=== PATIENT | female | born 1970 | race Caucasian/White ===

== ENCOUNTER 2016-11-30 22:26 | Emergency (ER) | payer OTHER ==
[2016-11-30] MEDS ORDERED: CIPROFLOXACIN HCL 500 MG TAB PO STA (22:43)
[2016-11-30] MEDS ORDERED: CLINDAMYCIN 900 MG in DEXTROSE 5% IN WATER 50 ML IVPB STA ×2 (22:43)
[2016-11-30] MEDS ORDERED: DIPH,PERTUS(ACELL)TETVAC-LF 0.5 ML VIAL IM ONE (22:44)
--- NOTE | 2016-11-30 22:48 | ED ---
Animal Bite HPI - General Chief Complaint: Animal Bite Stated Complaint: Animal Bite & Scratch Time Seen by Provider: 11/30/16 22:35 Source: patient, RN notes reviewed Mode of arrival: ambulatory Limitations: no limitations - History of Present Illness Initial Comments: This is a pleasant right hand dominant 46-year-old female who presents emergency department after being bit by her cat this morning. Patient states that she has multiple puncture wounds and a few scratches to her right wrist area after she had to break 2 for cancer from fighting. Patient states she has a cat and it can be observed. She states the cat is well. She states the cat' s temperamental. Cat is up-to-date on immunizations. Patient states that the injury occurred this morning and she has had progressive pain throughout the day. Patient states she is having quite a lot of throbbing pain to the right wrist which is exacerbated by movement. Patient is also starting to get paresthesias into the hand. Patient denies any known fever. Patient denies any other injuries. Last tetanus is unknown. Patient is an insulin treated diabetic. Patient denies any shortness of breath or chest pain. No abdominal pain. No headache. No dizziness or lightheadedness. No changes in vision or hearing. No changes in bowel movements or urination. MD Complaint: animal bite - Related Data Home Medications Medication Instructions Recorded Confirmed DULoxetine HCL [Cymbalta] 60 mg PO DAILY 09/24/14 09/24/14 Ergocalciferol [Vitamin D2 50,000 unit PO Q7D 09/24/14 09/24/14 (DRISDOL)] Gabapentin [Neurontin] 600 mg PO BID 09/24/14 09/24/14 Ibuprofen [Motrin] 600 mg PO BID 09/24/14 09/24/14 Lisinopril-Hctz 20-12.5 mg 1 each PO DAILY 09/24/14 09/24/14 [Zestoretic 20-12.5] Loratadine [Claritin] 5 mg PO DAILY 09/24/14 09/24/14 Methocarbamol [Robaxin] 1 tab PO BID 09/24/14 09/24/14 Omeprazole [PriLOSEC] 20 mg PO AC-BRKFST 09/24/14 09/24/14 glipiZIDE [Glucotrol] 5 mg PO AC-BID 09/24/14 09/24/14 metFORMIN HCL [Glucophage] 500 mg PO BID 09/24/14 09/24/14 Previous Rx's Medication Instructions Recorded Ciprofloxacin HCl [Cipro] 500 mg PO Q12HR #20 tablet 11/30/16 Clindamycin [Cleocin] 300 mg PO Q6H #80 capsule 11/30/16 Allergies Allergy/AdvReac Type Severity Reaction Status Date / Time Penicillins Allergy Swelling Verified 09/24/14 06:41 pregabalin [From Lyrica] Allergy Rash/Hives Verified 09/24/14 06:41 Sulfa (Sulfonamide Allergy Swelling Verified 09/24/14 06:41 Antibiotics) Review of Systems ROS Statement: Those systems with pertinent positive or pertinent negative responses have been documented in the HPI. ROS Other: All systems not noted in ROS Statement are negative. Past Medical History Past Medical History: Diabetes Mellitus, Fibromyalgia, GERD/Reflux, Hypertension Additional Past Medical History / Comment(s): neurpathy, high cholesterol. history of a PE. OB history: 1 vag delivery and 1 , pancreatits, hx of mono History of Any Multi-Drug Resistant Organisms: None Reported Past Surgical History: Cholecystectomy Past Anesthesia/Blood Transfusion Reactions: Motion Sickness, No Reported Reaction Past Psychological History: Anxiety, Depression Smoking Status: Current every day smoker Past Alcohol Use History: None Reported Past Drug Use History: None Reported General Exam - General Exam Comments Initial Comments: Well-developed, well-nourished 46-year-old female in no distress Limitations: no limitations General appearance: alert, in no apparent distress, in distress Head exam: Present: atraumatic, normocephalic, normal inspection Eye exam: Present: normal appearance, PERRL, EOMI. Absent: scleral icterus, conjunctival injection, periorbital swelling ENT exam: Present: normal exam, mucous membranes moist Neck exam: Present: normal inspection, full ROM. Absent: tenderness, meningismus, lymphadenopathy Respiratory exam: Present: normal lung sounds bilaterally. Absent: respiratory distress, wheezes, rales, rhonchi, stridor Cardiovascular Exam: Present: regular rate, normal rhythm, normal heart sounds. Absent: systolic murmur, diastolic murmur, rubs, gallop, clicks GI/Abdominal exam: Present: soft, normal bowel sounds. Absent: distended, tenderness, guarding, rebound, rigid Extremities exam: Present: tenderness, normal capillary refill. Absent: normal inspection, full ROM Right Upper Arm exam: Present: normal inspection. Absent: tenderness Elbow exam: Present: normal inspection, full ROM. Absent: tenderness, swelling , abrasion Forearm Wrist exam: Present: tenderness, swelling, other (Patient has multiple, small puncture wounds involving the right wrist area. Radial pulses 2+, ulnar pulses 2+, capillary refill less than 2 seconds, distal sensation is intact, patient has mild erythema surrounding one of the puncture wounds. There is no drainage. No evidence of lymphangitis. No evidence of axillary adenopathy. No evidence of vascular compromise.). Absent: laceration, ecchymosis, deformity Neuro motor exam: Present: wrist extension intact, thumb opposition intact, thumb IP flexion intact, thumb adduction intact, fingers 2-5 abduction intact Vascular: Absent: vascular compromise Back exam: Present: normal inspection Neurological exam: Present: alert, oriented X3, CN II-XII intact Psychiatric exam: Present: normal affect, normal mood Skin exam: Present: warm, dry, intact, normal color. Absent: rash Course Vital Signs 11/30/16 22:31 Temperature 98.3 F Pulse Rate 90 Respiratory 18 Rate Blood Pressure 176/95 O2 Sat by Pulse 100 Oximetry Medical Decision Making - Medical Decision Making Patient educated on signs and symptoms of worsening infection. Patient educated on wound care. Patient educated on follow-up. Return parameters discussed Disposition Clinical Impression: Cat bite, Puncture wound of wrist, right Disposition: HOME SELF-CARE Condition: Good Instructions: Animal Bite (ED) Additional Instructions: Soak the affected area in warm soap and water for 10-15 minutes at a time several times per day. Return to the ER for reevaluation within 48 hours or at any time if symptoms worsen, fever develops, or any other problems arise. Take all antibiotics as directed. Make an appointment with your physician on Saturday for follow-up. Prescriptions: Ciprofloxacin HCl [Cipro] 500 mg PO Q12HR #20 tablet Clindamycin [Cleocin] 300 mg PO Q6H #80 capsule Referrals: Marcy Rocha MD [Primary Care Provider] - 1-2 days Time of Disposition: 23:05
[2016-11-30] MEDS ORDERED: KETOROLAC 30 MG/ML 1 ML VIAL IVP STA (22:49)
[2016-11-30 23:17] LABS: Basophils # (A) 0.1 k/uL (0-0.2); Basophils % (A) 1 %; CH 32.2; CHCM 35.6; Eosinophils # (A) 0.1 k/uL (0-0.7); Eosinophils % (A) 1 %; HCT 40.5 % (34.0-46.0); Luc # (Auto) 0.23; Luc % (Auto) 2; Lymphocytes # (A) 2.8 k/uL (1.0-4.8); Lymphocytes % (A) 28 %; MCH 31.4 pg (25.0-35.0); MCHC 34.6 g/dL (31.0-37.0); MCV 90.7 fL (80.0-100.0); Mean Platelet Volume 6.4; Monocytes # (A) 0.4 k/uL (0-1.0); Monocytes % (A) 4 %; Neutrophils # (A) 6.2 k/uL (1.3-7.7); Neutrophils % (A) 64 %; RBC 4.47 m/uL (3.80-5.40); RDW 13.7 % (11.5-15.5); WBC 9.8 k/uL (3.8-10.6); WBC (Perox) 9.76
--- NOTE | 2016-11-30 23:22 | XR ---
EXAM: XR Right Wrist Complete, 3 or More Views CLINICAL HISTORY: Reason: was attacked by her cat. Bite and scratch gonsalez on anterior and posterior aspect of RT wrist TECHNIQUE: Frontal, lateral and oblique views of the right wrist. COMPARISON: None FINDINGS: Bones/joints: No acute fracture or dislocation identified. Mild negative ulnar variance. Soft tissues: Soft tissue swelling about the wrist, most prominent along the volar aspect. Punctate density adjacent to the distal radial ulnar joint on frontal view appears to correlate with a punctate density in the volar soft tissues. IMPRESSION: Soft tissue swelling about the wrist, most prominent along the volar aspect. Punctate density in the volar soft tissues at the level of the radiocarpal joint, nonspecific. Radiopaque foreign body not entirely excluded.
[2016-11-30 23:26] LABS: Anion Gap 19 mmol/L; Blood Urea Nitrogen 14 mg/dL (7-17); Calcium 9.9 mg/dL (8.4-10.2); Carbon Dioxide 22 mmol/L (22-30); Chloride 97 mmol/L (98-107); Glucose 405 mg/dL (74-99); Non-African American GFR(MDRD) >60 (>60 ml/min/1.73 sqM); Potassium 4.5 mmol/L (3.5-5.1); Sodium 138 mmol/L (137-145)
[2016-12-01 00:22] VITALS: BP 165/80; PULSE 72; RESP 16; TEMP 98.2
== END 2016-12-01 00:15 | disposition home or self-care (01) ==
LOC: EC 22:26
DX: S61.531A Puncture wound without foreign body of right wrist, initial encounter (principal); K21.9 Gastro-esophageal reflux disease without esophagitis; I10 Essential (primary) hypertension; E11.9 Type 2 diabetes mellitus without complications; M79.7 Fibromyalgia; F41.9 Anxiety disorder, unspecified; F32.9 Major depressive disorder, single episode, unspecified; F17.200 Nicotine dependence, unspecified, uncomplicated; Z23 Encounter for immunization; Z79.899 Other long term (current) drug therapy; Z79.84 Long term (current) use of oral hypoglycemic drugs; Z88.0 Allergy status to penicillin; Z88.2 Allergy status to sulfonamides; Z88.8 Allergy status to other drugs, medicaments and biological substances; W55.01XA Bitten by cat, initial encounter
CPT/HCPCS: 99284; 96365; 96375; 90471; 36415; 80048; 85025; 87040; 73110; 90715; J1885

== ENCOUNTER 2017-06-08 16:41 | Observation (INO) | payer OTHER ==
[2017-06-08] MEDS ORDERED: RX INFO: IV CONTRAST WAS GIVEN 1 EACH MISC MISCELLANE PRN (17:20)
[2017-06-08] MEDS ORDERED: SODIUM CHLORIDE 0.9% 1,000 ML IV ONE (17:22)
[2017-06-08] MEDS ORDERED: METOCLOPRAMIDE 5 MG/ML 2 ML VIAL IVP STA (17:22)
[2017-06-08] MEDS ORDERED: diphenhydrAMINE 50 MG/ML 1 ML VIAL IVP STA (17:22)
--- NOTE | 2017-06-08 17:29 | ED ---
General Adult HPI - General Chief complaint: Abdominal Pain Stated complaint: Abd Pain Time Seen by Provider: 06/08/17 17:07 Source: patient Mode of arrival: ambulatory Limitations: no limitations - History of Present Illness Initial comments: [place] is a 46-year-old obese female with poorly controlled diabetes who presents to the emergency department today for evaluation of abdominal pain. She reports she was in her usual state of health yesterday, she did eat at a restaurant and went to bed. She reports that upon waking this morning she had an episode of diarrhea which is not atypical for her, she then developed severe abdominal cramping, nausea and a single episode nonbloody nonbilious emesis. Patient reports that throughout the day she has tried to sleep due to abdominal cramping. She hasn't felt like eating or drinking anything, she states that she is experiencing waves this nausea but not experienced any further vomiting. She reports that this evening she continued to have stabbing abdominal pain that radiates from the right lower quadrant to the right upper quadrant into her right shoulder. She denies ever having pain like this in the past. Patient does have a history of pancreatitis approximately 2 years ago but states that this pain is different from this. She has had her gallbladder removed. She has had ablation sterilization procedure therefore is not . Patient does report having RLQ abdominal pain 2 days ago but assumed this was a ruptured cyst. Pain resolved without any intervention. Patient reports that while sitting in the waiting room today she developed a migrainous headache, history of this. Headache is located around her left eye and associated with blurred vision and scotoma in the left eye. Patient reports that she experiences is every time she gets a migraine and this is unchanged from previous migraines. - Related Data Home Medications Medication Instructions Recorded Confirmed DULoxetine HCL [Cymbalta] 60 mg PO DAILY 09/24/14 06/08/17 Ibuprofen [Motrin] 600 mg PO BID 09/24/14 06/08/17 Lisinopril-Hctz 20-12.5 mg 1 tab PO DAILY 09/24/14 06/08/17 [Zestoretic 20-12.5] Loratadine [Claritin] 10 mg PO DAILY 09/24/14 06/08/17 Methocarbamol [Robaxin] 500 mg PO BID 09/24/14 06/08/17 Omeprazole [PriLOSEC] 20 mg PO DAILY 09/24/14 06/08/17 metFORMIN HCL [Glucophage] 500 mg PO BID 09/24/14 06/08/17 Allergies Allergy/AdvReac Type Severity Reaction Status Date / Time Penicillins Allergy Swelling Verified 06/08/17 17:59 pregabalin [From Lyrica] Allergy Rash/Hives Verified 06/08/17 17:59 Sulfa (Sulfonamide Allergy Swelling Verified 06/08/17 17:59 Antibiotics) Review of Systems ROS Statement: Those systems with pertinent positive or pertinent negative responses have been documented in the HPI. ROS Other: All systems not noted in ROS Statement are negative. Constitutional: Reports: chills Eyes: Reports: vision change ENT: Denies: ear pain, throat pain Respiratory: Denies: cough, dyspnea Cardiovascular: Denies: chest pain, palpitations Endocrine: Reports: fatigue Gastrointestinal: Reports: abdominal pain, nausea, vomiting, diarrhea Genitourinary: Reports: abnormal menses. Denies: urgency, dysuria Skin: Denies: rash, lesions Neurological: Reports: headache Psychiatric: Denies: anxiety, depression Hematological/Lymphatic: Reports: easy bruising. Denies: easy bleeding Past Medical History Past Medical History: Diabetes Mellitus, Fibromyalgia, GERD/Reflux, Hypertension Additional Past Medical History / Comment(s): neurpathy, high cholesterol. history of a PE. OB history: 1 vag delivery and 1 , pancreatits, hx of mono History of Any Multi-Drug Resistant Organisms: None Reported Past Surgical History: Section, Cholecystectomy, Uterine Ablation Past Anesthesia/Blood Transfusion Reactions: Motion Sickness, No Reported Reaction Past Psychological History: Anxiety, Depression Smoking Status: Former smoker Past Alcohol Use History: None Reported Past Drug Use History: None Reported General Exam Limitations: no limitations General appearance: alert, obese, other (appears uncomfortable) Head exam: Present: atraumatic, normocephalic Eye exam: Present: normal appearance, PERRL ENT exam: Present: normal exam Neck exam: Present: normal inspection Respiratory exam: Present: normal lung sounds bilaterally. Absent: respiratory distress, wheezes Cardiovascular Exam: Present: regular rate GI/Abdominal exam: Present: soft, distended, tenderness, normal bowel sounds. Absent: guarding, rebound Extremities exam: Present: normal inspection Back exam: Present: normal inspection Neurological exam: Present: alert, oriented X3 Skin exam: Present: warm, dry, intact Course Vital Signs 06/08/17 06/08/17 06/08/17 17:03 18:48 19:22 Temperature 98.6 F 98.3 F 98.5 F Pulse Rate 103 H 93 95 Respiratory 22 18 18 Rate Blood Pressure 180/90 167/82 155/81 O2 Sat by Pulse 96 95 93 L Oximetry Medical Decision Making - Medical Decision Making Patient was seen and evaluated History obtained from patient and family at bedside VItal signs reviewed - afebrile, tachycardic Labs, imaging, medications ordered Labs with only mild leukocytosis CT with acute on chronic colitis at this time I feel the patient requires inpatient admission for pain management and fluid rehydration, I do not believe the patient requires empiric antibiotics at this time Patient care was discussed with Juan MOORE for [facility] hospitalist group, she accepts the admission for acute on chronic colitis she agrees with the plan to hold empiric antibiotics at this time admission orders placed - Lab Data Result diagrams: 06/08/17 17:50 06/08/17 17:50 Lab Results 06/08/17 06/08/17 06/08/17 Range/Units 17:50 17:50 17:50 WBC 12.8 H (3.8-10.6) k/uL RBC 4.35 (3.80-5.40) m/uL Hgb 13.1 (11.4-16.0) gm/dL Hct 38.1 (34.0-46.0) % MCV 87.5 (80.0-100.0) fL MCH 30.0 (25.0-35.0) pg MCHC 34.3 (31.0-37.0) g/dL RDW 13.8 (11.5-15.5) % Plt Count 248 (150-450) k/uL Neutrophils % 82 % Lymphocytes % 12 % Monocytes % 4 % Eosinophils % 1 % Basophils % 0 % Neutrophils # 10.4 H (1.3-7.7) k/uL Lymphocytes # 1.6 (1.0-4.8) k/uL Monocytes # 0.5 (0-1.0) k/uL Eosinophils # 0.1 (0-0.7) k/uL Basophils # 0.1 (0-0.2) k/uL Sodium 137 (137-145) mmol/L Potassium 4.1 (3.5-5.1) mmol/L Chloride 101 (98-107) mmol/L Carbon Dioxide 22 (22-30) mmol/L Anion Gap 14 mmol/L BUN 12 (7-17) mg/dL Creatinine 0.42 L (0.52-1.04) mg/dL Est GFR (MDRD) Af Amer >60 (>60 ml/min/1.73 sqM) Est GFR (MDRD) Non-Af >60 (>60 ml/min/1.73 sqM) Glucose 272 H (74-99) mg/dL Calcium 9.5 (8.4-10.2) mg/dL Magnesium 1.1 L (1.6-2.3) mg/dL Total Bilirubin 0.6 (0.2-1.3) mg/dL AST 26 (14-36) U/L ALT 21 (9-52) U/L Alkaline Phosphatase 76 (38-126) U/L Troponin I <0.012 (0.000-0.034) ng/mL Total Protein 7.9 (6.3-8.2) g/dL Albumin 4.2 (3.5-5.0) g/dL Urine Color Urine Appearance (Clear) Urine pH (5.0-8.0) Ur Specific Blodgett (1.001-1.035) Urine Protein (Negative) Urine Glucose (UA) (Negative) Urine Ketones (Negative) Urine Blood (Negative) Urine Nitrite (Negative) Urine Bilirubin (Negative) Urine Urobilinogen (<2.0) mg/dL Ur Leukocyte Esterase (Negative) Urine RBC (0-5) /hpf Urine WBC (0-5) /hpf Ur Squamous Epith Cells (0-4) /hpf Urine Mucus (None) /hpf 06/08/17 Range/Units 17:50 WBC (3.8-10.6) k/uL RBC (3.80-5.40) m/uL Hgb (11.4-16.0) gm/dL Hct (34.0-46.0) % MCV (80.0-100.0) fL MCH (25.0-35.0) pg MCHC (31.0-37.0) g/dL RDW (11.5-15.5) % Plt Count (150-450) k/uL Neutrophils % % Lymphocytes % % Monocytes % % Eosinophils % % Basophils % % Neutrophils # (1.3-7.7) k/uL Lymphocytes # (1.0-4.8) k/uL Monocytes # (0-1.0) k/uL Eosinophils # (0-0.7) k/uL Basophils # (0-0.2) k/uL Sodium (137-145) mmol/L Potassium (3.5-5.1) mmol/L Chloride (98-107) mmol/L Carbon Dioxide (22-30) mmol/L Anion Gap mmol/L BUN (7-17) mg/dL Creatinine (0.52-1.04) mg/dL Est GFR (MDRD) Af Amer (>60 ml/min/1.73 sqM) Est GFR (MDRD) Non-Af (>60 ml/min/1.73 sqM) Glucose (74-99) mg/dL Calcium (8.4-10.2) mg/dL Magnesium (1.6-2.3) mg/dL Total Bilirubin (0.2-1.3) mg/dL AST (14-36) U/L ALT (9-52) U/L Alkaline Phosphatase (38-126) U/L Troponin I (0.000-0.034) ng/mL Total Protein (6.3-8.2) g/dL Albumin (3.5-5.0) g/dL Urine Color Yellow Urine Appearance Clear (Clear) Urine pH 6.0 (5.0-8.0) Ur Specific Bl[place]gett 1.021 (1.001-1.035) Urine Protein 1+ H (Negative) Urine Glucose (UA) 4+ H (Negative) Urine Ketones Trace H (Negative) Urine Blood Trace H (Negative) Urine Nitrite Negative (Negative) Urine Bilirubin Negative (Negative) Urine Urobilinogen <2.0 (<2.0) mg/dL Ur Leukocyte Esterase Large H (Negative) Urine RBC 2 (0-5) /hpf Urine WBC 3 (0-5) /hpf Ur Squamous Epith Cells 1 (0-4) /hpf Urine Mucus Rare H (None) /hpf Disposition Clinical Impression: Colitis Disposition: ADMITTED IP TO THIS [facility] Condition: Good Referrals: Marcy Rocha MD [Primary Care Provider] - 1-2 days Decision Time: 20:31
[2017-06-08 18:14] LABS: Basophils # (A) 0.1 k/uL (0-0.2); Basophils % (A) 0 %; CH 30.8; CHCM 35.3; Eosinophils # (A) 0.1 k/uL (0-0.7); Eosinophils % (A) 1 %; HCT 38.1 % (34.0-46.0); HDW 2.82; HGB 13.1 gm/dL (11.4-16.0); Luc # (Auto) 0.08; Luc % (Auto) 1; Lymphocytes # (A) 1.6 k/uL (1.0-4.8); Lymphocytes % (A) 12 %; MCHC 34.3 g/dL (31.0-37.0); MCV 87.5 fL (80.0-100.0); Mean Platelet Volume 7.3; Monocytes # (A) 0.5 k/uL (0-1.0); Monocytes % (A) 4 %; Neutrophils # (A) 10.4 k/uL (1.3-7.7); Neutrophils % (A) 82 %; RBC 4.35 m/uL (3.80-5.40); RDW 13.8 % (11.5-15.5); WBC 12.8 k/uL (3.8-10.6); WBC (Perox) 13.14
[2017-06-08 18:15] LABS: Appearance,Urine Clear (Clear); Bilirubin,Urine Negative (Negative); Glucose,Urine (UA) 4+ (Negative); Ketones,Urine Trace (Negative); Leukocyte Esterase,Urine Large (Negative); Mucus,Urine Rare /hpf; Nitrite,Urine Negative (Negative); Particle Count 2574; Protein,Urine 1+ (Negative); RBC,Urine 2 /hpf (0-5); Specific Gravity,Urine 1.021 (1.001-1.035); Squamous Epithelial Cell,Urine 1 /hpf (0-4); UA Billing (MACRO vs. MICRO) MICRO; Urobilinogen,Urine <2.0 mg/dL (<2.0); WBC,Urine 3 /hpf (0-5)
[2017-06-08 18:27] LABS: ALT 21 U/L (9-52); AST 26 U/L (14-36); Alkaline Phosphatase 76 U/L (38-126); Anion Gap 14 mmol/L; Blood Urea Nitrogen 12 mg/dL (7-17); Calcium 9.5 mg/dL (8.4-10.2); Carbon Dioxide 22 mmol/L (22-30); Chloride 101 mmol/L (98-107); Glucose 272 mg/dL (74-99); Magnesium 1.1 mg/dL (1.6-2.3); Non-African American GFR(MDRD) >60 (>60 ml/min/1.73 sqM); Potassium 4.1 mmol/L (3.5-5.1); Sodium 137 mmol/L (137-145); Total Bilirubin 0.6 mg/dL (0.2-1.3); Total Protein 7.9 g/dL (6.3-8.2)
[2017-06-08] MEDS ORDERED: INSULIN REGULAR 100 UNIT/ML VIAL SQ ONE (18:46)
[2017-06-08] MEDS ORDERED: MORPHINE SULFATE 4 MG/ML SYRINGE IVP STA (18:52)
[2017-06-08] MEDS: MAGNESIUM SULFATE-D5W PMX 1 GM in DEXTROSE/WATER 1 100ML.BAG IVPB SCH ×2 (19:21→20:47)
--- NOTE | 2017-06-08 19:26 | CT ---
EXAMINATION TYPE: CT abdomen pelvis w con DATE OF EXAM: 06/08/2017 HISTORY: Patient complains of epigastric to right flank pain. CT DLP: 850mGycm Automated Exposure Control for Dose Reduction was Utilized. CONTRAST: CT scan of the abdomen and pelvis is performed with IV Contrast, patient injected with 100 mL of Omni paque 300. COMPARISON: None. FINDINGS: LUNG BASES: Scattered areas of subsegmental bibasilar dependent atelectasis are noted as well as line ar pleural minimal scarring within the lingula. Focal area of subpleural fat is seen posteriorly cristobal g the left lung base. LIVER/GB: The liver is diffusely hypoattenuated and of decreased enhancement in comparison to that of the spleen. This is most compatible with mild hepatic steatosis. Liver contour is smooth without inez dence of hepatic cirrhosis. Gallbladder is surgically absent with cholecystectomy clips in the gallbl adder fossa. PANCREAS: No significant abnormality is seen. No ductal dilatation. SPLEEN: Spleen is prominent and elongated measuring 13.0 cm in craniocaudal dimension although does n ot meet diagnostic criteria for splenomegaly. ADRENALS: Adrenal glands are symmetric without nodularity. KIDNEYS: No evidence of hydronephrosis or gross evidence of nephrolithiasis. Kidneys enhance and excr ete symmetrically.. BOWEL: There is mild bowel wall thickening and subtle pericolonic fat stranding of the ascending colo n, hepatic flexure and portions of the proximal transverse colon. Submucosal fat is also seen that ca n be an indicator of chronicity. Mesenteric fat stranding is an indicator of acuity. Appendix is retr ocecal and within normal limits of size. There is no thickening of the terminal ileum. A small amount of dependent free fluid layers on the broad ligament on series 3 image 68 and 69. There is mild thic kening of the right lateral conal fascia, reactive in nature. UTERUS/ADNEXA: In the retrovesicular pouch of Jose Alfredo there is a high density rounded structure measu ring 5.9 x 5 point to by at least 6.9 cm. This could represent a complex ovarian or paraovarian struc ture as the left ovary appears to reside on series 3 image 66 or anteriorly contiguous with this stru cture. LYMPH NODES: No greater than 1cm abdominal or pelvic lymph nodes are appreciated. OSSEOUS STRUCTURES: Multilevel mild degenerative change of the thoracolumbar spine is noted OTHER: Single surgical clip lies within the infraumbilical ventral midline abdomen. IMPRESSION:. 1. Mild acute right hemicolonic colitis with submucosal/intramural fat suggestive of acute on chronic process. No thickening of the terminal ileum. Inflammatory bowel disease should be excluded. Small a mount of reactive ascites layers along the broad ligament. No focal fluid collection to suggest absce ss or pneumoperitoneum. 2. Complex left ovarian/paraovarian structure in the pouch of Jose Alfredo. Differential considerations ar e for endometrioma, hemorrhagic cyst, ovarian neoplasm, or less likely ovarian torsion given the lack of left lower quadrant pain. Pelvic ultrasound could be performed for further evaluation. 3. Prominent size of the spleen approaching diagnostic criteria for splenomegaly. 4. Mild hepatic steatosis.
[2017-06-08] MEDS ORDERED: MORPHINE SULFATE 4 MG/ML SYRINGE IV PRN (20:33)
[2017-06-08] MEDS ORDERED: ONDANSETRON 4 MG/2 ML VIAL IVP PRN (20:33)
[2017-06-08] MEDS ORDERED: NALOXONE 0.4 MG/ML 1 ML VIAL IV PRN (20:33)
[2017-06-08] MEDS: METHOCARBAMOL 500 MG TAB PO SCH (21:43)
[2017-06-08] MEDS: IBUPROFEN 400 MG TAB PO PRN (21:43)
[2017-06-08] MEDS: metFORMIN 500 MG TAB PO SCH (21:44)
[2017-06-08] MEDS: 0.9% NACL WITH KCL 20 MEQ/L 1,000 ML IV SCH (21:44)
[2017-06-09] MEDS: 0.9% NACL WITH KCL 20 MEQ/L 1,000 ML IV SCH ×3 (04:02→17:48)
[2017-06-09] MEDS: IBUPROFEN 400 MG TAB PO PRN (06:52)
[2017-06-09 07:00] VITALS: RESP 14
[2017-06-09 07:00] LABS: Basophils % (A) 0 %; CH 30.7; CHCM 33.8; Eosinophils # (A) 0.1 k/uL (0-0.7); Eosinophils % (A) 1 %; HDW 2.74; HGB 11.6 gm/dL (11.4-16.0); Luc # (Auto) 0.06; Luc % (Auto) 1; Lymphocytes # (A) 1.2 k/uL (1.0-4.8); Lymphocytes % (A) 15 %; MCH 29.4 pg (25.0-35.0); MCHC 32.1 g/dL (31.0-37.0); MCV 91.4 fL (80.0-100.0); Mean Platelet Volume 7.2; Monocytes # (A) 0.3 k/uL (0-1.0); Monocytes % (A) 4 %; Neutrophils # (A) 6.2 k/uL (1.3-7.7); Neutrophils % (A) 79 %; RBC 3.94 m/uL (3.80-5.40); WBC 7.8 k/uL (3.8-10.6); WBC (Perox) 8.23
[2017-06-09 07:13] LABS: Anion Gap 8 mmol/L; Blood Urea Nitrogen 8 mg/dL (7-17); Calcium 8.2 mg/dL (8.4-10.2); Carbon Dioxide 22 mmol/L (22-30); Chloride 104 mmol/L (98-107); Glucose 255 mg/dL (74-99); Non-African American GFR(MDRD) >60 (>60 ml/min/1.73 sqM); Sodium 134 mmol/L (137-145)
[2017-06-09 07:17] LABS: Potassium 4.2 mmol/L (3.5-5.1)
[2017-06-09 07:17] LABS: Glucose,Whole Blood 274 mg/dL (75-99)
[2017-06-09] MEDS: INSULIN ASPART 100 UNIT/ML 1 ML 10 ML VIAL SQ SCH ×2 (08:32→12:15)
[2017-06-09] MEDS: METHOCARBAMOL 500 MG TAB PO SCH (08:33)
[2017-06-09] MEDS: metFORMIN 500 MG TAB PO SCH (08:33)
[2017-06-09] MEDS ORDERED: DULoxetine HCL 60 MG CAPSULE.DR PO SCH (09:00)
[2017-06-09] MEDS ORDERED: LISINOPRIL-HCTZ 20-12.5 MG 1 EACH TAB PO SCH (09:00)
[2017-06-09] MEDS: ACETAMINOPHEN TAB 325 MG TAB PO PRN ×2 (10:47→16:48)
[2017-06-09 11:35] LABS: Glucose,Whole Blood 247 mg/dL (75-99)
[2017-06-09] MEDS ORDERED: PANTOPRAZOLE 40 MG TABLET PO SCH (11:45)
[2017-06-09] MEDS ORDERED: LEVOFLOXACIN 500MG-D5W PMX 500 MG in DEXTROSE/WATER 1 100ML.BAG IVPB SCH (12:00)
[2017-06-09] MEDS: metroNIDAZOLE 500 MG TAB PO SCH ×2 (12:15→16:50)
[2017-06-09] MEDS: MAGNESIUM SULFATE-D5W PMX 1 GM in DEXTROSE/WATER 1 100ML.BAG IVPB SCH ×4 (13:23→16:43)
--- NOTE | 2017-06-09 14:31 | P.HPIM ---
History of Present Illness 46-year-old female came in with comments of abdominal pain mostly in the right half of the abdomen it was 9 x 10 in severity sharp in nature which presently improved now. Patient is presently comparing of epigastric abdominal discomfort and nausea secondary to gastritis. Patient is found to have colitis in the ascending colon terminal ileum is essentially within normal limits denied any family history of Crohn's disease patient had a colonoscopy 2 years ago which showed polyps supposed to get a colonoscopy as an outpatient by Dr. Callejas general surgery. Patient denied any fever chills patient was having nausea, diarrhea completely resolved at this point of time patient still has some abdominal pain. We'll advance the diet patient was started on now levofloxacin and metronidazole and will be discharged today later in the day. Review of Systems REVIEW OF SYSTEMS: CONSTITUTIONAL: No fever, no malaise, no fatigue. HEENT: No recent visual problems or hearing problems. Denied any sore throat. CARDIOVASCULAR: No chest pain, orthopnea, PND, no palpitations, no syncope. PULMONARY: No shortness of breath, no cough, no hemoptysis. GI As described in HPI NEUROLOGICAL: No headaches, no weakness, no numbness. HEMATOLOGICAL: Denies any bleeding or petechiae. GENITOURINARY: Denies any burning micturition, frequency, or urgency. MUSCULOSKELETAL/RHEUMATOLOGICAL: Denies any joint pain, swelling, or any muscle pain. ENDOCRINE: Denies any polyuria or polydipsia. The rest of the 14-point review of systems is negative. Past Medical History Past Medical History: Diabetes Mellitus, Fibromyalgia, GERD/Reflux, Hypertension Additional Past Medical History / Comment(s): neurpathy, high cholesterol. history of a PE. OB history: 1 vag delivery and 1 , pancreatits, hx of mono History of Any Multi-Drug Resistant Organisms: None Reported Past Surgical History: Section, Cholecystectomy, Uterine Ablation Past Anesthesia/Blood Transfusion Reactions: Previous Problems w/ Anesthesia, Motion Sickness Additional Past Anesthesia/Blood Transfusion Reaction / Comment(s): pt stays trouble waking up after choly Past Psychological History: Anxiety, Depression Smoking Status: Former smoker Past Alcohol Use History: None Reported Past Drug Use History: None Reported Medications and Allergies Home Medications Medication Instructions Recorded Confirmed Type DULoxetine HCL [Cymbalta] 60 mg PO DAILY 09/24/14 06/08/17 History Lisinopril-Hctz 20-12.5 mg 1 tab PO DAILY 09/24/14 06/08/17 History [Zestoretic 20-12.5] Loratadine [Claritin] 10 mg PO DAILY 09/24/14 06/08/17 History Methocarbamol [Robaxin] 500 mg PO BID 09/24/14 06/08/17 History Omeprazole [PriLOSEC] 20 mg PO DAILY 09/24/14 06/08/17 History metFORMIN HCL [Glucophage] 500 mg PO BID 09/24/14 06/08/17 History HYDROcodone/APAP 7.5-325MG [[place] 1 tab PO Q4H PRN #20 tab 06/09/17 Rx 7.5-325] Levofloxacin [Levaquin] 500 mg PO DAILY #7 tab 06/09/17 Rx metroNIDAZOLE [Flagyl] 500 mg PO TID #21 tab 06/09/17 Rx Allergies Allergy/AdvReac Type Severity Reaction Status Date / Time Penicillins Allergy Swelling Verified 06/08/17 17:59 pregabalin [From Lyrica] Allergy Rash/Hives Verified 06/08/17 17:59 Sulfa (Sulfonamide Allergy Swelling Verified 06/08/17 17:59 Antibiotics) Physical Exam Vitals: Vital Signs Temp Pulse Pulse Resp BP BP Pulse Ox 06/09/17 07:58 14 06/09/17 06:53 98.2 F 93 14 163/84 95 06/09/17 02:17 95 18 145/86 91 L 06/08/17 21:14 98.7 F 90 18 132/77 96 06/08/17 20:50 97.8 F 100 18 134/80 97 06/08/17 19:22 98.5 F 95 18 155/81 93 L 06/08/17 18:48 98.3 F 93 18 167/82 95 06/08/17 17:03 98.6 F 103 H 22 180/90 96 Intake and Output 06/08/17 06/09/17 06/09/17 22:59 06:59 14:59 Intake Total 300 1300 1200 Balance 300 1300 1200 Intake: Intake, IV Titration 100 1300 1200 Amount 0.9% NaCl with KCl 20 Meq 1200 1000 /l 1,000 ml @ 150 mls/hr IV .Q6H40M [facility] Rx#: [id number] Levofloxacin 500Mg-D5w 100 Pmx 500 mg In Dextrose/ Water 1 100ml.bag @ 100 mls/hr IVPB Q24H [facility] Rx#: [id number] Magnesium Sulfate-D5w Pmx 100 100 1 gm In Dextrose/Water 1 100ml.bag @ 100 mls/hr IVPB Q1H [facility] Rx#: [id number] Magnesium Sulfate-D5w Pmx 100 1 gm In Dextrose/Water 1 100ml.bag @ 100 mls/hr IVPB Q1H [facility] Rx#: [id number] Oral 200 Other: Voiding Method Toilet # Voids 2 Weight 74.843 kg PHYSICAL EXAMINATION: GENERAL: The patient is alert and oriented x3, not in any acute distress. Well developed, well nourished. HEENT: Pupils are round and equally reacting to light. EOMI. No scleral icterus. No conjunctival pallor. Normocephalic, atraumatic. No pharyngeal erythema. No thyromegaly. CARDIOVASCULAR: S1 and S2 present. No murmurs, rubs, or gallops. PULMONARY: Chest is clear to auscultation, no wheezing or crackles. ABDOMEN: Soft, minimal right sided abdominal tenderness no rebound or rigidity, good bowel sounds minimal epigastric abdominal tenderness as well. MUSCULOSKELETAL: No joint swelling or deformity. EXTREMITIES: No cyanosis, clubbing, or pedal edema. NEUROLOGICAL: Gross neurological examination did not reveal any focal deficits. SKIN: No rashes. Results CBC & Chem 7: 06/09/17 06:30 06/09/17 06:30 Labs: Abnormal Lab Results - Last 24 Hours (Table) 06/08/17 06/08/17 06/08/17 Range/Units 17:50 17:50 17:50 WBC 12.8 H (3.8-10.6) k/uL Neutrophils # 10.4 H (1.3-7.7) k/uL Sodium (137-145) mmol/L Creatinine 0.42 L (0.52-1.04) mg/dL Glucose 272 H (74-99) mg/dL POC Glucose (mg/dL) (75-99) mg/dL Calcium (8.4-10.2) mg/dL Magnesium 1.1 L (1.6-2.3) mg/dL Urine Protein 1+ H (Negative) Urine Glucose (UA) 4+ H (Negative) Urine Ketones Trace H (Negative) Urine Blood Trace H (Negative) Ur Leukocyte Esterase Large H (Negative) Urine Mucus Rare H (None) /hpf 06/09/17 06/09/17 06/09/17 Range/Units 06:30 07:16 11:32 WBC (3.8-10.6) k/uL Neutrophils # (1.3-7.7) k/uL Sodium 134 L (137-145) mmol/L Creatinine 0.40 L (0.52-1.04) mg/dL Glucose 255 H (74-99) mg/dL POC Glucose (mg/dL) 274 H 247 H (75-99) mg/dL Calcium 8.2 L (8.4-10.2) mg/dL Magnesium (1.6-2.3) mg/dL Urine Protein (Negative) Urine Glucose (UA) (Negative) Urine Ketones (Negative) Urine Blood (Negative) Ur Leukocyte Esterase (Negative) Urine Mucus (None) /hpf Thrombosis Risk Factor Assmnt - Choose All That Apply Any of the Below Risk Factors Present?: Yes Each Factor Represents 1 point: Age 41-60 years, Obesity (BMI >25) Each Risk Factor Represents 3 Points: History of DVT/PE Thrombosis Risk Factor Assessment Total Risk Factor Score: 5 Thrombosis Risk Factor Assessment Level: High Risk Assessment and Plan Plan: #1 colitis :: Mostly infectious colitis will and a colonoscopy once her colitis is better to rule out Crohn's disease and other types of colitis. We will advance her diet and patient is able to tolerate patient will be discharged today. 2 peptic is a disease or gastric esophageal reflux disease: Patient will be discharged on Prilosec patient is an approximately 2 discontinued and instead will provide her [place] prescription. 3 type 2 diabetes mellitus: Uncontrolled blood sugars patient's metformin will be increased to thousand twice a day #4 hypertension #5 fibromyalgia
--- NOTE | 2017-06-09 14:31 | P.DS ---
Providers Date of admission: 06/08/17 20:35 Attending physician: Vinita Camarena Primary care physician: Marcy Rocha [facility] Course: As per HPI Patient Condition at Discharge: Good Plan - Discharge Summary New Discharge Prescriptions: New HYDROcodone/APAP 7.5-325MG [[place] 7.5-325] 1 tab PO Q4H PRN #20 tab PRN Reason: Pain Levofloxacin [Levaquin] 500 mg PO DAILY #7 tab metroNIDAZOLE [Flagyl] 500 mg PO TID #21 tab Discontinued Ibuprofen [Motrin] 600 mg PO BID No Action Loratadine [Claritin] 10 mg PO DAILY Lisinopril-Hctz 20-12.5 mg [Zestoretic 20-12.5] 1 tab PO DAILY Omeprazole [PriLOSEC] 20 mg PO DAILY DULoxetine HCL [Cymbalta] 60 mg PO DAILY metFORMIN HCL [Glucophage] 500 mg PO BID Methocarbamol [Robaxin] 500 mg PO BID Discharge Medication List DULoxetine HCL [Cymbalta] 60 mg PO DAILY 09/24/14 [History] Lisinopril-Hctz 20-12.5 mg [Zestoretic 20-12.5] 1 tab PO DAILY 09/24/14 [History ] Loratadine [Claritin] 10 mg PO DAILY 09/24/14 [History] Methocarbamol [Robaxin] 500 mg PO BID 09/24/14 [History] Omeprazole [PriLOSEC] 20 mg PO DAILY 09/24/14 [History] metFORMIN HCL [Glucophage] 500 mg PO BID 09/24/14 [History] HYDROcodone/APAP 7.5-325MG [[place] 7.5-325] 1 tab PO Q4H PRN #20 tab 06/09/17 [Rx ] Levofloxacin [Levaquin] 500 mg PO DAILY #7 tab 06/09/17 [Rx] metroNIDAZOLE [Flagyl] 500 mg PO TID #21 tab 06/09/17 [Rx] Follow up Appointment(s)/Referral(s): Marcy Rocha MD [Primary Care Provider] - 3 Days Discharge Disposition: HOME SELF-CARE
[2017-06-09 16:33] VITALS: BP 137/78; PULSE 92; TEMP 98.3
== END 2017-06-09 17:47 | disposition home or self-care (01) ==
LOC: EC 16:41 → 3SUR 20:35 → INTOOBSV 20:35
PROVIDERS: ADMIT Internal Medicine; ATTEND Internal Medicine
DX: A09 Infectious gastroenteritis and colitis, unspecified (principal); E11.42 Type 2 diabetes mellitus with diabetic polyneuropathy; I10 Essential (primary) hypertension; M79.7 Fibromyalgia; K29.70 Gastritis, unspecified, without bleeding; F41.9 Anxiety disorder, unspecified; F32.9 Major depressive disorder, single episode, unspecified; E78.00 Pure hypercholesterolemia, unspecified; G43.909 Migraine, unspecified, not intractable, without status migrainosus; E66.9 Obesity, unspecified; Z68.31 Body mass index [BMI] 31.0-31.9, adult; K21.9 Gastro-esophageal reflux disease without esophagitis; Z79.84 Long term (current) use of oral hypoglycemic drugs; Z79.899 Other long term (current) drug therapy; Z88.0 Allergy status to penicillin; Z88.2 Allergy status to sulfonamides; Z88.8 Allergy status to other drugs, medicaments and biological substances; Z87.891 Personal history of nicotine dependence; Z86.711 Personal history of pulmonary embolism; Z86.010 Personal history of colon polyps; Z98.890 Other specified postprocedural states
CPT/HCPCS: 96376; 96366 ×2; 96367; 96361; 96365; 96375; 99285; 36415; 80053; 80048; 83735; 84484; 85025 ×2; 81001; 74177; G0378 ×2; J2270 ×2; J1200; J2765; J1956; J3475 ×2; Q9967; 96374

== ENCOUNTER 2017-06-11 00:01 | Emergency (ER) | payer OTHER ==
[2017-06-11] MEDS ORDERED: SODIUM CHLORIDE 0.9% 500 ML IV STA (00:58)
[2017-06-11] MEDS ORDERED: METOCLOPRAMIDE 5 MG/ML 2 ML VIAL IVP STA (00:58)
[2017-06-11] MEDS ORDERED: KETOROLAC 30 MG/ML 1 ML VIAL IVP STA (00:58)
[2017-06-11] MEDS ORDERED: diphenhydrAMINE 50 MG/ML 1 ML VIAL IVP STA (00:58)
--- NOTE | 2017-06-11 01:49 | CT ---
EXAMINATION TYPE: CT brain wo con DATE OF EXAM: 06/11/2017 COMPARISON: NONE HISTORY: headache CT DLP: 945.50 mGycm. Automated Exposure Control for Dose Reduction was Utilized. TECHNIQUE: CT scan of the head is performed without contrast. FINDINGS: Ventricles and sulci appear normal. There is no mass effect nor midline shift. There is n o sign of intracranial hemorrhage. The calvarium is intact. CONCLUSION: Negative CT scan of the brain.
[2017-06-11 02:02] VITALS: RESP 18
--- NOTE | 2017-06-11 02:29 | ED ---
Headache HPI - General Chief Complaint: Headache Stated Complaint: Headache x 3days/HTN-Revisit Time Seen by Provider: 06/11/17 00:41 Mode of arrival: ambulatory Limitations: no limitations - History of Present Illness Initial Comments: 46-year-old female patient presents to the emergency department today for evaluation of headache and high blood pressure. Patient states that headache started on Saturday around 4:30 in the afternoon. She states with the onset of headache she had "prisms" in her field of vision, these resolved rather quickly. She states that she was being seen for abdominal pain and vomiting in the emergency department at time of onset; she ended up being admitted for colitis. She states that she was discharged home on oral antibiotics. She states that her headache had persisted throughout her hospital stay here. She states that the headache has been constant over the last 3 days. She states that it is been consistently 7-8 out of 10 on the pain scale. She states that she did check her blood pressure at home tonight and was in the 170s systolic and over 100 diastolic. She is unsure if this could relate to her headache. She has been nauseated, however reports that she was nauseated and had vomiting prior to the headache onset. She denies any weakness, numbness, or tingling. She denies any blurred or double vision. She denies any neck or back pain. She denies any history of similar symptoms. Patient denies any recent rash, fever, chills, shortness breath, chest pain, abdominal pain, nausea, vomiting, diarrhea, constipation, back pain, hematuria, dysuria, urinary urgency, urinary frequency, or any other complaints. - Related Data Home Medications Medication Instructions Recorded Confirmed DULoxetine HCL [Cymbalta] 60 mg PO DAILY 09/24/14 06/08/17 Lisinopril-Hctz 20-12.5 mg 1 tab PO DAILY 09/24/14 06/08/17 [Zestoretic 20-12.5] Loratadine [Claritin] 10 mg PO DAILY 09/24/14 06/08/17 Methocarbamol [Robaxin] 500 mg PO BID 09/24/14 06/08/17 Omeprazole [PriLOSEC] 20 mg PO DAILY 09/24/14 06/08/17 metFORMIN HCL [Glucophage] 500 mg PO BID 09/24/14 06/08/17 Previous Rx's Medication Instructions Recorded HYDROcodone/APAP 7.5-325MG [[place] 1 tab PO Q4H PRN #20 tab 06/09/17 7.5-325] Levofloxacin [Levaquin] 500 mg PO DAILY #7 tab 06/09/17 metroNIDAZOLE [Flagyl] 500 mg PO TID #21 tab 06/09/17 Allergies Allergy/AdvReac Type Severity Reaction Status Date / Time Penicillins Allergy Swelling Verified 06/11/17 00:09 pregabalin [From Lyrica] Allergy Rash/Hives Verified 06/11/17 00:09 Sulfa (Sulfonamide Allergy Swelling Verified 06/11/17 00:09 Antibiotics) Review of Systems ROS Statement: Those systems with pertinent positive or pertinent negative responses have been documented in the HPI. ROS Other: All systems not noted in ROS Statement are negative. Past Medical History Past Medical History: Diabetes Mellitus, Fibromyalgia, GERD/Reflux, Hypertension Additional Past Medical History / Comment(s): neurpathy, high cholesterol. history of a PE. OB history: 1 vag delivery and 1 , pancreatits, hx of mono. colitis History of Any Multi-Drug Resistant Organisms: None Reported Past Surgical History: Section, Cholecystectomy, Uterine Ablation Past Anesthesia/Blood Transfusion Reactions: Previous Problems w/ Anesthesia, Motion Sickness Additional Past Anesthesia/Blood Transfusion Reaction / Comment(s): pt stays trouble waking up after choly Past Psychological History: Anxiety, Depression Smoking Status: Former smoker Past Alcohol Use History: None Reported Past Drug Use History: None Reported General Exam Limitations: no limitations General appearance: alert, in no apparent distress, other (This is a well- developed, well-nourished adult female patient in no acute distress. Vital signs upon presentation were temperature 99.7F, pulse 96, respirations 16, blood pressure 177/92, pulse ox 95% on room air.) Eye exam: Present: normal appearance, PERRL, EOMI. Absent: scleral icterus, conjunctival injection, nystagmus, periorbital swelling ENT exam: Present: normal exam, normal oropharynx, mucous membranes moist, TM's normal bilaterally Neck exam: Present: normal inspection. Absent: tenderness, meningismus, lymphadenopathy Respiratory exam: Present: normal lung sounds bilaterally. Absent: respiratory distress, wheezes, rales, rhonchi, stridor Cardiovascular Exam: Present: regular rate, normal rhythm, normal heart sounds. Absent: systolic murmur, diastolic murmur, rubs, gallop, clicks Neurological exam: Present: alert, oriented X3, CN II-XII intact, other ( Strength in all 4 extremities is 5/5.) Psychiatric exam: Present: normal affect, normal mood Skin exam: Present: warm, dry, intact, normal color. Absent: rash Course Vital Signs 06/11/17 06/11/17 00:06 02:02 Temperature 99.7 F H Pulse Rate 96 86 Respiratory 16 18 Rate Blood Pressure 177/92 139/71 O2 Sat by Pulse 95 96 Oximetry Medical Decision Making - Medical Decision Making 46-year-old female patient presented for evaluation of headache 3 days. Physical examination was unremarkable. Neurologic status intact. Patient did have elevated blood pressure upon arrival. Blood pressure did improve throughout stay. We did perform computed tomography scan of the brain as she has not had a headache similar to this in the past. CT of the brain was normal. Patient did receive IV fluids, pain medication, and Reglan here in the department. She states that she was feeling somewhat improved. She was given an additional dose of pain medication and discharged home. She was instructed to follow-up with her primary care physician for recheck and for further evaluation of the blood pressure and headaches. She is instructed to keep a headache and a blood pressure diary to take with her to her next appointment. She is instructed to return here immediately for any new, worsening, or concerning symptoms. She verbalized understanding and agreed with this plan. - Radiology Data Radiology results: report reviewed, image reviewed CT of the brain shows the ventricles and sulci appear normal. There is no mass effect nor midline shift. There is no sign of intracranial hemorrhage. The calvarium is intact. Conclusion by Dr. Pennington shows negative computed tomography scan of the brain. Disposition Clinical Impression: Acute headache Disposition: HOME SELF-CARE Condition: Good Instructions: Acute Headache (ED) Additional Instructions: Increase fluids. Take ibuprofen and tylenol for pain control. Follow-up with her primary care physician for further evaluation of the headaches. Return here immediately for any new, worsening, or concerning symptoms. Referrals: Marcy Rocha MD [Primary Care Provider] - 1-2 days Time of Disposition: 02:29
[2017-06-11] MEDS ORDERED: HYDROmorphone 1 MG/ML 1 ML SYRINGE IVP STA (02:38)
[2017-06-11] MEDS ORDERED: HYDROmorphone 2 MG/ML 1 ML SYRINGE IVP STA (03:03)
[2017-06-11 03:16] VITALS: BP 163/93; PULSE 90; TEMP 98.7
== END 2017-06-11 03:15 | disposition home or self-care (01) ==
LOC: EC 00:01
DX: R51 Headache (principal); R11.2 Nausea with vomiting, unspecified; E11.9 Type 2 diabetes mellitus without complications; M79.7 Fibromyalgia; K21.9 Gastro-esophageal reflux disease without esophagitis; I10 Essential (primary) hypertension; E11.40 Type 2 diabetes mellitus with diabetic neuropathy, unspecified; F32.9 Major depressive disorder, single episode, unspecified; F41.9 Anxiety disorder, unspecified; Z87.891 Personal history of nicotine dependence; Z88.0 Allergy status to penicillin; Z88.8 Allergy status to other drugs, medicaments and biological substances; Z88.2 Allergy status to sulfonamides; Z79.84 Long term (current) use of oral hypoglycemic drugs; Z79.899 Other long term (current) drug therapy
CPT/HCPCS: 99284; 96374; 96375 ×3; 96361; 70450; J1170; J1200; J2765; J1885

== ENCOUNTER → 2017-10-28 | Outpatient (CLI) | payer OTHER ==
[2017-10-28 11:49] LABS: Basophils % (A) 1 %; Eosinophils # (A) 0.1 k/uL (0-0.7); Eosinophils % (A) 2 %; HCT 36.7 % (34.0-46.0); HGB 12.8 gm/dL (11.4-16.0); Lymphocytes # (A) 3.5 k/uL (1.0-4.8); Lymphocytes % (A) 46 %; MCH 31.5 pg (25.0-35.0); MCV 89.8 fL (80.0-100.0); Monocytes # (A) 0.4 k/uL (0-1.0); Monocytes % (A) 5 %; Neutrophils # (A) 3.4 k/uL (1.3-7.7); Neutrophils % (A) 45 %; Platelet Count 259 k/uL (150-450); RBC 4.08 m/uL (3.80-5.40); RDW 12.6 % (11.5-15.5); WBC 7.6 k/uL (3.8-10.6)
[2017-10-28 11:59] LABS: Uric Acid 5.8 mg/dL (3.7-7.4)
[2017-10-28 14:19] LABS: Erythrocyte Sedimentation Rate 18 mm/hr (0-20)
[2017-10-28 15:38] LABS: Rheumatoid Factor 7 IU/mL (0-15)
[2017-10-28 18:09] LABS: Anti-DNA, DS unit <1.0 IU/mL; DNA Double-Stranded NEGATIVE (NEGATIVE)
[2017-10-29 10:27] LABS: HLA B27 NEGATIVE
== END | disposition home or self-care (01) ==
LOC: LABWHC1 11:05
PROVIDERS: ATTEND Orthopaedic Surgery
DX: M25.50 Pain in unspecified joint (principal)
CPT/HCPCS: 36415; 84550; 85025; 85652; 86038; 86140; 86225; 86431; 86812

== ENCOUNTER → 2017-12-02 | Day surgery (SDC) | payer OTHER ==
[~2017-12-02] MED LIST: LACTATED RINGERS 1,000 ML IV SCH; LIDOCAINE 1% 20 ML VIAL (10MG/ML) FOR IV START INTRADERMA ONE; LIDOCAINE 1% INJ 10MG/ML (20 ML MDV) ONE; PROPOFOL 10 MG/ML 20 ML VIAL IV ONE
[2017-12-02 11:36] VITALS: RESP 16; TEMP 98.7
[2017-12-02 11:51] LABS: Glucose,Whole Blood 287 mg/dL (75-99)
[2017-12-02 12:56] VITALS: BP 134/83; PULSE 84
--- NOTE | 2017-12-03 00:26 | P.PCN ---
Date of Procedure: 12/02/17 Procedure(s) Performed: Procedure: 1. Esophagogastroduodenoscopy and biopsy. 2. Colonoscopy and biopsy. Preoperative diagnosis: Change in bowel habits, nausea and vomiting. Postoperative diagnosis: 1. Mild gastritis. 2. Normal colon and terminal ileum. 3. Biopsies obtained from the duodenum, antrum, esophagus, terminal ileum and colon. Preparation: HalfLytely prep. Sedation: Was provided by anesthesia. Brief clinical history: The patient is a 47-year-old female who is scheduled for this evaluation because of nonspecific abdominal discomfort, nausea and vomiting as well as diarrhea. The purposes to rule out complicated reflux disease, celiac disease, inflammatory bowel disease or other pathology. Procedure: With the patient on her left lateral decubitus position and after informed consent and adequate sedation, I passed the Olympus-GIF 160 video upper endoscope through the cricopharyngeus down the esophagus. GE junction was around 40 cm from the incisors and there was no definite hiatal hernia. The esophagus did not show any obvious erosions, ulcers, strictures or Dimas' s esophagus. The endoscope was then passed into the stomach which was insufflated with air and inspected in detail including the retroflex view in the cardia. There was some mottling and erythema in the antrum but no ulcers or erosions. Pyloric channel, duodenal bulb, post bulbar area and descending duodenum appeared within normal limits. Because of her symptoms, I obtained biopsies from the duodenum, antrum and esophagus then the endoscope was withdrawn and I proceeded with the colonoscopy. Perianal area did not show any fissures or fistulas. There were no masses felt on digital rectal examination. The Olympus CFQ 160L video colonoscope was then inserted in the rectum in the usual fashion and advanced to the cecum. I intubated the ileocecal valve and examined the terminal ileum. Terminal ileum and colon appeared healthy with no edema, erythema, friability, ulceration, exudation or spontaneous bleeding. No polyps or tumors were seen or any obvious diverticular disease or other pathology. I obtained biopsies from the terminal ileum and colon then the endoscope was withdrawn. The patient tolerated the procedure well. Plan: The patient was reassured. Will await biopsy results and make further plans based on her course and biopsy results. She will follow-up with you as planned and I will keep you updated on her progress.
== END ==
LOC: ORWHC2ENDO 10:25
DX: K29.50 Unspecified chronic gastritis without bleeding (principal); K21.0 Gastro-esophageal reflux disease with esophagitis; R19.4 Change in bowel habit; I10 Essential (primary) hypertension; E78.5 Hyperlipidemia, unspecified; E11.9 Type 2 diabetes mellitus without complications; M79.7 Fibromyalgia; Z79.2 Long term (current) use of antibiotics; Z79.84 Long term (current) use of oral hypoglycemic drugs; Z79.891 Long term (current) use of opiate analgesic; Z79.899 Other long term (current) drug therapy; Z88.0 Allergy status to penicillin; Z88.2 Allergy status to sulfonamides; Z88.8 Allergy status to other drugs, medicaments and biological substances
CPT/HCPCS: 88305; 45380; 43239; J2001; J2704

== ENCOUNTER 2018-03-29 11:49 | Emergency (ER) | payer OTHER ==
[2018-03-29 11:53] VITALS: TEMP 98.8
[2018-03-29] MEDS ORDERED: SODIUM CHLORIDE 0.9% 1,000 ML IV STA (11:59)
[2018-03-29] MEDS ORDERED: SODIUM CHLORIDE 0.9% 500 ML IV STA (11:59)
[2018-03-29] MEDS ORDERED: KETOROLAC 30 MG/ML 1 ML VIAL IVP STA (11:59)
[2018-03-29 12:38] LABS: Basophils % (A) 0 %; Eosinophils # (A) 0.1 k/uL (0-0.7); Eosinophils % (A) 1 %; HGB 13.7 gm/dL (11.4-16.0); Lymphocytes # (A) 1.4 k/uL (1.0-4.8); Lymphocytes % (A) 9 %; MCH 32.6 pg (25.0-35.0); MCV 93.2 fL (80.0-100.0); Mean Platelet Volume 7.3; Monocytes # (A) 0.5 k/uL (0-1.0); Monocytes % (A) 3 %; Neutrophils # (A) 13.6 k/uL (1.3-7.7); Neutrophils % (A) 87 %; Platelet Count 269 k/uL (150-450); RBC 4.19 m/uL (3.80-5.40); WBC 15.7 k/uL (3.8-10.6)
[2018-03-29 12:41] LABS: ALT 23 U/L (9-52); AST 19 U/L (14-36); Albumin 4.2 g/dL (3.5-5.0); Alkaline Phosphatase 66 U/L (38-126); Amylase 53 U/L (30-110); Anion Gap 11 mmol/L; Blood Urea Nitrogen 18 mg/dL (7-17); Calcium 9.5 mg/dL (8.4-10.2); Carbon Dioxide 25 mmol/L (22-30); Chloride 101 mmol/L (98-107); Glucose 313 mg/dL (74-99); Lipase 142 U/L (23-300); Sodium 137 mmol/L (137-145); Total Bilirubin 0.5 mg/dL (0.2-1.3); Total Protein 7.6 g/dL (6.3-8.2)
--- NOTE | 2018-03-29 13:06 | ED ---
Abdominal Pain HPI - General Chief Complaint: Abdominal Pain Stated Complaint: ABDOMINAL PAIN, FLANK PAIN RT SIDE, TO SHOULDER Time Seen by Provider: 03/29/18 11:53 Source: patient, RN notes reviewed Mode of arrival: wheelchair Limitations: no limitations - History of Present Illness Initial Comments: 47-year-old female presents emergency Department chief complaint of lower abdominal pain. Patient states the pain started earlier this morning has progressed. Patient states she now feels it primarily in her right flank that radiates up. Patient denies any chest pain or shortness of breath. Patient states that she has no history kidney stones. Patient had prior cholecystectomy. Patient is some nausea no vomiting no diarrhea no constipation she has no dysuria no hematuria. Patient states nothing makes the pain feel better or worse at this time. - Related Data Home Medications Medication Instructions Recorded Confirmed DULoxetine HCL [Cymbalta] 60 mg PO DAILY 09/24/14 12/02/17 Lisinopril-Hctz 20-12.5 mg 1 tab PO DAILY 09/24/14 12/02/17 [Zestoretic 20-12.5] Loratadine [Claritin] 10 mg PO DAILY 09/24/14 12/02/17 Methocarbamol [Robaxin] 500 mg PO BID 09/24/14 12/02/17 Omeprazole [PriLOSEC] 20 mg PO DAILY 09/24/14 12/02/17 metFORMIN HCL [Glucophage] 500 mg PO BID 09/24/14 12/02/17 Insulin Glargine [Lantus] 100 unit SQ HS 12/02/17 12/02/17 Levothyroxine Sodium [Synthroid] 50 mcg PO DAILY 12/02/17 12/02/17 Previous Rx's Medication Instructions Recorded Ciprofloxacin HCl [Cipro] 500 mg PO Q12HR #14 tablet 03/29/18 Ketorolac [Toradol] 10 mg PO Q8HR #15 tab 03/29/18 Ondansetron Odt [Zofran Odt] 4 mg PO Q8HR PRN #10 tab 03/29/18 Allergies Allergy/AdvReac Type Severity Reaction Status Date / Time Penicillins Allergy Swelling Verified 06/11/17 00:09 pregabalin [From Lyrica] Allergy Rash/Hives Verified 06/11/17 00:09 Sulfa (Sulfonamide Allergy Swelling Verified 06/11/17 00:09 Antibiotics) Review of Systems ROS Statement: Those systems with pertinent positive or pertinent negative responses have been documented in the HPI. ROS Other: All systems not noted in ROS Statement are negative. Past Medical History Past Medical History: Diabetes Mellitus, Fibromyalgia, GERD/Reflux, Hypertension Additional Past Medical History / Comment(s): neurpathy, high cholesterol. history of a PE. OB history: 1 vag delivery and 1 , pancreatits, hx of mono. colitis History of Any Multi-Drug Resistant Organisms: None Reported Past Surgical History: Section, Cholecystectomy, Uterine Ablation Past Anesthesia/Blood Transfusion Reactions: Previous Problems w/ Anesthesia, Motion Sickness Additional Past Anesthesia/Blood Transfusion Reaction / Comment(s): pt stays trouble waking up after choly Past Psychological History: Anxiety, Depression Smoking Status: Former smoker Past Alcohol Use History: Occasional Past Drug Use History: None Reported General Exam Limitations: no limitations General appearance: alert, in no apparent distress Head exam: Present: atraumatic, normocephalic, normal inspection Neck exam: Present: normal inspection. Absent: tenderness, meningismus, lymphadenopathy Respiratory exam: Present: normal lung sounds bilaterally. Absent: respiratory distress, wheezes, rales, rhonchi, stridor Cardiovascular Exam: Present: regular rate, normal rhythm, normal heart sounds. Absent: systolic murmur, diastolic murmur, rubs, gallop, clicks GI/Abdominal exam: Present: soft, tenderness (Mild right-sided), normal bowel sounds. Absent: distended, guarding, rebound, rigid Back exam: Absent: CVA tenderness (R), CVA tenderness (L) Skin exam: Present: warm, dry, intact, normal color. Absent: rash Course Vital Signs 03/29/18 11:51 Temperature 98.8 F Pulse Rate 96 Respiratory 22 Rate Blood Pressure 127/73 O2 Sat by Pulse 98 Oximetry Medical Decision Making - Medical Decision Making 39-year-old female presented emergency Department for right flank pain. Patient feels better after Toradol. Patient's found to have urinary tract infection. Patient will be started on antibiotics for 7 days and return for any worsening symptoms. - Lab Data Result diagrams: 03/29/18 12:15 03/29/18 12:15 Lab Results 03/29/18 03/29/18 03/29/18 Range/Units 12:15 12:15 12:55 WBC 15.7 H (3.8-10.6) k/uL RBC 4.19 (3.80-5.40) m/uL Hgb 13.7 (11.4-16.0) gm/dL Hct 39.0 (34.0-46.0) % MCV 93.2 (80.0-100.0) fL MCH 32.6 (25.0-35.0) pg MCHC 35.0 (31.0-37.0) g/dL RDW 13.0 (11.5-15.5) % Plt Count 269 (150-450) k/uL Neutrophils % 87 % Lymphocytes % 9 % Monocytes % 3 % Eosinophils % 1 % Basophils % 0 % Neutrophils # 13.6 H (1.3-7.7) k/uL Lymphocytes # 1.4 (1.0-4.8) k/uL Monocytes # 0.5 (0-1.0) k/uL Eosinophils # 0.1 (0-0.7) k/uL Basophils # 0.0 (0-0.2) k/uL Sodium 137 (137-145) mmol/L Potassium 4.0 (3.5-5.1) mmol/L Chloride 101 (98-107) mmol/L Carbon Dioxide 25 (22-30) mmol/L Anion Gap 11 mmol/L BUN 18 H (7-17) mg/dL Creatinine 0.43 L (0.52-1.04) mg/dL Est GFR (CKD-EPI)AfAm >90 (>60 ml/min/1.73 sqM) Est GFR (CKD-EPI)NonAf >90 (>60 ml/min/1.73 sqM) Glucose 313 H (74-99) mg/dL Calcium 9.5 (8.4-10.2) mg/dL Total Bilirubin 0.5 (0.2-1.3) mg/dL AST 19 (14-36) U/L ALT 23 (9-52) U/L Alkaline Phosphatase 66 (38-126) U/L Total Protein 7.6 (6.3-8.2) g/dL Albumin 4.2 (3.5-5.0) g/dL Amylase 53 (30-110) U/L Lipase 142 (23-300) U/L Urine Color Yellow Urine Appearance Cloudy H (Clear) Urine pH 5.0 (5.0-8.0) Ur Specific [place] 1.024 (1.001-1.035) Urine Protein Negative (Negative) Urine Glucose (UA) 4+ H (Negative) Urine Ketones Negative (Negative) Urine Blood Negative (Negative) Urine Nitrite Negative (Negative) Urine Bilirubin Negative (Negative) Urine Urobilinogen <2.0 (<2.0) mg/dL Ur Leukocyte Esterase Large H (Negative) Urine RBC 11 H (0-5) /hpf Urine WBC 18 H (0-5) /hpf Ur Squamous Epith Cells 5 H (0-4) /hpf Urine Bacteria Rare H (None) /hpf Urine Mucus Rare H (None) /hpf Disposition Clinical Impression: Abdominal pain, UTI (urinary tract infection) Disposition: HOME SELF-CARE Condition: Stable Instructions: Abdominal Pain (ED) Additional Instructions: Please return to the Emergency Department if symptoms worsen or any other concerns. Prescriptions: Ciprofloxacin HCl [Cipro] 500 mg PO Q12HR #14 tablet Ketorolac [Toradol] 10 mg PO Q8HR #15 tab Ondansetron Odt [Zofran Odt] 4 mg PO Q8HR PRN #10 tab PRN Reason: Nausea Is patient prescribed a controlled substance at d/c from ED?: No Referrals: Gail Mueller MD [Primary Care Provider] - 1-2 days Time of Disposition: 14:19
--- NOTE | 2018-03-29 13:40 | XR ---
EXAMINATION TYPE: XR KUB , 2 VIEWS DATE OF EXAM ORDERED: 03/29/2018 HISTORY: abdominal pain. COMPARISON: None. FINDINGS: The lung bases are clear. Within the abdomen, the gallbladder is been removed. The abdominal gas pattern is normal. There is no evidence of obstruction or free air. No unusual calcifications are seen. IMPRESSION: NO ACUTE ABDOMINAL ABNORMALITY.
[2018-03-29 14:14] LABS: Appearance,Urine Cloudy (Clear); Bacteria,Urine Rare /hpf; Bilirubin,Urine Negative (Negative); Blood,Urine Negative (Negative); Color,Urine Yellow; Glucose,Urine (UA) 4+ (Negative); Ketones,Urine Negative (Negative); Leukocyte Esterase,Urine Large (Negative); Mucus,Urine Rare /hpf; Nitrite,Urine Negative (Negative); Protein,Urine Negative (Negative); RBC,Urine 11 /hpf (0-5); Specific Gravity,Urine 1.024 (1.001-1.035); Squamous Epithelial Cell,Urine 5 /hpf (0-4); Urobilinogen,Urine <2.0 mg/dL (<2.0); WBC,Urine 18 /hpf (0-5)
[2018-03-29] MEDS ORDERED: cefTRIAXone IN SWFI 1,000 MG/10 ML SYRINGE IVP STA (14:17)
[2018-03-29] MEDS ORDERED: ACET/COD 300 MG/30 MG STARTER PACK 6 TAB BTL PO STA (14:19)
[2018-03-29 14:52] VITALS: RESP 16
[2018-03-29 14:53] VITALS: BP 122/79; PULSE 81
== END 2018-03-29 14:54 | disposition home or self-care (01) ==
LOC: EC 11:49
DX: N39.0 Urinary tract infection, site not specified (principal); I10 Essential (primary) hypertension; K21.9 Gastro-esophageal reflux disease without esophagitis; E78.00 Pure hypercholesterolemia, unspecified; E11.40 Type 2 diabetes mellitus with diabetic neuropathy, unspecified; F41.9 Anxiety disorder, unspecified; F32.9 Major depressive disorder, single episode, unspecified; Z79.4 Long term (current) use of insulin; Z79.899 Other long term (current) drug therapy; Z88.0 Allergy status to penicillin; Z88.2 Allergy status to sulfonamides; Z88.8 Allergy status to other drugs, medicaments and biological substances; Z86.711 Personal history of pulmonary embolism; Z87.891 Personal history of nicotine dependence; Z90.49 Acquired absence of other specified parts of digestive tract
CPT/HCPCS: 36415; 80053; 82150; 83690; 85025; 81001; 74018; 99284; 96374; 96375; 96361; J0696; J1885

== ENCOUNTER 2018-07-09 16:22 | Emergency (ER) | payer OTHER ==
[2018-07-09 16:36] VITALS: PULSE 90; TEMP 98.8
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
--- NOTE | 2018-07-09 20:09 | US ---
EXAMINATION TYPE: US venous doppler duplex LE LT DATE OF EXAM: 07/09/2018 7:46 PM COMPARISON: NONE CLINICAL HISTORY: Pain. Left leg pain SIDE PERFORMED: Left TECHNIQUE: The lower extremity deep venous system is examined utilizing real time linear array sonog tracie with graded compression, doppler sonography and color-flow sonography. VESSELS IMAGED: External Iliac Vein (EIV) Common Femoral Vein Deep Femoral Vein Greater Saphenous Vein * Femoral Vein Popliteal Vein Small Saphenous Vein * Proximal Calf Veins (* superficial vessels) Left Leg: Negative for DVT No evidence of DVT left leg. IMPRESSION: Negative exam. No evidence of deep venous thrombosis in the left leg.
--- NOTE | 2018-07-09 20:32 | XR ---
EXAMINATION TYPE: XR chest 2V DATE OF EXAM: 07/09/2018 COMPARISON: 04/10/1712 HISTORY: Chest pain TECHNIQUE: Frontal and lateral views of the chest are obtained. FINDINGS: Heart and mediastinum are normal. Lungs are clear. Diaphragm is normal. There is no sign o f pleural effusion or pneumothorax. Bony thorax is intact. IMPRESSION: Normal chest. No change.
--- NOTE | 2018-07-09 20:33 | XR ---
EXAMINATION TYPE: XR thoracic spine complete DATE OF EXAM: 07/09/2018 COMPARISON: NONE HISTORY: Back pain TECHNIQUE: 3 views FINDINGS: Thoracic vertebra have normal alignment. Disc spaces are normal. Posterior elements are int act. There is no paraspinal mass. There is mild spondylosis in the lower cervical spine. IMPRESSION: Negative thoracic spine exam. No fracture.
--- NOTE | 2018-07-09 20:41 | XR ---
EXAMINATION TYPE: XR hand complete LT DATE OF EXAM: 07/09/2018 COMPARISON: NONE HISTORY: Pain TECHNIQUE: 3 views FINDINGS: Metacarpals appear intact. I see no fracture nor dislocation. Joint spaces are normal. IMPRESSION: Negative left hand exam.
--- NOTE | 2018-07-09 21:01 | XR ---
EXAMINATION TYPE: XR cervical spine w flex/ext DATE OF EXAM: 07/09/2018 COMPARISON: NONE HISTORY: Neck pain TECHNIQUE: 7 views FINDINGS: There is some spurring anteriorly at C5-6 C6-7. Posterior elements are intact. There are no cervical ribs. Atlantoaxial facet joint is not displaced. The flexion-extension views show no sign o f instability. IMPRESSION: Spondylotic changes in the lower cervical spine. No fracture. No sign of instability.
[2018-07-09 21:17] VITALS: BP 158/82; RESP 18
== END 2018-07-09 21:19 | disposition home or self-care (01) ==
LOC: EC 16:22
DX: Z04.1 Encounter for examination and observation following transport accident (principal); E11.40 Type 2 diabetes mellitus with diabetic neuropathy, unspecified; F41.9 Anxiety disorder, unspecified; F32.9 Major depressive disorder, single episode, unspecified; K21.9 Gastro-esophageal reflux disease without esophagitis; I10 Essential (primary) hypertension; Z79.4 Long term (current) use of insulin; Z79.899 Other long term (current) drug therapy; Z88.0 Allergy status to penicillin; Z88.2 Allergy status to sulfonamides; Z86.711 Personal history of pulmonary embolism; Z86.718 Personal history of other venous thrombosis and embolism
CPT/HCPCS: 81025; 72072; 72052; 73130; 71046; 93971; 72125; 99284; L0120

== ENCOUNTER → 2018-08-28 | Outpatient (CLI) | payer OTHER ==
[2018-08-28 13:39] LABS: Basophils # (A) 0.1 k/uL (0-0.2); Basophils % (A) 1 %; Eosinophils # (A) 0.1 k/uL (0-0.7); Eosinophils % (A) 2 %; HCT 42.2 % (34.0-46.0); HGB 14.3 gm/dL (11.4-16.0); Lymphocytes # (A) 2.3 k/uL (1.0-4.8); Lymphocytes % (A) 29 %; MCH 31.1 pg (25.0-35.0); MCHC 33.9 g/dL (31.0-37.0); MCV 91.8 fL (80.0-100.0); Mean Platelet Volume 5.9; Monocytes # (A) 0.3 k/uL (0-1.0); Monocytes % (A) 4 %; Neutrophils # (A) 4.8 k/uL (1.3-7.7); Neutrophils % (A) 63 %; Platelet Count 289 k/uL (150-450); RDW 12.6 % (11.5-15.5); WBC 7.7 k/uL (3.8-10.6)
[2018-08-28 19:10] LABS: Albumin 4.2 g/dL (3.80-4.90); Albumin/Globulin Ratio 1.45 (1.60-3.17); Calcium 9.5 mg/dL (8.7-10.3); Globulin 2.9 g/dL (1.6-3.3); LDL Cholesterol,Calculated 186.6 mg/dL (0.0-131.0); Potassium 4.5 mmol/L (3.5-5.5); Total Bilirubin 0.5 mg/dL (0.3-1.2); Total Protein 7.1 g/dL (6.2-8.2); VLDL Calculation 43.4 mg/dL (5.00-40.00)
[2018-08-28 19:14] LABS: Hemoglobin A1C 10.4 % (4.0-6.0)
== END | disposition home or self-care (01) ==
LOC: LABWHC1 12:32
PROVIDERS: ATTEND Family Medicine
DX: E11.65 Type 2 diabetes mellitus with hyperglycemia (principal); E78.1 Pure hyperglyceridemia; I10 Essential (primary) hypertension; E03.9 Hypothyroidism, unspecified
CPT/HCPCS: 36415; 80053; 80061; 82043; 82570; 83036; 84439; 84443; 85025

== ENCOUNTER 2019-02-04 08:50 | Observation (INO) | payer OTHER ==
[2019-02-04] MEDS ORDERED: SODIUM CHLORIDE 0.9% 1,000 ML IV STA (09:01)
[2019-02-04] MEDS ORDERED: ONDANSETRON 4 MG/2 ML VIAL IVP STA (09:16)
[2019-02-04] MEDS ORDERED: KETOROLAC 30 MG/ML 1 ML VIAL IVP STA (09:16)
[2019-02-04] MEDS ORDERED: MORPHINE SULFATE 4 MG/ML SYRINGE IVP STA (09:16)
--- NOTE | 2019-02-04 09:20 | ED ---
Abdominal Pain HPI - General Chief Complaint: Abdominal Pain Stated Complaint: abd pain Time Seen by Provider: 02/04/19 09:01 Source: patient, RN notes reviewed, old records reviewed Mode of arrival: ambulatory Limitations: no limitations - History of Present Illness Initial Comments: Patient is a 48-year-old female presents emergency department today for evaluation with complaints of nausea, vomiting for the past 2 days, as well as upper abdominal pain leading towards her back. She states the back pain still somewhat to her previous pancreatitis. Patient also reports that over the past month she's been having intermittentpelvic pain shooting pelvic pain. He reports that she's had 2 bowel movements over the past week, which is unusual for her. She reports over the past month she's had a significant amount of weight loss of 30 pounds without changing her diet. Patient states that she has had no significant fevers or chills. Patient relates that her surgical history includes C-sections and cholecystectomy. Patient denies any significant fever. Patient relates that have a colonoscopy 3 years ago showing polyps. Patient reports that she had uterine ablation in [address] Candelario. - Related Data Home Medications Medication Instructions Recorded Confirmed Ibuprofen [Motrin] 800 mg PO Q6H PRN 02/04/19 02/04/19 Allergies Allergy/AdvReac Type Severity Reaction Status Date / Time Penicillins Allergy Swelling Verified 02/04/19 09:08 pregabalin [From Lyrica] Allergy Rash/Hives Verified 02/04/19 09:08 Sulfa (Sulfonamide Allergy Swelling Verified 02/04/19 09:08 Antibiotics) Review of Systems ROS Statement: Those systems with pertinent positive or pertinent negative responses have been documented in the HPI. ROS Other: All systems not noted in ROS Statement are negative. Past Medical History Past Medical History: Diabetes Mellitus, Fibromyalgia, GERD/Reflux, Hyperlipidemia, Hypertension Additional Past Medical History / Comment(s): neurpathy, high cholesterol. history of a PE. OB history: 1 vag delivery and 1 , pancreatits, hx of mono. colitis History of Any Multi-Drug Resistant Organisms: None Reported Past Surgical History: Section, Cholecystectomy, Uterine Ablation Past Anesthesia/Blood Transfusion Reactions: Previous Problems w/ Anesthesia, Motion Sickness Additional Past Anesthesia/Blood Transfusion Reaction / Comment(s): pt stays trouble waking up after choly Past Psychological History: Anxiety, Depression Smoking Status: Former smoker Past Alcohol Use History: Occasional Past Drug Use History: None Reported General Exam - General Exam Comments Initial Comments: This is a 48-year-old female. Alert and oriented 3. No significant distress. Limitations: no limitations General appearance: alert Head exam: Present: atraumatic, normocephalic, normal inspection Eye exam: Present: normal appearance, PERRL, EOMI. Absent: scleral icterus, conjunctival injection, periorbital swelling ENT exam: Present: normal exam, mucous membranes moist Neck exam: Present: normal inspection. Absent: tenderness, meningismus, lymphadenopathy Respiratory exam: Present: normal lung sounds bilaterally Cardiovascular Exam: Present: regular rate, normal rhythm, normal heart sounds. Absent: systolic murmur, diastolic murmur, rubs, gallop, clicks GI/Abdominal exam: Present: soft Rectal exam: Present: normal inspection, normal rectal tone Extremities exam: Present: normal inspection Back exam: Present: normal inspection Neurological exam: Present: alert, oriented X3, CN II-XII intact Psychiatric exam: Present: normal affect, normal mood Skin exam: Present: warm, dry, intact, normal color. Absent: rash Course Vital Signs 02/04/19 02/04/19 08:55 09:53 Temperature 98.6 F Pulse Rate 82 83 Respiratory 16 18 Rate Blood Pressure 116/77 157/97 O2 Sat by Pulse 99 99 Oximetry Medical Decision Making - Medical Decision Making Patient's 48-year-old female presents emergency department today with nausea and vomiting, history of 30 pound weight loss over the past few months, and complains of intermittent pelvic pain. She also states that she is having some upper abdominal pain and back pain. At this time patient's labwork was reviewed and unremarkable. Due to the significant weight loss and patient's symptoms of vomiting further testing was completed CT abdomen and pelvis. There is evidence of an enlarged cystic like mass related to the right ovary cannot exclude neoplasm. Mass measures 10 cm x 8 cm. Rectal exam was completed. No significant drainage or pus fistula appreciated at this time. Patient has case discussed with Dr. Bergman. Will admit the Patient for IV fluids, for further evaluation of this pelvic mass. Her ports that she did previously see Dr. Candelario for uterine ablation in 2014. She's had no further testing or gynecologic follow-up since that time. - Lab Data Result diagrams: 02/04/19 09:44 07/17/19 09:44 Lab Results 02/04/19 02/04/19 02/04/19 Range/Units 09:44 09:44 09:44 WBC 8.7 (3.8-10.6) k/uL RBC 4.03 (3.80-5.40) m/uL Hgb 12.8 (11.4-16.0) gm/dL Hct 37.0 (34.0-46.0) % MCV 91.8 (80.0-100.0) fL MCH 31.7 (25.0-35.0) pg MCHC 34.6 (31.0-37.0) g/dL RDW 14.2 (11.5-15.5) % Plt Count 252 (150-450) k/uL Neutrophils % 56 % Lymphocytes % 36 % Monocytes % 4 % Eosinophils % 2 % Basophils % 1 % Neutrophils # 4.9 (1.3-7.7) k/uL Lymphocytes # 3.2 (1.0-4.8) k/uL Monocytes # 0.3 (0-1.0) k/uL Eosinophils # 0.1 (0-0.7) k/uL Basophils # 0.1 (0-0.2) k/uL Sodium 140 (137-145) mmol/L Potassium 3.9 (3.5-5.1) mmol/L Chloride 107 (98-107) mmol/L Carbon Dioxide 26 (22-30) mmol/L Anion Gap 7 mmol/L BUN 8 (7-17) mg/dL Creatinine 0.49 L (0.52-1.04) mg/dL Est GFR (CKD-EPI)AfAm >90 (>60 ml/min/1.73 sqM) Est GFR (CKD-EPI)NonAf >90 (>60 ml/min/1.73 sqM) Glucose 214 H (74-99) mg/dL Calcium 9.5 (8.4-10.2) mg/dL Total Bilirubin 0.4 (0.2-1.3) mg/dL AST 11 L (14-36) U/L ALT 10 (9-52) U/L Alkaline Phosphatase 55 (38-126) U/L Total Protein 6.8 (6.3-8.2) g/dL Albumin 3.7 (3.5-5.0) g/dL Amylase 57 (30-110) U/L Lipase 143 (23-300) U/L Urine Color Light Yellow Urine Appearance Clear (Clear) Urine pH 5.5 (5.0-8.0) Ur Specific [place] 1.004 (1.001-1.035) Urine Protein Negative (Negative) Urine Glucose (UA) Negative (Negative) Urine Ketones Negative (Negative) Urine Blood Negative (Negative) Urine Nitrite Negative (Negative) Urine Bilirubin Negative (Negative) Urine Urobilinogen <2.0 (<2.0) mg/dL Ur Leukocyte Esterase Negative (Negative) - Radiology Data Radiology results: report reviewed Enlarging cystic mass extending from the cul-de-sac and to the region of the pouch of Jose Alfredo measuring 10.5 x 8.0 x 12.4 cm. Ovarian neoplasm isn't excluded. Hepatosplenomegaly. Hepatic stated ptosis. Disposition Clinical Impression: Pelvic mass, Nausea and vomiting Disposition: ADMITTED IP TO THIS [facility] Condition: Stable Is patient prescribed a controlled substance at d/c from ED?: No Referrals: Gail Mueller MD [Primary Care Provider] - 1-2 days Time of Disposition: 12:02
[2019-02-04 10:02] LABS: Appearance,Urine Clear (Clear); Bilirubin,Urine Negative (Negative); Blood,Urine Negative (Negative); Color,Urine Light Yellow; Glucose,Urine (UA) Negative (Negative); Ketones,Urine Negative (Negative); Leukocyte Esterase,Urine Negative (Negative); Nitrite,Urine Negative (Negative); PH, Urine 5.5 (5.0-8.0); Protein,Urine Negative (Negative); Specific Gravity,Urine 1.004 (1.001-1.035); Urobilinogen,Urine <2.0 mg/dL (<2.0)
[2019-02-04 10:07] LABS: ALT 10 U/L (9-52); AST 11 U/L (14-36); African American GFR (CKD) >90 (>60 ml/min/1.73 sqM); Albumin 3.7 g/dL (3.5-5.0); Alkaline Phosphatase 55 U/L (38-126); Amylase 57 U/L (30-110); Anion Gap 7 mmol/L; Blood Urea Nitrogen 8 mg/dL (7-17); Calcium 9.5 mg/dL (8.4-10.2); Carbon Dioxide 26 mmol/L (22-30); Chloride 107 mmol/L (98-107); Glucose 214 mg/dL (74-99); Lipase 143 U/L (23-300); Potassium 3.9 mmol/L (3.5-5.1); Sodium 140 mmol/L (137-145); Total Bilirubin 0.4 mg/dL (0.2-1.3); Total Protein 6.8 g/dL (6.3-8.2)
[2019-02-04 10:10] LABS: Basophils # (A) 0.1 k/uL (0-0.2); Basophils % (A) 1 %; Eosinophils # (A) 0.1 k/uL (0-0.7); Eosinophils % (A) 2 %; HGB 12.8 gm/dL (11.4-16.0); Lymphocytes # (A) 3.2 k/uL (1.0-4.8); Lymphocytes % (A) 36 %; MCH 31.7 pg (25.0-35.0); MCHC 34.6 g/dL (31.0-37.0); MCV 91.8 fL (80.0-100.0); Mean Platelet Volume 7.2; Monocytes # (A) 0.3 k/uL (0-1.0); Monocytes % (A) 4 %; Neutrophils # (A) 4.9 k/uL (1.3-7.7); Neutrophils % (A) 56 %; Platelet Count 252 k/uL (150-450); RBC 4.03 m/uL (3.80-5.40); RDW 14.2 % (11.5-15.5); WBC 8.7 k/uL (3.8-10.6)
--- NOTE | 2019-02-04 11:30 | CT ---
EXAMINATION TYPE: CT abdomen pelvis w con DATE OF EXAM: 02/04/2019 COMPARISON: 06/08/2017 HISTORY: Upper abdominal pain CT DLP: 699.9 mGycm CONTRAST: CT scan of the abdomen and pelvis is performed without Oral Contrast and with IV Contrast, patient in jected with 100 mL of Isovue 300. FINDINGS: LUNG BASES-: No visible nodule. No infiltrate. LIVER/GB: No space occupying hepatic lesion. Biliary tree is of normal caliber. There is evidence of hepatic steatosis and hepatomegaly. The gallbladder is surgically absent. PANCREAS: No inflammation. No distinct mass. SPLEEN: The spleen is enlarged at 12.9 cm craniocaudal dimension. No lesion seen. ADRENALS: No nodule. No thickening. KIDNEYS/BLADDER: No hydronephrosis. No nephrolithiasis. No distinct renal mass. Urinary bladder g rossly unremarkable. BOWEL: Normal appendix. Normal bowel caliber. No inflammation. GENITAL ORGANS: Enlarging cystic mass extending from the cul-de-sac into the region of the pouch of Jose Alfredo measuring 10.5 x 8.0 x 12.4 cm. Ovarian neoplasm is not excluded. Previous measurement was 5. 9 x 5.0 x 6.9 cm. Small amount of free fluid is noted. The uterus is displaced to the left of midline . There is adjacent nodular ovarian tissue identified. LYMPH NODES: No greater than 1cm abdominal or pelvic lymph nodes are appreciated. AORTA: No significant abnormality. OSSEOUS STRUCTURES: No significant abnormality is seen. OTHER: No significant additional abnormality is seen. IMPRESSION: 1. Enlarging cystic mass extending from the cul-de-sac into the region of the pouch of Jose Alfredo measur ing 10.5 x 8.0 x 12.4 cm. Ovarian neoplasm is not excluded 2. Hepatosplenomegaly. Hepatic steatosis.
--- NOTE | 2019-02-04 11:31 | XR ---
EXAMINATION TYPE: XR KUB DATE OF EXAM: 02/04/2019 COMPARISON: 03/29/2018 INDICATION: Abdominal pain TECHNIQUE: Single view abdomen upright view FINDINGS: Nonspecific bowel gas within the midabdomen. Differential air-fluid level may be in the right lower q uadrant. No dilated loops of small bowel are evident. Some nonspecific colonic bowel gas is present d istally. Mild fecal retention may be present. Psoas margins are normal. No organomegaly is present. Cholecystectomy clips are present. IMPRESSION: 1. Nonspecific bowel gas pattern. Follow-up can be performed as clinically indicated.
[2019-02-04] MEDS ORDERED: IBUPROFEN 400 MG TAB PO PRN (12:03)
[2019-02-04] MEDS ORDERED: NALOXONE 0.4 MG/ML 1 ML VIAL IV PRN ×2 (12:03→14:29)
[2019-02-04] MEDS ORDERED: ACETAMINOPHEN TAB 325 MG TAB PO PRN (12:03)
[2019-02-04] MEDS ORDERED: MORPHINE SULFATE 4 MG/ML SYRINGE IV PRN (12:03)
[2019-02-04] MEDS ORDERED: ONDANSETRON 4 MG/2 ML VIAL IVP PRN (12:03)
[2019-02-04] MEDS ORDERED: traMADol 50 MG TAB PO PRN (14:29)
[2019-02-04] MEDS ORDERED: MELATONIN 3 MG TABLET PO PRN (14:29)
[2019-02-04] MEDS: SODIUM CHLORIDE 0.9% 1,000 ML IV SCH ×2 (14:41→23:50)
[2019-02-04] MEDS: ONDANSETRON 4 MG/2 ML VIAL IVP PRN (15:37)
[2019-02-04] MEDS: HEPARIN SODIUM,PORCINE 5,000 UNIT/ML 1 ML VIAL SQ SCH ×2 (15:45→23:51)
--- NOTE | 2019-02-04 16:13 | P.HPIM ---
History of Present Illness H&P Date: 02/04/19 Chief Complaint: Upper abdominal pain and nausea vomiting for 2 days prior to presentation. This 48-year-old lady with past medical history significant for hypertension, hyperlipidemia, diabetes mellitus type II was on insulin, fibromyalgia, gastroesophageal reflux disease, hypothyroidism and obesity who presented to the emergency department with the above complaint. Patient stated that for about a month or so she has been noticed having some pelvic pain off a nd on and was getting more constipated. Patient also stated that she has been working hard and was not taking care of her oral intake for quite a few months and she had lost unintentional weight about 30 pounds over period of 4 months. She stated that she started having this upper abdominal pain and mid abdominal pain which was somewhat going to the flanks area about couple days ago and was getting worse. She started having nausea and vomiting since yesterday and was unable to keep anything down. Patient stated her appetite was already down so she did not bother eating anything since yesterday. She also stated that she was on quite a few medication until June 2018 when she quit all the medication for her diabetes and other medical conditions. She stopped checking her sugars and stop following the diabetic diet. Patient stated that she was working at [employer] and was reporting about 18-20,000 steps per day and was not eating her 3 meals regularly. She started losing weight although she was not planning to do any weight loss. She stated that about couple months ago she waited 160+ pounds and she was shocked to no at the time of presentation today her weight was 133 pounds. Patient also stated that she quit smoking in 2014 but started smoking again due to her company September 2018. Patient has extensive evaluation done in the emergency department was noted to have no pancreatitis (history of pancreatitis), no bowel obstruction but she was noted to have pelvic mass and was admitted for acute management of intractable nausea vomiting and initial evaluation of pelvic mass. Patient denies chest pain, palpitation, diaphoresis, dizziness, headaches, cough, phlegm production and denies rest of the review of system. Review of Systems Review system was an essentially negative for all 12 body systems other than was mentioned in the HPI. Past Medical History Past Medical History: Diabetes Mellitus, Fibromyalgia, GERD/Reflux, Hyperlipidemia, Hypertension, Thyroid Disorder Additional Past Medical History / Comment(s): Pt states she stopped taking her medications in June 2018 as a matter of personal choice, IDDM type II, neuropathy bilateral legs/feet and hands, bilateral carpal tunnel syndrome, vertigo lately/balance problems, recent weight loss-30# since 09/2018, monzon creatitis, hypothyroidism History of Any Multi-Drug Resistant Organisms: None Reported Past Surgical History: Section, Cholecystectomy, Uterine Ablation Additional Past Surgical History / Comment(s): EGD, colonoscoies with benign polypectomy Past Anesthesia/Blood Transfusion Reactions: Previous Problems w/ Anesthesia, Motion Sickness Additional Past Anesthesia/Blood Transfusion Reaction / Comment(s): pt states trouble waking up after ciarra Past Psychological History: No Psychological Hx Reported Smoking Status: Current every day smoker Past Alcohol Use History: Occasional Past Drug Use History: None Reported - Past Family History Father Family Medical History: Cancer, Myocardial Infarction (OH) Additional Family Medical History / Comment(s): Father is living. Prostate cancer. Father had a OH at the age of 49yrs. Mother Family Medical History: Diabetes Mellitus, Renal Disease Additional Family Medical History / Comment(s): Mother is . Medications and Allergies Home Medications Medication Instructions Recorded Confirmed Type Ibuprofen [Motrin] 800 mg PO Q6H PRN 02/04/19 02/04/19 History Allergies Allergy/AdvReac Type Severity Reaction Status Date / Time Penicillins Allergy Swelling Verified 02/04/19 09:08 pregabalin [From Lyrica] Allergy Rash/Hives Verified 02/04/19 09:08 Sulfa (Sulfonamide Allergy Swelling Verified 02/04/19 09:08 Antibiotics) gabapentin AdvReac Severe Diarrhea Verified 02/04/19 13:49 Physical Exam Vitals: Vital Signs Temp Pulse Pulse Resp BP BP Pulse Ox 02/04/19 14:46 98.1 F 64 18 147/89 100 02/04/19 10:41 66 18 146/88 99 02/04/19 09:53 83 18 157/97 99 02/04/19 08:55 98.6 F 82 16 116/77 99 Intake and Output 02/04/19 02/04/19 02/04/19 06:59 14:59 22:59 Other: Voiding Method Toilet # Voids 1 Weight 60.6 kg - Constitutional General appearance: cooperative, no acute distress - EENT Eyes: EOMI, normal appearance ENT: hearing grossly normal, NA/AT - Neck Neck: no lymphadenopathy, normal ROM, no rigidity, no thyromegaly - Respiratory Respiratory: bilateral: CTA, negative: rales, rhonchi, wheezing - Cardiovascular Rhythm: regular Heart sounds: normal: S1, S2 Abnormal Heart Sounds: no systolic murmur, no diastolic murmur, no S3 Gallop, no S4 Gallop - Gastrointestinal Abdomen was soft, bowel sounds positive all 4 quadrants, there was epigastric and surrounding area tenderness was noted and there was [id number] bilateral lower quadrant tenderness were noted. There was no guarding, rigidity, or rebound detected. Unable to appreciate hepatomegaly/splenomegaly. - Integumentary Integumentary: normal, normal turgor - Neurologic Neurologic: CNII-XII intact - Psychiatric Psychiatric: A&O x's 3, appropriate affect, intact judgment & insight Results CBC & Chem 7: 02/04/19 09:44 02/04/19 09:44 Labs: Abnormal Lab Results - Last 24 Hours (Table) 02/04/19 Range/Units 09:44 Creatinine 0.49 L (0.52-1.04) mg/dL Glucose 214 H (74-99) mg/dL AST 11 L (14-36) U/L Abdominal x-ray: report reviewed CT scan - abdomen: report reviewed Thrombosis Risk Factor Assmnt - DVT/VTE Prophylaxis DVT/VTE Prophylaxis: Pharmacologic Prophylaxis ordered - Choose All That Apply Any of the Below Risk Factors Present?: Yes Each Factor Represents 1 point: Age 41-60 years Other Risk Factors: Yes Each Risk Factor Represents 3 Points: Family history of DVT/PE Other congenital or acquired thrombophilia - If yes, enter type in comment: No Thrombosis Risk Factor Assessment Total Risk Factor Score: 4 Thrombosis Risk Factor Assessment Level: Moderate Risk Assessment and Plan (1) Acute abdominal pain Current Visit: Yes Status: Acute Priority: High Code(s): R10.9 - UNSPECIFIED ABDOMINAL PAIN SNOMED Code(s): 316988830 (2) Acute gastritis without bleeding Current Visit: Yes Status: Acute Priority: High Code(s): K29.00 - ACUTE GASTRITIS WITHOUT BLEEDING SNOMED Code(s): 89471311 (3) Diabetes mellitus type 2 in nonobese Current Visit: Yes Status: Acute Priority: High Code(s): E11.9 - TYPE 2 DIABETES MELLITUS WITHOUT COMPLICATIONS SNOMED Code(s): 480198448 (4) Essential hypertension Current Visit: Yes Status: Acute Priority: High Code(s): I10 - ESSENTIAL (PRIMARY) HYPERTENSION SNOMED Code(s): 94217035 (5) Hypothyroidism Current Visit: Yes Status: Acute Priority: High Code(s): E03.9 - HYPOTHYROIDISM, UNSPECIFIED SNOMED Code(s): 73958646 (6) Nausea and vomiting Current Visit: Yes Status: Acute Priority: High Code(s): R11.2 - NAUSEA WITH VOMITING, UNSPECIFIED SNOMED Code(s): 61765524 (7) Pelvic mass Current Visit: Yes Status: Acute Priority: High Code(s): R19.00 - INTRA- ABD AND PELVIC SWELLING, MASS AND LUMP, UNSP SITE SNOMED Code(s): 43017870 (8) Smoking addiction Narrative/Plan: Pt. quit smoking in Jun-2015 but restarted in Sep-2018. Current Visit: Yes Status: Acute Priority: Medium Code(s): F17.200 - NICOTINE DEPENDENCE, UNSPECIFIED, UNCOMPLICATED SNOMED Code(s): 548316423 Plan: #1- Patient was admitted to hospitalist service and will be started on IV fluids, control of nausea and pain, the liquid diet will be initiated and will be advanced as tolerated. #2 patient will be started on IV proton pump inhibitor to control acute gas tritis. Currently there is no evidence of bleeding but will monitor hemoglobin and the morning. #3 DOCUMENT CONTROLLER will be consulted for the evaluation and management of pelvic mass and weight loss, pain management will be carried out. #4 patient blood sugar will be checked every before meals and will be covered with NovoLog sliding scale. Patient was given significant amount of counseling regarding staying attach with the physician and their recommendation and compliance with the medication to maximize the delay of complication associated with diabetes. Patient verbalizes understanding. I will check glycohemoglobin in the morning. #5 patient blood pressure was high at presentation will continue to monitor at this point I will not start antihypertensive medication at this time but if indicated we will start her on laura inhibitors due to the presence of diabetes. #6 I will check TSH and free thyroxine level and depending upon that patient will be restarted on the with thyroxine. #7 patient was counseled regarding quitting smoking and selecting the better environment which is smoke free for her. She was also advised to avoid secondary smoking also. Patient verbalizes understanding. #8 patient will be started on subcu heparin for DVT prophylaxis and her activities will be as tolerated. She will be kept for next 24-48 hours and once improvement then she can be discharged home. Regarding her pelvic mass for the plan of care depends on the evaluation and recommendation by Dr. Candelario. Time with Patient: Greater than 30 (Total time spent was 45 mins, more than 50% was spent in counseling regarding better self care and compliance with medications.)
[2019-02-04 16:55] LABS: Glucose,Whole Blood 143 mg/dL (75-99)
[2019-02-04] MEDS: INSULIN ASPART (NovoLOG) 100 UNIT/ML VIAL SQ SCH (16:59)
--- NOTE | 2019-02-04 19:44 | US ---
EXAMINATION TYPE: US abdomen complete DATE OF EXAM: 02/04/2019 COMPARISON: NONE CLINICAL HISTORY: abd pain. Abdominal pain x 3 months. Cholecystectomy. EXAM MEASUREMENTS: Liver Length: 19.0 cm Gallbladder Wall: cholecystectomy CBD: 0.53 cm Spleen: 12.58 cm Right Kidney: 12.0 x 5.4 x 4.9 cm Left Kidney: 11.6 x 5.5 x 5.8 cm Pancreas: appears wnl Liver: appears enlarged Evidence for sonographic Pearson's sign: no CBD: appears wnl Spleen: appears upper limits of normal at 12.58 cm Right Kidney: No hydronephrosis or masses seen Left Kidney: No hydronephrosis or masses seen Upper IVC: appears wnl Abd Aorta: appears wnl. Largest AP measurement: 2.2 cm. Largest Transverse measurement: 2.38 at prox. No free fluid. IMPRESSION: Negative complete abdominal sonogram. Cholecystectomy. No dilated ducts.
--- NOTE | 2019-02-04 20:43 | US ---
EXAMINATION TYPE: US pelvic complete DATE OF EXAM: 02/04/2019 COMPARISON: CT CLINICAL HISTORY: abd pain. Pelvic pain x 2 months. Hx ablation 2014. . Patient claims she h as spotting here and there, not full periods anymore. . TECHNIQUE: Transvaginal (TV) and Transabdominal (TA) . Transabdominal sonographic images of the pel vis were acquired. Transvaginal sonographic images were medically necessary to better assess the fol lowing anatomy: Ovaries Date of LMP: Unknown EXAM MEASUREMENTS: Uterus: 9.6 x 5.7 x 4.1 cm Endometrial Stripe: 0.61 cm Right Ovary: Not seen with certainty Left Ovary: Not seen *Limited study due to large mass. 1. Uterus: Anteverted limitations. 2. Endometrium: limited 3. Right Ovary: Not seen with certainty 4. Left Ovary: Not seen 5. Bilateral Adnexa: Hypoechoic area with debris and solid component seen midline - slightly right. This hypoechoic area measures: 12.9 x 7.7 x 7.2 cm. Solid hyperechoic component measures: 2.2 x 2.0 x 2.4 cm. 6. Posterior cul-de-sac: Hypoechoic area seen as described above. IMPRESSION: There is a large complex cystic fluid collection in the pelvis. This could cystic tumor b e arising from the right ovary. Follow-up recommended. This appears unchanged compared to CT scan ear lier today.
[2019-02-05 07:19] LABS: Glucose,Whole Blood 113 mg/dL (75-99)
[2019-02-05] MEDS: INSULIN ASPART (NovoLOG) 100 UNIT/ML VIAL SQ SCH ×3 (07:19→17:07)
[2019-02-05] MEDS: HEPARIN SODIUM,PORCINE 5,000 UNIT/ML 1 ML VIAL SQ SCH ×2 (07:34→15:54)
[2019-02-05] MEDS: PANTOPRAZOLE 40 MG/10 ML VIAL IV SCH (08:21)
[2019-02-05] MEDS: SODIUM CHLORIDE 0.9% 1,000 ML IV SCH (08:28)
[2019-02-05 08:39] LABS: Basophils % (A) 1 %; Eosinophils # (A) 0.1 k/uL (0-0.7); Eosinophils % (A) 2 %; HCT 35.1 % (34.0-46.0); HGB 12.2 gm/dL (11.4-16.0); Lymphocytes # (A) 2.9 k/uL (1.0-4.8); Lymphocytes % (A) 41 %; MCH 32.2 pg (25.0-35.0); MCHC 34.9 g/dL (31.0-37.0); MCV 92.2 fL (80.0-100.0); Mean Platelet Volume 8.1; Monocytes # (A) 0.3 k/uL (0-1.0); Monocytes % (A) 4 %; Neutrophils # (A) 3.7 k/uL (1.3-7.7); Neutrophils % (A) 52 %; Platelet Count 217 k/uL (150-450); RDW 13.8 % (11.5-15.5); WBC 7.2 k/uL (3.8-10.6)
[2019-02-05 08:44] LABS: African American GFR (CKD) >90 (>60 ml/min/1.73 sqM); Anion Gap 4 mmol/L; Blood Urea Nitrogen 6 mg/dL (7-17); Calcium 8.7 mg/dL (8.4-10.2); Carbon Dioxide 24 mmol/L (22-30); Chloride 112 mmol/L (98-107); Glucose 105 mg/dL (74-99); Magnesium 1.5 mg/dL (1.6-2.3); Potassium 4.3 mmol/L (3.5-5.1); Sodium 140 mmol/L (137-145)
[2019-02-05 12:31] LABS: Glucose,Whole Blood 114 mg/dL (75-99)
[2019-02-05] MEDS: KETOROLAC 30 MG/ML 1 ML VIAL IVP PRN ×2 (12:34→23:30)
--- NOTE | 2019-02-05 12:35 | P.PN ---
Subjective Progress Note Date: 02/05/19 Patient reported that her nausea has resolved and she has not received any nausea medications since yesterday evening. And she is tolerating clear liquids well. Patient reports that she is now having looser stools which is now greenish in color since morning. Patient has a few stools overnight and since this morning she had 3 loose stools, they were not associated with abdominal pain or cramps, no blood per rectum reported. Patient states that her abdominal pain is getting better and she still have that dragging andsharp off-and-on pain sensation in the pelvic area. No other issues were brought up by the patient. On review of patient's blood work it was noted that patient's CA-125 is mildly elevated her blood sugars are between 110-210. Her magnesium was low which will be replaced. She also had transvaginal ultrasound done which showed large complex cyst caution will from right ovary ultrasound abdomen as reported earlier showed status post cholecystectomy otherwise it was reported normal. Patient stated that she has been bit by the take recently couple times and one tick was there for more than 24 hours. Other take she is not sure how long it was there. Nurses reported that patient is developing some erythema at the site of tick bite. Patient also complains of having some soreness in lymph nodes of the neck but no problems swallowing. Patient denies headache, dizziness, fever, chills, cough, sputum, shortness of breath, palpitation, diaphoresis, dizziness and denies rest of the review system. Objective - Vital Signs Vital signs: Vital Signs Temp 97.7 F 02/05/19 07:56 Pulse 61 02/05/19 07:56 Resp 18 02/05/19 07:56 BP 123/77 02/05/19 07:56 Pulse Ox 98 02/05/19 07:56 Intake & Output 02/04/19 02/05/19 02/05/19 18:59 06:59 18:59 Intake Total 240 Balance 240 Weight 60.6 kg Intake: Oral 240 Other: Voiding Method Toilet # Voids 1 1 # Bowel Movements 2 1 - Constitutional General appearance: Present: cooperative, no acute distress - EENT Eyes: Present: EOMI, normal appearance ENT: Present: hearing grossly normal, NA/AT - Neck Details: Neck was supple and there is bilateral few anterior cervical lymph node noted more on the right side and it was minimally tender. Throat examination showed no erythema no tonsillar enlargement and no midline shift or tonsillar fossa sh ift noted. - Respiratory Respiratory: bilateral: CTA, negative: rales, rhonchi, wheezing - Cardiovascular Rhythm: regular Heart sounds: normal: S1, S2 Abnormal Heart Sounds: Absent: systolic murmur, diastolic murmur, S3 Gallop, S4 Gallop - Gastrointestinal General gastrointestinal: Present: normal bowel sounds, soft, tenderness (Mi nimally tender with no guarding or rigidity or rebound.) - Integumentary Integumentary Comment(s): Patient does have about 1.5 cm circular target lesion on her on her right calf. No tenderness noted of the rash or surrounding area. No right popliteal or ing uinal/femoral lymphadenopathy detected. - Neurologic Neurologic: Present: CNII-XII intact. Absent: focal deficits - Psychiatric Psychiatric: Present: A&O x's 3, appropriate affect, intact judgment & insight - Allied health notes Allied health notes reviewed: nursing (Also discussed with the cutting tool sharpener regarding their recommendation about pelvic mass.) - Labs CBC & Chem 7: 02/05/19 07:14 02/05/19 07:14 Labs: Abnormal Lab Results - Last 24 Hours (Table) 02/04/19 02/04/19 02/05/19 Range/Units 09:44 16:53 07:14 Chloride 112 H (98-107) mmol/L BUN 6 L (7-17) mg/dL Creatinine 0.48 L (0.52-1.04) mg/dL Glucose 105 H (74-99) mg/dL POC Glucose (mg/dL) 143 H (75-99) mg/dL Magnesium 1.5 L (1.6-2.3) mg/dL CA 125 Antigen 61.1 H (0.0-30.1) U/mL 02/05/19 Range/Units 07:18 Chloride (98-107) mmol/L BUN (7-17) mg/dL Creatinine (0.52-1.04) mg/dL Glucose (74-99) mg/dL POC Glucose (mg/dL) 113 H (75-99) mg/dL Magnesium (1.6-2.3) mg/dL CA 125 Antigen (0.0-30.1) U/mL Microbiology - Last 24 Hours (Table) 02/04/19 09:44 Urine Culture - Preliminary Urine,Voided - Imaging and Cardiology Venous US: report reviewed (Also bilateral lower extremity Doppler ultrasound report were reviewed.) Assessment and Plan (1) Nausea and vomiting Narrative/Plan: Advance diet as tolerated continue as needed and diagnoses and medications. Current Visit: Yes Status: Acute Priority: High Code(s): R11.2 - NAUSEA WITH VOMITING, UNSPECIFIED SNOMED Code(s): 29362525 (2) Acute abdominal pain Narrative/Plan: Clinically patient is improving on the conservative treatment, I will continue for now. The upper abdominal pain along with nausea vomiting and now with diarrhea could be secondary to viral syndrome but there are chances that these symptoms may be associated with large pelvic mass. Current Visit: Yes Status: Acute Priority: High Code(s): R10.9 - UNSPECIFIED ABDOMINAL PAIN SNOMED Code(s): 640069425 (3) Acute gastritis without bleeding Narrative/Plan: I will continue proton pump inhibitor for now as it is helping her epigastric pain and clinically patient is improving. Current Visit: Yes Status: Acute Priority: High Code(s): K29.00 - ACUTE GASTRITIS WITHOUT BLEEDING SNOMED Code(s): 97033668 (4) Diabetes mellitus type 2 in nonobese Narrative/Plan: Hemoglobin A1c is pending although patient blood sugars is not as terribly out of control as per the history which she quit taking medications and stop controlling her diet for the past 7 months. I will continue sliding scale for now. Current Visit: Yes Status: Acute Priority: High Code(s): E11.9 - TYPE 2 DIABETES MELLITUS WITHOUT COMPLICATIONS SNOMED Code(s): 030900916 (5) Essential hypertension Narrative/Plan: Patient was on blood pressure medication but she quit taking it now she has lost significant weight and her blood pressure is running okay. She may not need to be restarted on her antihypertensive management at this point in time. Current Visit: Yes Status: Acute Priority: High Code(s): I10 - ESSENTIAL (PRIMARY) HYPERTENSION SNOMED Code(s): 45038414 (6) Hypothyroidism Narrative/Plan: Patient TSH is low normal and free thyroxine level was not checked due to normal TSH. She is off levothyroxine for 7 months and she is doing fine I will contin ue to monitor at this point. Current Visit: Yes Status: Acute Priority: High Code(s): E03.9 - HYPOTHYROIDISM, UNSPECIFIED SNOMED Code(s): 40977797 (7) Pelvic mass Narrative/Plan: Patient was referred to cutting tool sharpener and care was coordinated with them, as per the recommendation patient needs to be transferred or referred to, [facility] [place] in [facility] in [facility]. There are office will be coming catering with the gynecology oncologist at [facility] and will be arranging for her referral. Most likely patient will be discharged home and will be seen initially as an outpatient basis and records will be faxed to, nose was patient signed the release of record forms. Current Visit: Yes Status: Acute Priority: High Code(s): R19.00 - INTRA- ABD AND PELVIC SWELLING, MASS AND LUMP, UNSP SITE SNOMED Code(s): 97529122 (8) Smoking addiction Narrative/Plan: Patient does not show any evidence of nicotine withdrawal and she had refused to use nicotine patch, will monitor. Current Visit: Yes Status: Acute Priority: Medium Code(s): F17.200 - NICOTINE DEPENDENCE, UNSPECIFIED, UNCOMPLICATED SNOMED Code(s): 561681552 Plan: Patient reported having bitten by the takes and target lesion rash was noted on her calf and she will be referred to Dr. Williamson from infectious disease for his input. Patient does have mild cervical lymphadenopathy but there was no inguinal or popliteal adenopathy noted. Further management will be dependent on Dr. Williamson recommendations. Time with Patient: Greater than 30 (Total time spent was 45 minutes and more than 50% was in counseling and coordination of care.)
[2019-02-05] MEDS: ONDANSETRON 4 MG/2 ML VIAL IVP PRN (12:39)
[2019-02-05] MEDS: MAGNESIUM SULFATE-D5W PMX 1 GM in DEXTROSE/WATER 1 100ML.BAG IVPB SCH ×2 (13:07→14:13)
[2019-02-05 15:04] VITALS: BMI 25.2
[2019-02-05 16:52] LABS: Glucose,Whole Blood 188 mg/dL (75-99)
[2019-02-05 19:00] LABS: Hemoglobin A1C 7.8 % (4.0-6.0)
--- NOTE | 2019-02-06 00:07 | P.CONS ---
History of Present Illness - Reason for Consult Consult date: 02/05/19 - Chief Complaint Weight loss and rash - History of Present Illness 48-year-old female presents to Hospital feeling poorly for some time. She relates that she has had nearly 30 pound weight loss that she has not tried for, she has developed some significant abdominal discomfort, she's had constipation this nocturnal diarrhea and she developed a rash on her right calf. The patient relates that she was camping and first noticed a tick that was attending the first and second toe this removed without great difficulty. However upon arriving home when she took off her clothes the next day there is evidence of a large black tick embedded into the lateral aspect of her right calf. She relates that she removed the tick but is unclear if she was able to remove the entire tick. She subsequently has developed erythematous area in the lateral aspect of the calf and there was concern and the consult was requested. The patient overs and noticed to have this ongoing vague abdominal pain and constantly imaging studies were performed including computed tomography scan and transvaginal ultrasound. There is evidence of a cystic mass attached the right ovary highly concerning for ovarian cancer. Review of Systems As per the HPI patient has had weight loss fatigue and malaise HEENT:Denies headache or acute visual change. Denies sinus or mouth discomfor ts. Denies neck stiffness or pain. Denies significant oral cavity pain. Denies difficulty on swallowing. Lungs: Denies significant shortness of breath, cough, sputum production, or hemoptysis. Cardiovascular: Denies significant shortness of breath, chest pain, chest wall pain, orthopnea, dyspnea on exertion, syncope Gastrointestinal:Denies nausea, vomiting, diarrhea, constipation, hematemesis, melena, hematochezia. No no significant change of bowel habit noticed. Musculoskeletal: denies significant myalgias or arthralgias. No new joint swelling. Denies new back pain. Skin: Rash right lateral leg Neuro: Denies headache or visual change. Denies any new onset weakness or difficulty with ambulation. Denies falls or seizures. Psychiatric:Denies anxiety or depression. Endocrine: Fatigue and significant weight loss Past Medical History Past Medical History: Diabetes Mellitus, Fibromyalgia, GERD/Reflux, Hyperlipidemia, Hypertension, Thyroid Disorder Additional Past Medical History / Comment(s): Pt states she stopped taking her medications in June 2018 as a matter of personal choice, IDDM type II, neur opathy bilateral legs/feet and hands, bilateral carpal tunnel syndrome, vertigo lately/balance problems, recent weight loss-30# since 09/2018, pancreatitis, hypothyroidism, PE in early twenties from control and smoking. History of Any Multi-Drug Resistant Organisms: None Reported Past Surgical History: Section, Cholecystectomy, Uterine Ablation Additional Past Surgical History / Comment(s): EGD, colonoscoies with benign polypectomy Past Anesthesia/Blood Transfusion Reactions: Previous Problems w/ Anesthesia, Motion Sickness Additional Past Anesthesia/Blood Transfusion Reaction / Comm: pt states trouble waking up after ciarra Past Psychological History: No Psychological Hx Reported Additional Psychological History / Comment(s): Pt resides with her significant other. She is independent. She drives. Works at the [email or web address]. No international travel. No experience. No animals in the home Smoking Status: Current every day smoker Past Alcohol Use History: Occasional Additional Past Alcohol Use History / Comment(s): Pt started smoking in 1980 and quit in 2014 but resumed smoking again in 09/2018. She is a 0.5-1 ppd. Past Drug Use History: None Reported - Past Family History Father Family Medical History: Cancer, Myocardial Infarction ([place]) Additional Family Medical History / Comment(s): Father is living. Prostate cancer. Father had a [place] at the age of 49yrs. Mother Family Medical History: Diabetes Mellitus, Renal Disease Additional Family Medical History / Comment(s): Mother is . Medications and Allergies Home Medications and Allergies Comment(s): Current Medications Acetaminophen (Tylenol Tab) 650 mg PO Q6HR PRN PRN Reason: Mild Pain or Fever > 100.5 Heparin Sodium (Porcine) (Heparin) 5,000 unit SQ Q8HR [facility] Last Admin: 02/05/19 15:54 Dose: 5,000 unit Documented by: Sodium Chloride (Saline 0.9%) 1,000 mls @ 100 mls/hr IV .Q10H [facility] Last Admin: 02/05/19 08:28 Dose: 100 mls/hr Documented by: Ibuprofen (Motrin) 400 mg PO Q6HR PRN PRN Reason: Mild Pain or Fever > 100.5 Insulin Aspart (Novolog) 0 unit SQ AC-TID [facility]; Protocol Last Admin: 02/05/19 17:07 Dose: 2 unit Documented by: Ketorolac Tromethamine (Toradol) 30 mg IVP Q6HR PRN PRN Reason: Moderate Pain Stop: 02/09/19 12:04 Last Admin: 02/05/19 12:34 Dose: 30 mg Documented by: Melatonin (Melatonin) 3 mg PO HS PRN PRN Reason: Insomnia Morphine Sulfate (Morphine Sulfate (Inj)) 4 mg IV Q4HR PRN PRN Reason: Severe Pain Naloxone HCl (Narcan) 0.2 mg IV Q2M PRN PRN Reason: Opioid Reversal Ondansetron HCl (Zofran) 4 mg IVP Q6HR PRN PRN Reason: Nausea And Vomiting Last Admin: 02/05/19 12:39 Dose: 4 mg Documented by: Pantoprazole Sodium (Protonix) 40 mg IV DAILY [facility] Last Admin: 02/05/19 08:21 Dose: 40 mg Documented by: Tramadol HCl (Ultram) 50 mg PO Q6H PRN PRN Reason: Moderate Pain Home Medications Medication Instructions Recorded Confirmed Type Ibuprofen [Motrin] 800 mg PO Q6H PRN 02/04/19 02/04/19 History Allergies Allergy/AdvReac Type Severity Reaction Status Date / Time Penicillins Allergy Swelling Verified 02/04/19 09:08 pregabalin [From Lyrica] Allergy Rash/Hives Verified 02/04/19 09:08 Sulfa (Sulfonamide Allergy Swelling Verified 02/04/19 09:08 Antibiotics) gabapentin AdvReac Severe Diarrhea Verified 02/04/19 13:49 Physical Exam Vitals: Vital Signs Temp Pulse Resp BP Pulse Ox 02/05/19 23:00 98.5 F 65 18 144/84 96 02/05/19 19:05 98.5 F 62 18 146/84 96 02/05/19 15:45 98.7 F 57 L 17 123/76 97 02/05/19 12:15 98.6 F 67 18 126/76 97 02/05/19 07:56 97.7 F 61 18 123/77 98 Intake and Output 02/05/19 02/05/19 02/06/19 14:59 22:59 06:59 Intake Total 580 Balance 580 Intake: Oral 580 Other: # Voids 1 # Bowel Movements 1 Weight 60.6 kg 48-year-old woman appears older than her stated age HEENT: Anicteric conjunctiva are pink and moist nasal mucosa grossly intact without significant lesions, there is no thrush. Neck: The neck is supple without significant lymphadenopathy or thyromegaly. Lungs: Good bilateral air entry without significant crackles or wheezing. There is no significant bronchial sounds. There is no egophony or dullness. Heart: Regular rate and rhythm with an audible S1-S2, no S3 no S4. There is no significant murmur click or rub, PMI was nondisplaced. Abdomen: Positive bowel sounds soft abdomen with tenderness to the lower quadrant right greater than left. No flank tenderness. No organomegaly. Extremities: The upper extremities have excellent pulses they are symmetric, no significant petechiae or telangiectasia. No splinter hemorrhages were noted. The left lower extremity without abnormalities. The right lower extremity reveals evidence of the site of the prior tick bite. There is a central area of erythema with some minimal clearing and then some ringlike erythema. In the middle of the erythema is the palpable induration. There is no expressible purulence. No ascending erythema. No lymphadenopathy. Neuro: Awake alert oriented to person place and time. There are no acute new gross focal sensory motor deficits. Results CBC & Chem 7: 02/05/19 07:14 02/05/19 07:14 Labs: Abnormal Lab Results - Last 24 Hours (Table) 02/05/19 02/05/19 02/05/19 Range/Units 07:14 07:14 07:18 Chloride 112 H (98-107) mmol/L BUN 6 L (7-17) mg/dL Creatinine 0.48 L (0.52-1.04) mg/dL Glucose 105 H (74-99) mg/dL POC Glucose (mg/dL) 113 H (75-99) mg/dL Hemoglobin A1c 7.8 H (4.0-6.0) % Magnesium 1.5 L (1.6-2.3) mg/dL 02/05/19 02/05/19 Range/Units 12:29 16:49 Chloride (98-107) mmol/L BUN (7-17) mg/dL Creatinine (0.52-1.04) mg/dL Glucose (74-99) mg/dL POC Glucose (mg/dL) 114 H 188 H (75-99) mg/dL Hemoglobin A1c (4.0-6.0) % Magnesium (1.6-2.3) mg/dL Microbiology - Last 24 Hours (Table) 02/05/19 12:00 Stool Culture - Preliminary Stool 02/04/19 09:44 Urine Culture - Final Urine,Voided Laboratory Results WBC 7.2 k/uL (3.8-10.6) 02/05/19 07:14 RBC 3.80 m/uL (3.80-5.40) 02/05/19 07:14 Hgb 12.2 gm/dL (11.4-16.0) 02/05/19 07:14 Hct 35.1 % (34.0-46.0) 02/05/19 07:14 MCV 92.2 fL (80.0-100.0) 02/05/19 07:14 MCH 32.2 pg (25.0-35.0) 02/05/19 07:14 MCHC 34.9 g/dL (31.0-37.0) 02/05/19 07:14 RDW 13.8 % (11.5-15.5) 02/05/19 07:14 Plt Count 217 k/uL (150-450) 02/05/19 07:14 Neutrophils % 52 % 02/05/19 07:14 Lymphocytes % 41 % 02/05/19 07:14 Monocytes % 4 % 02/05/19 07:14 Eosinophils % 2 % 02/05/19 07:14 Basophils % 1 % 02/05/19 07:14 Neutrophils # 3.7 k/uL (1.3-7.7) 02/05/19 07:14 Lymphocytes # 2.9 k/uL (1.0-4.8) 02/05/19 07:14 Monocytes # 0.3 k/uL (0-1.0) 02/05/19 07:14 Eosinophils # 0.1 k/uL (0-0.7) 02/05/19 07:14 Basophils # 0.0 k/uL (0-0.2) 02/05/19 07:14 Sodium 140 mmol/L (137-145) 02/05/19 07:14 Potassium 4.3 mmol/L (3.5-5.1) 02/05/19 07:14 Chloride 112 mmol/L (98-107) H 02/05/19 07:14 Carbon Dioxide 24 mmol/L (22-30) 02/05/19 07:14 Anion Gap 4 mmol/L 02/05/19 07:14 BUN 6 mg/dL (7-17) L 02/05/19 07:14 Creatinine 0.48 mg/dL (0.52-1.04) L 02/05/19 07:14 Est GFR (CKD-EPI)AfAm >90 (>60 ml/min/1.73 sqM) 02/05/19 07:14 Est GFR (CKD-EPI)NonAf >90 (>60 ml/min/1.73 sqM) 02/05/19 07:14 Glucose 105 mg/dL (74-99) H 02/05/19 07:14 POC Glucose (mg/dL) 188 mg/dL (75-99) H 02/05/19 16:49 POC Glu Community Dietitian ID Dania Guerrero 02/05/19 16:[address] Glu mg/dL 177 02/05/19 07:14 Hemoglobin A1c 7.8 % (4.0-6.0) H 02/05/19 07:14 Calcium 8.7 mg/dL (8.4-10.2) 02/05/19 07:14 Magnesium 1.5 mg/dL (1.6-2.3) L 02/05/19 07:14 Total Bilirubin 0.4 mg/dL (0.2-1.3) 02/04/19 09:44 AST 11 U/L (14-36) L 02/04/19 09:44 ALT 10 U/L (9-52) 02/04/19 09:44 Alkaline Phosphatase 55 U/L (38-126) 02/04/19 09:44 Total Protein 6.8 g/dL (6.3-8.2) 02/04/19 09:44 Albumin 3.7 g/dL (3.5-5.0) 02/04/19 09:44 Amylase 57 U/L (30-110) 02/04/19 09:44 Lipase 143 U/L (23-300) 02/04/19 09:44 CA 125 Antigen 61.1 U/mL (0.0-30.1) H 02/04/19 09:44 TSH 1.380 mIU/L (0.465-4.680) 02/05/19 07:14 Urine Color Light Yellow 02/04/19 09:44 Urine Appearance Clear (Clear) 02/04/19 09:44 Urine pH 5.5 (5.0-8.0) 02/04/19 09:44 Ur Specific [place] 1.004 (1.001-1.035) 02/04/19 09:44 Urine Protein Negative (Negative) 02/04/19 09:44 Urine Glucose (UA) Negative (Negative) 02/04/19 09:44 Urine Ketones Negative (Negative) 02/04/19 09:44 Urine Blood Negative (Negative) 02/04/19 09:44 Urine Nitrite Negative (Negative) 02/04/19 09:44 Urine Bilirubin Negative (Negative) 02/04/19 09:44 Urine Urobilinogen <2.0 mg/dL (<2.0) 02/04/19 09:44 Ur Leukocyte Esterase Negative (Negative) 02/04/19 09:44 Stool Occult Blood Negative (Negative) 02/05/19 11:11 C. difficile (EIA) Intrp Negative (Negative) 02/05/19 11:11 Microbiology 02/05/19 12:00 Stool Stool Culture - Preliminary 02/04/19 09:44 Urine,Voided Urine Culture - Final Assessment and Plan (1) Acute abdominal pain Current Visit: Yes Status: Acute Priority: High Code(s): R10.9 - UN SPECIFIED ABDOMINAL PAIN SNOMED Code(s): 946967070 (2) Pelvic mass Current Visit: Yes Status: Acute Priority: High Code(s): R19.00 - INTRA- ABD AND PELVIC SWELLING, MASS AND LUMP, UNSP SITE SNOMED Code(s): 42874559 (3) Allergic dermatitis Narrative/Plan: 48-year-old presents to Hospital feeling poorly with evidence of generalized malaise and fatigue abdominal pain. Evaluation so far reveal evidence of the distinct pelvic mass it appears to have any potential right ovarian mass and further evaluations are in process. She's been seen by gynecology. It has evidence of the elevated CEA 125. The patient has had some diarrhea evaluation for C. diff was requested the nursing staff relate that the stool or in character is not characteristic of C. diff colitis. Patient is evidence of this small area of dermatitis on the right lateral leg. The area that is central to the area of erythema that is ringlike has evidence of a small palpable foreign body likely the head of the tick that was embedded within the body was ripped away from the head. Topical antibiotic ointment and a Band-Aid will be utilized to soften it so that the tick head can be extruded over time . The patient relates to the size of the tick it is likely a standard brown or black tick which does not transmit any specific diseases specifically Lyme disease. Patient does not require antibiotic therapy for this issue. Current Visit: Yes Status: Acute Code(s): L23.9 - ALLERGIC CONTACT DERMATITIS, UNSPECIFIED CAUSE SNOMED Code(s): 838172421
[2019-02-06] MEDS: SODIUM CHLORIDE 0.9% 1,000 ML IV SCH ×2 (00:11→04:02)
[2019-02-06] MEDS: HEPARIN SODIUM,PORCINE 5,000 UNIT/ML 1 ML VIAL SQ SCH ×2 (00:11→08:49)
[2019-02-06] MEDS: BACITRACIN/POLYMYX 500-10,000 UNIT/GM OINT 14 GM TUBE TOPICAL SCH ×2 (01:01→08:49)
[2019-02-06 06:55] LABS: Glucose,Whole Blood 122 mg/dL (75-99)
--- NOTE | 2019-02-06 08:23 | P.PN ---
Progress Note - Text Progress Note Date: 02/06/19 Jaclyn is seen and evaluated, overall she remains stable. She relates that she had some slight increase in pain last night in her pelvis done introvert her vagina, but her pain is overall been controlled with just Tylenol. There are no changes from my standpoint and she is stable for discharge from a gynecologic standpoint. She has an appointment next at [facility] she is encouraged to verify again the time and locations. She has debility catheter in planning of time. We need to provide her with a no relating why she is unable to work this time and otherwise she is aware to return to the emergency room for any severe pain high temperatures heavy bleeding anything that is grossly out of the ordinary for her pain levels at this time. I did explain that even if she was to come back to the emergency room due to the size and nature of the mass if she was having significant increase in pain is very likely that we would transfer her to [facility] rather than take her to surgery here unless there was some type life-threatening issue.
[2019-02-06] MEDS: PANTOPRAZOLE 40 MG/10 ML VIAL IV SCH (08:49)
[2019-02-06 09:05] VITALS: RESP 16
[2019-02-06] MEDS: INSULIN ASPART (NovoLOG) 100 UNIT/ML VIAL SQ SCH ×2 (09:21→12:50)
[2019-02-06 11:14] LABS: Lyme IgG/IgM 0.12 Index
[2019-02-06 11:45] LABS: Glucose,Whole Blood 216 mg/dL (75-99)
--- NOTE | 2019-02-06 11:45 | P.DS ---
Providers Date of admission: 02/04/19 13:02 Expected date of discharge: 02/06/19 Attending physician: Carline Davis DO Consults: 02/04/19 12:03 Consult Physician Stat Consulting Provider: Ofelia Candelario Consult Reason/Comments: Pelvic mass Do you want consulting provider notified?: Yes 02/05/19 09:28 Consult Physician Routine Consulting Provider: Daniel Williamson Consult Reason/Comments: r/o lymes, bullseye on rt posterior calf Do you want consulting provider notified?: Already Contacted Primary care physician: Gail Mueller MD Hospital Course: 48-year-old female with PMH of hypertension, diabetes mellitus, hyperlipidemia, fibromyalgia, hypothyroidism and GERD presents the ED for pelvic pain, nausea and vomiting along with unintentional weight loss. CT of the abdomen and pelvis was donewhich showed a 10.5 x 8 x 12.4 cm mass in the region of the pouch of Jose Alfredo, ovarian neoplasm not excluded. Pelvic ultrasound shows a large complex cystic fluid collection in the pelvis. BLOCK OPERATOR the violated the patient and recommended outpatient follow-up at [facility] for further diagnosis and treatment options. Her pain was controlled with Toradol and Tylenol along with morphine. She was also given Protonix for possible gastritis. Patient was seen and examined prior to discharge. No acute events overnight. Patient reports abdominal pain that is slightly improved. States that the tramadol is helping. She denies any nausea or vomiting. Patient denies any chest pain, shortness breath or palpitations. States that she would like to return back to work on Saturday. General: [non toxic], [no distress], [appears at stated age] Derm: [warm], [dry] Head: [atraumatic], [normocephalic], [symmetric] Eyes: [EOMI], [no lid lag], [anicteric sclera] Mouth: [no lip lesion], [mucus membranes moist] Cardiovascular: [S1S2 reg], [no murmur], [positive posterior tibial pulse bilateral], Lungs: [CTA bilateral], [no rhonchi, no rales] , [no accessory muscle use] Abdominal: [soft], [tenderness to palpation, generalized with no rebound], [no guarding], [no appreciable organomegaly] Ext: [no gross muscle atrophy], [no edema], [no contractures] Neuro: [ CN II-XI grossly intact], [no focal neuro deficits] Psych: [Alert], [oriented], [appropriate affect] Abdominal pain with nausea and vomiting Pelvic mass Rash Diabetes mellitus Hypertension Hypothyroidism Smoker Her abdominal pain is likely related to the pelvic mass with component of gastritis. CT of the abdomen and pelvis show a large complex mass in the pelvis at the site of pouch of Jose Alfredo. C. diff negative. Plans: She will follow-up at [facility] for workup of the pelvic mass. She'll be discharged on Zofran by mouth. Continue Protonix. Elevated CA-125. Plans: Management as above. Patient was seen by Dr. Williamson. Plans: Appreciated ID recommendations. No concerns for Lyme disease. Topical antibiotic ointment and Band-Aid. Eonqz-so-izui glucose 122. Plans: Insulin sliding scale. Regular Accu-Cheks. Hypoglycemic precautions. BP 136/76. Plans: Monitor vitals, adjust medications as necessary. Plans: Continue Synthroid. Plans: Advised to quit. DC today adequate follow-up with PCP and [facility]. Pertinent Studies: CT abdomen and pelvis, pelvic ultrasound, KUB Patient Condition at Discharge: Stable Plan - Discharge Summary Discharge Rx Participant: No New Discharge Prescriptions: New Pantoprazole Sodium [Protonix] 40 mg PO DAILY #30 tablet. traMADol HCl [Ultram] 50 mg PO Q6H PRN #12 tab PRN Reason: Moderate Pain Ondansetron Odt [Zofran Odt] 4 mg PO Q8HR PRN #14 tab PRN Reason: Nausea or Vomiting Continue Ibuprofen [Motrin] 800 mg PO Q6H PRN PRN Reason: Pain Discharge Medication List Ibuprofen [Motrin] 800 mg PO Q6H PRN 02/04/19 [History] Ondansetron Odt [Zofran Odt] 4 mg PO Q8HR PRN #14 tab 02/06/19 [Rx] Pantoprazole Sodium [Protonix] 40 mg PO DAILY #30 tablet. 02/06/19 [Rx] traMADol HCl [Ultram] 50 mg PO Q6H PRN #12 tab 02/06/19 [Rx] Follow up Appointment(s)/Referral(s): Gail Mueller MD [Primary Care Provider] - 1-2 days Activity/Diet/Wound Care/Special Instructions: Diet: Diabetic Follow-up PCP within 1-2 days of discharge. Follow-up the [facility] on . Take all medications as advised. Discharge Disposition: HOME SELF-CARE
[2019-02-06 12:04] VITALS: BP 144/87; PULSE 71; TEMP 98.5
== END 2019-02-06 13:46 | disposition home or self-care (01) ==
LOC: EC 08:50 → 6PED 13:02
PROVIDERS: ADMIT Internal Medicine; ATTEND Internal Medicine
DX: R10.10 Upper abdominal pain, unspecified (principal); R19.00 Intra-abdominal and pelvic swelling, mass and lump, unspecified site; R97.1 Elevated cancer antigen 125 [CA 125]; E83.42 Hypomagnesemia; K29.70 Gastritis, unspecified, without bleeding; M54.9 Dorsalgia, unspecified; M79.7 Fibromyalgia; K21.9 Gastro-esophageal reflux disease without esophagitis; I10 Essential (primary) hypertension; E78.5 Hyperlipidemia, unspecified; E78.00 Pure hypercholesterolemia, unspecified; K76.0 Fatty (change of) liver, not elsewhere classified; R11.2 Nausea with vomiting, unspecified; R19.7 Diarrhea, unspecified; R16.2 Hepatomegaly with splenomegaly, not elsewhere classified; E11.42 Type 2 diabetes mellitus with diabetic polyneuropathy; E03.9 Hypothyroidism, unspecified; K59.00 Constipation, unspecified; F41.9 Anxiety disorder, unspecified; F32.9 Major depressive disorder, single episode, unspecified; E66.9 Obesity, unspecified; Z68.25 Body mass index [BMI] 25.0-25.9, adult; R59.0 Localized enlarged lymph nodes; R63.4 Abnormal weight loss; R53.83 Other fatigue; S80.861A Insect bite (nonvenomous), right lower leg, initial encounter; L23.9 Allergic contact dermatitis, unspecified cause; W57.XXXA Bitten or stung by nonvenomous insect and other nonvenomous arthropods, initial encounter; F17.200 Nicotine dependence, unspecified, uncomplicated; Z88.0 Allergy status to penicillin; Z88.2 Allergy status to sulfonamides; Z88.8 Allergy status to other drugs, medicaments and biological substances; Z86.711 Personal history of pulmonary embolism; Z90.49 Acquired absence of other specified parts of digestive tract; Z86.010 Personal history of colon polyps; Z87.19 Personal history of other diseases of the digestive system; Z82.49 Family history of ischemic heart disease and other diseases of the circulatory system; Z80.42 Family history of malignant neoplasm of prostate; Z83.3 Family history of diabetes mellitus; Z84.1 Family history of disorders of kidney and ureter; Z91.14 Patient's other noncompliance with medication regimen
CPT/HCPCS: 96361 ×4; 96365; 96372 ×3; 96375 ×2; 96376 ×3; 99285; 36415; 80053; 80048; 86304; 84443; 82150; 83690; 83735; 85025 ×2; 82272; 81003; 87324; 86618; 87086; 87045; 83630; 87046; 83036; 74018; 76700; 76856; 76830; 74177; G0378 ×3; J2270; J1644 ×3; J2405 ×2; J1885 ×2; J3475; C9113 ×2; Q9967

== ENCOUNTER 2019-03-16 19:33 | Emergency (ER) | payer OTHER ==
[2019-03-16 20:28] LABS: Basophils # (A) 0.1 k/uL (0-0.2); Basophils % (A) 0 %; Eosinophils # (A) 0.3 k/uL (0-0.7); Eosinophils % (A) 2 %; HCT 39.7 % (34.0-46.0); HGB 13.6 gm/dL (11.4-16.0); Lymphocytes # (A) 3.1 k/uL (1.0-4.8); Lymphocytes % (A) 28 %; MCH 31.5 pg (25.0-35.0); MCHC 34.3 g/dL (31.0-37.0); MCV 91.9 fL (80.0-100.0); Mean Platelet Volume 6.4; Monocytes # (A) 0.4 k/uL (0-1.0); Monocytes % (A) 3 %; Neutrophils # (A) 7.2 k/uL (1.3-7.7); Neutrophils % (A) 65 %; Platelet Count 361 k/uL (150-450); RBC 4.32 m/uL (3.80-5.40); RDW 12.7 % (11.5-15.5)
[2019-03-16 20:40] LABS: ALT <6 U/L (9-52); AST 18 U/L (14-36); African American GFR (CKD) >90 (>60 ml/min/1.73 sqM); Albumin 4.2 g/dL (3.5-5.0); Alkaline Phosphatase 72 U/L (38-126); Anion Gap 12 mmol/L; Blood Urea Nitrogen 14 mg/dL (7-17); Calcium 9.8 mg/dL (8.4-10.2); Carbon Dioxide 21 mmol/L (22-30); Chloride 107 mmol/L (98-107); Glucose 164 mg/dL (74-99); INR 0.9 (<1.2); Partial Thromboplastin Time 23.7 sec (22.0-30.0); Potassium 4.2 mmol/L (3.5-5.1); Prothrombin Time 9.6 sec (9.0-12.0); Sodium 140 mmol/L (137-145); Total Bilirubin 0.4 mg/dL (0.2-1.3)
[2019-03-16 21:26] LABS: Appearance,Urine Clear (Clear); Bilirubin,Urine Negative (Negative); Blood,Urine Negative (Negative); Color,Urine Light Yellow; Glucose,Urine (UA) Negative (Negative); Ketones,Urine Negative (Negative); Leukocyte Esterase,Urine Negative (Negative); Nitrite,Urine Negative (Negative); Protein,Urine Negative (Negative); Urobilinogen,Urine <2.0 mg/dL (<2.0)
[2019-03-16 22:15] VITALS: RESP 16
--- NOTE | 2019-03-16 22:54 | CT ---
EXAM: CT Abdomen and Pelvis Without Intravenous Contrast CLINICAL HISTORY: ITS.REASON CT Reason: Pain TECHNIQUE: Axial computed tomography images of the abdomen and pelvis without intravenous contrast. CTDI is 8.1 mGy and DLP is 441.90 mGy-cm. This CT exam was performed using one or more of the following dose reduction techniques: automated exposure control, adjustment of the mA and/or kV according to patient size, and/or use of iterative reconstruction technique. COMPARISON: CT abdomen pelvis 02/04/19. FINDINGS: Lung bases: Subsegmental atelectasis at the bases. ABDOMEN: Liver: Unremarkable. Gallbladder and bile ducts: Prior cholecystectomy. Prior cholecystectomy. Pancreas is unremarkable. No biliary ductal dilatation. Pancreas: Unremarkable. No ductal dilation. Spleen: Unremarkable. No splenomegaly. Adrenals: Unremarkable. No mass. Kidneys and ureters: No obstructive uropathy. Punctate nonobstructing calyceal calculus at the posterior aspect of the right interpolar level. Stomach and bowel: See below. PELVIS: Appendix: No appendicitis, colitis, diverticulitis or bowel obstruction. Bladder: Unremarkable. No stones. Reproductive: Unremarkable as visualized. ABDOMEN and PELVIS: Intraperitoneal space: Previous large cystic mass in the pelvis is apparently surgically absent now. Please compare with surgical history. No adnexal masses. No free fluid. No free air. Bones/joints: No unusual lytic or sclerotic lesions of bone. No acute fracture. No dislocation. Soft tissues: Midline abdominal wall postsurgical changes. Vasculature: Unremarkable. No abdominal aortic aneurysm. Lymph nodes: Unremarkable. No enlarged lymph nodes. IMPRESSION: Punctate nonobstructing calyceal calculus at the posterior aspect of the right interpolar level. No other acute or inflammatory disease or bowel obstruction.
[2019-03-16] MEDS ORDERED: CEPHALEXIN 500 MG CAP PO STA (23:41)
--- NOTE | 2019-03-16 23:44 | ED ---
General Adult HPI - General Chief complaint: Recheck/Abnormal Lab/Rx Stated complaint: Incision ripped open Time Seen by Provider: 03/16/19 20:43 Source: patient Mode of arrival: ambulatory Limitations: no limitations - History of Present Illness Initial comments: The patient is a 48-year-old female who presents to the emergency department with reported drainage from her incision site. Patient states that she had surgery by Dr. Amado on the fifth of this month. Procedure was performed at [facility]. She had a cystic mass in her abdomen. She states the mass was removed. They sent for pathology and it was not cancer. She states that she's had slight drainage from the site. She has been on antibiotics which were prescribed by Dr. Amado. She has been on Keflex. States that she stopped taking them. She was at the hospital today with her daughter who is sick. The patient had notable fluid on the front of her pants and decided that she needed to be evaluated as well. She denies any pustular drainage. No fevers or chills. Denies any pain at the site. Denies any changes in her bowel or bladder habits. There are no other alleviating, precipitating or modifying factors - Related Data Home Medications Medication Instructions Recorded Confirmed Ibuprofen [Motrin] 1,200 mg PO BID PRN 03/16/19 03/19/19 glipiZIDE [Glucotrol] 10 mg PO BID 03/16/19 03/19/19 Clindamycin HCl 300 mg PO BID 03/19/19 03/19/19 Previous Rx's Medication Instructions Recorded Doxycycline [Vibramycin] 100 mg PO BID #14 cap 03/19/19 Ibuprofen [Motrin] 600 mg PO Q8HR PRN #30 tab 03/19/19 Allergies Allergy/AdvReac Type Severity Reaction Status Date / Time Penicillins Allergy Swelling Verified 03/19/19 22:48 pregabalin [From Lyrica] Allergy Rash/Hives Verified 03/19/19 22:48 Sulfa (Sulfonamide Allergy Swelling Verified 03/19/19 22:48 Antibiotics) gabapentin AdvReac Severe Diarrhea Verified 03/19/19 22:48 Review of Systems ROS Statement: Those systems with pertinent positive or pertinent negative responses have been documented in the HPI. ROS Other: All systems not noted in ROS Statement are negative. Past Medical History Past Medical History: Diabetes Mellitus, Fibromyalgia, GERD/Reflux, Hyperlipidemia, Hypertension, Thyroid Disorder Additional Past Medical History / Comment(s): Pt states she stopped taking her medications in June 2018 as a matter of personal choice, IDDM type II, neuropathy bilateral legs/feet and hands, bilateral carpal tunnel syndrome, vertigo lately/balance problems, recent weight loss-30# since 09/2018, pancreatitis, hypothyroidism, PE in early twenties from control and smoking. History of Any Multi-Drug Resistant Organisms: None Reported Past Surgical History: Section, Cholecystectomy, Uterine Ablation Additional Past Surgical History / Comment(s): EGD, colonoscoies with benign polypectomy, " abdominal" unsure the name Past Anesthesia/Blood Transfusion Reactions: Previous Problems w/ Anesthesia, Motion Sickness Additional Past Anesthesia/Blood Transfusion Reaction / Comment(s): pt states trouble waking up after ciarra Past Psychological History: No Psychological Hx Reported Smoking Status: Current every day smoker Past Alcohol Use History: Occasional Past Drug Use History: None Reported - Past Family History Father Family Medical History: Cancer, Myocardial Infarction ([place]) Additional Family Medical History / Comment(s): Father is living. Prostate cancer. Father had a AR at the age of 49yrs. Mother Family Medical History: Diabetes Mellitus, Renal Disease Additional Family Medical History / Comment(s): Mother is . General Exam Limitations: no limitations General appearance: alert, in no apparent distress Head exam: Present: atraumatic, normocephalic, normal inspection Eye exam: Present: normal appearance, PERRL, EOMI. Absent: scleral icterus, conjunctival injection, periorbital swelling ENT exam: Present: normal exam, mucous membranes moist Neck exam: Present: normal inspection. Absent: tenderness, meningismus, lymphadenopathy Respiratory exam: Present: normal lung sounds bilaterally. Absent: respiratory distress, wheezes, rales, rhonchi, stridor Cardiovascular Exam: Present: regular rate, normal rhythm, normal heart sounds. Absent: systolic murmur, diastolic murmur, rubs, gallop, clicks GI/Abdominal exam: Present: soft, normal bowel sounds, other (the patient has a partially healed vertical scar near midline. The surrounding skin is erythematous and indurated. There is a small amount of clear drainage coming from the incision site. No tenderness. No palpable masses.). Absent: distended, tenderness, guarding, rebound, rigid Extremities exam: Present: normal inspection, full ROM, normal capillary refill. Absent: tenderness, pedal edema, joint swelling, calf tenderness Back exam: Present: normal inspection Neurological exam: Present: alert, oriented X3, CN II-XII intact Psychiatric exam: Present: normal affect, normal mood Skin exam: Present: warm, dry, intact, normal color. Absent: rash Course Vital Signs 03/16/19 03/16/19 03/16/19 20:02 22:14 23:50 Temperature 99.7 F H 98.5 F 98.4 F Pulse Rate 106 H 87 78 Respiratory 18 16 16 Rate Blood Pressure 145/84 113/75 129/76 O2 Sat by Pulse 100 97 97 Oximetry Medical Decision Making - Medical Decision Making Upon arrival the patient is placed in room 20. She is hooked up to continuous pulse ox and cardiac monitoring. Peripheral IV is established. Laboratory studies were conducted and patient was sent for aCT of her abdomen and pelvis. Upon return of the results are reviewed and discussed the patient. She does have subcutaneous soft tissue changes. There are no signs of seroma however I am concerned that this is what the patient has. I did discuss diagnosis, di fferential and treatment options. I did call and attempted to discuss the case with the surgeon. We are placed on hold for approximately 15 minutes and are unable to get a response. I did update the patient. She is requesting to leave at this time and states that she will call her surgeon in the morning. I did provide the patient with a dose of Keflex. She does have an abdominal binder at home that she states that she can wear from her surgery. She'll be given a new prescription for Keflex as she does not know how much she still has from the prescription she stopped taking. She must follow-up with her surgeon within 2-4 days. She has any new or worsening symptoms she should return to the emergency room. The patient was discharged home in stable condition - Differential Diagnosis acute incisional drainage, possible cellulitis, possible seroma - Lab Data Result diagrams: 03/16/19 20:17 03/16/19 20:17 Lab Results 03/16/19 03/16/19 03/16/19 Range/Units 20:17 20:17 20:17 WBC 11.0 H (3.8-10.6) k/uL RBC 4.32 (3.80-5.40) m/uL Hgb 13.6 (11.4-16.0) gm/dL Hct 39.7 (34.0-46.0) % MCV 91.9 (80.0-100.0) fL MCH 31.5 (25.0-35.0) pg MCHC 34.3 (31.0-37.0) g/dL RDW 12.7 (11.5-15.5) % Plt Count 361 (150-450) k/uL Neutrophils % 65 % Lymphocytes % 28 % Monocytes % 3 % Eosinophils % 2 % Basophils % 0 % Neutrophils # 7.2 (1.3-7.7) k/uL Lymphocytes # 3.1 (1.0-4.8) k/uL Monocytes # 0.4 (0-1.0) k/uL Eosinophils # 0.3 (0-0.7) k/uL Basophils # 0.1 (0-0.2) k/uL PT (9.0-12.0) sec INR (<1.2) APTT (22.0-30.0) sec Sodium 140 (137-145) mmol/L Potassium 4.2 (3.5-5.1) mmol/L Chloride 107 (98-107) mmol/L Carbon Dioxide 21 L (22-30) mmol/L Anion Gap 12 mmol/L BUN 14 (7-17) mg/dL Creatinine 0.50 L (0.52-1.04) mg/dL Est GFR (CKD-EPI)AfAm >90 (>60 ml/min/1.73 sqM) Est GFR (CKD-EPI)NonAf >90 (>60 ml/min/1.73 sqM) Glucose 164 H (74-99) mg/dL Plasma Lactic Acid [place] 1.9 (0.7-2.0) mmol/L Calcium 9.8 (8.4-10.2) mg/dL Total Bilirubin 0.4 (0.2-1.3) mg/dL AST 18 (14-36) U/L ALT <6 L (9-52) U/L Alkaline Phosphatase 72 (38-126) U/L Total Protein 8.0 (6.3-8.2) g/dL Albumin 4.2 (3.5-5.0) g/dL Urine Color Urine Appearance (Clear) Urine pH (5.0-8.0) Ur Specific [place] (1.001-1.035) Urine Protein (Negative) Urine Glucose (UA) (Negative) Urine Ketones (Negative) Urine Blood (Negative) Urine Nitrite (Negative) Urine Bilirubin (Negative) Urine Urobilinogen (<2.0) mg/dL Ur Leukocyte Esterase (Negative) 03/16/19 03/16/19 Range/Units 20:17 21:10 WBC (3.8-10.6) k/uL RBC (3.80-5.40) m/uL Hgb (11.4-16.0) gm/dL Hct (34.0-46.0) % MCV (80.0-100.0) fL MCH (25.0-35.0) pg MCHC (31.0-37.0) g/dL RDW (11.5-15.5) % Plt Count (150-450) k/uL Neutrophils % % Lymphocytes % % Monocytes % % Eosinophils % % Basophils % % Neutrophils # (1.3-7.7) k/uL Lymphocytes # (1.0-4.8) k/uL Monocytes # (0-1.0) k/uL Eosinophils # (0-0.7) k/uL Basophils # (0-0.2) k/uL PT 9.6 (9.0-12.0) sec INR 0.9 (<1.2) APTT 23.7 (22.0-30.0) sec Sodium (137-145) mmol/L Potassium (3.5-5.1) mmol/L Chloride (98-107) mmol/L Carbon Dioxide (22-30) mmol/L Anion Gap mmol/L BUN (7-17) mg/dL Creatinine (0.52-1.04) mg/dL Est GFR (CKD-EPI)AfAm (>60 ml/min/1.73 sqM) Est GFR (CKD-EPI)NonAf (>60 ml/min/1.73 sqM) Glucose (74-99) mg/dL Plasma Lactic Acid [place] (0.7-2.0) mmol/L Calcium (8.4-10.2) mg/dL Total Bilirubin (0.2-1.3) mg/dL AST (14-36) U/L ALT (9-52) U/L Alkaline Phosphatase (38-126) U/L Total Protein (6.3-8.2) g/dL Albumin (3.5-5.0) g/dL Urine Color Light Yellow Urine Appearance Clear (Clear) Urine pH 5.0 (5.0-8.0) Ur Specific [place] 1.010 (1.001-1.035) Urine Protein Negative (Negative) Urine Glucose (UA) Negative (Negative) Urine Ketones Negative (Negative) Urine Blood Negative (Negative) Urine Nitrite Negative (Negative) Urine Bilirubin Negative (Negative) Urine Urobilinogen <2.0 (<2.0) mg/dL Ur Leukocyte Esterase Negative (Negative) Disposition Clinical Impression: Status post abdominal surgery, follow-up exam, Seroma, Cellulitis Disposition: HOME SELF-CARE Condition: Stable Instructions (If sedation given, give patient instructions): Seroma (DC) Additional Instructions: Please follow-up with your surgeon as soon as possible. Call his office tomorrow. Return to the emergency room for any new or worsening symptoms Is patient prescribed a controlled substance at d/c from ED?: No Referrals: Gail Mueller MD [Primary Care Provider] - 1-2 days Time of Disposition: 23:43
[2019-03-17 00:01] VITALS: BP 129/76; PULSE 78; TEMP 98.4
== END 2019-03-16 23:50 | disposition home or self-care (01) ==
LOC: EC 19:33
DX: L76.34 Postprocedural seroma of skin and subcutaneous tissue following other procedure (principal); T81.49XA Infection following a procedure, other surgical site, initial encounter; E11.42 Type 2 diabetes mellitus with diabetic polyneuropathy; F17.200 Nicotine dependence, unspecified, uncomplicated; Z88.0 Allergy status to penicillin; Z88.2 Allergy status to sulfonamides; Z88.8 Allergy status to other drugs, medicaments and biological substances; Z79.84 Long term (current) use of oral hypoglycemic drugs; Z90.49 Acquired absence of other specified parts of digestive tract
CPT/HCPCS: 36415; 74176; 80053; 81003; 83605; 85025; 85610; 85730; 87040; 87086; 99284

== ENCOUNTER 2019-03-19 22:09 | Emergency (ER) | payer OTHER ==
[2019-03-19 22:34] VITALS: RESP 18
[2019-03-19] MEDS ORDERED: ACET/COD 300 MG/30 MG STARTER PACK 6 TAB BTL PO STA (23:38)
[2019-03-19] MEDS ORDERED: DOXYCYCLINE 100 MG CAP PO STA (23:39)
--- NOTE | 2019-03-19 23:42 | ED ---
Skin/Abscess/FB HPI - General Chief complaint: Skin/Abscess/Foreign Body Stated complaint: post op incision infection Time Seen by Provider: 03/19/19 22:43 Source: patient Mode of arrival: ambulatory Limitations: no limitations - History of Present Illness Initial comments: 48-year-old female patient presents to the emergency department today for evaluation of possible surgical incision site infection. Patient states she underwent removal of a mass from her uterus, fallopian tubes, and her left ovary and 02/23/2019. Patient states at follow-up with her surgeon he did give her antibiotic for possible incisional infection. Patient states that she could not tolerate the antibiotic, was evaluated in the emergency Department switch to Keflex. Patient states she is ALLERGIC to this medication so did not take it. Patient comes in today stating that she has had pus draining from the incision throughout the day today. She states the area has been burning. She denies any fever or chills. Denies nausea or vomiting. Denies any abnormal vaginal bleeding or discharge. Patient denies any recent rash, shortness breath, chest pain, diarrhea, constipation, back pain, numbness, tingling, dizziness, weakness, hematuria, dysuria, urinary urgency, urinary frequency, headache, visual changes, or any other complaints. - Related Data Home Medications Medication Instructions Recorded Confirmed Ibuprofen [Motrin] 1,200 mg PO BID PRN 03/16/19 03/19/19 glipiZIDE [Glucotrol] 10 mg PO BID 03/16/19 03/19/19 Clindamycin HCl 300 mg PO BID 03/19/19 03/19/19 Previous Rx's Medication Instructions Recorded Doxycycline [Vibramycin] 100 mg PO BID #14 cap 03/19/19 Ibuprofen [Motrin] 600 mg PO Q8HR PRN #30 tab 03/19/19 Allergies Allergy/AdvReac Type Severity Reaction Status Date / Time Penicillins Allergy Swelling Verified 03/19/19 22:48 pregabalin [From Lyrica] Allergy Rash/Hives Verified 03/19/19 22:48 Sulfa (Sulfonamide Allergy Swelling Verified 03/19/19 22:48 Antibiotics) gabapentin AdvReac Severe Diarrhea Verified 03/19/19 22:48 Review of Systems ROS Statement: Those systems with pertinent positive or pertinent negative responses have been documented in the HPI. ROS Other: All systems not noted in ROS Statement are negative. Past Medical History Past Medical History: Diabetes Mellitus, Fibromyalgia, GERD/Reflux, Hyperlipidemia, Hypertension, Thyroid Disorder Additional Past Medical History / Comment(s): Pt states she stopped taking her medications in June 2018 as a matter of personal choice, IDDM type II, neuropathy bilateral legs/feet and hands, bilateral carpal tunnel syndrome, vertigo lately/balance problems, recent weight loss-30# since 09/2018, pancreatitis, hypothyroidism, PE in early twenties from control and smoking. History of Any Multi-Drug Resistant Organisms: None Reported Past Surgical History: Section, Cholecystectomy, Uterine Ablation Additional Past Surgical History / Comment(s): EGD, colonoscoies with benign polypectomy, " abdominal" unsure the name Past Anesthesia/Blood Transfusion Reactions: Previous Problems w/ Anesthesia, Motion Sickness Additional Past Anesthesia/Blood Transfusion Reaction / Comment(s): pt states trouble waking up after ciarra Past Psychological History: No Psychological Hx Reported Smoking Status: Current every day smoker Past Alcohol Use History: Occasional Past Drug Use History: None Reported - Past Family History Father Family Medical History: Cancer, Myocardial Infarction ([place]) Additional Family Medical History / Comment(s): Father is living. Prostate cancer. Father had a [place] at the age of 49yrs. Mother Family Medical History: Diabetes Mellitus, Renal Disease Additional Family Medical History / Comment(s): Mother is . General Exam Limitations: no limitations General appearance: alert, in no apparent distress, other (This is a well- developed, well-nourished adult female patient in no acute distress. Vital signs upon presentation are temperature 98.8F, pulse 99, respirations 18, blood pressure 135/83, pulse ox 99% on room air.) Eye exam: Present: normal appearance, PERRL, EOMI. Absent: scleral icterus, conjunctival injection, periorbital swelling ENT exam: Present: normal exam, normal oropharynx, mucous membranes moist Respiratory exam: Present: normal lung sounds bilaterally. Absent: respiratory distress, wheezes, rales, rhonchi, stridor Cardiovascular Exam: Present: regular rate, normal rhythm, normal heart sounds. Absent: systolic murmur, diastolic murmur, rubs, gallop, clicks GI/Abdominal exam: Present: soft, normal bowel sounds, other (There is a vertical lower abdominal incision extending from the umbilicus down to the pubis region. This is well approximated. There is central area of induration measuri ng approximately 2-3 cm, with a small amount of purulent drainage noted. No evidence of dehiscence. No cellulitis.). Absent: distended, tenderness, guarding, rebound, rigid Neurological exam: Present: alert, oriented X3, CN II-XII intact Psychiatric exam: Present: normal affect, normal mood Skin exam: Present: warm, dry, intact, normal color. Absent: rash Course Vital Signs 03/19/19 03/20/19 22:30 00:09 Temperature 98.8 F 98.5 F Pulse Rate 99 93 Respiratory 18 18 Rate Blood Pressure 135/83 130/85 O2 Sat by Pulse 99 96 Oximetry Medical Decision Making - Medical Decision Making 48-year-old female patient presents to the emergency department today for evaluation of possible surgical site infection. Physical examination did reveal a well approximated vertical lower abdominal incision with a central area of induration measuring approximately 2-3 cm. There is a small amount of purulent drainage which was cultured. No cellulitis is noted. Patient was unable to tolerate clindamycin and will not take Keflex due to her penicillin ALLERGY. Patient was started on doxycycline. She is given ibuprofen for pain control. She is instructed to follow-up with her surgeon for recheck as soon as possible. She does have an appointment coming up. Return parameters were discussed in detail. She verbalizes understanding and agrees with this plan. Disposition Clinical Impression: Surgical site infection Disposition: HOME SELF-CARE Condition: Good Instructions (If sedation given, give patient instructions): Surgical Site Infections (ED) Additional Instructions: Complete antibiotic prescription in full. Take ibuprofen for pain control. Use Tylenol No. 3 sparingly for pain. Follow-up with your surgeon for recheck as soon as possible. Return to the emergency department immediately for any new, worsening, or concerning symptoms. Prescriptions: Ibuprofen [Motrin] 600 mg PO Q8HR PRN #30 tab PRN Reason: Pain Doxycycline [Vibramycin] 100 mg PO BID #14 cap Is patient prescribed a controlled substance at d/c from ED?: No Referrals: Gail Mueller MD [Primary Care Provider] - 1-2 days Time of Disposition: 23:41
[2019-03-20 00:10] VITALS: BP 130/85; PULSE 93; TEMP 98.5
[2019-03-20] MEDS ORDERED: KETOROLAC 30 MG/ML 1 ML VIAL IM STA (00:33)
== END 2019-03-20 00:41 | disposition home or self-care (01) ==
LOC: EC 22:09
DX: T81.40XA Infection following a procedure, unspecified, initial encounter (principal); E11.40 Type 2 diabetes mellitus with diabetic neuropathy, unspecified; F17.200 Nicotine dependence, unspecified, uncomplicated; Z79.84 Long term (current) use of oral hypoglycemic drugs; Z79.899 Other long term (current) drug therapy; Z88.0 Allergy status to penicillin; Z88.2 Allergy status to sulfonamides; Z88.8 Allergy status to other drugs, medicaments and biological substances
CPT/HCPCS: 87070; 87205; 96372; 99283

== ENCOUNTER 2020-03-08 18:56 | Observation (INO) | payer OTHER ==
[2020-03-08] MEDS ORDERED: NITROGLYCERIN SL TABS 0.4 MG TAB SUBLINGUAL STA ×3 (19:21)
[2020-03-08] MEDS ORDERED: ASPIRIN 81 MG PO STA (19:21)
--- NOTE | 2020-03-08 19:24 | ED ---
General Adult HPI - General Chief complaint: Chest Pain Stated complaint: chest Time Seen by Provider: 03/08/20 19:07 Source: patient, RN notes reviewed Mode of arrival: wheelchair Limitations: no limitations - History of Present Illness Initial comments: Patient is a pleasant 49-year-old female presenting to the emergency Department with chest tightness. Onset of symptoms was a few days ago. Symptoms are waxing and waning. Discomfort is currently 6/10. Discomfort is described as tightness. There is some radiation towards the neck and both arms. No back pain. Symptoms are exertional. Patient does have some associated dyspnea and sweating as well as nausea. No leg pain or leg swelling. Patient states no abdominal pain however did have history of abdominal tumor years ago with surgical removal. Patient is unclear if this was a uterine fibroid or not. - Related Data Home Medications Medication Instructions Recorded Confirmed Biotin 5 mg PO DAILY 03/08/20 03/08/20 Bismuth Subsalicylate [Kaopectate] 262 mg PO DAILY PRN 03/08/20 03/08/20 Ibuprofen [Advil Migraine] 400 mg PO HS PRN 03/08/20 03/08/20 Allergies Allergy/AdvReac Type Severity Reaction Status Date / Time Penicillins Allergy Swelling/Hi Verified 03/08/20 20:07 ves pregabalin [From Lyrica] Allergy Rash/Hives Verified 03/08/20 20:07 Sulfa (Sulfonamide Allergy Anaphylaxis Verified 03/08/20 20:07 Antibiotics) gabapentin AdvReac Severe Diarrhea Verified 03/08/20 20:07 Review of Systems ROS Statement: Those systems with pertinent positive or pertinent negative responses have been documented in the HPI. ROS Other: All systems not noted in ROS Statement are negative. Constitutional: Denies: fever Eyes: Denies: eye pain ENT: Denies: ear pain Respiratory: Denies: cough Cardiovascular: Reports: chest pain Endocrine: Denies: fatigue Gastrointestinal: Denies: abdominal pain Genitourinary: Denies: dysuria Musculoskeletal: Denies: back pain Skin: Denies: rash Neurological: Denies: weakness Past Medical History Past Medical History: Diabetes Mellitus, Fibromyalgia, GERD/Reflux, Hyperlipidem ia, Hypertension, Thyroid Disorder Additional Past Medical History / Comment(s): Pt states she stopped taking her medications in June 2018 as a matter of personal choice, IDDM type II, neuropathy bilateral legs/feet and hands, bilateral carpal tunnel syndrome, vertigo lately/balance problems, recent weight loss-30# since 09/2018, pancreatitis, hypothyroidism, PE in early twenties from control and smoking. History of Any Multi-Drug Resistant Organisms: None Reported Past Surgical History: Section, Cholecystectomy, Uterine Ablation Additional Past Surgical History / Comment(s): EGD, colonoscoies with benign polypectomy, " abdominal" unsure the name Past Anesthesia/Blood Transfusion Reactions: Previous Problems w/ Anesthesia, Motion Sickness Additional Past Anesthesia/Blood Transfusion Reaction / Comment(s): pt states trouble waking up after ciarra Past Psychological History: No Psychological Hx Reported Smoking Status: Current every day smoker Past Alcohol Use History: Occasional Past Drug Use History: None Reported - Past Family History Father Family Medical History: Cancer, Myocardial Infarction ([place]) Additional Family Medical History / Comment(s): Father is living. Prostate cancer. Father had a [place] at the age of 49yrs. Mother Family Medical History: Diabetes Mellitus, Renal Disease Additional Family Medical History / Comment(s): Mother is . General Exam Limitations: no limitations General appearance: alert, in no apparent distress Head exam: Present: normocephalic Eye exam: Present: normal appearance Neck exam: Present: normal inspection Respiratory exam: Present: normal lung sounds bilaterally. Absent: chest wall tenderness Cardiovascular Exam: Present: regular rate, normal rhythm Expanded Peripheral pulses: 2+: Radial (R), Radial (L), Dorsalis Pedis (R), Dorsalis Pedis (L) GI/Abdominal exam: Present: soft, normal bowel sounds. Absent: distended, tenderness, guarding, rebound, rigid, pulsatile mass Extremities exam: Present: normal inspection. Absent: pedal edema, calf tenderness Neurological exam: Present: alert Psychiatric exam: Present: normal affect, normal mood Skin exam: Present: normal color Course Vital Signs 03/08/20 19:03 Temperature 98.4 F Pulse Rate 96 Respiratory 18 Rate Blood Pressure 142/83 O2 Sat by Pulse 100 Oximetry EKG Findings - EKG Comments: EKG Findings:: Normal sinus rhythm 83. HI 132. QRS 74. QT 370. QTc 434. Normal axis. Normal QRS. No acute ST change. Medical Decision Making - Medical Decision Making Patient reevaluated and resting comfortably in bed. Patient updated on results and plan. Dr. patel has been paged for admission covering for hospital call. Patient states even though she has no discomfort at this time or during examination she has been having some pelvic discomfort and requests imaging because she is concern about previous tumor with some similar symptoms. Ultrasound will be admitted as an inpatient. - Lab Data Result diagrams: 03/08/20 19:25 03/08/20 19:25 Lab Results 03/08/20 03/08/20 03/08/20 Range/Units 19:25 19:25 19:25 WBC 13.9 H (3.8-10.6) k/uL RBC 4.43 (3.80-5.40) m/uL Hgb 14.9 (11.4-16.0) gm/dL Hct 43.3 (34.0-46.0) % MCV 97.8 (80.0-100.0) fL MCH 33.7 (25.0-35.0) pg MCHC 34.5 (31.0-37.0) g/dL RDW 12.4 (11.5-15.5) % Plt Count 253 (150-450) k/uL Neutrophils % 69 % Lymphocytes % 24 % Monocytes % 5 % Eosinophils % 1 % Basophils % 0 % Neutrophils # 9.6 H (1.3-7.7) k/uL Lymphocytes # 3.4 (1.0-4.8) k/uL Monocytes # 0.7 (0-1.0) k/uL Eosinophils # 0.1 (0-0.7) k/uL Basophils # 0.1 (0-0.2) k/uL PT 9.7 (9.0-12.0) sec INR 0.9 (<1.2) APTT 21.5 L (22.0-30.0) sec D-Dimer 0.24 (<0.60) mg/L FEU Sodium 137 (137-145) mmol/L Potassium 3.9 (3.5-5.1) mmol/L Chloride 106 (98-107) mmol/L Carbon Dioxide 24 (22-30) mmol/L Anion Gap 7 mmol/L BUN 16 (7-17) mg/dL Creatinine 0.64 (0.52-1.04) mg/dL Est GFR (CKD-EPI)AfAm >90 (>60 ml/min/1.73 sqM) Est GFR (CKD-EPI)NonAf >90 (>60 ml/min/1.73 sqM) Glucose 108 H (74-99) mg/dL Calcium 9.5 (8.4-10.2) mg/dL Magnesium 1.8 (1.6-2.3) mg/dL Total Bilirubin 0.5 (0.2-1.3) mg/dL AST 16 (14-36) U/L ALT 6 (4-34) U/L Alkaline Phosphatase 56 (38-126) U/L Troponin I (0.000-0.034) ng/mL Total Protein 7.3 (6.3-8.2) g/dL Albumin 4.3 (3.5-5.0) g/dL 03/08/20 Range/Units 19:25 WBC (3.8-10.6) k/uL RBC (3.80-5.40) m/uL Hgb (11.4-16.0) gm/dL Hct (34.0-46.0) % MCV (80.0-100.0) fL MCH (25.0-35.0) pg MCHC (31.0-37.0) g/dL RDW (11.5-15.5) % Plt Count (150-450) k/uL Neutrophils % % Lymphocytes % % Monocytes % % Eosinophils % % Basophils % % Neutrophils # (1.3-7.7) k/uL Lymphocytes # (1.0-4.8) k/uL Monocytes # (0-1.0) k/uL Eosinophils # (0-0.7) k/uL Basophils # (0-0.2) k/uL PT (9.0-12.0) sec INR (<1.2) APTT (22.0-30.0) sec D-Dimer (<0.60) mg/L FEU Sodium (137-145) mmol/L Potassium (3.5-5.1) mmol/L Chloride (98-107) mmol/L Carbon Dioxide (22-30) mmol/L Anion Gap mmol/L BUN (7-17) mg/dL Creatinine (0.52-1.04) mg/dL Est GFR (CKD-EPI)AfAm (>60 ml/min/1.73 sqM) Est GFR (CKD-EPI)NonAf (>60 ml/min/1.73 sqM) Glucose (74-99) mg/dL Calcium (8.4-10.2) mg/dL Magnesium (1.6-2.3) mg/dL Total Bilirubin (0.2-1.3) mg/dL AST (14-36) U/L ALT (4-34) U/L Alkaline Phosphatase (38-126) U/L Troponin I <0.012 (0.000-0.034) ng/mL Total Protein (6.3-8.2) g/dL Albumin (3.5-5.0) g/dL - Radiology Data Radiology results: image reviewed (Chest and abdominal x-rays reveal no acute process) Disposition Clinical Impression: Chest pain Disposition: ADMITTED IP TO THIS HOSP Is patient prescribed a controlled substance at d/c from ED?: No Referrals: None,Stated [Primary Care Provider] - 1-2 days Decision Time: 20:11
[2020-03-08 19:41] LABS: Basophils # (A) 0.1 k/uL (0-0.2); Basophils % (A) 0 %; Eosinophils # (A) 0.1 k/uL (0-0.7); Eosinophils % (A) 1 %; HCT 43.3 % (34.0-46.0); HGB 14.9 gm/dL (11.4-16.0); Lymphocytes # (A) 3.4 k/uL (1.0-4.8); Lymphocytes % (A) 24 %; MCH 33.7 pg (25.0-35.0); MCHC 34.5 g/dL (31.0-37.0); MCV 97.8 fL (80.0-100.0); Mean Platelet Volume 7.1; Monocytes # (A) 0.7 k/uL (0-1.0); Monocytes % (A) 5 %; Neutrophils # (A) 9.6 k/uL (1.3-7.7); Neutrophils % (A) 69 %; Platelet Count 253 k/uL (150-450); RBC 4.43 m/uL (3.80-5.40); RDW 12.4 % (11.5-15.5); WBC 13.9 k/uL (3.8-10.6)
[2020-03-08 19:46] LABS: ALT 6 U/L (4-34); AST 16 U/L (14-36); African American GFR (CKD) >90 (>60 ml/min/1.73 sqM); Albumin 4.3 g/dL (3.5-5.0); Alkaline Phosphatase 56 U/L (38-126); Anion Gap 7 mmol/L; Blood Urea Nitrogen 16 mg/dL (7-17); Calcium 9.5 mg/dL (8.4-10.2); Carbon Dioxide 24 mmol/L (22-30); Chloride 106 mmol/L (98-107); Glucose 108 mg/dL (74-99); Magnesium 1.8 mg/dL (1.6-2.3); Non-African American GFR(CKD) >90 (>60 ml/min/1.73 sqM); Potassium 3.9 mmol/L (3.5-5.1); Sodium 137 mmol/L (137-145); Total Bilirubin 0.5 mg/dL (0.2-1.3); Total Protein 7.3 g/dL (6.3-8.2)
--- NOTE | 2020-03-08 19:50 | XR ---
EXAMINATION TYPE: XR chest 2V DATE OF EXAM: 03/08/2020 COMPARISON: 07/09/2018 HISTORY: Chest pain TECHNIQUE: FINDINGS: Heart and mediastinum are normal. Lungs are clear. Diaphragm is normal. Bony thorax appears normal. There are chest leads. IMPRESSION: Normal chest. No change.
--- NOTE | 2020-03-08 19:52 | XR ---
EXAMINATION TYPE: XR abdomen 1V DATE OF EXAM: 03/08/2020 COMPARISON: 02/04/2019 HISTORY: Abdominal pain TECHNIQUE: Single view FINDINGS: There is no sign of intestinal obstruction or pneumoperitoneum. Fecal pattern is normal. Th ere is no evidence of a mass. Lung bases are clear. There are clips from cholecystectomy. There are n o pathologic calcifications over the kidneys. There is a single clip in the pelvis. IMPRESSION: Nonacute abdomen. No change.
[2020-03-08 20:00] LABS: D-Dimer 0.24 mg/L FEU (<0.60); INR 0.9 (<1.2); Prothrombin Time 9.7 sec (9.0-12.0)
[2020-03-08 20:01] LABS: Partial Thromboplastin Time 21.5 sec (22.0-30.0)
[2020-03-08] MEDS ORDERED: NITROGLYCERIN SL TABS 0.4 MG TAB SUBLINGUAL PRN (20:11)
[2020-03-08 22:14] LABS: Appearance,Urine Clear (Clear); Bilirubin,Urine Negative (Negative); Blood,Urine Negative (Negative); Color,Urine Light Yellow; Glucose,Urine (UA) Negative (Negative); Ketones,Urine Negative (Negative); Leukocyte Esterase,Urine Negative (Negative); Nitrite,Urine Negative (Negative); Protein,Urine Negative (Negative); Specific Gravity,Urine 1.005 (1.001-1.035); Urobilinogen,Urine <2.0 mg/dL (<2.0)
--- NOTE | 2020-03-09 00:33 | US ---
EXAMINATION TYPE: US pelvis complete transvag DATE OF EXAM: 03/08/2020 COMPARISON: CT, US CLINICAL HISTORY: Pelvic pain, history of previous tumor. Pelvic pain, history of previous tumor per order. Hx both fallopian tubes, 1 ovary, and mass removed on February 23, 2019. Patient believes it was the left ovary that was removed. Hx , ablation. . TECHNIQUE: Transvaginal (TV) and Transabdominal (TA) . Transabdominal sonographic images of the pel vis were acquired. Transvaginal sonographic images were medically necessary to better assess the fol lowing anatomy: Right adnexal area. Date of LMP: 2014 EXAM MEASUREMENTS: Uterus: 10.5 x 5.7 x 5.1 cm Endometrial Stripe: 0.72 cm Right Ovary: 4.5 x 3.2 x 3.5 cm Left Ovary: Not visualized. Patient believes this ovary was removed. 1. Uterus: Measures upper limits of normal versus slightly enlarged. Retroverted appearance on trans vaginal exam. Appears heterogeneous. 2. Endometrium: Anechoic area with debris seen mid uterus within endometrium: 1.6 x 1.2 x 0.9 cm. 3. Right Ovary: Measures enlarged. Anechoic area with debris seen measurin.4 x 1.6 x 2.4 cm. Pul sed-wave Doppler performed; arterial and venous waveforms are seen. 4. Left Ovary: not visualized 5. Bilateral Adnexa: Appear wnl 6. Posterior cul-de-sac: Minimal fluid is seen. IMPRESSION: There is a complex cyst on the right ovary. No evidence of ovarian torsion. Left ovary not seen. No e ndometrial thickening.
[2020-03-09] MEDS: NITROGLYCERIN OINT 1 INCH/GM PACKET TOPICAL SCH ×4 (02:14→17:51)
[2020-03-09 03:05] LABS: Cholesterol 205 mg/dL (<200); HDL Cholesterol 32 mg/dL (40-60); LDL Cholesterol,Calculated 145 mg/dL (0-99); Triglycerides 142 mg/dL (<150)
[2020-03-09] MEDS ORDERED: REGADENOSON 0.4 MG/5 ML SYRINGE IV ONE (08:29)
[2020-03-09] MEDS ORDERED: AMINOPHYLLINE 500 MG/20 ML VIAL IV PRN (08:29)
[2020-03-09] MEDS ORDERED: CAFFEINE CITRATE 60 MG/3 ML VIAL IV PRN (08:29)
[2020-03-09] MEDS: ASPIRIN 325 MG TAB PO SCH (08:42)
--- NOTE | 2020-03-09 09:24 | P.CRDCN ---
History of Present Illness Consult date: 03/09/20 Chief complaint: Chest pain History of present illness: This is a very pleasant 49-year-old female patient with diabetes and hypertension and dyslipidemia as well as history of smoking presented to the hospital complaining of chest discomfort. The patient symptoms started about 3 weeks ago with mainly abdominal discomfort but for the last 3 days she has been experiencing chest discomfort. She describes discomfort as a squeezing sensation in the mid of the chest and it was radiating to her left arm as well as to her neck yesterday. Because of that she decided to come to the emergency department. The chest discomfort was associated with sweating. No dizziness or lightheadedness and no syncope. No nausea or vomiting. She is not quite sure about the duration of the chest discomfort. The EKG showed sinus rhythm without any significant ST or T-wave abnormalities. She underwent 3 sets of cardiac enzymes and all came in to be unremarkable. The chest x-ray did not show any acute abnormalities. Because of the abdominal discomfort the patient underwent an ultrasound of the abdomen and that revealed a cyst located on the right o vary. The patient did undergo abdominal surgery last year and she had the left ovary removedbut she stated that she never been told that she had a cyst on the right ovary. On examination she does have very very mild abdominal area. The patient stated that she was told in the past that she has diabetes and hypertension and dyslipidemia and she was prescribed medications but she stopped taking all her medications. Unfortunately she continues to smoke. She does have a significant family history of coronary artery disease involving her father. I am concerned about severe underlying coronary artery disease giving her multiple risk factors as well as the nature of the chest discomfort. I am performing a stress test to rule out severe CAD and also an echocardiogram was Doppler and we will continue following up with the patient Past Medical History Past Medical History: Diabetes Mellitus, Fibromyalgia, GERD/Reflux, Hyperlipidemia, Hypertension, Thyroid Disorder Additional Past Medical History / Comment(s): Pt states she stopped taking her medications in June 2018 as a matter of personal choice, IDDM type II, neuropathy bilateral legs/feet and hands, bilateral carpal tunnel syndrome, vertigo lately/balance problems, recent weight loss-30# since 09/2018, pancreatitis, hypothyroidism, PE in early twenties from control and smoking. History of Any Multi-Drug Resistant Organisms: None Reported Past Surgical History: Section, Cholecystectomy, Uterine Ablation Additional Past Surgical History / Comment(s): EGD, colonoscoies with benign polypectomy, " abdominal" unsure the name Past Anesthesia/Blood Transfusion Reactions: Previous Problems w/ Anesthesia, Motion Sickness Additional Past Anesthesia/Blood Transfusion Reaction / Comment(s): pt states trouble waking up after ciarra Past Psychological History: No Psychological Hx Reported Additional Psychological History / Comment(s): Pt resides with her significant other. She is independent. She drives. Works at the [employer]. No international travel. No experience. No animals in the home Smoking Status: Current every day smoker Past Alcohol Use History: Occasional Additional Past Alcohol Use History / Comment(s): Pt started smoking in 1980 and quit in 2014 but resumed smoking again in 09/2018. She is a 0.5-1 ppd. Past Drug Use History: None Reported - Past Family History Father Family Medical History: Cancer, Myocardial Infarction ([place]) Additional Family Medical History / Comment(s): Father is living. Prostate cancer. Father had a [place] at the age of 49yrs. Mother Family Medical History: Diabetes Mellitus, Renal Disease Additional Family Medical History / Comment(s): Mother is . Medications and Allergies Home Medications Medication Instructions Recorded Confirmed Type Biotin 5 mg PO DAILY 03/08/20 03/08/20 History Bismuth Subsalicylate [Kaopectate] 262 mg PO DAILY PRN 03/08/20 03/08/20 History Ibuprofen [Advil Migraine] 400 mg PO HS PRN 03/08/20 03/08/20 History Allergies Allergy/AdvReac Type Severity Reaction Status Date / Time Penicillins Allergy Swelling/Hi Verified 03/08/20 20:07 ves pregabalin [From Lyrica] Allergy Rash/Hives Verified 03/08/20 20:07 Sulfa (Sulfonamide Allergy Anaphylaxis Verified 03/08/20 20:07 Antibiotics) gabapentin AdvReac Severe Diarrhea Verified 03/08/20 20:07 Physical Exam Vitals: Vital Signs Temp Pulse Pulse Resp BP BP Pulse Ox 03/09/20 08:31 98.1 F 78 16 117/75 96 03/09/20 03:00 98.1 F 78 16 119/71 98 03/08/20 22:35 98.2 F 72 16 119/75 99 03/08/20 21:20 80 18 98 03/08/20 21:10 83 17 149/86 98 03/08/20 21:00 80 16 98 03/08/20 20:50 84 17 98 03/08/20 20:40 81 18 138/98 99 03/08/20 20:30 84 14 99 03/08/20 20:20 78 16 99 03/08/20 20:10 83 16 128/83 99 03/08/20 20:00 80 18 98 03/08/20 19:50 75 13 97 03/08/20 19:03 98.4 F 96 18 142/83 100 Intake and Output 03/08/20 03/09/20 03/09/20 22:59 06:59 14:59 Other: Voiding Method Toilet # Voids 1 1 Weight 58.513 kg - Constitutional General appearance: no acute distress - Respiratory Respiratory: bilateral: CTA - Cardiovascular Rhythm: regular Results 03/08/20 19:25 03/08/20 19:25 Cardiac Enzymes 03/08/20 03/08/20 03/08/20 Range/Units 19:25 19:25 22:24 AST 16 (14-36) U/L Troponin I <0.012 <0.012 (0.000-0.034) ng/mL 03/09/20 Range/Units 02:03 AST (14-36) U/L Troponin I <0.012 (0.000-0.034) ng/mL Coagulation 03/08/20 Range/Units 19:25 PT 9.7 (9.0-12.0) sec APTT 21.5 L (22.0-30.0) sec Lipids 03/09/20 Range/Units 02:03 Triglycerides 142 (<150) mg/dL Cholesterol 205 H (<200) mg/dL HDL Cholesterol 32 L (40-60) mg/dL CBC 03/08/20 Range/Units 19:25 WBC 13.9 H (3.8-10.6) k/uL RBC 4.43 (3.80-5.40) m/uL Hgb 14.9 (11.4-16.0) gm/dL Hct 43.3 (34.0-46.0) % Plt Count 253 (150-450) k/uL Comprehensive Metabolic Panel 03/08/20 Range/Units 19:25 Sodium 137 (137-145) mmol/L Potassium 3.9 (3.5-5.1) mmol/L Chloride 106 (98-107) mmol/L Carbon Dioxide 24 (22-30) mmol/L BUN 16 (7-17) mg/dL Creatinine 0.64 (0.52-1.04) mg/dL Glucose 108 H (74-99) mg/dL Calcium 9.5 (8.4-10.2) mg/dL AST 16 (14-36) U/L ALT 6 (4-34) U/L Alkaline Phosphatase 56 (38-126) U/L Total Protein 7.3 (6.3-8.2) g/dL Albumin 4.3 (3.5-5.0) g/dL Current Medications Generic Name Dose Route Start Last Admin Trade Name Freq PRN Reason Stop Dose Admin Aminophylline 100 mg 03/09/20 08:29 Aminophylline IV 03/09/20 23:59 ONCE PRN Patient Response Aspirin 325 mg 03/09/20 09:00 03/09/20 08:42 Aspirin PO 325 mg DAILY FRANCI Administration Caffeine Citrate 60 mg 03/09/20 08:29 Cafcit Inj IV 03/09/20 23:59 ONCE PRN Patient Response Famotidine 20 mg 03/09/20 21:00 Pepcid IV Q12HR [facility] Heparin Sodium (Porcine) 5,000 unit 03/09/20 21:00 Heparin SQ Q12HR [facility] Nitroglycerin 0.4 mg 03/08/20 20:11 Nitrostat SUBLINGUAL Q5M PRN Chest Pain Nitroglycerin 1 inch 03/09/20 00:00 03/09/20 05:24 Nitro-Bid Oint TOPICAL Not Given Q6HR [facility] Sodium Chloride 10 ml 03/08/20 21:00 03/09/20 08:42 Saline Flush IV 10 ml BID FRANCI Administration Intake and Output 03/08/20 03/09/20 03/09/20 22:59 06:59 14:59 Other: Voiding Method Toilet # Voids 1 1 Weight 58.513 kg 03/08/20 19:25 03/08/20 19:25 Assessment and Plan Assessment: Assessment #1 chest discomfort #2 abdominal discomfort which has resolved #3 significant history of smoking #4 multiple risk factors Plan #1 acute coronary event was ruled out #2 stress test to rule out severe CAD #3 an echocardiogram was Doppler #4 follow-up with the patient
[2020-03-09] MEDS ORDERED: ONDANSETRON 4 MG/2 ML VIAL IVP PRN (09:29)
[2020-03-09] MEDS ORDERED: ONDANSETRON 4 MG/2 ML VIAL IVP STA (09:29)
--- NOTE | 2020-03-09 09:33 | P.HPIM ---
History of Present Illness This is a pleasant 49 years old female with past medical history of hypertension, hyperlipidemia, diabetes mellitus, diabetic neuropathy, GERD, fibromyalgia, Patient presents because of chest pain. Patient started having chest pain for about 2 days, centrally radiating to the right shoulder and right jaw and neck. About 7/10 felt like squeezing associated with nausea and she vomited on Saturday with some dizziness but no dyspnea or shortness of breath but no palpitation. She wanted to go to the bathroom today and she was really nauseous but no dizziness. She smokes about 1 pack per day, she smoked for about 33 years and she quit however her boyfriend is heavy smoker and she went back to smoking with him, patient is counseled extensively to quit smoking and she agrees for now. She denies alcohol or illicit drug Also she does not follow up with PCP Also she stated that she is diabetic, hypertensive and hyperlipidemia and she quit all her medication and give them up about a year ago because she thought she make her sick. Also patient was complaining from abdominal pain about 3 weeks, SMV and middle and lower abdomen, nonspecific associated with a clear vaginal discharge and some itching and pain in the vaginal area Vitals are stable. Labs including CBC, BMP and liver enzymes were unremarkable except for mild increase in white cell count of 13.9 K, d-dimer is negative for 0.24, troponins 3 are negative less than 0.012. UA is negative for infection. EKG showing normal sinus rhythm at [address]-T changes. Pelvic ultrasound done for pelvic pain showing right complex cyst in the right ovary Chest x-ray: No acute process. Abdominal x-ray: No acute process. Review of Systems CONSTITUTIONAL: No fever, no malaise, no fatigue. HEENT: No recent visual problems or hearing problems. Denied any sore throat. CARDIOVASCULAR: No orthopnea, PND, no palpitations, no syncope. PULMONARY: No shortness of breath, no cough, no hemoptysis. GASTROINTESTINAL: No diarrhea, Normoactive bowel sounds. NEUROLOGICAL: No headaches, no weakness, no numbness. HEMATOLOGICAL: Denies any bleeding or petechiae. GENITOURINARY: Denies any burning micturition, frequency, or urgency. MUSCULOSKELETAL/RHEUMATOLOGICAL: Denies any joint pain, swelling, or any muscle pain. ENDOCRINE: Denies any polyuria or polydipsia. Past Medical History Past Medical History: Diabetes Mellitus, Fibromyalgia, GERD/Reflux, Hyperlipidemia, Hypertension, Thyroid Disorder Additional Past Medical History / Comment(s): Pt states she stopped taking her medications in June 2018 as a matter of personal choice, IDDM type II, n europathy bilateral legs/feet and hands, bilateral carpal tunnel syndrome, vertigo lately/balance problems, recent weight loss-30# since 09/2018, pancreatitis, hypothyroidism, PE in early twenties from control and smoking. History of Any Multi-Drug Resistant Organisms: None Reported Past Surgical History: Section, Cholecystectomy, Uterine Ablation Additional Past Surgical History / Comment(s): EGD, colonoscoies with benign polypectomy, " abdominal" unsure the name Past Anesthesia/Blood Transfusion Reactions: Previous Problems w/ Anesthesia, Motion Sickness Additional Past Anesthesia/Blood Transfusion Reaction / Comment(s): pt states trouble waking up after ciarra Past Psychological History: No Psychological Hx Reported Additional Psychological History / Comment(s): Pt resides with her significant other. She is independent. She drives. Works at the [employer]. No international travel. No experience. No animals in the home Smoking Status: Current every day smoker Past Alcohol Use History: Occasional Additional Past Alcohol Use History / Comment(s): Pt started smoking in 1980 and quit in 2014 but resumed smoking again in 09/2018. She is a 0.5-1 ppd. Past Drug Use History: None Reported - Past Family History Father Family Medical History: Cancer, Myocardial Infarction ([place]) Additional Family Medical History / Comment(s): Father is living. Prostate cancer. Father had a NV at the age of 49yrs. Mother Family Medical History: Diabetes Mellitus, Renal Disease Additional Family Medical History / Comment(s): Mother is . Medications and Allergies Home Medications Medication Instructions Recorded Confirmed Type Biotin 5 mg PO DAILY 03/08/20 03/08/20 History Bismuth Subsalicylate [Kaopectate] 262 mg PO DAILY PRN 03/08/20 03/08/20 History Ibuprofen [Advil Migraine] 400 mg PO HS PRN 03/08/20 03/08/20 History Allergies Allergy/AdvReac Type Severity Reaction Status Date / Time Penicillins Allergy Swelling/Hi Verified 03/08/20 20:07 ves pregabalin [From Lyrica] Allergy Rash/Hives Verified 03/08/20 20:07 Sulfa (Sulfonamide Allergy Anaphylaxis Verified 03/08/20 20:07 Antibiotics) gabapentin AdvReac Severe Diarrhea Verified 03/08/20 20:07 Physical Exam Vitals: Vital Signs Temp Pulse Pulse Resp BP BP Pulse Ox 03/09/20 08:31 98.1 F 78 16 117/75 96 03/09/20 03:00 98.1 F 78 16 119/71 98 03/08/20 22:35 98.2 F 72 16 119/75 99 03/08/20 21:20 80 18 98 03/08/20 21:10 83 17 149/86 98 03/08/20 21:00 80 16 98 03/08/20 20:50 84 17 98 03/08/20 20:40 81 18 138/98 99 03/08/20 20:30 84 14 99 03/08/20 20:20 78 16 99 03/08/20 20:10 83 16 128/83 99 03/08/20 20:00 80 18 98 03/08/20 19:50 75 13 97 03/08/20 19:03 98.4 F 96 18 142/83 100 Intake and Output 03/08/20 03/09/20 03/09/20 22:59 06:59 14:59 Other: Voiding Method Toilet # Voids 1 1 Weight 58.513 kg GENERAL: The patient is alert and oriented x3, not in any acute distress. Well developed, well nourished. HEENT: Pupils are round and equally reacting to light. EOMI. No scleral icterus. No conjunctival pallor. Normocephalic, atraumatic. No pharyngeal erythema. No thyromegaly. -CARDIOVASCULAR: S1 and S2 present. No murmurs, rubs, or gallops. Chest wall tenderness PULMONARY: Chest is clear to auscultation, no wheezing or crackles. -ABDOMEN: Soft,mild suprapubic and periumbilical tenderness, normoactive bowel sounds. No palpable organomegaly. MUSCULOSKELETAL: No joint swelling or deformity. EXTREMITIES: No cyanosis, clubbing, or pedal edema. NEUROLOGICAL: Gross neurological examination did not reveal any focal deficits. SKIN: No rashes. No petechiae Results CBC & Chem 7: 03/08/20 19:25 03/08/20 19:25 Labs: Abnormal Lab Results - Last 24 Hours (Table) 03/08/20 03/08/20 03/08/20 Range/Units 19:25 19:25 19:25 WBC 13.9 H (3.8-10.6) k/uL Neutrophils # 9.6 H (1.3-7.7) k/uL APTT 21.5 L (22.0-30.0) sec Glucose 108 H (74-99) mg/dL Cholesterol (<200) mg/dL LDL Cholesterol, Calc (0-99) mg/dL HDL Cholesterol (40-60) mg/dL 03/09/20 Range/Units 02:03 WBC (3.8-10.6) k/uL Neutrophils # (1.3-7.7) k/uL APTT (22.0-30.0) sec Glucose (74-99) mg/dL Cholesterol 205 H (<200) mg/dL LDL Cholesterol, Calc 145 H (0-99) mg/dL HDL Cholesterol 32 L (40-60) mg/dL Assessment and Plan Assessment: Chest pain, rule out cardiac causes Complex cyst in the right ovary, with abdominal/pelvic pain and vaginal disch arge nonadherence and noncompliance Diabetes mellitus, type II Diabetic neuropathy Hypertension Hyperlipidemia Plan: This is a pleasant 49 years old female who presents with chest tightness and pain. We'll do serial troponin. EKG, cardiology consult. Echocardiogram. Patient is counseled extensively about adherence to therapy. We will check hemoglobin A1c. Pain management and Zofran. Continue with aspirin . Also we'll consult gynecology service for her complex cyst in the right ovary. Labs and medication were reviewed.. Continue same treatment. Continue with symptomatic treatment. Resume home medication. Monitor lytes and vitals. DVT and GI prophylaxis. Further recommendations of the clinical course of the patient DVT prophylaxis: Subcutaneous heparin GI Prophylaxis: Pepcid
[2020-03-09] MEDS ORDERED: AMINOPHYLLINE 500 MG/20 ML VIAL IV ONE (11:38)
[2020-03-09 12:51] LABS: Glucose,Whole Blood 131 mg/dL (75-99)
--- NOTE | 2020-03-09 13:34 | ECHOF ---
Referral Reason:chest pain MEASUREMENTS -------- HEIGHT: 152.4 cm WEIGHT: 58.5 kg BP: 117/75 RVIDd: 3.8 cm (< 3.3) IVSd: 1.1 cm (0.6 - 1.1) LVIDd: 3.6 cm (3.9 - 5.3) LVPWd: 1.2 cm (0.6 - 1.1) IVSs: 1.5 cm LVIDs: 2.6 cm LVPWs: 1.7 cm LAESV Index (A-L): 16.89 ml/m Ao Diam: 2.1 cm (2.0 - 3.7) AV Cusp: 1.6 cm (1.5 - 2.6) MV EXCURSION: 15.892 mm (> 18.000) MV EF SLOPE: 116 mm/s (70 - 150) EPSS: 0.5 cm MV E Kris: 0.75 m/s MV DecT: 176 ms MV A Kris: 0.48 m/s MV E/A Ratio: 1.57 RAP: 5.00 mmHg RVSP: 25.76 mmHg FINDINGS -------- Sinus rhythm. This was a technically good study. The left ventricular size is normal. There is borderline concentric left ventricular hypertrophy. Overall left ventricular systolic function is normal with, an EF between 55 - 60 %. The diastolic filling pattern is normal for the age of the patient {E/E'}. The right ventricle is mild to moderately enlarged. Normal LA size by volume 22+/-6 ml/m2. The right atrium is mildly enlarged. Possible PFO The aortic valve is trileaflet and appears structurally normal. There is no evidence of aortic regu rgitation. There is no evidence of aortic stenosis. Mild mitral regurgitation is present. Mild tricuspid regurgitation present. There is no evidence of pulmonary hypertension. The right v entricular systolic pressure, as measured by Doppler, is 25.76mmHg. There is no pulmonic regurgitation present. The aortic root size is normal. Normal inferior vena cava with normal inspiratory collapse consistent with estimated right atrial pre ssure of 5 mmHg. There is no pericardial effusion. CONCLUSIONS -------- 1. The left ventricular size is normal. 2. There is borderline concentric left ventricular hypertrophy. 3. Overall left ventricular systolic function is normal with, an EF between 55 - 60 %. 4. The diastolic filling pattern is normal for the age of the patient {E/E'} 5. The right ventricle is mild to moderately enlarged. 6. The right atrium is mildly enlarged. 7. Mild mitral regurgitation is present. 8. Mild tricuspid regurgitation present. JBOSS DEVELOPER: Amada Rodríguez RDCS
--- NOTE | 2020-03-09 14:12 | EST ---
EXERCISE STRESS DATE OF SERVICE: 03/09/2020 AGE: 49 SEX: Fe HT: 60" WT: 129 lbs PROTOCOL: Lexiscan Cardiolite STAGE: DURATION OF EXERCISE: HEART RATE REST: 77 BLOOD PRESSURE REST: 121/76 MAXIMUM HEART RATE ACHIEVED: 100 MAXIMUM BLOOD PRESSURE: 186/64 85% MPHR: 100% MPHR: METS: INDICATIONS: Chest pain. STRESS DATA: Heart rate is 77, pressure is 121/76 mmHg. Baseline EKG showed sinus mechanism. The patient was given 0.4 mg of Lexiscan over 15 seconds per protocol. Max heart rate was 100 beats per minute and maximum pressure was 186/64 mmHg. Clinically, the patient did not have any symptoms of chest pain or chest discomfort but the EKG showed mild ST changes. CONCLUSION: 1. Nondiagnostic electrocardiogram stress testing in response to Lexiscan. 2. Please follow up on the Cardiolite portion on a separate report from Radiology Department. MMODL / IJN: [id number] /
--- NOTE | 2020-03-09 14:48 | NM ---
EXAMINATION TYPE: NM stress lexiscan cardiolite DATE OF EXAM: 03/09/2020 COMPARISON: NONE HISTORY: cp TECHNIQUE: After the intravenous administration of 9.4 mCi Tc 99m Sestamibi - Cardiolite resting SPE CT images acquired 70 minutes post injection. The patient received 0.4mg Lexiscan, 24.7 mCi Tc 99m Sestamibi - Stress images obtained [address] injection FINDINGS: Review of stress and rest SPECT images demonstrates no distinct perfusion abnormality. Gated analysi s shows normal wall motion with an estimated left ventricular ejection fraction of 55 %. IMPRESSION: No scintigraphic evidence for reversible ischemia.
[2020-03-09 16:32] LABS: Glucose,Whole Blood 167 mg/dL (75-99)
[2020-03-09] MEDS: INSULIN ASPART (NovoLOG) 100 UNIT/ML VIAL SQ SCH ×2 (16:47→21:47)
--- NOTE | 2020-03-09 18:03 | P.OBCN ---
History of Present Illness Consult date: 03/09/20 Reason for consult: ovarian cyst Chief complaint: Chest Pain History of present illness: 49 year old presented to ER with chest pain. She has been worked up by cardiology. She was also c/o early satiety, bloating and cramping. US shows 2.4cm right ovarian cyst with debris. She has a history of endometriosis with a large endometrioma on the left ovary for which she had a laparotomy with removal of the left fallopian tube and ovary. She is not in any pelvic or abdominal pain today Review of Systems All systems: negative Constitutional: Denies chills, Denies fever Eyes: denies blurred vision, denies pain Ears, nose, mouth and throat: Denies headache, Denies sore throat Cardiovascular: Denies chest pain, Denies shortness of breath Respiratory: Denies cough Gastrointestinal: Denies abdominal pain, Denies diarrhea, Denies nausea, Denies vomiting Genitourinary: Denies dysuria, Denies hematuria Musculoskeletal: Denies myalgias Integumentary: Denies pruritus, Denies rash Neurological: Denies numbness, Denies weakness Psychiatric: Denies anxiety, Denies depression Endocrine: Denies fatigue, Denies weight change Past Medical History Past Medical History: Diabetes Mellitus, Fibromyalgia, GERD/Reflux, Hyperlipidemia, Hypertension, Thyroid Disorder Additional Past Medical History / Comment(s): Pt states she stopped taking her medications in June 2018 as a matter of personal choice, IDDM type II, neuropathy bilateral legs/feet and hands, bilateral carpal tunnel syndrome, vertigo lately/balance problems, recent weight loss-30# since 09/2018, pancreatitis, hypothyroidism, PE in early twenties from control and smoking. Endometriosis History of Any Multi-Drug Resistant Organisms: None Reported Past Surgical History: Section, Cholecystectomy, Uterine Ablation Additional Past Surgical History / Comment(s): EGD, colonoscoies with benign polypectomy, " abdominal" unsure the name. Laparotomy with left salpingo- oophorectomy Past Anesthesia/Blood Transfusion Reactions: Previous Problems w/ Anesthesia, Motion Sickness Additional Past Anesthesia/Blood Transfusion Reaction / Comm: pt states trouble waking up after ciarra Past Psychological History: No Psychological Hx Reported Additional Psychological History / Comment(s): Pt resides with her significant other. She is independent. She drives. Works at the [employer] No international travel. No experience. No animals in the home Smoking Status: Current every day smoker Past Alcohol Use History: Occasional Additional Past Alcohol Use History / Comment(s): Pt started smoking in 1980 and quit in 2014 but resumed smoking again in 09/2018. She is a 0.5-1 ppd. Past Drug Use History: None Reported - Past Family History Father Family Medical History: Cancer, Myocardial Infarction ([place]) Additional Family Medical History / Comment(s): Father is living. Prostate cancer. Father had a OR at the age of 49yrs. Mother Family Medical History: Diabetes Mellitus, Renal Disease Additional Family Medical History / Comment(s): Mother is . Medications and Allergies Home Medications Medication Instructions Recorded Confirmed Type Biotin 5 mg PO DAILY 03/08/20 03/08/20 History Bismuth Subsalicylate [Kaopectate] 262 mg PO DAILY PRN 03/08/20 03/08/20 History Ibuprofen [Advil Migraine] 400 mg PO HS PRN 03/08/20 03/08/20 History Allergies Allergy/AdvReac Type Severity Reaction Status Date / Time Penicillins Allergy Swelling/Hi Verified 03/08/20 20:07 ves pregabalin [From Lyrica] Allergy Rash/Hives Verified 03/08/20 20:07 Sulfa (Sulfonamide Allergy Anaphylaxis Verified 03/08/20 20:07 Antibiotics) gabapentin AdvReac Severe Diarrhea Verified 03/08/20 20:07 Exam Osteopathic Statement: *. No significant issues noted on an osteopathic struc tural exam other than those noted in the History and Physical/Consult. Vital Signs Temp Pulse Pulse Resp BP BP Pulse Ox 03/09/20 15:00 99.1 F 59 L 16 130/77 96 03/09/20 08:31 98.1 F 78 16 117/75 96 03/09/20 03:00 98.1 F 78 16 119/71 98 03/08/20 22:35 98.2 F 72 16 119/75 99 03/08/20 21:20 80 18 98 03/08/20 21:10 83 17 149/86 98 03/08/20 21:00 80 16 98 03/08/20 20:50 84 17 98 03/08/20 20:40 81 18 138/98 99 03/08/20 20:30 84 14 99 03/08/20 20:20 78 16 99 03/08/20 20:10 83 16 128/83 99 03/08/20 20:00 80 18 98 03/08/20 19:50 75 13 97 03/08/20 19:03 98.4 F 96 18 142/83 100 Intake and Output 03/09/20 03/09/20 03/09/20 06:59 14:59 22:59 Intake Total 720 Balance 720 Intake: Oral 720 Other: Voiding Method Toilet # Voids 1 2 Weight 58.51 kg Heart: Regular rate and rhythm Lungs: Clear to auscultation bilaterally Abdomen: Soft, nontender Extremities: Negative Homans sign Results Result Diagrams: 03/08/20 19:25 03/08/20 19:25 Abnormal Lab Results - Last 24 Hours (Table) 03/08/20 03/08/20 03/08/20 Range/Units 19:25 19:25 19:25 WBC 13.9 H (3.8-10.6) k/uL Neutrophils # 9.6 H (1.3-7.7) k/uL APTT 21.5 L (22.0-30.0) sec Glucose 108 H (74-99) mg/dL POC Glucose (mg/dL) (75-99) mg/dL Cholesterol (<200) mg/dL LDL Cholesterol, Calc (0-99) mg/dL HDL Cholesterol (40-60) mg/dL 03/09/20 03/09/20 03/09/20 Range/Units 02:03 12:50 16:30 WBC (3.8-10.6) k/uL Neutrophils # (1.3-7.7) k/uL APTT (22.0-30.0) sec Glucose (74-99) mg/dL POC Glucose (mg/dL) 131 H 167 H (75-99) mg/dL Cholesterol 205 H (<200) mg/dL LDL Cholesterol, Calc 145 H (0-99) mg/dL HDL Cholesterol 32 L (40-60) mg/dL Assessment and Plan (1) Ovarian cyst Current Visit: Yes Status: Acute Code(s): N83.209 - UNSPECIFIED OVARIAN CYST, UNSPECIFIED SIDE SNOMED Code(s): 69871644 Plan: 1. Recommended outpatient follow-up with ultrasound in about 4-6 weeks to follow up in the cyst.
[2020-03-09 21:37] LABS: Glucose,Whole Blood 198 mg/dL (75-99)
[2020-03-09] MEDS: FAMOTIDINE 20 MG/2 ML VIAL IV SCH (21:48)
[2020-03-09] MEDS: HEPARIN SODIUM,PORCINE 5,000 UNIT/ML 1 ML VIAL SQ SCH (21:52)
[2020-03-10] MEDS: NITROGLYCERIN OINT 1 INCH/GM PACKET TOPICAL SCH ×3 (00:48→12:01)
[2020-03-10 06:14] LABS: Basophils # (A) 0.1 k/uL (0-0.2); Basophils % (A) 1 %; Eosinophils # (A) 0.2 k/uL (0-0.7); Eosinophils % (A) 1 %; HCT 41.4 % (34.0-46.0); HGB 14.2 gm/dL (11.4-16.0); Lymphocytes # (A) 3.8 k/uL (1.0-4.8); Lymphocytes % (A) 32 %; MCH 33.4 pg (25.0-35.0); MCHC 34.3 g/dL (31.0-37.0); MCV 97.5 fL (80.0-100.0); Mean Platelet Volume 7.1; Monocytes # (A) 0.5 k/uL (0-1.0); Monocytes % (A) 4 %; Neutrophils # (A) 7.3 k/uL (1.3-7.7); Neutrophils % (A) 61 %; Platelet Count 235 k/uL (150-450); RBC 4.24 m/uL (3.80-5.40); RDW 12.5 % (11.5-15.5)
[2020-03-10] MEDS: INSULIN ASPART (NovoLOG) 100 UNIT/ML VIAL SQ SCH ×2 (07:01→12:00)
[2020-03-10 07:02] LABS: Glucose,Whole Blood 117 mg/dL (75-99)
[2020-03-10 08:37] VITALS: BP 112/67; PULSE 78; RESP 16; TEMP 98.3
--- NOTE | 2020-03-10 09:24 | P.PN ---
Subjective Progress Note Date: 03/10/20 Principal diagnosis: Chest pain This is a pleasant 49-year-old female patient was diabetes and hypertension and dyslipidemia and history of smoking who was admitted to the hospital with abdominal discomfort and chest discomfort. The ultrasound revealed ovarian cyst on the right side. She underwent a stress test and echocardiogram and both came in to be unremarkable. The patient was seen today. She is asymptomatic from the cardiovascular standpoint of view. She has been up and around and without any symptoms. From a cardiovascular standpoint overview, the patient can be discharged home. Objective - Vital Signs Vital signs: Vital Signs Temp 98.3 F 03/10/20 08:33 Pulse 78 03/10/20 08:33 Resp 16 03/10/20 08:33 BP 112/67 03/10/20 08:33 Pulse Ox 95 03/10/20 08:33 Intake & Output 03/09/20 03/10/20 03/10/20 18:59 06:59 18:59 Intake Total 720 237 Balance 720 237 Weight 58.51 kg Intake: Oral 720 237 Other: Voiding Method Toilet # Voids 2 1 - Constitutional General appearance: Present: no acute distress - Respiratory Respiratory: bilateral: CTA - Cardiovascular Rhythm: regular Heart sounds: normal: S1, S2 - Labs CBC & Chem 7: 03/10/20 05:47 03/08/20 19:25 Labs: Abnormal Lab Results - Last 24 Hours (Table) 03/09/20 03/09/20 03/09/20 Range/Units 12:50 16:30 21:35 WBC (3.8-10.6) k/uL POC Glucose (mg/dL) 131 H 167 H 198 H (75-99) mg/dL 03/10/20 03/10/20 Range/Units 05:47 07:01 WBC 12.0 H (3.8-10.6) k/uL POC Glucose (mg/dL) 117 H (75-99) mg/dL Assessment and Plan Assessment: Assessment #1 chest discomfort #2 abdominal discomfort which has resolved #3 significant history of smoking #4 multiple risk factors Plan #1 acute coronary event was ruled out #2 stress test showed no evidence of severe CAD #3 the patient can be discharged home
[2020-03-10] MEDS: HEPARIN SODIUM,PORCINE 5,000 UNIT/ML 1 ML VIAL SQ SCH (10:03)
[2020-03-10] MEDS: FAMOTIDINE 20 MG/2 ML VIAL IV SCH (10:03)
[2020-03-10] MEDS: ASPIRIN 325 MG TAB PO SCH (10:03)
[2020-03-10 11:26] LABS: Glucose,Whole Blood 146 mg/dL (75-99)
--- NOTE | 2020-03-10 13:21 | P.DS ---
Providers Date of admission: 03/08/20 20:12 Attending physician: Javier Courtney MD Consults: 03/08/20 20:12 Consult Physician Urgent Consulting Provider: Meg Cottrell Consult Reason/Comments: cp Do you want consulting provider notified?: Yes 03/09/20 09:34 Consult Physician Routine Consulting Provider: Ofelia Candelario Consult Reason/Comments: complex ovarian cyst Do you want consulting provider notified?: Yes Primary care physician: Stated None Hospital Course: diagnoses: Chest pain, negative stress test, negative d-dimer at 0.24. Chest pain resolved prior to discharge cyst with debris in the right ovary 2.4 cm ,evaluated by auto service mechanic Nonadherence to therapy Nicotine dependence History of diabetes mellitus, type II. Currently hemoglobin A1c is 6% history of Hypertension, resolved. Blood pressure is controlled without medication Hyperlipidemia Hospital course: This is a pleasant 49 years old female with past medical history of hypertension, hyperlipidemia, diabetes mellitus, diabetic neuropathy, GERD, fibromyalgia Patient presents because of chest pain. Of 2 days' duration, associated with some abdominal pain and discomfort and vaginal discharge. Lands Resource Manager evalu ated the patient and she underwent stress test which was negative, d-dimer was negative. Her chest pain is also resolved and clinic director cleared the patient for discharge, Also patient was complaining of some abdominal pain and vaginal discharge, abdominal pain is significantly improved and her vaginal discharges told her to discharge. Pelvic ultrasound and emergency room showed 2.4 cm cyst with debris, patient has been evaluated by auto service mechanic Dr. Candelario who cleared her for discharge and recommended outpatient follow-up for pelvic ultrasound in 4-6 weeks Patient felt better and she wanted to be discharged from yesterday, all her symptoms are resolved and improving. Also she has some mild leukocytosis which is trending down from 13.9 To 12.0 K. Patient has no overt signs and symptoms of infection, patient is afebrile, we checked her pro-calcitonin and it was normal at 0.03. Patient denies any new complaint Patient was cleared for discharge by gynecology and cardiology services Problems and management plan were discussed with the patient and he verbalized understanding and acceptance Patient was found stable and can be discharged home however he needs follow-up as an outpatient. Patient was instructed to follow up with PCP Dr. Valdez within 1-3 days and patient agrees. (Her PCP Dr. Mueller has retired and she is looking for new PCP and she agrees to follow up with Dr. Grande ) also patient was instructed to follow up with the auto service mechanic Dr. Candelario in 1-2 weeks however patient has plan to leave for [place] in a week, patient told me she is going to get her medical records either by visiting her hospital or through the [facility]ax so it can be sent to her new PCP, as I instructed her. Also she told me she is going to find her in [employer] doctor to follow-up on her right ovary and cyst within 2-4 weeks I explained to the patient risk of her ovarian cyst including but not limited to risk of cancer and she verbalized understanding and acceptance and she told me she will follow up as above. N.B patient lost weight intentionally and that may help to resolve her diabetes and high blood pressure, patient is counseled about healthy diet and exercise. Also patient is counseled extensively to quit smoking and she agrees Gen: patient is a AAOx3, no distress CVS: S1-S2, RRR, no murmur Lungs: B/L CTA, no wheezing Abdomen: soft, no distention, no tenderness, positive bowel sounds Extremity: no leg edema or induration Time spent more than 35 minutes Plan - Discharge Summary New Discharge Prescriptions: New Aspirin 325 mg PO DAILY #14 tab Famotidine [Pepcid] 20 mg PO BID #60 tablet Continue Biotin 5 mg PO DAILY Bismuth Subsalicylate [Kaopectate] 262 mg PO DAILY PRN PRN Reason: Nausea Discontinued Ibuprofen [Advil Migraine] 400 mg PO HS PRN PRN Reason: Pain Discharge Medication List Biotin 5 mg PO DAILY 03/08/20 [History] Bismuth Subsalicylate [Kaopectate] 262 mg PO DAILY PRN 03/08/20 [History] Aspirin 325 mg PO DAILY #14 tab 03/10/20 [Rx] Famotidine [Pepcid] 20 mg PO BID #60 tablet 03/10/20 [Rx] Follow up Appointment(s)/Referral(s): David De La Cruz MD [REFERRING] - 3 Days Baljinder Rodriguez MD [STAFF PHYSICIAN] - 03/24/20 3:00 pm Ofelia Candelario DO [Doctor of Osteopathic Medicine] - 2 Weeks Discharge Disposition: HOME SELF-CARE
[2020-03-10] MEDS ORDERED: FAMOTIDINE 20 MG TAB PO SCH (21:00)
== END 2020-03-10 13:54 | disposition home or self-care (01) ==
LOC: EC 18:56 → 3NCARDOBS 20:12
PROVIDERS: ADMIT Internal Medicine; ATTEND Internal Medicine
DX: R07.89 Other chest pain (principal); R06.00 Dyspnea, unspecified; R61 Generalized hyperhidrosis; R11.0 Nausea; R68.81 Early satiety; R14.0 Abdominal distension (gaseous); N83.201 Unspecified ovarian cyst, right side; N89.8 Other specified noninflammatory disorders of vagina; T50.916A Underdosing of multiple unspecified drugs, medicaments and biological substances, initial encounter; Z91.128 Patient's intentional underdosing of medication regimen for other reason; Z91.19 Patient's noncompliance with other medical treatment and regimen; E11.42 Type 2 diabetes mellitus with diabetic polyneuropathy; I10 Essential (primary) hypertension; E78.5 Hyperlipidemia, unspecified; M79.7 Fibromyalgia; K21.9 Gastro-esophageal reflux disease without esophagitis; G56.03 Carpal tunnel syndrome, bilateral upper limbs; E03.9 Hypothyroidism, unspecified; D72.829 Elevated white blood cell count, unspecified; N80.9 Endometriosis, unspecified; I08.1 Rheumatic disorders of both mitral and tricuspid valves; F17.210 Nicotine dependence, cigarettes, uncomplicated; Z79.899 Other long term (current) drug therapy; Z88.0 Allergy status to penicillin; Z88.8 Allergy status to other drugs, medicaments and biological substances; Z88.2 Allergy status to sulfonamides; Z87.19 Personal history of other diseases of the digestive system; Z86.711 Personal history of pulmonary embolism; Z98.890 Other specified postprocedural states; Z90.49 Acquired absence of other specified parts of digestive tract; Z86.010 Personal history of colon polyps; Z91.89 Other specified personal risk factors, not elsewhere classified; Z87.898 Personal history of other specified conditions; Z71.6 Tobacco abuse counseling; Z71.3 Dietary counseling and surveillance; Z90.79 Acquired absence of other genital organ(s); Z90.721 Acquired absence of ovaries, unilateral; Z87.42 Personal history of other diseases of the female genital tract; Z80.42 Family history of malignant neoplasm of prostate; Z82.49 Family history of ischemic heart disease and other diseases of the circulatory system; Z83.3 Family history of diabetes mellitus; Z84.1 Family history of disorders of kidney and ureter; Y92.9 Unspecified place or not applicable
CPT/HCPCS: 93005 ×2; 96372 ×2; 96374; 96376; 99285; 36415; 93017; 93306; 85379; 80061; 80053; 83735; 84484 ×2; 85025 ×2; 85610; 85730; 81003; 83036; 84145; 71046; 74018; 93976; 76856; 76830; 78452; G0378 ×3; A9500; J1644 ×2; J0280; J2785

== ENCOUNTER → 2023-01-02 | Outpatient (CLI) | payer OTHER ==
--- NOTE | 2023-01-02 12:20 | XR ---
EXAMINATION TYPE: XR hand complete LT DATE OF EXAM: 01/02/2023 CLINICAL HISTORY: pain TECHNIQUE: Frontal, lateral and oblique images of the left hand are obtained. COMPARISON: None. FINDINGS: There is no acute fracture/dislocation evident. The joint spaces appear within normal limi ts. The overlying soft tissue appears unremarkable. IMPRESSION: There is no acute fracture or dislocation. ICD 10 NO FRACTURE, INITIAL EVALUATION
== END | disposition home or self-care (01) ==
LOC: RADXRMAIN 11:58
PROVIDERS: ATTEND Emergency Medicine
DX: M79.642 Pain in left hand (principal); L24.5 Irritant contact dermatitis due to other chemical products; R20.9 Unspecified disturbances of skin sensation

== ENCOUNTER 2023-04-16 17:10 | Inpatient (IN) | payer BC, OTHER ==
[2023-04-16] MEDS ORDERED: ASPIRIN 81 MG PO STA (17:24)
--- NOTE | 2023-04-16 17:25 | ED ---
Chest Pain HPI - General Source: patient Mode of arrival: ambulatory Limitations: no limitations <Perla Moses - Last Filed: 04/16/23 17:24> - General Source: patient, RN notes reviewed Limitations: no limitations <James Escobar - Last Filed: 04/16/23 20:25> - General Chief Complaint: Chest Pain Stated Complaint: chest pains Time Seen by Provider: 04/16/23 17:24 - History of Present Illness Initial Comments: 52-year-old female presenting with chief complaint of chest pain. Ongoing for the last 2-3 weeks. (Perla Moses) Patient is a pleasant 52-year-old female presenting to emergency department with concern for chest discomfort. Onset of symptoms was 2-3 weeks ago. Discomfort has been fairly persistent. Discomfort is rated 6/10. There is some radiation up to the shoulders. Discomfort feels like tightness. No dyspnea. Patient has mild nausea today. No history of similar symptoms previous sleep. Patient does have history of blood clot years ago however that does not feel similar to this. Patient is not currently on anticoagulation. Patient is concerned that her blood sugar may be high because she has not been taking care of it (James Escobar) - Related Data Home Medications Medication Instructions Recorded Confirmed Biotin [Biotin Disolve] 10,000 mcg PO DAILY 04/16/23 04/16/23 Women's Multivitamin Gummy 1 tab PO DAILY 04/16/23 04/16/23 Allergies Allergy/AdvReac Type Severity Reaction Status Date / Time Penicillins Allergy Anaphylaxis, Verified 04/16/23 19:59 swelling, rash, hives pregabalin [From Lyrica] Allergy Rash/Hives, Verified 04/16/23 19:59 swelling Sulfa (Sulfonamide Allergy Anaphylaxis, Verified 04/16/23 19:59 Antibiotics) swelling, rash, hives gabapentin AdvReac Severe Diarrhea Verified 04/16/23 19:59 Review of Systems ROS Other: All systems not noted in ROS Statement are negative. <Perla Moses - Last Filed: 04/16/23 17:24> ROS Other: All systems not noted in ROS Statement are negative. Constitutional: Denies: fever Eyes: Denies: eye pain ENT: Denies: ear pain Cardiovascular: Reports: as per HPI, chest pain Endocrine: Reports: fatigue Gastrointestinal: Denies: abdominal pain Genitourinary: Denies: urgency Musculoskeletal: Denies: back pain <James Escobar - Last Filed: 04/16/23 20:25> ROS Statement: Those systems with pertinent positive or pertinent negative responses have been documented in the HPI. Past Medical History Past Medical History: Diabetes Mellitus, Fibromyalgia, GERD/Reflux, Hyperlipidemia, Hypertension, Thyroid Disorder Additional Past Medical History / Comment(s): Pt states she stopped taking her medications in June 2018 as a matter of personal choice, IDDM type II, neuropathy bilateral legs/feet and hands, bilateral carpal tunnel syndrome, vertigo lately/balance problems, recent weight loss-30# since 09/2018, pancreatitis, hypothyroidism, PE in early twenties from control and smoking. Endometriosis History of Any Multi-Drug Resistant Organisms: None Reported Past Surgical History: Section, Cholecystectomy, Uterine Ablation Additional Past Surgical History / Comment(s): EGD, colonoscoies with benign polypectomy, " abdominal" unsure the name. Laparotomy with left salpingo- oophorectomy Past Anesthesia/Blood Transfusion Reactions: Previous Problems w/ Anesthesia, Motion Sickness Additional Past Anesthesia/Blood Transfusion Reaction / Comment(s): pt states trouble waking up after ciarra Past Psychological History: No Psychological Hx Reported Additional Psychological History / Comment(s): Pt resides with her significant other. She is independent. She drives. Works at the [employer]. No international travel. No experience. No animals in the home Smoking Status: Current every day smoker Past Alcohol Use History: Occasional Additional Past Alcohol Use History / Comment(s): Pt started smoking in 1980 and quit in 2014 but resumed smoking again in 09/2018. She is a 0.5-1 ppd. Past Drug Use History: None Reported - Past Family History Father Family Medical History: Cancer, Myocardial Infarction (NH) Additional Family Medical History / Comment(s): Father is living. Prostate cancer. Father had a NH at the age of 49yrs. Mother Family Medical History: Diabetes Mellitus, Renal Disease Additional Family Medical History / Comment(s): Mother is . <Perla Moses - Last Filed: 04/16/23 17:24> General Exam <Perla Moses - Last Filed: 04/16/23 17:24> Limitations: no limitations General appearance: alert, in no apparent distress Head exam: Present: normocephalic Eye exam: Present: normal appearance Neck exam: Present: normal inspection Respiratory exam: Present: normal lung sounds bilaterally. Absent: chest wall t enderness Cardiovascular Exam: Present: regular rate, normal rhythm Expanded Peripheral pulses: 2+: Radial (R), Radial (L), Posterior Tibialis (R), Posterior Tibialis (L), Dorsalis Pedis (R), Dorsalis Pedis (L) GI/Abdominal exam: Present: soft. Absent: tenderness Extremities exam: Present: normal inspection. Absent: pedal edema, calf tenderness Neurological exam: Present: alert Psychiatric exam: Present: normal affect, normal mood Skin exam: Present: normal color <James Escobar - Last Filed: 04/16/23 20:25> - General Exam Comments Initial Comments: Visual Physical Exam Vital signs reviewed General: Well-appearing, nontoxic, no acute distress. Head: Normocephalic, atraumatic Eyes: PERRLA, EOMI ENT: Airway patent Chest: Nonlabored breathing Skin: No visual rash, normal skin tone Neuro: Alert and oriented 3 Musculoskeletal: No gross abnormalities (Perla Moses) Course <James Escobar - Last Filed: 04/16/23 20:25> Vital Signs 04/16/23 17:23 Temperature 98 F Pulse Rate 86 Respiratory 18 Rate Blood Pressure 160/92 O2 Sat by Pulse 99 Oximetry - Reevaluation(s) Reevaluation #1: 04/16/23 19:54 EKG interpreted by myself shows sinus rhythm with rate of 79. Normal axis. Normal QRS. Inferior T wave inversion. 04/16/23 20:22 Was pt. sent in by a medical professional or institution (, PA, OILING MACHINE OPERATOR, urgent care, hospital, or [facility]...) When possible be specific @ -No Did you speak to anyone other than the patient for history (EMS, parent, family, police, friend...)? What history was obtained from this source @ -No Did you review nursing and triage notes (agree or disagree)? Why? @ -I reviewed and agree with nursing and triage notes Were old charts reviewed (outside hosp., previous admission, EMS record, old EKG, old radiological studies, urgent care reports/EKG's, [facility] records)? Report findings @ -No old charts were reviewed Differential Diagnosis (chest pain, altered mental status, abdominal pain women, abdominal pain men, vaginal bleeding, weakness, fever, dyspnea, syncope, headache, dizziness, GI bleed, back pain, seizure, CVA, palpatations, mental health, musculoskeletal)? @ -Differential Chest Pain: Stable Angina, Unstable Angina, STEMI, NSTEMI Aortic Dissection, Pneumothorax, Musculoskeletal, Esophageal Spasm GERD, Cholecystitis, Pancreatitis, Zoster, this is not meant to be an all-inclusive list. EKG interpreted by me (3pts min.). @ -As above X-rays interpreted by me (1pt min.). @ -Chest x-ray shows no acute process. CT interpreted by me (1pt min.). @ -None done U/S interpreted by me (1pt. min.). @ -None done What testing was considered but not performed or refused? (CT, X-rays, U/S, labs)? Why? @ -None What meds were considered but not given or refused? Why? @ -None Did you discuss the management of the patient with other professionals (professionals i.e. , PA, OILING MACHINE OPERATOR, lab, RT, psych nurse, social media executive, sanitary napkin machine tender, teacher, animal control officer, medical case manager)? Give summary @ -Case was discussed with Dr. ariza, who will admit for Dr. mattson Was smoking cessation discussed for >3mins.? @ -No Was critical care preformed (if so, how l3ong)? @ 32 minutes cc time] Were there social determinants of health that impacted care today? How? (Homelessness, low income, unemployed, alcoholism, drug addiction, transportation, low edu. Level, literacy, decrease access to med. care, care home, rehab)? @ -No Was there de-escalation of care discussed even if they declined (Discuss DNR or withdrawal of care, Hospice)? DNR status @ -No What co-morbidities impacted this encounter? (DM, HTN, Smoking, COPD, CAD, Cance r, CVA, ARF, Chemo, Hep., AIDS, mental health diagnosis, sleep apnea, morbid obesity)? @ -None Was patient admitted / discharged? Hospital course, mention meds given and route, prescriptions, significant lab abnormalities, going to OR and other pertinent info. @ -Patient reevaluated and improved. Patient updated. Patient be heparinized and admitted. Admission orders written. Cardiology will be placed on consult. Aspirin and nitroglycerin given. Undiagnosed new problem with uncertain prognosis? @ -No Drug Therapy requiring intensive monitoring for toxicity (Heparin, Nitro, Insulin, Cardizem)? @ -Patient is on IV heparin which will need monitoring Were any procedures done? @ -No Diagnosis/symptom? @ -nstemi Acute, or Chronic, or Acute on Chronic? @ -Acute Uncomplicated (without systemic symptoms) or Complicated (systemic symptoms)? @ -default Side effects of treatment? @ -No Exacerbation, Progression, or Severe Exacerbation? @ -No Poses a threat to life or bodily function? How? (Chest pain, [place], NH, pneumonia, PE, COPD, DKA, ARF, appy, cholecystitis, CVA, Diverticulitis, Homicidal, Suicidal, threat to staff... and all critical care pts) @ -nstemi does have potential for threat to cardiac function and life (James Escobar) Critical Care Time Critical Care Time: Yes Total Critical Care Time: 32 <James Escobar - Last Filed: 04/16/23 20:25> Disposition <Perla Moses - Last Filed: 04/16/23 17:24> Is patient prescribed a controlled substance at d/c from ED?: No Time of Disposition: 20:21 <James Escobar - Last Filed: 04/16/23 20:25> Clinical Impression: Acute non-ST elevation myocardial infarction (NSTEMI) Disposition: ADMITTED IP TO THIS HOSP Referrals: None,Stated [REFERRING] - 1-2 days
[2023-04-16 17:43] LABS: Basophils % (A) 0 %; Eosinophils # (A) 0.1 k/uL (0-0.7); Eosinophils % (A) 1 %; HCT 39.8 % (34.0-46.0); HGB 14.1 gm/dL (11.4-16.0); Lymphocytes # (A) 2.2 k/uL (1.0-4.8); Lymphocytes % (A) 27 %; MCHC 35.5 g/dL (31.0-37.0); MCV 95.7 fL (80.0-100.0); Monocytes # (A) 0.3 k/uL (0-1.0); Monocytes % (A) 4 %; Neutrophils # (A) 5.2 k/uL (1.3-7.7); Neutrophils % (A) 65 %; Platelet Count 196 k/uL (150-450); RBC 4.16 m/uL (3.80-5.40); WBC 7.9 k/uL (3.8-10.6)
[2023-04-16 18:04] LABS: ALT 16 U/L (4-34); AST 30 U/L (14-36); African American GFR (CKD) >90 (>60 ml/min/1.73 sqM); Albumin 4.3 g/dL (3.5-5.0); Alkaline Phosphatase 72 U/L (38-126); Anion Gap 9 mmol/L; Blood Urea Nitrogen 18 mg/dL (7-17); Calcium 9.6 mg/dL (8.4-10.2); Carbon Dioxide 23 mmol/L (22-30); Chloride 105 mmol/L (98-107); Glucose 177 mg/dL (74-99); Magnesium 1.6 mg/dL (1.6-2.3); Non-African American GFR(CKD) >90 (>60 ml/min/1.73 sqM); Potassium 3.9 mmol/L (3.5-5.1); Sodium 137 mmol/L (137-145); Total Bilirubin 0.7 mg/dL (0.2-1.3); Total Protein 7.8 g/dL (6.3-8.2)
--- NOTE | 2023-04-16 18:51 | XR ---
EXAMINATION TYPE: XR chest 2V DATE OF EXAM: 04/16/2023 6:43 PM CLINICAL INDICATION:Female, 52 years old with history of Chest Pain; COMPARISON: Chest radiographs from 03/08/2020 TECHNIQUE: XR chest 2V Frontal and lateral views of the chest. FINDINGS: Lungs/Pleura: There is no evidence of pleural effusion, focal consolidation, or pneumothorax. Pulmonary vascularity: Unremarkable. Heart/mediastinum: Cardiomediastinal silhouette is unremarkable. Musculoskeletal: No acute osseous pathology. IMPRESSION: No acute cardiopulmonary disease/process.
[2023-04-16] MEDS ORDERED: NITROGLYCERIN SL TABS 0.4 MG TAB SUBLINGUAL STA (19:41)
[2023-04-16] MEDS ORDERED: HEPARIN SODIUM 1,000 UN/ML (10ML VL) IV ONE (19:42)
[2023-04-16 20:18] LABS: INR 0.9 (<1.2); Partial Thromboplastin Time 23.2 sec (22.0-30.0); Prothrombin Time 9.9 sec (9.0-12.0)
[2023-04-16] MEDS ORDERED: NITROGLYCERIN SL TABS 0.4 MG TAB SUBLINGUAL PRN (20:21)
[2023-04-16] MEDS: HEPARIN SOD,PORK IN 0.45% NACL 25,000 UNIT in 0.45% NACL 1 250ML.BAG IV SCH (20:22)
[2023-04-16] MEDS ORDERED: ONDANSETRON 4 MG/2 ML VIAL IVP STA (20:32)
[2023-04-16] MEDS: NITROGLYCERIN OINT 1 INCH/GM PACKET TOPICAL SCH ×2 (20:41→23:37)
[2023-04-17] MEDS ORDERED: ATORVASTATIN 80 MG TAB PO STA ×2 (02:29→08:54)
--- NOTE | 2023-04-17 02:29 | P.HPIM ---
History of Present Illness H&P Date: 04/16/23 Patient is a 52-year-old female with a PMH of type II DM and tobacco abuse, has not seen a physician for several years, presents to the emergency room with complaints of chest pain and shortness of breath. Patient reports she has been expressing intermittent substernal pressure-like chest discomfort over the past 3-4 weeks gradually worsening. The pain occurs with and without exertion, 10 out of 10, with no clear inciting events, occurring as many as 10-12 times a day lasting for sometimes 30 minutes and sometimes only a few seconds at a time, with associated shortness of breath and diaphoresis and sometimes dizziness. The pain is worsened with exertion. She reports significant family history of coronary heart disease with both her mother and father suffering MIs in their 40s and 50s. She continues to smoke a pack a day of cigarettes and has done so for most of her life. She was previously diagnosed type II DM several years ago but has since been lost to follow-up. Her pain improved dramatically with sublingual nitroglycerin. He reports feeling at her baseline at the time of interview and was pain-free. Denies recent fever, chills, nausea recently, lower extremity pain. In the emergency room, chest x-ray was unremarkable with EKG showing sinus rhythm at 79 bpm with T-wave inversion in leads 2, 3, and aVF with T-wave flattening in leads V5 and V6. Laboratory evaluation was remarkable for troponin 0.266 and subsequently 0.483. D-dimer was 0.1. Glucose was 177. Blo od pressure upon arrival at the emergency room was 160/92 with pulse 86, CO2 91% on room air, and temp 98F. ED documentation reviewed and case discussed with ED provider. Review of systems: Pertinent positives and negatives as discussed in HPI, a complete review of systems was performed and all other systems are negative. Physical examination: Vital signs reviewed General: non toxic, no distress, appears at stated age, overweight Derm: no unusual rashes/lesions, warm Head: atraumatic, normocephalic, symmetric Eyes: EOMI, no lid lag, anicteric sclera, pupils equal round reactive to light ENT: Nose and ears atraumatic Neck: No cervical lymphadenopathy, trachea midline, supple Mouth: no lip lesion, mucus membranes moist Cardiovascular: S1S2 reg, no murmur, positive dorsalis pedis pulse bilateral, no edema Lungs: CTA bilateral, no rhonchi, no rales, no accessory muscle use Abdominal: soft, nontender to palpation, no guarding Ext: muscle strength 5 out of 5 in all 4 extremities grossly, no gross muscle atrophy, no contractures, Neuro: CN II-XI grossly intact, no gross focal neuro deficits Psych: Alert, oriented, appropriate affect Assessment: Non-ST elevation CO Type II DM Elevated blood pressure Imaging: In the emergency room, chest x-ray was unremarkable with EKG showing sinus rhythm at 79 bpm with T-wave inversion in leads 2, 3, and aVF with T-wave flattening in leads V5 and V6. Data Review: Laboratory evaluation was remarkable for troponin 0.266 and subsequently 0.483. D-dimer was 0.1. Glucose was 177. Blood pressure upon arrival at the emergency room was 160/92 with pulse 86, CO2 91% on room air, and temp 98F. Plan: Continue with aspirin, statin Continue heparin infusion Cardiac monitoring Cardiology consulted Trend troponin Echocardiogram Nitroglycerin sublingual when necessary Check A1c Consider starting antihypertensives if BP continues to be high DVT prophylaxis: Heparin infusion The patient is admitted with an anticipated greater than 2 midnight stay for evaluation of non-ST elevation CO CODE STATUS: Full Code Discussed with: Patient Anticipated discharge place: Home Past Medical History Past Medical History: Diabetes Mellitus, Fibromyalgia, GERD/Reflux, Hyperlipidemia, Hypertension, Thyroid Disorder Additional Past Medical History / Comment(s): Pt states she stopped taking her medications in June 2018 as a matter of personal choice, IDDM type II, neuropathy bilateral legs/feet and hands, bilateral carpal tunnel syndrome, vertigo lately/balance problems, recent weight loss-30# since 09/2018, pancreatitis, hypothyroidism, PE in early twenties from control and smoking. Endometriosis History of Any Multi-Drug Resistant Organisms: None Reported Past Surgical History: Section, Cholecystectomy, Uterine Ablation Additional Past Surgical History / Comment(s): EGD, colonoscoies with benign polypectomy, " abdominal" unsure the name. Laparotomy with left salpingo- oophorectomy Past Anesthesia/Blood Transfusion Reactions: Previous Problems w/ Anesthesia, Motion Sickness Additional Past Anesthesia/Blood Transfusion Reaction / Comment(s): pt states trouble waking up after ciarra Past Psychological History: No Psychological Hx Reported Additional Psychological History / Comment(s): Pt resides with her significant other. She is independent. She drives. Works at the [employer]. No international travel. No experience. No animals in the home Smoking Status: Current every day smoker Past Alcohol Use History: Occasional Additional Past Alcohol Use History / Comment(s): Pt started smoking in 1980 and quit in 2014 but resumed smoking again in 09/2018. She is a 0.5-1 ppd. Past Drug Use History: None Reported - Past Family History Father Family Medical History: Cancer, Myocardial Infarction (CO) Additional Family Medical History / Comment(s): Father is living. Prostate cancer. Father had a CO at the age of 49yrs. Mother Family Medical History: Diabetes Mellitus, Renal Disease Additional Family Medical History / Comment(s): Mother is . Medications and Allergies Home Medications Medication Instructions Recorded Confirmed Type Biotin [Biotin Disolve] 10,000 mcg PO DAILY 04/16/23 04/16/23 History Women's Multivitamin Gummy 1 tab PO DAILY 04/16/23 04/16/23 History Allergies Allergy/AdvReac Type Severity Reaction Status Date / Time Penicillins Allergy Anaphylaxis, Verified 04/16/23 19:59 swelling, rash, hives pregabalin [From Lyrica] Allergy Rash/Hives, Verified 04/16/23 19:59 swelling Sulfa (Sulfonamide Allergy Anaphylaxis, Verified 04/16/23 19:59 Antibiotics) swelling, rash, hives gabapentin AdvReac Severe Diarrhea Verified 04/16/23 19:59 Physical Exam Vitals: Vital Signs Temp Pulse Resp BP Pulse Ox 04/17/23 01:27 98.2 F 78 18 131/73 98 04/16/23 17:23 98 F 86 18 160/92 99 Intake and Output 04/16/23 04/16/23 04/17/23 14:59 22:59 06:59 Other: Weight 63.503 kg Results CBC & Chem 7: 04/16/23 17:36 04/16/23 17:36 Labs: Abnormal Lab Results - Last 24 Hours (Table) 04/16/23 04/16/23 04/16/23 Range/Units 17:36 17:36 20:44 BUN 18 H (7-17) mg/dL Creatinine 0.51 L (0.52-1.04) mg/dL Glucose 177 H (74-99) mg/dL Troponin I 0.266 H* 0.483 H* (0.000-0.034) ng/mL
[2023-04-17] MEDS: HEPARIN SODIUM 1,000 UN/ML (10ML VL) IV PRN (03:12)
[2023-04-17] MEDS: NITROGLYCERIN OINT 1 INCH/GM PACKET TOPICAL SCH ×4 (05:44→23:35)
[2023-04-17] MEDS ORDERED: ASPIRIN 325 MG TAB PO STA (08:54)
[2023-04-17] MEDS ORDERED: ALPRAZolam 0.25 MG TAB PO PRN (08:54)
[2023-04-17] MEDS ORDERED: NITROGLYCERIN SL TABS 0.4 MG TAB SUBLINGUAL PRN (08:54)
[2023-04-17] MEDS ORDERED: ALPRAZolam 0.5 MG TAB PO PRN (08:54)
[2023-04-17] MEDS ORDERED: NON FORMULARY DRUG (Biotin [Biotin Disolve] 10,000 MCG Tablet) PO SCH (09:00)
[2023-04-17] MEDS ORDERED: ASPIRIN 325 MG TAB PO SCH (09:00)
[2023-04-17 09:39] LABS: Glucose,Whole Blood 197 mg/dL (70-110)
[2023-04-17 10:28] LABS: Basophils % (A) 0 %; Eosinophils # (A) 0.1 k/uL (0-0.7); Eosinophils % (A) 2 %; HCT 40.5 % (34.0-46.0); HGB 14.2 gm/dL (11.4-16.0); Lymphocytes # (A) 2.2 k/uL (1.0-4.8); Lymphocytes % (A) 32 %; MCH 34.1 pg (25.0-35.0); MCV 97.6 fL (80.0-100.0); Mean Platelet Volume 7.1; Monocytes # (A) 0.3 k/uL (0-1.0); Monocytes % (A) 4 %; Neutrophils # (A) 3.9 k/uL (1.3-7.7); Neutrophils % (A) 60 %; Platelet Count 200 k/uL (150-450); RBC 4.15 m/uL (3.80-5.40); RDW 12.3 % (11.5-15.5); WBC 6.6 k/uL (3.8-10.6)
[2023-04-17 10:29] LABS: Partial Thromboplastin Time 60.2 sec (22.0-30.0); Prothrombin Time 10.2 sec (9.0-12.0)
[2023-04-17] MEDS: ASPIRIN 81 MG PO SCH (10:43)
[2023-04-17] MEDS: MULTIVITAMINS, THERA 1 EACH TAB PO SCH (10:43)
--- NOTE | 2023-04-17 10:44 | P.CRDCN ---
History of Present Illness Consult date: 04/17/23 Consult reason: non-Q-wave MS History of present illness: History of present illness: This is a 52-year-old female previously seen in [address] Spence. She has a past medical history of hypertension, hyperlipidemia, diabetes, peripheral vascular disease, family history of premature coronary artery disease. We have been asked to evaluate the patient for non-ST elevated myocardial infarction. Patient presented to [facility] emergency center for chest pain determined ongoing for 2-3 weeks. Patient states that it was midsternal going up into her jaw and down her arms. It became worse with activity and did not experience it with rest. She denies any pain with deep breathing. She does have shortness of breath with chest pain. Patient presented with a blood pressure of 160/92. Patient has been started on heparin drip, Nitro-Bid, aspirin and atorvastatin. Patient is seen today in the emergency center waiting for a bed on the cardiac stepdown unit. Patient is a smoker of pack per day for greater than 40 years. She has minimal alcohol intake. EKG sinus rhythm with nonspecific ST changes 2 Chest x-ray: No acute process CBC normal. INR was 0.9. D-dimer 0.31. Electrolytes normal. BUN 18 creatinine 0.51. Blood sugar 177. Troponins 0.266, 0.483, 0.481. Liver function tests are normal. Magnesium 1.6. Home cardiac medications: None Lexiscan stress test 02/2020 no reversible ischemia Echocardiogram 02/2020 he F 55-60% borderline concentric left ventricular hypertrophy. Diastolic filling pattern is normal for age. Right ventricle is mild to moderately enlarged. Right atrium mildly enlarged. Mild mitral regurgitation, mild tricuspid regurgitation. Review Of Systems: At the time of my evaluation: Constitutional: No fever, no chills. No weakness, fatigue or lethargy. EENT: No headache. No dizziness. Lungs: No shortness of breath, cough, no sputum production. No wheezing. Cardiovascular: Reports chest pain with radiation, no lower extremity edema. No palpitations. No paroxysmal nocturnal dyspnea. No orthopnea. No lightheadedness or dizziness. No syncopal episodes. Abdominal: No abdominal pain. No nausea, vomiting. No diarrhea. No constipation. No bloody or tarry stools. Musculoskeletal: No myalgias. No muscle weakness, no frequent falls. Integumentary: No wounds. No rash. No unusual bruising. Neurologic: No aphasia. No facial droop. No change in mentation. Physical examination: Gen: This is a 52-year-old female. She is resting bed appears to be c omfortable and in no acute distress. VS: reviewed. Blood pressure 122/72, heart rate in the 60s, pulse ox 92% on room air, afebrile. HEENT: Head is atraumatic, normocephalic. Pupils equal, round. Sclerae is anicteric. NECK: Supple. No JVD. . LUNGS: Clear to auscultation. No wheezes or rhonchi. No intercostal retractions. HEART: Regular rate and rhythm. No murmur. ABDOMEN: Soft No tenderness. EXTREMITIES: No pedal edema. No calf tenderness. NEUROLOGICAL: Patient is awake, alert and oriented x3. Assessment: Non-ST elevated myocardial infarction Hypertension Hyperlipidemia Diabetes Plan: Continue patient on aspirin 81 mg daily, atorvastatin 80 mg at bedtime, heparin drip, Nitro-Bid Patient will be scheduled for cardiac catheterization today once arrangements are completed. Obtain 2-D echocardiogram and Doppler study to assess cardiac structure and function Obtain A1c, lipid panel and TSH. Further recommendations to follow based upon clinical course Thank you kindly for this consultation. Nurse practitioner note has been reviewed, I agree with documented findings and plan of care. Patient was seen and examined. Past Medical History Past Medical History: Diabetes Mellitus, Fibromyalgia, GERD/Reflux, Hyperlipidemia, Hypertension, Thyroid Disorder Additional Past Medical History / Comment(s): Pt states she stopped taking her medications in June 2018 as a matter of personal choice, IDDM type II, neuropathy bilateral legs/feet and hands, bilateral carpal tunnel syndrome, vertigo lately/balance problems, recent weight loss-30# since 09/2018, pancreatitis, hypothyroidism, PE in early twenties from control and smoking. Endometriosis History of Any Multi-Drug Resistant Organisms: None Reported Past Surgical History: Section, Cholecystectomy, Uterine Ablation Additional Past Surgical History / Comment(s): EGD, colonoscoies with benign polypectomy, " abdominal" unsure the name. Laparotomy with left salpingo-o ophorectomy Past Anesthesia/Blood Transfusion Reactions: Previous Problems w/ Anesthesia, Motion Sickness Additional Past Anesthesia/Blood Transfusion Reaction / Comment(s): pt states trouble waking up after ciarra Past Psychological History: No Psychological Hx Reported Additional Psychological History / Comment(s): Pt resides with her significant other. She is independent. She drives. Works at the [employer]. No international travel. No experience. No animals in the home Smoking Status: Current every day smoker Past Alcohol Use History: Occasional Additional Past Alcohol Use History / Comment(s): Pt started smoking in 1980 and quit in 2014 but resumed smoking again in 09/2018. She is a 0.5-1 ppd. Past Drug Use History: None Reported - Past Family History Father Family Medical History: Cancer, Myocardial Infarction (MS) Additional Family Medical History / Comment(s): Father is living. Prostate cancer. Father had a MS at the age of 49yrs. Mother Family Medical History: Diabetes Mellitus, Renal Disease Additional Family Medical History / Comment(s): Mother is . Medications and Allergies Home Medications Medication Instructions Recorded Confirmed Type Biotin [Biotin Disolve] 10,000 mcg PO DAILY 04/16/23 04/16/23 History Women's Multivitamin Gummy 1 tab PO DAILY 04/16/23 04/16/23 History Allergies Allergy/AdvReac Type Severity Reaction Status Date / Time Penicillins Allergy Anaphylaxis, Verified 04/16/23 19:59 swelling, rash, hives pregabalin [From Lyrica] Allergy Rash/Hives, Verified 04/16/23 19:59 swelling Sulfa (Sulfonamide Allergy Anaphylaxis, Verified 04/16/23 19:59 Antibiotics) swelling, rash, hives gabapentin AdvReac Severe Diarrhea Verified 04/16/23 19:59 Physical Exam Vitals: Vital Signs Temp Pulse Resp BP Pulse Ox 04/17/23 06:00 66 15 122/72 92 L 04/17/23 05:00 66 15 122/72 93 L 04/17/23 04:00 98.2 F 60 17 131/73 93 L 04/17/23 03:00 68 15 131/73 92 L 04/17/23 02:00 70 17 131/73 91 L 04/17/23 01:27 98.2 F 78 18 131/73 98 04/17/23 01:00 77 21 131/73 91 L 04/17/23 00:00 64 17 124/80 93 L 04/16/23 22:00 82 17 130/76 93 L 04/16/23 21:00 74 24 141/82 97 04/16/23 20:00 73 14 160/87 99 04/16/23 19:38 164/96 96 04/16/23 17:23 98 F 86 18 160/92 99 Intake and Output 04/16/23 04/17/23 04/17/23 22:59 06:59 14:59 Intake Total 50.8 Balance 50.8 Intake: Intake, IV Titration 50.8 Amount Heparin Sod,Pork in 0.45% 50.8 NaCl 25,000 unit In 0.45 % NaCl 1 250ml.bag @ 12 UNITS/KG/HR 7.62 mls/hr IV .Q24H [facility] Rx#: [id number] Other: Weight 63.503 kg Results 04/17/23 10:06 04/16/23 17:36 Cardiac Enzymes 04/16/23 04/16/23 04/16/23 Range/Units 17:36 17:36 20:44 AST 30 (14-36) U/L Troponin I 0.266 H* 0.483 H* (0.000-0.034) ng/mL 04/17/23 Range/Units 01:48 AST (14-36) U/L Troponin I 0.581 H* (0.000-0.034) ng/mL Coagulation 04/16/23 04/17/23 Range/Units 19:57 01:48 PT 9.9 (9.0-12.0) sec APTT 23.2 32.9 H (22.0-30.0) sec CBC 04/16/23 Range/Units 17:36 WBC 7.9 (3.8-10.6) k/uL RBC 4.16 (3.80-5.40) m/uL Hgb 14.1 (11.4-16.0) gm/dL Hct 39.8 (34.0-46.0) % Plt Count 196 (150-450) k/uL Comprehensive Metabolic Panel 04/16/23 Range/Units 17:36 Sodium 137 (137-145) mmol/L Potassium 3.9 (3.5-5.1) mmol/L Chloride 105 (98-107) mmol/L Carbon Dioxide 23 (22-30) mmol/L BUN 18 H (7-17) mg/dL Creatinine 0.51 L (0.52-1.04) mg/dL Glucose 177 H (74-99) mg/dL Calcium 9.6 (8.4-10.2) mg/dL AST 30 (14-36) U/L ALT 16 (4-34) U/L Alkaline Phosphatase 72 (38-126) U/L Total Protein 7.8 (6.3-8.2) g/dL Albumin 4.3 (3.5-5.0) g/dL Current Medications Generic Name Dose Route Start Last Admin Trade Name Freq PRN Reason Stop Dose Admin Aspirin 325 mg 04/17/23 09:00 Aspirin 325 Mg Tab PO DAILY FRANCI Atorvastatin Calcium 80 mg 04/17/23 21:00 Atorvastatin 80 Mg Tab PO HS [facility] Heparin Sodium (Porcine) 0 unit 04/16/23 19:42 04/17/23 03:12 Heparin Sodium 1,000 Un/Ml (10ml Vl) IV 3.12 unit PER PROTOCOL PRN Administration Low PTT Protocol Heparin Sodium/Sodium Chloride 250 mls @ 7.62 mls/hr 04/16/23 19:45 04/17/23 03:02 25,000 unit/ Sodium Chloride IV 15 units/kg/hr .Q24H FRANCI 9.525 mls/hr Titration Protocol 12 UNITS/KG/HR Multivitamins 1 each 04/17/23 09:00 Multivitamins, Thera 1 Each Tab PO DAILY [facility] Nitroglycerin 0.4 mg 04/16/23 20:21 Nitroglycerin Sl Tabs 0.4 Mg Tab SUBLINGUAL Q5M PRN Chest Pain Nitroglycerin 1 inch 04/16/23 20:30 04/17/23 05:44 Nitroglycerin Oint 1 Inch/Gm Packet TOPICAL 1 inch Q6HR FRANCI Administration Sodium Chloride 10 ml 04/16/23 21:00 04/16/23 20:41 Sodium Chloride 0.9% Flush 10 Ml Syringe IV 10 ml BID FRANCI Administration Intake and Output 04/16/23 04/17/23 04/17/23 22:59 06:59 14:59 Intake Total 50.8 Balance 50.8 Intake: Intake, IV Titration 50.8 Amount Heparin Sod,Pork in 0.45% 50.8 NaCl 25,000 unit In 0.45 % NaCl 1 250ml.bag @ 12 UNITS/KG/HR 7.62 mls/hr IV .Q24H [facility] Rx#: [id number] Other: Weight 63.503 kg 04/16/23 17:36 04/16/23 17:36
[2023-04-17] MEDS ORDERED: VERAPAMIL 2.5 MG/ML 2 ML AMP ONE (10:53)
[2023-04-17] MEDS ORDERED: HEPARIN SODIUM 1,000 UN/ML (10ML VL) ONE (10:53)
[2023-04-17] MEDS ORDERED: fentaNYL (PF) 50 MCG/ML 2 ML AMP ONE (10:54)
[2023-04-17] MEDS ORDERED: MIDAZOLAM 2 MG/2 ML VIAL IVP ONE (11:25)
[2023-04-17] MEDS ORDERED: fentaNYL (PF) 50 MCG/ML 2 ML AMP IVP ONE (11:25)
[2023-04-17] MEDS ORDERED: LIDOCAINE 1% INJ 10MG/ML (5 ML VIAL-PF) SQ ONE (11:26)
[2023-04-17] MEDS ORDERED: SODIUM CHLORIDE 0.9% 1,000 ML IV ONE (11:30)
[2023-04-17] MEDS ORDERED: VERAPAMIL SYRINGE (5 MG/10 ML) INTRAARTER ONE (11:31)
[2023-04-17] MEDS ORDERED: HEPARIN SODIUM 1,000 UN/ML (10ML VL) IVP ONE (11:34)
[2023-04-17] MEDS ORDERED: IOPAMIDOL-370 100ML BTL INJ ONE (11:52)
[2023-04-17] MEDS ORDERED: RX INFO: IV CONTRAST WAS GIVEN 1 EACH MISC MISCELLANE PRN (11:56)
[2023-04-17] MEDS ORDERED: SODIUM CHLORIDE 0.9% 1,000 ML IV SCH (12:00)
--- NOTE | 2023-04-17 12:13 | P.CARDCATH ---
Date of Procedure: 04/17/23 Description of Procedure: DIAGNOSTIC CORONARY ANGIOGRAPHY and LEFT HEART CATH REPORT PROCEDURES PERFORMED: Left heart catheterization Selective coronary angiography Moderate conscious sedation 26 mins Right radial access INDICATION: NSTEMI 52-year-old female with past medical history of diabetes, hypertension presented to the ER with 1-2 months of reduce excess tolerance, easy fatigue, and recently worsened chest pain which shows coming and going. Her symptoms were very typical in nature. On admission she had new T-wave inversions in her inferolateral leads. She also had an elevation of troponin of 0.4, 0.5. Her renal function and hemoglobin are within normal limits. She does not have any prior history of stroke. She does not have any bleeding diathesis. She also has past medical history of type 2 diabetes, is an active smoker currently smoking 1 pack per day. She also has strong family history of premature coronary artery disease in multiple family members. CONSENT: I have discussed the risks, benefits and alternative therapies for the above-mentioned procedure, sedation/analgesia and necessary blood product administration (if indicated, as they pertain to this patient). The patient has indicated understanding and acceptance of the risks and procedures discussed. Conscious Sedation: Patient's ECG, heart rate, blood pressure, pulse oximetry was monitored throughout the duration of procedure under the direct supervision. [1] mg Versed and [50] mg Fentanyl were used for induction of moderate conscious sedation. Total duration of [26] minutes. PROCEDURE:After the risks, benefits and alternatives of the above mentioned procedure explained in detail with the patient, informed consent was obtained. Ultrasound was used to identify the radial artery. Patient was taken to the catheterization lab and prepped and draped in usual sterile fashion. 1% lidocaine was infiltrated over the right radial artery. A 6-Welsh sheath was placed in the right radial artery using modified Seldinger technique. The sheath was flushed 5 mg verapamil was administered intra-arterially. J tipped wire was advanced under fluoroscopic guidance. Once the wire tip reached aortic root [3500] units of IV heparin was given. Over the wire JL3.5 diagnostic catheter was advanced. Wire was removed, catheter was flushed and manipulated under fluoroscopy to selectively engaged the left coronary ostium. Left coronary angioplasty was performed in different angiographic projections. This catheter was exchanged for a JR4 diagnostic catheter over the wire. The catheter was flushed and manipulated to cross the aortic valve. LV pressures were obtained. Pullback was performed across aortic valve and catheter was manipulated to selectively engage the right coronary ostium under fluoroscopic guidance. Right coronary angiography was performed in different angiographic projections. Catheter was removed over the wire. Radial sheath was flushed. The right radial sheath was removed and a TR band was placed with excellent patent hemostasis was achieved. The patient tolerated the procedure well. Patient was transported back to the post catheterization holding area in stable condition. Angiographic images were reviewed in detail. HEMODYNAMICS: Aortic Pressure: 156/67 mmHg. LV pressure: 160/10 mmHg. LVEDP 26 mmHg. There was no significant gradient across aortic valve SELECTIVE CORONARY ARTERIOGRAPHY: LEFT MAIN: The left main is a large caliber vessel which bifurcates into the LAD and circumflex. It appears angiographic and normal. LEFT ANTERIOR DESCENDING CORONARY ARTERY: LAD is a large caliber vessel which wraps around to the apex. Proximal LAD has mild luminal irregularities. Mid LAD just after giving diagonal 2, has long regular segment of 90% disease. Distal LAD appears angiographically normal with mild luminal irregularities. Di agonal 1 in the small caliber vessel. Diagonal 2 is medium-sized vessel with 30-40% disease in proximal segment. LEFT CIRCUMFLEX CORONARY ARTERY: It is nondominant vessel. Proximal LCx has 20- 30% disease. Just prior to OM1 there is 90% calcific stenosis. Just distal to OM1 branch, LCx is 100% occluded in mid segment. There are left to left collaterals filling OM 2 branch which appears to be medium size. OM1 is 3 mm vessel. Mid OM has around 50% tubular disease. RIGHT CORONARY ARTERY: Dominant vessel. Proximal RCA has mild luminal irr egularities. Mid RCA has long tubular segment of 90% stenosis. It is a sequential disease in mid segment of around 80-90% stenosis. Distal RCA appears angina 15 normal. It bifurcates into PDA and PL branch. PDA has diffuse disease in range of 30-40% IMPRESSION: Multivessel vessel disease involving LAD, LCx and RCA. LCx appears to be the culprit Elevated left ventricular filling pressures PLAN: Public Welfare Director cardiac thoracic surgery for CABG evaluation. Suggested targets include LAD, diagonal 2, OM1, OM 2, PDA 150 cc fluids for 3 hours Resume IV heparin after TR band was removed in next 1-2 hours Performing Physician Ignacio Lynch MD
--- NOTE | 2023-04-17 13:40 | P.GSCN ---
History of Present Illness Consult date: 04/17/23 Reason for Consult: Triple-vessel coronary artery disease Requesting physician: Ignacio Lynch History of present illness: This is a 52-year-old patient who follows outpatient with Dr. Mullins for primary care. She has a previous medical history of hypertension, hyperlipidemia, diabetes, peripheral vascular disease, pulmonary embolism at 20 years old and not currently on anticoagulation, current tobacco dependence, and family history of premature coronary artery disease on both sides of the family. The patient works in a factory and has noticed increasing chest pain radiating all the way up to her jaw over the last few weeks associated with shortness of breath, occasional nausea and diaphoresis. She reports the last day she was at work just walking from her car to the entrance was extremely painful and she needed to sit quite a while for the pain to go away. She states a coworker convinced her to report to the emergency room. In the ER EKG demonstrated sinus rhythm with nonspecific ST changes. Chest x-ray demonstrated no acute process. Lab work revealed WBC 7.9, hemoglobin 14.1, d-dimer 0.31, creatinine 0.51, and troponins were elevated, patient was ruled in for non-STEMI and admitted. She was placed on IV heparin and topical nitro ointment. She was recommended to undergo heart catheterization which was completed today by Dr. Lynch which revealed triple-vessel coronary artery disease with mid LAD stenosis 90%, mid circumflex stenosis 100%, and mid RCA stenosis 90%. Due to these findings consultation was placed to cardiothoracic surgery for surgical revascularization recommendations. Review of Systems Review of systems was completed and was negative except as noted - Cardiovascular Reports as per HPI, Reports chest pain, Reports dyspnea on exertion, Reports leg edema Past Medical History Past Medical History: Diabetes Mellitus, Fibromyalgia, GERD/Reflux, Hyperlipidemia, Hypertension, Pulmonary Embolus (PE), Thyroid Disorder Additional Past Medical History / Comment(s): Pt states she stopped taking her medications in June 2018 as a matter of personal choice, IDDM type II, neuropathy bilateral legs/feet and hands, bilateral carpal tunnel syndrome, vert igo lately/balance problems, recent weight loss-30# since 09/2018, pancreatitis, hypothyroidism, PE in early twenties from control and smoking. Endometriosis History of Any Multi-Drug Resistant Organisms: None Reported Past Surgical History: Section, Cholecystectomy, Uterine Ablation Additional Past Surgical History / Comment(s): EGD, colonoscoies with benign polypectomy, " abdominal" unsure the name. Laparotomy with left salpingo- oophorectomy Past Anesthesia/Blood Transfusion Reactions: Previous Problems w/ Anesthesia, Motion Sickness Additional Past Anesthesia/Blood Transfusion Reaction / Comm: pt states trouble waking up after ciarra Past Psychological History: No Psychological Hx Reported Additional Psychological History / Comment(s): Pt resides with her significant other. She is independent. She drives. Works at the [employer]. No international travel. No experience. No animals in the home Smoking Status: Current every day smoker Past Alcohol Use History: Occasional Additional Past Alcohol Use History / Comment(s): Pt started smoking in 1980 and quit in 2014 but resumed smoking again in 09/2018. She is a 0.5-1 ppd. Past Drug Use History: None Reported - Past Family History Father Family Medical History: Cancer, Myocardial Infarction (AL) Additional Family Medical History / Comment(s): Father is living. Prostate cancer. Father had a AL at the age of 49yrs. Mother Family Medical History: Diabetes Mellitus, Renal Disease Additional Family Medical History / Comment(s): Mother is . Maternal grandmother had coronary artery disease diagnosed at age Medications and Allergies Home Medications Medication Instructions Recorded Confirmed Type Biotin [Biotin Disolve] 10,000 mcg PO DAILY 04/16/23 04/16/23 History Women's Multivitamin Gummy 1 tab PO DAILY 04/16/23 04/16/23 History Allergies Allergy/AdvReac Type Severity Reaction Status Date / Time Penicillins Allergy Anaphylaxis, Verified 04/16/23 19:59 swelling, rash, hives pregabalin [From Lyrica] Allergy Rash/Hives, Verified 04/16/23 19:59 swelling Sulfa (Sulfonamide Allergy Anaphylaxis, Verified 04/16/23 19:59 Antibiotics) swelling, rash, hives gabapentin AdvReac Severe Diarrhea Verified 04/16/23 19:59 Surgical - Exam Vital Signs Temp Pulse Resp BP Pulse Ox 98 F 86 18 160/92 99 04/16/23 17:23 04/16/23 17:23 04/16/23 17:23 04/16/23 17:23 04/16/23 17:23 CONSTITUTIONAL: Awake and alert, appears comfortable, cooperative, well- developed, well-nourished, no pain, no acute distress EYES: Pupils equal, round, reactive to light, normal ocular movement ENT: Moist mucous membranes without oral lesions present NECK: No masses, no bruits, trachea midline RESPIRATORY: Lungs sounds clear to auscultation bilaterally. Respirations even, nonlabored. Currently on room air with oxygen saturation 98%. Strong cough. No chest wall deformities. No clubbing or cyanosis present CARDIOVASCULAR: S1, S2 present. Regular rate and rhythm, sinus rhythm on telem etry. Palpable peripheral pulses bilaterally. No edema present. No calf pain or tenderness noted. No significant lower extremity varicosities noted. Left radial Dustin's test less than 8 seconds. GASTROINTESTINAL: Abdomen soft, nontender, nondistended without masses or organomegaly noted. There is no rebound or guarding present. Active bowel sounds present 4 quadrants. GENITOURINARY: Deferred INTEGUMENTARY: Skin is warm and dry with evidence of good perfusion. Right radial heart catheterization site with T Band in place NEUROLOGIC: Cranial nerves II through XII intact, normal coordination, no obvious motor or sensory deficits, speech is normal MUSKULOSKELETAL: Able to move all extremities, strength equal bilaterally, normal posture PSYCHIATRIC: Alert and oriented to person place and time, appropriate affect, intact judgment and insight Results - Labs 04/17/23 10:06 04/16/23 17:36 Abnormal Lab Results - Last 24 Hours (Table) 04/16/23 04/16/23 04/16/23 Range/Units 17:36 17:36 20:44 APTT (22.0-30.0) sec BUN 18 H (7-17) mg/dL Creatinine 0.51 L (0.52-1.04) mg/dL Glucose 177 H (74-99) mg/dL POC Glucose (mg/dL) (70-110) mg/dL Troponin I 0.266 H* 0.483 H* (0.000-0.034) ng/mL 04/17/23 04/17/23 04/17/23 Range/Units 01:48 01:48 09:36 APTT 32.9 H (22.0-30.0) sec BUN (7-17) mg/dL Creatinine (0.52-1.04) mg/dL Glucose (74-99) mg/dL POC Glucose (mg/dL) 197 H (70-110) mg/dL Troponin I 0.581 H* (0.000-0.034) ng/mL 04/17/23 Range/Units 10:04 APTT 60.2 H (22.0-30.0) sec BUN (7-17) mg/dL Creatinine (0.52-1.04) mg/dL Glucose (74-99) mg/dL POC Glucose (mg/dL) (70-110) mg/dL Troponin I (0.000-0.034) ng/mL Diabetes panel 04/16/23 Range/Units 17:36 Sodium 137 (137-145) mmol/L Potassium 3.9 (3.5-5.1) mmol/L Chloride 105 (98-107) mmol/L Carbon Dioxide 23 (22-30) mmol/L BUN 18 H (7-17) mg/dL Creatinine 0.51 L (0.52-1.04) mg/dL Glucose 177 H (74-99) mg/dL Calcium 9.6 (8.4-10.2) mg/dL AST 30 (14-36) U/L ALT 16 (4-34) U/L Alkaline Phosphatase 72 (38-126) U/L Total Protein 7.8 (6.3-8.2) g/dL Albumin 4.3 (3.5-5.0) g/dL Thyroid panel 04/17/23 Range/Units 10:06 TSH 1.710 (0.465-4.680) mIU/L Calcium panel 04/16/23 Range/Units 17:36 Calcium 9.6 (8.4-10.2) mg/dL Albumin 4.3 (3.5-5.0) g/dL Pituitary panel 04/16/23 04/17/23 Range/Units 17:36 10:06 Sodium 137 (137-145) mmol/L Potassium 3.9 (3.5-5.1) mmol/L Chloride 105 (98-107) mmol/L Carbon Dioxide 23 (22-30) mmol/L BUN 18 H (7-17) mg/dL Creatinine 0.51 L (0.52-1.04) mg/dL Glucose 177 H (74-99) mg/dL Calcium 9.6 (8.4-10.2) mg/dL TSH 1.710 (0.465-4.680) mIU/L Adrenal panel 04/16/23 Range/Units 17:36 Sodium 137 (137-145) mmol/L Potassium 3.9 (3.5-5.1) mmol/L Chloride 105 (98-107) mmol/L Carbon Dioxide 23 (22-30) mmol/L BUN 18 H (7-17) mg/dL Creatinine 0.51 L (0.52-1.04) mg/dL Glucose 177 H (74-99) mg/dL Calcium 9.6 (8.4-10.2) mg/dL Total Bilirubin 0.7 (0.2-1.3) mg/dL AST 30 (14-36) U/L ALT 16 (4-34) U/L Alkaline Phosphatase 72 (38-126) U/L Total Protein 7.8 (6.3-8.2) g/dL Albumin 4.3 (3.5-5.0) g/dL - Imaging Chest x-ray: report reviewed, image reviewed EKG: image reviewed Additional studies: Heart catheterization films reviewed Assessment and Plan Assessment: Triple-vessel coronary artery disease, non-STEMI this admission Chest pain, secondary to above Hypertension Hyperlipidemia Diabetes Peripheral vascular disease Pulmonary embolism at 20 years old and not currently on anticoagulation Current tobacco dependence Family history of premature coronary artery disease on both sides of the family Plan: The patient was seen and examined sitting up in bed in the cardiac stepdown unit in no acute distress. Chart/diagnostics were reviewed. The case was discussed in detail with Dr. Herrera who did review the patient's heart catheterization films. The usual perioperative course of open heart surgery was discussed in detail the patient and her family, risks and benefits were reviewed, all questions were answered. The patient does consent to surgery. Preoperative testing initiated. Once completed will calculate STS risk score and discuss with the patient. 5 m walk test will be completed. Recommend maximizing medical therapy with aspirin, statin, beta hector. Smoking cessation education and counseling provided. Medical management of other comorbidities per internal medicine, cardiology. More recommendations to follow. Thank you Dr. Lynch for this consult. I have personally seen and examined the patient, performed the documentation and the assessment and plan as written. Number of minutes spent on the visit: 30. MALDONADO Hi
[2023-04-17] MEDS ORDERED: DEXTROSE 50% SYRINGE 50 ML IVP PRN ×2 (13:43)
--- NOTE | 2023-04-17 13:45 | P.PN ---
Subjective Progress Note Date: 04/17/23 Hospital Course: 52-year-old female with a PMH of type II DM and tobacco abuse, has not seen a physician for several years, presents to the emergency room with complaints of chest pain and shortness of breath. In the emergency room, chest x-ray was unremarkable with EKG showing sinus rhythm at 79 bpm with T-wave inversion in leads 2, 3, and aVF with T-wave flattening in leads V5 and V6. Laboratory evaluation was remarkable for troponin 0.266 and subsequently 0.483. D-dimer was 0.1. Glucose was 177. Blood pressure upon arrival at the emergency room was 160/92 with pulse 86, CO2 91% on room air, and temp 98F. Patient admitted for NSTEMI on heparin drip. Cardiology consulted. Cardiac cath showed multivessel coronary artery disease, recommending CABG. Subjective: Seen and examined at bedside. No acute events overnight. Denies any further chest pain. Pertinent positives and negatives as discussed above, a complete review of systems was performed and all other systems are negative. Vitals Signs Reviewed. General: nontoxic, no distress, appears at stated age Derm: warm, dry Head: atraumatic, normocephalic, symmetric Eyes: EOMI, no lid lag, anicteric sclera Mouth: no lip lesion, mucus membranes moist Cardiovascular: S1S2 reg, no murmur Lungs: CTA bilateral, no rhonchi, no rales , no accessory muscle use Abdominal: soft, nontender to palpation, no guarding, no appreciable organomegaly Ext: no gross muscle atrophy, no edema, no contractures Neuro: CN II-XI grossly intact, no focal neuro deficits Psych: Alert, oriented, appropriate affect Data Reviewed Today: Pertinent Labs: WBC 6.6, hemoglobin 14.2, TSH 1.7 Imaging: No new imaging Assessment and Plan: Multivessel coronary artery disease NSTEMI Type 2 diabetes Hypertension Nicotine dependence -Cardiology note reviewed, cardiac cath report reviewed, patient has multivessel coronary artery disease, and elevated ventricular filling pressures, recommending CABG -Cardiothoracic has been consulted -Continued on heparin drip aPTT and any bleeding, daily CBC -Aspirin 81 mg, atorvastatin 80 mg, metoprolol 25 mg twice a day -On topical nitroglycerin -A1c pending, lipid panel pending -Started on sliding scale insulin -Counseled regarding smoking cessation DVT ppx: Heparin drip Code status: Full code Anticipated discharge place: Pending clinical course Anticipated discharge time: Pending clinical course Objective - Vital Signs Vital signs: Vital Signs Temp 98.2 F 04/17/23 04:00 Pulse 82 04/17/23 13:00 Resp 17 04/17/23 13:00 BP 161/89 04/17/23 13:00 Pulse Ox 98 04/17/23 13:00 FiO2 Intake & Output 04/16/23 04/17/23 04/17/23 18:59 06:59 18:59 Intake Total 50.8 530 Balance 50.8 530 Weight 63.503 kg Intake: IV 50 Intake, IV Titration 50.8 Amount Heparin Sod,Pork in 0.45% 50.8 NaCl 25,000 unit In 0.45 % NaCl 1 250ml.bag @ 12 UNITS/KG/HR 7.62 mls/hr IV .Q24H [facility] Rx#: [id number] Oral 480 - Labs CBC & Chem 7: 04/17/23 10:06 04/16/23 17:36 Labs: Abnormal Lab Results - Last 24 Hours (Table) 04/16/23 04/16/23 04/16/23 Range/Units 17:36 17:36 20:44 APTT (22.0-30.0) sec BUN 18 H (7-17) mg/dL Creatinine 0.51 L (0.52-1.04) mg/dL Glucose 177 H (74-99) mg/dL POC Glucose (mg/dL) (70-110) mg/dL Troponin I 0.266 H* 0.483 H* (0.000-0.034) ng/mL 04/17/23 04/17/23 04/17/23 Range/Units 01:48 01:48 09:36 APTT 32.9 H (22.0-30.0) sec BUN (7-17) mg/dL Creatinine (0.52-1.04) mg/dL Glucose (74-99) mg/dL POC Glucose (mg/dL) 197 H (70-110) mg/dL Troponin I 0.581 H* (0.000-0.034) ng/mL 04/17/23 Range/Units 10:04 APTT 60.2 H (22.0-30.0) sec BUN (7-17) mg/dL Creatinine (0.52-1.04) mg/dL Glucose (74-99) mg/dL POC Glucose (mg/dL) (70-110) mg/dL Troponin I (0.000-0.034) ng/mL
--- NOTE | 2023-04-17 14:57 | US ---
EXAMINATION TYPE: US carotid duplex BILAT DATE OF EXAM: 04/17/2023 COMPARISON: NONE CLINICAL INDICATION: Female, 52 years old with history of preop cardiac surgery; Pre-OP CABG TECHNIQUE: Carotid duplex ultrasound examination. Indirect Doppler criteria was utilized. FINDINGS: EXAM MEASUREMENTS: RIGHT: Peak Systolic Velocity (PSV) cm/sec ----- Right CCA: 91.6 ----- Right ICA: 125 ----- Right ECA: 163 ICA/CCA ratio: 1.4 RIGHT: End Diastole cm/sec ----- Right CCA: 22.1 ----- Right ICA: 38.8 ----- Right ECA: 0.0 LEFT: Peak Systolic Velocity (PSV) cm/sec ----- Left CCA: 110 ----- Left ICA: 156 ----- Left ECA: 183 ICA/CCA ratio: 1.4 LEFT: End Diastole cm/sec ----- Left CCA: 22.4 ----- Left ICA: 32.4 ----- Left ECA: 0.0 VERTEBRALS (direction of flow): Right Vertebral: Antegrade Left Vertebral: Antegrade Rhythm: Normal TERRAZZO POLISHER NOTES: Elevated velocities bilaterally. IMPRESSION: 1. Moderate stenosis bilateral internal carotid arteries, greater on the left. Stenosis is between 50 and 69% based on velocities. Criteria for Assigning % of Stenosis / Diameter reduction (Estimation based on the indirect measurements of the internal carotid artery velocities (ICA PSV). 1. Normal (no stenosis)=ICA PSV < 125 cm/s: ratio < 2.0: ICA EDV<40 cm/s. 2. Less than 50% stenosis=ICA PSV < 125 cm/s: ratio < 2.0: ICA EDV<40 cm/s. 3. 50 to 69% stenosis=ICA PSV of 125 to 230 cm/s: ration 2.0 ? 4.0: ICA EDV 40-100 cm/s. 4. Greater than 70% stenosis to near occlusion= ICA PSV > 230 cm/s: ratio > 4.0: ICA EDV > 100 cm/s. 5. Near occlusion= ICA PSV velocities may be low or undetectable: variable ratio and ICA EDV. 6. Total occlusion=unable to detect flow.
--- NOTE | 2023-04-17 14:58 | US ---
EXAMINATION TYPE: Pre-Operative Non-Invasive Evaluation of the hand for Potential Radial Artery Yg , Measurements only DATE OF EXAM: 04/17/2023 2:36 PM CLINICAL INDICATION: Female, 52 years old with history of preop cardiac surgery; Pre-OP CABG SIDE PERFORMED: Bilateral TECHNIQUE: Radial artery is measured utilizing real time linear array sonography. Dominant hand: Left Duplex Findings: Radial Artery: Color flow seen Measurements in mm, transverse view: Right Radial: Proximal: 2.2 x 1.9 mm Mid: 2.1 x 2.2 mm Distal: 1.9 x 1.9 mm Left Radial: Proximal: 2.7 x 3.2 mm Mid: 1.9 x 1.8 mm Distal: 1.9 x 2.3 mm IMPRESSION: 1. Bilateral radial artery measurements listed above. 2. Performing surgeon to determine viability as conduit.
--- NOTE | 2023-04-17 14:59 | US ---
EXAMINATION TYPE: US vein mapping BILAT DATE OF EXAM: 04/17/2023 2:36 PM COMPARISON: NONE CLINICAL INDICATION: Female, 52 years old with history of preop cardiac surgery; Pre-OP CABG SIDE PERFORMED: Bilateral TECHNIQUE: Lower extremity saphenous vein is examined and measured utilizing real time linear array sonography. DUPLEX FINDINGS: Greater Saphenous: Color flow seen Measurements in mm: Right Greater Saphenous: Groin: 4.9 x 4.4 mm High Thigh: 2.6 x 2.2 mm Mid Thigh: 2.7 x 3.3 mm Above Knee: 2.7 x 2.5 mm Knee: 2.3 x 2.7 mm Below Knee: 1.9 x 1.8 mm Mid Calf: 1.8 x 1.9 mm At Ankle: 2.1 x 2.1 mm Left Greater Saphenous: Groin: 6.1 x 6.6 mm High Thigh: 3.4 x 4.1 mm Mid Thigh: 3.5 x 4.1 mm Above Knee: 2.1 x 2.3 mm Knee: 2.0 x 1.9 mm Below Knee: 2.1 x 1.7 mm Mid Calf: 1.8 x 1.8 mm At Ankle: 1.6 x 1.3 mm IMPRESSION: 1. Bilateral GSV measurements listed above. 2. Performing surgeon to determine viability as conduit.
--- NOTE | 2023-04-17 15:30 | CT ---
EXAMINATION TYPE: CT chest wo con DATE OF EXAM: 04/17/2023 COMPARISON: None HISTORY: eval aorta for calcium CT DLP: 306.[address] of the chest was performed with lung and mediastinal window settings submitted. The la ck of contrast limits evaluation of the vascular, mediastinal and parenchymal structures including th e upper abdomen. LUNGS: The lungs are clear and free of infiltrate. No atelectasis. No pulmonary nodule or mass is de tected. No pleural effusion. No CT evidence of interstitial lung disease. MEDIASTINUM/ROD: Thoracic aorta is of normal caliber with limited evaluation given lack of contrast . Scattered calcific atheromatous changes seen within the aortic arch and descending thoracic aorta. There appears to be calcifications involving the aortic root. Mild coronary artery calcifications ar e noted. The heart is not enlarged. No evidence for mediastinal mass. No lymph nodes greater than 1cm. UPPER ABDOMEN: No significant abnormality is seen. OTHER: No significant other abnormality. IMPRESSION: 1. As above
[2023-04-17 16:26] LABS: Appearance,Urine Clear (Clear); Bilirubin,Urine Negative (Negative); Blood,Urine Negative (Negative); Color,Urine Colorless; Glucose,Urine (UA) Negative (Negative); Ketones,Urine Negative (Negative); Leukocyte Esterase,Urine Negative (Negative); Nitrite,Urine Negative (Negative); Protein,Urine Negative (Negative); Specific Gravity,Urine 1.027 (1.001-1.035); Urobilinogen,Urine <2.0 mg/dL (<2.0)
--- NOTE | 2023-04-17 17:03 | US ---
EXAMINATION TYPE: US arterial LE multi level DATE OF EXAM: 04/17/2023 4:34 PM CLINICAL INDICATION: Female, 52 years old with history of Ankle Brachial Index (MARCELLA); Pre op cardiac surgery. History of: Smoker: Current Hypertension: No Diabetic: Yes Hyperlipidemia: No TIA/CVA: No Previous Vascular Surgery: No CAD: NH: Yes Vascular Ulcers: No Claudication: Both Gangrene: None Doppler Waveforms: Right: There is a monophasic waveform of the right great toe. Triphasic waveforms are otherwise appar ent on the right. Triphasic waveforms are present in the left with no main left great toe monophasic waveforms Left: Right Brachial Pressure: Deferred due to right radial approach heart cath Left Brachial Pressure: 135 Ankle-Brachial Indices: Right: 0.93 Left: 0.90 Toe Brachial Indices: Right: 0.77 Left: 1.0 IMPRESSION: 1. There is some moderate right stenosis of the right great toe with monophasic waveforms.
[2023-04-17 17:17] LABS: Glucose,Whole Blood 216 mg/dL (70-110)
[2023-04-17] MEDS: INSULIN ASPART (NovoLOG) 100 UNIT/ML VIAL SQ SCH ×2 (17:36→21:10)
[2023-04-17 18:15] LABS: Chol/HDL Ratio 5.72 Ratio; LDL Cholesterol,Calculated 162.7 mg/dL (0.0-131.0)
[2023-04-17 20:13] LABS: Glucose,Whole Blood 230 mg/dL (70-110)
[2023-04-17] MEDS: ATORVASTATIN 80 MG TAB PO SCH (21:10)
[2023-04-17] MEDS: METOPROLOL TARTRATE 25 MG TAB PO SCH (21:10)
[2023-04-17] MEDS: HEPARIN SOD,PORK IN 0.45% NACL 25,000 UNIT in 0.45% NACL 1 250ML.BAG IV SCH (21:11)
[2023-04-18 04:39] LABS: HCT 35.9 % (34.0-46.0); HGB 13.1 gm/dL (11.4-16.0); MCH 35.2 pg (25.0-35.0); MCHC 36.5 g/dL (31.0-37.0); MCV 96.3 fL (80.0-100.0); Mean Platelet Volume 7.5; Platelet Count 175 k/uL (150-450); RBC 3.73 m/uL (3.80-5.40); RDW 12.1 % (11.5-15.5); WBC 7.7 k/uL (3.8-10.6)
[2023-04-18 05:16] LABS: ALT 12 U/L (4-34); AST 20 U/L (14-36); African American GFR (CKD) >90 (>60 ml/min/1.73 sqM); Albumin 3.7 g/dL (3.5-5.0); Alkaline Phosphatase 75 U/L (38-126); Anion Gap 7 mmol/L; Blood Urea Nitrogen 17 mg/dL (7-17); Calcium 9.3 mg/dL (8.4-10.2); Carbon Dioxide 24 mmol/L (22-30); Chloride 107 mmol/L (98-107); Glucose 135 mg/dL (74-99); Magnesium 1.7 mg/dL (1.6-2.3); Non-African American GFR(CKD) >90 (>60 ml/min/1.73 sqM); Sodium 138 mmol/L (137-145); Total Bilirubin 0.5 mg/dL (0.2-1.3); Total Protein 6.8 g/dL (6.3-8.2)
[2023-04-18] MEDS: HEPARIN SODIUM 1,000 UN/ML (10ML VL) IV PRN (05:18)
[2023-04-18 05:37] LABS: Glucose,Whole Blood 177 mg/dL (70-110)
[2023-04-18] MEDS: NITROGLYCERIN OINT 1 INCH/GM PACKET TOPICAL SCH ×4 (06:04→21:38)
[2023-04-18] MEDS: INSULIN ASPART (NovoLOG) 100 UNIT/ML VIAL SQ SCH ×4 (06:05→20:59)
[2023-04-18] MEDS ORDERED: HEPARIN SODIUM,PORCINE 10,000 UNIT in SODIUM CHLORIDE 0.9% 1,000 ML IRRIGATION PRN (07:00)
[2023-04-18] MEDS ORDERED: HEPARIN SODIUM,PORCINE (1 ML) 2,500 UNIT in SODIUM CHLORIDE 0.9% 250 ML IRRIGATION PRN (07:00)
[2023-04-18] MEDS ORDERED: INSULIN DETEMIR (LEVEMIR) 100 UNIT/ML SYR SQ ONE (08:05)
[2023-04-18] MEDS: MULTIVITAMINS, THERA 1 EACH TAB PO SCH (08:26)
[2023-04-18] MEDS: ASPIRIN 81 MG PO SCH (08:26)
[2023-04-18] MEDS: METOPROLOL TARTRATE 25 MG TAB PO SCH ×2 (08:26→20:59)
--- NOTE | 2023-04-18 09:06 | CA ---
Transthoracic Echo Report Name: Brooklyn Wilks Age: 52 Gender: F : 1970 Exam Date: 04/17/2023 16:40 Exam Location: [facility] Ht (in): 61 Wt (lb): 140 Ordering Physician: James Escobar DO Attending/Referring Phys: Hand Button Splitter Amada Rodríguez RDCS Procedure CPT: Indications: nstemi Cardiac Hx: Technical Quality: Fair Contrast 1: Total Dose (mL): Contrast 2: Total Dose (mL): MEASUREMENTS (Male / Female) Normal Values 2D ECHO LV Diastolic Diameter PLAX 3.5 cm 4.2 - 5.9 / 3.9 - 5.3 cm LV Systolic Diameter PLAX 2.7 cm IVS Diastolic Thickness 1.2 cm 0.6 - 1.0 / 0.6 - 0.9 cm LVPW Diastolic Thickness 1.2 cm 0.6 - 1.0 / 0.6 - 0.9 cm LV Relative Wall Thickness 0.7 RV Internal Dim ED PLAX 3.0 cm LA Volume 34.6 cm??? 18 - 58 / 22 - 52 cm??? M-MODE Aortic Root Diameter MM 2.8 cm LA Systolic Diameter MM 3.5 cm LA Ao Ratio MM 1.2 AV Cusp Separation MM 1.8 cm DOPPLER AV Peak Velocity 139.3 cm/s AV Peak Gradient 7.8 mmHg AV Mean Velocity 103.7 cm/s AV Mean Gradient 4.6 mmHg AV Velocity Time Integral 32.0 cm LVOT Peak Velocity 104.3 cm/s LVOT Peak Gradient 4.4 mmHg LVOT Velocity Time Integral 21.3 cm MV Area PHT 3.9 cm??? Mitral E Point Velocity 78.6 cm/s Mitral A Point Velocity 72.4 cm/s Mitral E to A Ratio 1.1 MV Deceleration Time 194.8 ms MV E' Velocity 5.9 cm/s Mitral E to MV E' Ratio 13.3 TR Peak Velocity 215.1 cm/s TR Peak Gradient 18.5 mmHg Right Ventricular Systolic Press 22.6 mmHg FINDINGS Left Ventricle Mildly increased left ventricular wall thickness. Left ventricular cavity size normal. Normal left ventricular systolic function with no obvious regional wall motion abnormalities. Left ventricular ejection fraction is estimated at 55 %. Right Ventricle Normal right ventricular size and function. Right ventricular systolic pressure within normal limits. Right Atrium Normal right atrial size. Left Atrium Normal left atrial size. Mitral Valve Structurally normal mitral valve. No mitral stenosis. Mild mitral regurgitation. Aortic Valve Trileaflet aortic valve. No aortic valve stenosis or regurgitation. Tricuspid Valve Structurally normal tricuspid valve. Mild tricuspid regurgitation. Pulmonic Valve Structurally normal pulmonic valve. Trace pulmonic regurgitation. Pericardium No pericardial effusion. Aorta Normal size aortic root and proximal ascending aorta. CONCLUSIONS Normal LV size and systolic function. Mild mitral and tricuspid regurgitation. No significant pulmonary hypertension. No pericardial effusion Previewed by: Dr. Krystal Valdovinos MD (Electronically Signed) Final Date: 18 April 2023 09:05
--- NOTE | 2023-04-18 09:30 | P.PN ---
Subjective Progress Note Date: 04/18/23 Principal diagnosis: Triple-vessel coronary artery disease. Past medical history significant for hypertension, hyperlipidemia, diabetes mellitus diet controlled, peripheral vascular disease with complaints of intermittent claudication, ABIs show 0.93 to her right and 0.90 to her left,, pulmonary embolism at 20 years old and not currently on anticoagulation, chronic ongoing tobacco dependence, and family history of premature coronary artery disease on both sides of the family. The patient was seen and examined in follow-up today 04/18/2023 year bedside on the third for cardiac stepdown unit. She is currently up ambulating in her room, is oriented 3 and is in no acute apparent distress. Denies any complaints of pain or shortness of breath at this time. Preoperative testing for myocardial revascularization surgery in progress. Oxygen saturations are 96% on room air and she is achieving 2500 mL on her incentive spirometry with encouragement. A cardiac catheterization was completed yesterday by Dr. Lynch which demonstrated triple-vessel coronary artery disease with mid LAD stenosis 90%, mid circumflex stenosis 100% and mid RCA stenosis 90%. A carotid duplex study was completed yesterday 04/17/2023 which showed moderate stenosis bilateral internal carotid arteries, greater on the left, stenosis is between 50 and 69% based on velocities. A bedside FEV1 was completed which showed her predicted value of 104% with a base volume of 2.45. She also underwent a computed tomography scan of her chest without contrast which demonstrated no atelectasis, no pulmonary nodule or mass, no pleural effusion, scattered calcific atheromatous changes seen within the aortic arch and descending thoracic aorta. It also showed mild coronary artery calcifications. No e vidence of mediastinal mass, or lymph nodes greater than 1 cm. Once her preoperative testing has been completed and results obtained an STS risk score but we calculated in a discussed with the patient. A 5 m walk test was completed with the patient, the patient tolerated well with no complaints of shortness of breath or chest pain/pressure. Time 1: 2.28 seconds, time 2: 2.23 seconds, time 3: 2.23 seconds. Objective - Vital Signs Vital signs: Vital Signs Temp 98.1 F 04/17/23 20:00 Pulse 65 04/18/23 04:55 Resp 18 04/18/23 04:55 BP 109/67 04/18/23 04:55 Pulse Ox 96 04/18/23 04:55 FiO2 Intake & Output 04/17/23 04/18/23 04/18/23 18:59 06:59 18:59 Intake Total 770 250.349 540 Balance 770 250.349 540 Weight 63.503 kg 64.6 kg Intake: IV 50 Intake, IV Titration 250.349 Amount Heparin Sod,Pork in 0.45% 250.349 NaCl 25,000 unit In 0.45 % NaCl 1 250ml.bag @ 12 UNITS/KG/HR 7.62 mls/hr IV .Q24H [facility] Rx#: [id number] Oral 720 540 Other: Voiding Method Toilet # Voids 1 - Exam CONSTITUTIONAL: Currently up ambulating in her room, appears comfortable, cooperative, no apparent acute distress. HEENT: Neck is supple, no JVD, no lymphadenopathy. RESPIRATORY: Lungs sounds essentially clear throughout, diminished to his bilateral bases. Respirations are symmetrical and nonlabored. Currently on room air with oxygen saturations 96%. Able to achieve 2500 mL on her incentive spirometry. Strong cough. CARDIOVASCULAR: Regular rhythm and rate. S1 and S2 present, negative for S3, gallop or murmur. No edema present. Remote telemetry showing normal sinus rhythm heart rate 67 BPM. GASTROINTESTINAL: Abdomen soft, nontender, nondistended. Active bowel sounds present 4 quadrants. Tolerating diet. Passing flatus. No guarding or rigidity. GENITOURINARY: Continues to void. INTEGUMENTARY: Skin is warm and dry with no evidence of clubbing or cyanosis. NEUROLOGIC: Cranial nerves II through XII intact. No focal deficits. MUSKULOSKELETAL: Able to move all extremities, strength equal bilaterally. PSYCHIATRIC: Alert and oriented to person place and time, appropriate affect, intact judgment and insight. - Labs CBC & Chem 7: 04/18/23 04:25 04/18/23 04:25 Labs: Abnormal Lab Results - Last 24 Hours (Table) 04/17/23 04/17/23 04/17/23 Range/Units 09:36 10:04 10:06 RBC (3.80-5.40) m/uL MCH (25.0-35.0) pg APTT 60.2 H (22.0-30.0) sec Glucose (74-99) mg/dL POC Glucose (mg/dL) 197 H (70-110) mg/dL Hemoglobin A1c (<=6.0) % Triglycerides 247.00 H (0.00-149.00) mg/dL Cholesterol 257.00 H (0.00-200.00) mg/dL LDL Cholesterol, Calc 162.7 H (0.0-131.0) mg/dL VLDL Cholesterol, Calc 49.40 H (5.00-40.00) mg/dL 04/17/23 04/17/23 04/17/23 Range/Units 10:06 17:15 20:11 RBC (3.80-5.40) m/uL MCH (25.0-35.0) pg APTT (22.0-30.0) sec Glucose (74-99) mg/dL POC Glucose (mg/dL) 216 H 230 H (70-110) mg/dL Hemoglobin A1c 7.5 H (<=6.0) % Triglycerides (0.00-149.00) mg/dL Cholesterol (0.00-200.00) mg/dL LDL Cholesterol, Calc (0.0-131.0) mg/dL VLDL Cholesterol, Calc (5.00-40.00) mg/dL 04/18/23 04/18/23 04/18/23 Range/Units 04:25 04:25 04:25 RBC 3.73 L (3.80-5.40) m/uL MCH 35.2 H (25.0-35.0) pg APTT 32.9 H (22.0-30.0) sec Glucose 135 H (74-99) mg/dL POC Glucose (mg/dL) (70-110) mg/dL Hemoglobin A1c (<=6.0) % Triglycerides (0.00-149.00) mg/dL Cholesterol (0.00-200.00) mg/dL LDL Cholesterol, Calc (0.0-131.0) mg/dL VLDL Cholesterol, Calc (5.00-40.00) mg/dL 04/18/23 Range/Units 05:36 RBC (3.80-5.40) m/uL MCH (25.0-35.0) pg APTT (22.0-30.0) sec Glucose (74-99) mg/dL POC Glucose (mg/dL) 177 H (70-110) mg/dL Hemoglobin A1c (<=6.0) % Triglycerides (0.00-149.00) mg/dL Cholesterol (0.00-200.00) mg/dL LDL Cholesterol, Calc (0.0-131.0) mg/dL VLDL Cholesterol, Calc (5.00-40.00) mg/dL - Imaging and Cardiology CT scan - chest: report reviewed Assessment and Plan Assessment: Triple-vessel coronary artery disease, non-STEMI this admission Chest pain, secondary to above Hypertension Hyperlipidemia Diabetes Peripheral vascular disease Pulmonary embolism at 20 years old and not currently on anticoagulation Chronic ongoing tobacco dependence Family history of premature coronary artery disease on both sides of the family Plan: Preoperative testing in progress, reinforce preoperative teaching with patient. Heparin drip management per cardiology recommendations. Continue to maximize medical management with aspirin and statin and beta hector. Transthoracic 2-D echocardiogram results remain pending. Reinforce with the patient the importance of smoking cessation, the patient was offered you can quit phone number at [phone]. A 5 m walk test was completed with the patient. Time 1: 2.28 seconds, time 2: 2.23 seconds, time 3: 2.23 seconds. Once the patient's preoperative testing has been obtained we will calculate an STS risk score. Encourage the patient to use her incentive spirometry 10 times every hour while awake. More recommendations to follow based on patient's clinical course. Time with Patient: Greater than 30
[2023-04-18 09:55] LABS: Hepatitis A Antibody IgM Nonreactive; Hepatitis B Core IgM Nonreactive; Hepatitis B Surface Antigen Nonreactive; Hepatitis C IgG Antibody Nonreactive
[2023-04-18 11:46] LABS: Glucose,Whole Blood 177 mg/dL (70-110)
[2023-04-18] MEDS ORDERED: MORPHINE SULFATE 2 MG/ML SYRINGE IVP STA (12:40)
--- NOTE | 2023-04-18 13:25 | P.PN ---
Subjective Progress Note Date: 04/18/23 History of present illness: This is a 52-year-old female previously seen in [address] Spence. She has a past medical history of hypertension, hyperlipidemia, diabetes, peripheral vascular disease, family history of premature coronary artery disease. We have been asked to evaluate the patient for non-ST elevated myocardial infarction. Patient presented to [facility] emergency [facility] for chest pain determined ongoing for 2-3 weeks. Patient states that it was midsternal going up into her jaw and down her arms. It became worse with activity and did not experience it with rest. She denies any pain with deep breathing. She does have shortness of breath with chest pain. Patient presented with a blood pressure of 160/92. Patient has been started on heparin drip, Nitro-Bid, aspi rin and atorvastatin. Patient is seen today in the emergency center waiting for a bed on the cardiac stepdown unit. Patient is a smoker of pack per day for greater than 40 years. She has minimal alcohol intake. EKG sinus rhythm with nonspecific ST changes 2 Chest x-ray: No acute process CBC normal. INR was 0.9. D-dimer 0.31. Electrolytes normal. BUN 18 creatinine 0.51. Blood sugar 177. Troponins 0.266, 0.483, 0.481. Liver function tests are normal. Magnesium 1.6. Home cardiac medications: None Lexiscan stress test 02/2020 no reversible ischemia Echocardiogram 02/2020 he F 55-60% borderline concentric left ventricular hypertrophy. Diastolic filling pattern is normal for age. Right ventricle is mild to moderately enlarged. Right atrium mildly enlarged. Mild mitral regurgitation, mild tricuspid regurgitation. 04/18: Yesterday, patient underwent cardiac catheterization with Dr. Wakefield which revealed multivessel coronary artery disease involving the LAD, L CXR RCA. LCx appears to be culprit. Consult was placed with cardiothoracic surgery. Patient is seen today on the cardiac stepdown unit. Patient continues to have tightness in her chest and Nitropaste seems to be helping. In the afternoon she developed more chest pain which was a #8 and she received morphine 2 mg IV push which dropped the pain down to a #5. Patient has been seen by cardiothoracic team and is waiting for CABG to be scheduled. A1c is 7.5. Triglycerides 247, cholesterol 257, LDL 162, HDL 44. Echocardiogram reveals EF of 55%. Mild mitral and tricuspid regurgitation. Physical examination: Gen: This is a 52-year-old female. She is resting bed appears to be comfortable and in no acute distress. VS: reviewed. Blood pressure 119/77, heart rate in the 60s, pulse ox 98% on room air, afebrile. HEENT: Head is atraumatic, normocephalic. Pupils equal, round. Sclerae is anicteric. NECK: Supple. No JVD. LUNGS: Clear to auscultation. No wheezes or rhonchi. No intercostal retractions . HEART: Regular rate and rhythm. No murmur. ABDOMEN: Soft No tenderness. EXTREMITIES: No pedal edema. No calf tenderness. NEUROLOGICAL: Patient is awake, alert and oriented x3. Assessment: Non-ST elevated myocardial infarction with triple vessel disease on cardiac cath Hypertension Hyperlipidemia Diabetes Plan: Continue patient on aspirin 81 mg daily, atorvastatin 80 mg at bedtime, heparin drip, Nitro-Bid Further recommendations to follow based upon clinical course Nurse practitioner note has been reviewed, I agree with documented findings and plan of care. Patient was seen and examined. Objective - Vital Signs Vital signs: Vital Signs Temp 98.1 F 04/17/23 20:00 Pulse 65 04/18/23 04:55 Resp 18 04/18/23 04:55 BP 109/67 04/18/23 04:55 Pulse Ox 96 04/18/23 04:55 FiO2 Intake & Output 04/17/23 04/18/23 04/18/23 18:59 06:59 18:59 Intake Total 770 250.349 540 Balance 770 250.349 540 Weight 63.503 kg 64.6 kg Intake: IV 50 Intake, IV Titration 250.349 Amount Heparin Sod,Pork in 0.45% 250.349 NaCl 25,000 unit In 0.45 % NaCl 1 250ml.bag @ 12 UNITS/KG/HR 7.62 mls/hr IV .Q24H [facility] Rx#: [id number] Oral 720 540 Other: Voiding Method Toilet # Voids 1 - Labs CBC & Chem 7: 04/18/23 04:25 04/18/23 04:25 Labs: Abnormal Lab Results - Last 24 Hours (Table) 04/17/23 04/17/23 04/17/23 Range/Units 09:36 10:04 10:06 RBC (3.80-5.40) m/uL MCH (25.0-35.0) pg APTT 60.2 H (22.0-30.0) sec Glucose (74-99) mg/dL POC Glucose (mg/dL) 197 H (70-110) mg/dL Hemoglobin A1c (<=6.0) % Triglycerides 247.00 H (0.00-149.00) mg/dL Cholesterol 257.00 H (0.00-200.00) mg/dL LDL Cholesterol, Calc 162.7 H (0.0-131.0) mg/dL VLDL Cholesterol, Calc 49.40 H (5.00-40.00) mg/dL 04/17/23 04/17/23 04/17/23 Range/Units 10:06 17:15 20:11 RBC (3.80-5.40) m/uL MCH (25.0-35.0) pg APTT (22.0-30.0) sec Glucose (74-99) mg/dL POC Glucose (mg/dL) 216 H 230 H (70-110) mg/dL Hemoglobin A1c 7.5 H (<=6.0) % Triglycerides (0.00-149.00) mg/dL Cholesterol (0.00-200.00) mg/dL LDL Cholesterol, Calc (0.0-131.0) mg/dL VLDL Cholesterol, Calc (5.00-40.00) mg/dL 04/18/23 04/18/23 04/18/23 Range/Units 04:25 04:25 04:25 RBC 3.73 L (3.80-5.40) m/uL MCH 35.2 H (25.0-35.0) pg APTT 32.9 H (22.0-30.0) sec Glucose 135 H (74-99) mg/dL POC Glucose (mg/dL) (70-110) mg/dL Hemoglobin A1c (<=6.0) % Triglycerides (0.00-149.00) mg/dL Cholesterol (0.00-200.00) mg/dL LDL Cholesterol, Calc (0.0-131.0) mg/dL VLDL Cholesterol, Calc (5.00-40.00) mg/dL 04/18/23 Range/Units 05:36 RBC (3.80-5.40) m/uL MCH (25.0-35.0) pg APTT (22.0-30.0) sec Glucose (74-99) mg/dL POC Glucose (mg/dL) 177 H (70-110) mg/dL Hemoglobin A1c (<=6.0) % Triglycerides (0.00-149.00) mg/dL Cholesterol (0.00-200.00) mg/dL LDL Cholesterol, Calc (0.0-131.0) mg/dL VLDL Cholesterol, Calc (5.00-40.00) mg/dL
--- NOTE | 2023-04-18 13:58 | P.PN ---
Subjective Progress Note Date: 04/18/23 Hospital Course: 52-year-old female with a PMH of type II DM and tobacco abuse, has not seen a physician for several years, presents to the emergency room with complaints of chest pain and shortness of breath. In the emergency room, chest x-ray was unremarkable with EKG showing sinus rhythm at 79 bpm with T-wave inversion in leads 2, 3, and aVF with T-wave flattening in leads V5 and V6. Laboratory evaluation was remarkable for troponin 0.266 and subsequently 0.483. D-dimer was 0.1. Glucose was 177. Blood pressure upon arrival at the emergency room was 160/92 with pulse 86, CO2 91% on room air, and temp 98F. Patient admitted for NSTEMI on heparin drip. Cardiology consulted. Cardiac cath showed multivessel coronary artery disease, recommending CABG. patient currently und ergoing preoperative testing with cardiothoracic surgery. Echocardiogram showed normal LV size and systolic function. Subjective: Seen and examined at bedside. No acute events overnight. Denies any further chest pain. Pertinent positives and negatives as discussed above, a complete review of systems was performed and all other systems are negative. Vitals Signs Reviewed. General: nontoxic, no distress, appears at stated age Derm: warm, dry Head: atraumatic, normocephalic, symmetric Eyes: EOMI, no lid lag, anicteric sclera Mouth: no lip lesion, mucus membranes moist Cardiovascular: S1S2 reg, no murmur Lungs: CTA bilateral, no rhonchi, no rales , no accessory muscle use Abdominal: soft, nontender to palpation, no guarding, no appreciable organomegaly Ext: no gross muscle atrophy, no edema, no contractures Neuro: CN II-XI grossly intact, no focal neuro deficits Psych: Alert, oriented, appropriate affect Data Reviewed Today: Pertinent Labs: WBC 7.7, hemoglobin 13.1, creatinine 0.55, blood sugars range between 135-177 Imaging: Echocardiogram showed normal LV size and systolic function. Chest CT showed no acute process. Assessment and Plan: Multivessel coronary artery disease NSTEMI Type 2 diabetes, A1c 7.5 Hypertension Nicotine dependence -Cardiology note reviewed, continue current therapy including heparin drip -Discussed management with cardiothoracic surgery, pending further preoperative testing prior to scheduling for CABG -Continued on heparin drip aPTT and any bleeding, daily CBC -Aspirin 81 mg, atorvastatin 80 mg, metoprolol 25 mg twice a day -On topical nitroglycerin -Started on Levemir 10 units daily, remains on sliding scale insulin -Counseled regarding smoking cessation DVT ppx: Heparin drip Code status: Full code Anticipated discharge place: Pending clinical course Anticipated discharge time: Pending clinical course Objective - Vital Signs Vital signs: Vital Signs Temp 98.2 F 04/18/23 08:00 Pulse 60 04/18/23 13:01 Resp 18 04/18/23 13:01 BP 119/77 04/18/23 13:01 Pulse Ox 98 04/18/23 13:01 FiO2 Intake & Output 04/17/23 04/18/23 04/18/23 18:59 06:59 18:59 Intake Total 770 250.349 540 Balance 770 250.349 540 Weight 63.503 kg 64.6 kg Intake: IV 50 Intake, IV Titration 250.349 Amount Heparin Sod,Pork in 0.45% 250.349 NaCl 25,000 unit In 0.45 % NaCl 1 250ml.bag @ 12 UNITS/KG/HR 7.62 mls/hr IV .Q24H [facility] Rx#: [id number] Oral 720 540 Other: Voiding Method Toilet Toilet # Voids 1 - Labs CBC & Chem 7: 04/18/23 04:25 04/18/23 04:25 Labs: Abnormal Lab Results - Last 24 Hours (Table) 04/17/23 04/17/23 04/17/23 Range/Units 10:06 10:06 17:15 RBC (3.80-5.40) m/uL MCH (25.0-35.0) pg APTT (22.0-30.0) sec Glucose (74-99) mg/dL POC Glucose (mg/dL) 216 H (70-110) mg/dL Hemoglobin A1c 7.5 H (<=6.0) % Triglycerides 247.00 H (0.00-149.00) mg/dL Cholesterol 257.00 H (0.00-200.00) mg/dL LDL Cholesterol, Calc 162.7 H (0.0-131.0) mg/dL VLDL Cholesterol, Calc 49.40 H (5.00-40.00) mg/dL 04/17/23 04/18/23 04/18/23 Range/Units 20:11 04:25 04:25 RBC 3.73 L (3.80-5.40) m/uL MCH 35.2 H (25.0-35.0) pg APTT (22.0-30.0) sec Glucose 135 H (74-99) mg/dL POC Glucose (mg/dL) 230 H (70-110) mg/dL Hemoglobin A1c (<=6.0) % Triglycerides (0.00-149.00) mg/dL Cholesterol (0.00-200.00) mg/dL LDL Cholesterol, Calc (0.0-131.0) mg/dL VLDL Cholesterol, Calc (5.00-40.00) mg/dL 04/18/23 04/18/23 04/18/23 Range/Units 04:25 05:36 10:58 RBC (3.80-5.40) m/uL MCH (25.0-35.0) pg APTT 32.9 H 51.1 H (22.0-30.0) sec Glucose (74-99) mg/dL POC Glucose (mg/dL) 177 H (70-110) mg/dL Hemoglobin A1c (<=6.0) % Triglycerides (0.00-149.00) mg/dL Cholesterol (0.00-200.00) mg/dL LDL Cholesterol, Calc (0.0-131.0) mg/dL VLDL Cholesterol, Calc (5.00-40.00) mg/dL 04/18/23 Range/Units 11:45 RBC (3.80-5.40) m/uL MCH (25.0-35.0) pg APTT (22.0-30.0) sec Glucose (74-99) mg/dL POC Glucose (mg/dL) 177 H (70-110) mg/dL Hemoglobin A1c (<=6.0) % Triglycerides (0.00-149.00) mg/dL Cholesterol (0.00-200.00) mg/dL LDL Cholesterol, Calc (0.0-131.0) mg/dL VLDL Cholesterol, Calc (5.00-40.00) mg/dL
[2023-04-18] MEDS ORDERED: NITROGLYCERIN-D5W PMX 50 MG in DEXTROSE/WATER 1 250ML.BAG IV SCH (14:30)
[2023-04-18] MEDS: NITROGLYCERIN-D5W PMX 50 MG in DEXTROSE/WATER 1 250ML.BAG IV SCH (15:00)
[2023-04-18 16:42] LABS: Glucose,Whole Blood 199 mg/dL (70-110)
[2023-04-18] MEDS: HEPARIN SOD,PORK IN 0.45% NACL 25,000 UNIT in 0.45% NACL 1 250ML.BAG IV SCH (17:04)
[2023-04-18 20:05] LABS: Glucose,Whole Blood 231 mg/dL (70-110)
[2023-04-18] MEDS: ATORVASTATIN 80 MG TAB PO SCH (20:59)
[2023-04-19] MEDS: NITROGLYCERIN OINT 1 INCH/GM PACKET TOPICAL SCH ×3 (05:09→16:51)
[2023-04-19 06:10] LABS: Glucose,Whole Blood 179 mg/dL (70-110)
[2023-04-19] MEDS: INSULIN ASPART (NovoLOG) 100 UNIT/ML VIAL SQ SCH ×4 (06:19→22:09)
[2023-04-19] MEDS ORDERED: INSULIN DETEMIR (LEVEMIR) 100 UNIT/ML SYR SQ SCH (07:00)
[2023-04-19] MEDS: HEPARIN SOD,PORK IN 0.45% NACL 25,000 UNIT in 0.45% NACL 1 250ML.BAG IV SCH ×2 (08:59→16:58)
[2023-04-19] MEDS: METOPROLOL TARTRATE 25 MG TAB PO SCH ×2 (09:00→22:09)
[2023-04-19] MEDS: HEPARIN SODIUM 1,000 UN/ML (10ML VL) IV PRN (09:00)
[2023-04-19] MEDS: ASPIRIN 81 MG PO SCH (09:00)
[2023-04-19] MEDS: MULTIVITAMINS, THERA 1 EACH TAB PO SCH (09:00)
--- NOTE | 2023-04-19 09:29 | P.PN ---
Subjective Progress Note Date: 04/19/23 Principal diagnosis: Triple-vessel coronary artery disease, non-STEMI this admission. History of hypertension, hyperlipidemia, diabetes, bilateral internal carotid artery stenosis, peripheral vascular disease, pulmonary embolism at 20 years old and not currently on anticoagulation, current tobacco dependence, family history of premature coronary artery disease on both sides of the family The patient was seen and examined this point sitting up in bed on the cardiac stepdown unit in no acute distress. Denies any chest pain overnight, does complain of some mild shortness of breath periodically with activity, she did state yesterday that she had had continuing chest pain during this admission. Remains on IV heparin and nitro. She was seen and examined history by Dr. Bill who recommends off-pump CABG to be completed on Saturday. All patient's and family's questions were answered. Remains in sinus rhythm and stable. No other new concerns. Objective - Vital Signs Vital signs: Vital Signs Temp 98.1 F 04/19/23 09:09 Pulse 63 04/19/23 09:09 Resp 16 04/19/23 09:09 BP 119/71 04/19/23 09:09 Pulse Ox 98 04/19/23 09:09 FiO2 Intake & Output 04/18/23 04/19/23 04/19/23 18:59 06:59 18:59 Intake Total 540 532.53 Balance 540 532.53 Weight 66 kg Intake: Intake, IV Titration 172.53 Amount Heparin Sod,Pork in 0.45% 172.53 NaCl 25,000 unit In 0.45 % NaCl 1 250ml.bag @ 12 UNITS/KG/HR 7.62 mls/hr IV .Q24H [facility] Rx#: [id number] Oral 540 360 Other: Voiding Method Toilet Toilet # Voids 1 - Exam CONSTITUTIONAL: Appears comfortable, cooperative, no acute distress RESPIRATORY: Lungs sounds diminished bilaterally. Respirations even, nonlabored. Currently on room air with oxygen saturation 97%. Able to achieve 1500 mL on incentive spirometry. Strong cough. CARDIOVASCULAR: S1, S2 present. Regular rate and rhythm, sinus rhythm on telemetry. Palpable peripheral pulses bilaterally. No edema present. No calf pain or tenderness noted GASTROINTESTINAL: Abdomen soft, nontender, nondistended. Active bowel sounds present 4 quadrants. Tolerating diet GENITOURINARY: Continues to void INTEGUMENTARY: Skin is warm and dry NEUROLOGIC: Cranial nerves II through XII intact MUSKULOSKELETAL: Able to move all extremities, strength equal bilaterally, gait normal PSYCHIATRIC: Alert and oriented to person place and time, appropriate affect, intact judgment and insight - Allied health notes Allied health notes reviewed: nursing - Labs CBC & Chem 7: 04/18/23 04:25 04/18/23 04:25 Labs: Abnormal Lab Results - Last 24 Hours (Table) 04/18/23 04/18/23 04/18/23 Range/Units 10:58 11:45 16:41 APTT 51.1 H (22.0-30.0) sec POC Glucose (mg/dL) 177 H 199 H (70-110) mg/dL 04/18/23 04/19/23 04/19/23 Range/Units 20:03 06:08 07:06 APTT 41.8 H (22.0-30.0) sec POC Glucose (mg/dL) 231 H 179 H (70-110) mg/dL Microbiology - Last 24 Hours (Table) 04/17/23 15:24 Nasal Screen MRSA/MSSA - Final Nasal Swab Assessment and Plan Assessment: Triple-vessel coronary artery disease, non-STEMI this admission Chest pain, secondary to above Hypertension Hyperlipidemia, cholesterol 257, LDL 162, triglycerides 247 Diabetes, hemoglobin A1c 7.5% Bilateral internal carotid artery stenosis, 50-69% Peripheral vascular disease, right MARCELLA 0.77 Pulmonary embolism at 20 years old and not currently on anticoagulation Current tobacco dependence, preoperative FEV1 104% of predicted Family history of premature coronary artery disease on both sides of the family Plan: Continue to maximize medical management with aspirin and statin and beta hector, IV heparin and nitro per cardiology Continue preoperative testing Pulmonology consulted for clearance Transthoracic 2-D echocardiogram results reviewed with Dr. Bill Reinforce with the patient the importance of smoking cessation, the patient was offered you can quit phone number at [phone]. STS risk score calculated discussed with the patient Our plan is for off-pump myocardial revascularization with left internal mammary artery, endoscopic left radial and greater saphenous vein harvest, ligation of the left atrial appendage by Dr. Bill on Saturday Encourage the patient to use her incentive spirometry 10 times every hour while awake Increase activity as tolerated Medical management of other comorbidities per internal medicine, cardiology More recommendations to follow based on patient's clinical course.
--- NOTE | 2023-04-19 11:38 | P.PN ---
Subjective Progress Note Date: 04/19/23 Hospital Course: 52-year-old female with a PMH of type II DM and tobacco abuse, has not seen a physician for several years, presents to the emergency room with complaints of chest pain and shortness of breath. In the emergency room, chest x-ray was unremarkable with EKG showing sinus rhythm at 79 bpm with T-wave inversion in leads 2, 3, and aVF with T-wave flattening in leads V5 and V6. Laboratory evaluation was remarkable for troponin 0.266 and subsequently 0.483. D-dimer was 0.1. Glucose was 177. Blood pressure upon arrival at the emergency room was 160/92 with pulse 86, CO2 91% on room air, and temp 98F. Patient admitted for NSTEMI on heparin drip. Cardiology consulted. Cardiac cath showed multivessel coronary artery disease, recommending CABG. patient currently undergoing preoperative testing with cardiothoracic surgery. Echocardiogram showed normal LV size and systolic function. Pending surgery on Saturday. Subjective: Seen and examined at bedside. No acute events overnight. She did have chest pain, currently on nitroglycerin drip and chest pain-free. Pertinent positives and negatives as discussed above, a complete review of systems was performed and all other systems are negative. Vitals Signs Reviewed. General: nontoxic, no distress, appears at stated age Derm: warm, dry Head: atraumatic, normocephalic, symmetric Eyes: EOMI, no lid lag, anicteric sclera Mouth: no lip lesion, mucus membranes moist Cardiovascular: S1S2 reg, no murmur Lungs: CTA bilateral, no rhonchi, no rales , no accessory muscle use Abdominal: soft, nontender to palpation, no guarding, no appreciable organomegaly Ext: no gross muscle atrophy, no edema, no contractures Neuro: CN II-XI grossly intact, no focal neuro deficits Psych: Alert, oriented, appropriate affect Data Reviewed Today: Pertinent Labs: Blood glucose range between 179-231, APTT 41.8 Imaging: No new imaging Assessment and Plan: Multivessel coronary artery disease NSTEMI with her current chest pain Type 2 diabetes, A1c 7.5 Hypertension Nicotine dependence -Cardiology following, on heparin drip and nitroglycerin drip, monitor for any bleeding -Cardiothoracic surgery note reviewed, pending surgery on Saturday -Aspirin 81 mg, atorvastatin 80 mg, metoprolol 25 mg twice a day -Levemir increased to 15 units, remains on sliding scale insulin -Counseled regarding smoking cessation DVT ppx: Heparin drip Code status: Full code Anticipated discharge place: Pending clinical course Anticipated discharge time: Pending clinical course Objective - Vital Signs Vital signs: Vital Signs Temp 98.1 F 04/19/23 09:09 Pulse 63 04/19/23 09:09 Resp 16 04/19/23 09:09 BP 119/71 04/19/23 09:09 Pulse Ox 98 04/19/23 09:09 FiO2 Intake & Output 04/18/23 04/19/23 04/19/23 18:59 06:59 18:59 Intake Total 540 532.53 Balance 540 532.53 Weight 66 kg Intake: Intake, IV Titration 172.53 Amount Heparin Sod,Pork in 0.45% 172.53 NaCl 25,000 unit In 0.45 % NaCl 1 250ml.bag @ 12 UNITS/KG/HR 7.62 mls/hr IV .Q24H [facility] Rx#: [id number] Oral 540 360 Other: Voiding Method Toilet Toilet # Voids 1 - Labs CBC & Chem 7: 04/18/23 04:25 04/18/23 04:25 Labs: Abnormal Lab Results - Last 24 Hours (Table) 04/18/23 04/18/23 04/18/23 Range/Units 10:58 11:45 16:41 APTT 51.1 H (22.0-30.0) sec POC Glucose (mg/dL) 177 H 199 H (70-110) mg/dL 04/18/23 04/19/23 04/19/23 Range/Units 20:03 06:08 07:06 APTT 41.8 H (22.0-30.0) sec POC Glucose (mg/dL) 231 H 179 H (70-110) mg/dL Microbiology - Last 24 Hours (Table) 04/17/23 15:24 Nasal Screen MRSA/MSSA - Final Nasal Swab
[2023-04-19] MEDS ORDERED: INSULIN DETEMIR (LEVEMIR) 100 UNIT/ML SYR SQ ONE (12:00)
--- NOTE | 2023-04-19 12:17 | P.CNPUL ---
History of Present Illness Consult date: 04/19/23 Requesting physician: Miryam Pulido Reason for consult: other Chief complaint: Non-ST segment elevation myocardial infarction. History of present illness: Pulmonary consult dated 04/19/2023. 52-year-old female who was seen in the emergency room, on April 16. She presented with 2-3 weeks of ongoing chest pain. The patient was in initially evaluated, and was thought to have a non-ST segment elevation myocardial infarction. The patient is currently seen in room 362. Apparently, she is sc heduled to have bypass grafting on April 22. She's currently on room air. She's getting IV heparin via weightbase protocol, and IV nitroglycerin at 10 mcg/m. The patient has been smoking cigarettes for 40 years, having started at the age of 10. Her cardiac catheterization showed multivessel disease, including the LAD, circumflex, and right coronary artery. She had elevated left ventricular filling pressures. Prior to this, the patient had no known history of any medical problems, and only was taking vitamins at home. Most current labs include a white count 7.7, hemoglobin 13.1, hematocrit 35.9, and a normal platelet count. PTT is 51.1. Sodium 138, potassium 4, chlorides 107, CO2 24, BUN 17, creatinine 0.55. Troponins were 0.483 and 0.581. Cholesterol was 257. TSH was normal. Urine was negative. Hepatitis serology was negative as well. Chest x-ray was unremarkable. Review of Systems REVIEW OF SYSTEMS: CONSTITUTIONAL: [Negative.] NEUROLOGIC: [ Negative.] HEENT: [ Negative.] CARDIAC: Chest pain. PULMONARY: [Negative.] GI: [Negative.] : [Negative.] RHEUMATOLOGIC: [ Negative.] IMMUNOLOGIC: [ Negative.] ENDOCRINE: [Negative. ] DERMATOLOGIC: [Negative.] Past Medical History Past Medical History: Diabetes Mellitus, Fibromyalgia, GERD/Reflux, Hyperlipidemia, Hypertension, Pulmonary Embolus (PE), Thyroid Disorder Additional Past Medical History / Comment(s): Pt states she stopped taking her medications in June 2018 as a matter of personal choice, IDDM type II, neuropathy bilateral legs/feet and hands, bilateral carpal tunnel syndrome, vertigo lately/balance problems, recent weight loss-30# since 09/2018, pancreatitis, hypothyroidism, PE in early twenties from control and smoking. Endometriosis History of Any Multi-Drug Resistant Organisms: None Reported Past Surgical History: Section, Cholecystectomy, Uterine Ablation Additional Past Surgical History / Comment(s): EGD, colonoscoies with benign polypectomy, " abdominal" unsure the name, partial hysterectomy. Laparotomy with left salpingo-oophorectomy Past Anesthesia/Blood Transfusion Reactions: Previous Problems w/ Anesthesia, Motion Sickness Additional Past Anesthesia/Blood Transfusion Reaction / Comment(s): pt states trouble waking up after ciarra Past Psychological History: No Psychological Hx Reported Additional Psychological History / Comment(s): Pt resides with her significant other. She is independent. She drives. Works at the [employer]. No international travel. No experience. No animals in the home Smoking Status: Current every day smoker Past Alcohol Use History: Occasional Additional Past Alcohol Use History / Comment(s): Pt started smoking in 1980 and quit in 2014 but resumed smoking again in 09/2018. She is a 0.5-1 ppd. Past Drug Use History: None Reported - Past Family History Father Family Medical History: Cancer, Myocardial Infarction (PR) Additional Family Medical History / Comment(s): Father is living. Prostate cancer. Father had a PR at the age of 49yrs. Mother Family Medical History: Diabetes Mellitus, Renal Disease Additional Family Medical History / Comment(s): Mother is . Maternal grandmother had coronary artery disease diagnosed at age Medications and Allergies Home Medications Medication Instructions Recorded Confirmed Type Biotin [Biotin Disolve] 10,000 mcg PO DAILY 04/16/23 04/16/23 History Women's Multivitamin Gummy 1 tab PO DAILY 04/16/23 04/16/23 History Allergies Allergy/AdvReac Type Severity Reaction Status Date / Time Penicillins Allergy Anaphylaxis, Verified 04/16/23 19:59 swelling, rash, hives pregabalin [From Lyrica] Allergy Rash/Hives, Verified 04/16/23 19:59 swelling Sulfa (Sulfonamide Allergy Anaphylaxis, Verified 04/16/23 19:59 Antibiotics) swelling, rash, hives gabapentin AdvReac Severe Diarrhea Verified 04/16/23 19:59 Physical Exam Osteopathic Statement: *. No significant issues noted on an osteopathic structural exam other than those noted in the History and Physical/Consult. Vitals: Vital Signs Temp Pulse Resp BP Pulse Ox 04/19/23 09:09 98.1 F 63 16 119/71 98 04/19/23 04:00 69 16 94/58 97 04/19/23 01:10 68 16 04/18/23 23:50 68 16 105/61 97 04/18/23 20:00 98 F 75 16 114/58 95 04/18/23 16:00 98.0 F 75 18 113/70 98 04/18/23 13:01 60 18 119/77 98 04/18/23 12:30 58 L 18 151/88 97 Intake and Output 04/18/23 04/19/23 04/19/23 22:59 06:59 14:59 Intake Total 532.53 Balance 532.53 Intake: Intake, IV Titration 172.53 Amount Heparin Sod,Pork in 0.45% 172.53 NaCl 25,000 unit In 0.45 % NaCl 1 250ml.bag @ 12 UNITS/KG/HR 7.62 mls/hr IV .Q24H [facility] Rx#: [id number] Oral 360 Other: Voiding Method Toilet Toilet # Voids 1 1 Weight 66 kg No acute distress, oriented 3. No respiratory distress. Currently on room air. HEENT examination is grossly unremarkable. Mucous membranes are moist. No oral lesions. Neck supple. Full range of motion. No adenopathy thyromegaly or neck vein distention. Cardiovascular examination reveals regular rhythm rate. S1-S2 normal. No S3 or S4. No discernible murmur noted. Heart rate 63 bpm. Lungs reveal clear breath sounds. Breath sounds are equal bilaterally. No adventitious lung sounds including wheezes rhonchi or crackles. Room air saturation is 98%. Abdomen soft bowel sounds are heard. No masses or tenderness. Extremities are intact. No cyanosis clubbing or edema. Skin is without rash or lesion. Neurologic examination is brief but nonfocal. Results - Laboratory Findings CBC and BMP: 04/18/23 04:25 04/18/23 04:25 PT/INR, D-dimer PT 10.2 sec (9.0-12.0) 04/17/23 10:04 INR 1.0 (<1.2) 04/17/23 10:04 D-Dimer 0.31 mg/L FEU (<0.60) 04/16/23 19:57 Abnormal lab findings: Abnormal Labs 09/04/16/23 04/16/23 17:36 17:36 20:44 RBC MCH APTT BUN 18 H Creatinine 0.51 L Glucose 177 H POC Glucose (mg/dL) Hemoglobin A1c Troponin I 0.266 H* 0.483 H* Triglycerides Cholesterol LDL Cholesterol, Calc VLDL Cholesterol, Calc 04/17/23 04/17/23 04/17/23 01:48 01:48 09:36 RBC MCH APTT 32.9 H BUN Creatinine Glucose POC Glucose (mg/dL) 197 H Hemoglobin A1c Troponin I 0.581 H* Triglycerides Cholesterol LDL Cholesterol, Calc VLDL Cholesterol, Calc 04/17/23 04/17/23 04/17/23 10:04 10:06 10:06 RBC MCH APTT 60.2 H BUN Creatinine Glucose POC Glucose (mg/dL) Hemoglobin A1c 7.5 H Troponin I Triglycerides 247.00 H Cholesterol 257.00 H LDL Cholesterol, Calc 162.7 H VLDL Cholesterol, Calc 49.40 H 04/17/23 04/17/23 04/18/23 17:15 20:11 04:25 RBC 3.73 L MCH 35.2 H APTT BUN Creatinine Glucose POC Glucose (mg/dL) 216 H 230 H Hemoglobin A1c Troponin I Triglycerides Cholesterol LDL Cholesterol, Calc VLDL Cholesterol, Calc 04/18/23 04/18/23 04/18/23 04:25 04:25 05:36 RBC MCH APTT 32.9 H BUN Creatinine Glucose 135 H POC Glucose (mg/dL) 177 H Hemoglobin A1c Troponin I Triglycerides Cholesterol LDL Cholesterol, Calc VLDL Cholesterol, Calc 04/18/23 04/18/23 04/18/23 10:58 11:45 16:41 RBC MCH APTT 51.1 H BUN Creatinine Glucose POC Glucose (mg/dL) 177 H 199 H Hemoglobin A1c Troponin I Triglycerides Cholesterol LDL Cholesterol, Calc VLDL Cholesterol, Calc 04/18/23 04/19/23 04/19/23 20:03 06:08 07:06 RBC MCH APTT 41.8 H BUN Creatinine Glucose POC Glucose (mg/dL) 231 H 179 H Hemoglobin A1c Troponin I Triglycerides Cholesterol LDL Cholesterol, Calc VLDL Cholesterol, Calc - Diagnostic Findings Chest x-ray: image reviewed Assessment and Plan Assessment: Non-ST segment elevation myocardial infarction, secondary to multivessel coronary disease. Patient scheduled for a bypass grafting, on April 22, 2023. 40+ years of tobacco use, beginning at the age of 10. No significant past medical history according to the patient. Dyslipidemia. Plan: Plan dated 04/19/2023. The patient is seen today in room 362. The patient is to have a preoperative spirometry. I don't know that that has been done as yet. She has been smoking for 40+ years. She's currently on IV heparin, and IV nitroglycerin. The arron barker is scheduled to have open heart surgery on April 22. Early on room air. Labs, x-rays, and medications are reviewed. We will continue to follow and make recommendations along the way. Time with Patient: Greater than 30
[2023-04-19 12:22] LABS: Glucose,Whole Blood 141 mg/dL (70-110)
--- NOTE | 2023-04-19 13:04 | P.PN ---
Subjective Progress Note Date: 04/19/23 History of present illness: This is a 52-year-old female previously seen [place] [address] Spence. She has a past medical history of hypertension, hyperlipidemia, diabetes, peripheral vascular disease, family history of premature coronary artery disease. We have been asked to evaluate the patient for non-ST elevated myocardial infarction. Patient presented to [facility] emergency center for chest pain determined ongoing for 2-3 weeks. Patient states that it was midsternal going up into her jaw and down her arms. It became worse with activity and did not experience it with rest. She denies any pain with deep breathing. She does have shortness of breath with chest pain. Patient presented with a blood pressure of 160/92. Patient has been started on heparin drip, Nitro-Bid, aspi rin and atorvastatin. Patient is seen today in the emergency center waiting for a bed on the cardiac stepdown unit. Patient is a smoker of pack per day for greater than 40 years. She has minimal alcohol intake. EKG sinus rhythm with nonspecific ST changes 2 Chest x-ray: No acute process CBC normal. INR was 0.9. D-dimer 0.31. Electrolytes normal. BUN 18 creatinine 0.51. Blood sugar 177. Troponins 0.266, 0.483, 0.481. Liver function tests are normal. Magnesium 1.6. Home cardiac medications: None Lexiscan stress test 02/2020 no reversible ischemia Echocardiogram 02/2020 he F 55-60% borderline concentric left ventricular hypertrophy. Diastolic filling pattern is normal for age. Right ventricle is mild to moderately enlarged. Right atrium mildly enlarged. Mild mitral regurgitation, mild tricuspid regurgitation. 04/18: Yesterday, patient underwent cardiac catheterization with Dr. Wakefield which revealed multivessel coronary artery disease involving the LAD, L CXR RCA. LCx appears to be culprit. Consult was placed with cardiothoracic surgery. Patient is seen today on the cardiac stepdown unit. Patient continues to have tightness in her chest and Nitropaste seems to be helping. In the afternoon she developed more chest pain which was a #8 and she received morphine 2 mg IV push which dropped the pain down to a #5. Patient has been seen by cardiothoracic team and is waiting for CABG to be scheduled. A1c is 7.5. Triglycerides 247, cholesterol 257, LDL 162, HDL 44. Echocardiogram reveals EF of 55%. Mild mitral and tricuspid regurgitation. 04/19 Yesterday afternoon, patient developed chest pain that was a #8 and was given morphine with some improvement. We later started her on a nitroglycerin drip and this morning she states her pain is controlled. She is found ambulating in her room and doing well no lightheadedness or dizziness. She is scheduled for CABG on Saturday. She's been afebrile, heart rate in the area where 60, blood pressure 119/71, pulse ox 98% on room air. Physical examination: Gen: This is a 52-year-old female. She is resting bed appears to be comfortable and in no acute distress. VS: reviewed. HEENT: Head is atraumatic, normocephalic. Pupils equal, round. Sclerae is anicteric. NECK: Supple. No JVD. LUNGS: Clear to auscultation. No wheezes or rhonchi. No intercostal retractions. HEART: Regular rate and rhythm. No murmur. ABDOMEN: Soft No tenderness. EXTREMITIES: No pedal edema. No calf tenderness. NEUROLOGICAL: Patient is awake, alert and oriented x3. Assessment: Non-ST elevated myocardial infarction with triple vessel disease on cardiac cath, scheduled for CABG on Saturday Hypertension Hyperlipidemia Diabetes Plan: Continue patient on aspirin 81 mg daily, atorvastatin 80 mg at bedtime, Lopressor 25 mg twice daily Into new heparin drip Patient started on nitroglycerin drip and continue on nitro ointment As well. Further recommendations to follow based upon clinical course Nurse practitioner note has been reviewed, I agree with documented findings and plan of care. Patient was seen and examined. Objective - Vital Signs Vital signs: Vital Signs Temp 98.1 F 04/19/23 09:09 Pulse 63 04/19/23 09:09 Resp 16 04/19/23 09:09 BP 119/71 04/19/23 09:09 Pulse Ox 98 04/19/23 09:09 FiO2 Intake & Output 04/18/23 04/19/23 04/19/23 18:59 06:59 18:59 Intake Total 540 532.53 Balance 540 532.53 Weight 66 kg Intake: Intake, IV Titration 172.53 Amount Heparin Sod,Pork in 0.45% 172.53 NaCl 25,000 unit In 0.45 % NaCl 1 250ml.bag @ 12 UNITS/KG/HR 7.62 mls/hr IV .Q24H [facility] Rx#: [id number] Oral 540 360 Other: Voiding Method Toilet Toilet # Voids 1 - Labs CBC & Chem 7: 04/18/23 04:25 04/18/23 04:25 Labs: Abnormal Lab Results - Last 24 Hours (Table) 04/18/23 04/18/23 04/18/23 Range/Units 10:58 11:45 16:41 APTT 51.1 H (22.0-30.0) sec POC Glucose (mg/dL) 177 H 199 H (70-110) mg/dL 04/18/23 04/19/23 04/19/23 Range/Units 20:03 06:08 07:06 APTT 41.8 H (22.0-30.0) sec POC Glucose (mg/dL) 231 H 179 H (70-110) mg/dL Microbiology - Last 24 Hours (Table) 04/17/23 15:24 Nasal Screen MRSA/MSSA - Final Nasal Swab
[2023-04-19] MEDS: NITROGLYCERIN-D5W PMX 50 MG in DEXTROSE/WATER 1 250ML.BAG IV SCH (15:06)
[2023-04-19 17:09] LABS: Glucose,Whole Blood 178 mg/dL (70-110)
[2023-04-19] MEDS ORDERED: ACETAMINOPHEN TAB 325 MG TAB PO PRN (17:47)
[2023-04-19 20:20] LABS: Glucose,Whole Blood 200 mg/dL (70-110)
[2023-04-19] MEDS: ATORVASTATIN 80 MG TAB PO SCH (22:09)
[2023-04-20 06:22] LABS: Glucose,Whole Blood 180 mg/dL (70-110)
[2023-04-20] MEDS: NITROGLYCERIN OINT 1 INCH/GM PACKET TOPICAL SCH ×4 (06:40→19:44)
[2023-04-20 07:10] LABS: Basophils % (A) 0 %; Eosinophils # (A) 0.1 k/uL (0-0.7); Eosinophils % (A) 2 %; HCT 34.7 % (34.0-46.0); HGB 12.2 gm/dL (11.4-16.0); Lymphocytes # (A) 1.9 k/uL (1.0-4.8); Lymphocytes % (A) 34 %; MCH 34.3 pg (25.0-35.0); MCHC 35.3 g/dL (31.0-37.0); Mean Platelet Volume 8.5; Monocytes # (A) 0.3 k/uL (0-1.0); Monocytes % (A) 5 %; Neutrophils # (A) 3.4 k/uL (1.3-7.7); Neutrophils % (A) 59 %; Platelet Count 170 k/uL (150-450); RBC 3.57 m/uL (3.80-5.40); RDW 12.3 % (11.5-15.5); WBC 5.8 k/uL (3.8-10.6)
[2023-04-20] MEDS: INSULIN ASPART (NovoLOG) 100 UNIT/ML VIAL SQ SCH ×4 (07:15→21:15)
[2023-04-20] MEDS: INSULIN DETEMIR (LEVEMIR) 100 UNIT/ML SYR SQ SCH (07:16)
[2023-04-20] MEDS: ASPIRIN 81 MG PO SCH (09:37)
[2023-04-20] MEDS: MULTIVITAMINS, THERA 1 EACH TAB PO SCH (09:37)
[2023-04-20] MEDS: METOPROLOL TARTRATE 25 MG TAB PO SCH ×2 (09:37→23:33)
--- NOTE | 2023-04-20 11:20 | P.PN ---
Subjective Progress Note Date: 04/20/23 Hospital Course: 52-year-old female with a PMH of type II DM and tobacco abuse, has not seen a physician for several years, presents to the emergency room with complaints of chest pain and shortness of breath. In the emergency room, chest x-ray was unremarkable with EKG showing sinus rhythm at 79 bpm with T-wave inversion in leads 2, 3, and aVF with T-wave flattening in leads V5 and V6. Laboratory evaluation was remarkable for troponin 0.266 and subsequently 0.483. D-dimer was 0.1. Glucose was 177. Blood pressure upon arrival at the emergency room was 160/92 with pulse 86, CO2 91% on room air, and temp 98F. Patient admitted for NSTEMI on heparin drip. Cardiology consulted. Cardiac cath showed multivessel coronary artery disease, recommending CABG. patient currently undergoing preoperative testing with cardiothoracic surgery. Echocardiogram showed normal LV size and systolic function. Pending surgery on Saturday. Subjective: Seen and examined at bedside. No acute events overnight. Occasionally does get chest tightness. Pertinent positives and negatives as discussed above, a complete review of systems was performed and all other systems are negative. Vitals Signs Reviewed. General: nontoxic, no distress, appears at stated age Derm: warm, dry Head: atraumatic, normocephalic, symmetric Eyes: EOMI, no lid lag, anicteric sclera Mouth: no lip lesion, mucus membranes moist Cardiovascular: S1S2 reg, no murmur Lungs: CTA bilateral, no rhonchi, no rales , no accessory muscle use Abdominal: soft, nontender to palpation, no guarding, no appreciable organomegaly Ext: no gross muscle atrophy, no edema, no contractures Neuro: CN II-XI grossly intact, no focal neuro deficits Psych: Alert, oriented, appropriate affect Data Reviewed Today: Pertinent Labs: Hemoglobin 12.2, platelet count 170, a PTT 51.7, blood sugars range between 178-200 Imaging: No new imaging Assessment and Plan: Multivessel coronary artery disease NSTEMI with recurrent chest pain Type 2 diabetes, A1c 7.5 Hypertension Nicotine dependence -Cardiology following, on heparin drip and nitroglycerin drip, monitor for any bleeding -Cardiothoracic surgery following, pending surgery on Saturday -Aspirin 81 mg, atorvastatin 80 mg, metoprolol 25 mg twice a day -Levemir 15 units, remains on sliding scale insulin -Counseled regarding smoking cessation DVT ppx: Heparin drip Code status: Full code Anticipated discharge place: Pending clinical course Anticipated discharge time: Pending clinical course Objective - Vital Signs Vital signs: Vital Signs Temp 98.6 F 04/20/23 08:00 Pulse 74 04/20/23 08:00 Resp 18 04/20/23 08:00 BP 111/69 04/20/23 08:00 Pulse Ox 96 04/20/23 08:00 FiO2 Intake & Output 04/19/23 04/20/23 04/20/23 18:59 06:59 18:59 Intake Total 998.996 360 Balance 998.996 360 Weight 65.7 kg Intake: Intake, IV Titration 278.996 Amount Heparin Sod,Pork in 0.45% 278.996 NaCl 25,000 unit In 0.45 % NaCl 1 250ml.bag @ 12 UNITS/KG/HR 7.62 mls/hr IV .Q24H [facility] Rx#: [id number] Oral 720 360 Other: Voiding Method Toilet - Labs CBC & Chem 7: 04/20/23 05:56 04/18/23 04:25 Labs: Abnormal Lab Results - Last 24 Hours (Table) 04/19/23 04/19/23 04/19/23 Range/Units 12:00 15:04 16:47 RBC (3.80-5.40) m/uL APTT 58.0 H (22.0-30.0) sec POC Glucose (mg/dL) 141 H 178 H (70-110) mg/dL 04/19/23 04/20/23 04/20/23 Range/Units 20:18 05:56 05:56 RBC 3.57 L (3.80-5.40) m/uL APTT 51.7 H (22.0-30.0) sec POC Glucose (mg/dL) 200 H (70-110) mg/dL 04/20/23 Range/Units 06:08 RBC (3.80-5.40) m/uL APTT (22.0-30.0) sec POC Glucose (mg/dL) 180 H (70-110) mg/dL
[2023-04-20 11:35] LABS: Glucose,Whole Blood 173 mg/dL (70-110)
--- NOTE | 2023-04-20 11:37 | P.PN ---
Subjective Progress Note Date: 04/20/23 Principal diagnosis: Triple-vessel coronary artery disease, non-STEMI this admission. History of hypertension, hyperlipidemia, diabetes, bilateral internal carotid artery stenosis, peripheral vascular disease, pulmonary embolism at 20 years old and not currently on anticoagulation, current tobacco dependence, family history of premature coronary artery disease on both sides of the family The patient was seen and examined this morning sitting up at the bedside on the cardiac stepdown unit in no acute distress drinking coffee with her daughter. She had just showered. Denies any chest pain currently, did have an episode of chest pain lasting 30 minutes yesterday evening, IV nitro was increased, patient reports she was given Xanax and slept all night. Remains on IV heparin and nitro. Remains in sinus rhythm and stable. No other new concerns. Objective - Vital Signs Vital signs: Vital Signs Temp 98.6 F 04/20/23 08:00 Pulse 74 04/20/23 08:00 Resp 18 04/20/23 08:00 BP 111/69 04/20/23 08:00 Pulse Ox 96 04/20/23 08:00 FiO2 Intake & Output 04/19/23 04/20/23 04/20/23 18:59 06:59 18:59 Intake Total 998.996 360 Balance 998.996 360 Weight 65.7 kg Intake: Intake, IV Titration 278.996 Amount Heparin Sod,Pork in 0.45% 278.996 NaCl 25,000 unit In 0.45 % NaCl 1 250ml.bag @ 12 UNITS/KG/HR 7.62 mls/hr IV .Q24H [facility] Rx#: [id number] Oral 720 360 Other: Voiding Method Toilet - Exam CONSTITUTIONAL: Appears comfortable, cooperative, no acute distress RESPIRATORY: Lungs sounds diminished bilaterally. Respirations even, nonlabored. Currently on room air with oxygen saturation 96%. Able to achieve 1500 mL on incentive spirometry. Strong cough. CARDIOVASCULAR: S1, S2 present. Regular rate and rhythm, sinus rhythm on telemetry. Palpable peripheral pulses bilaterally. No edema present. No calf pain or tenderness noted GASTROINTESTINAL: Abdomen soft, nontender, nondistended. Active bowel sounds present 4 quadrants. Tolerating diet GENITOURINARY: Continues to void INTEGUMENTARY: Skin is warm and dry NEUROLOGIC: Cranial nerves II through XII intact MUSKULOSKELETAL: Able to move all extremities, strength equal bilaterally, gait normal PSYCHIATRIC: Alert and oriented to person place and time, appropriate affect, intact judgment and insight - Labs CBC & Chem 7: 04/20/23 05:56 04/18/23 04:25 Labs: Abnormal Lab Results - Last 24 Hours (Table) 04/19/23 04/19/23 04/19/23 Range/Units 12:00 15:04 16:47 RBC (3.80-5.40) m/uL APTT 58.0 H (22.0-30.0) sec POC Glucose (mg/dL) 141 H 178 H (70-110) mg/dL 04/19/23 04/20/23 04/20/23 Range/Units 20:18 05:56 05:56 RBC 3.57 L (3.80-5.40) m/uL APTT 51.7 H (22.0-30.0) sec POC Glucose (mg/dL) 200 H (70-110) mg/dL 04/20/23 Range/Units 06:08 RBC (3.80-5.40) m/uL APTT (22.0-30.0) sec POC Glucose (mg/dL) 180 H (70-110) mg/dL Assessment and Plan Assessment: Triple-vessel coronary artery disease, non-STEMI this admission Chest pain, secondary to above Hypertension Hyperlipidemia, cholesterol 257, LDL 162, triglycerides 247 Diabetes, hemoglobin A1c 7.5% Bilateral internal carotid artery stenosis, 50-69% Peripheral vascular disease, right MARCELLA 0.77 Pulmonary embolism at 20 years old and not currently on anticoagulation Current tobacco dependence, preoperative FEV1 104% of predicted Family history of premature coronary artery disease on both sides of the family Plan: Continue to maximize medical management with aspirin and statin and beta hector, IV heparin and nitro per cardiology Reinforce with the patient the importance of smoking cessation, the patient was offered you can quit phone number at [phone]. Our plan is for off-pump myocardial revascularization with left internal mammary artery, endoscopic left radial and greater saphenous vein harvest, ligation of the left atrial appendage by Dr. Bill on Saturday afternoon Encourage the patient to use her incentive spirometry 10 times every hour while awake Increase activity as tolerated Medical management of other comorbidities per internal medicine, cardiology More recommendations to follow based on patient's clinical course.
--- NOTE | 2023-04-20 12:42 | P.PN ---
Subjective Progress Note Date: 04/20/23 This is Kun Juarez NP, I'm dictating on behalf of Dr. Stinson's H&P and A&P. Patient was interviewed and examined. Patient is a pleasant 52-year-old female who presented to the hospital with chest pain for the last 2-3 weeks, and was found to have a non-ST elevated myocardial infarction. Patient underwent cardiac catheterization which revealed multivessel coronary artery disease involving the LAD, L CXR RCA, with the LCx appearing to be the culprit. Patient had a consult placed with cardiothoracic surgery, who was seen in the stepdown unit, they have scheduled the patient for CABG on Saturday. Today patient reports that she's feeling good today. She is denying chest pain, shortness of breath, and dizziness. GENERAL: Well-appearing, well-nourished and in no acute distress. NECK: Supple without JVD or thyromegaly. LUNGS: Breath sounds clear to auscultation bilaterally. Respiration equal and unlabored. No wheezes, rales or rhonchi. HEART: Regular rate and rhythm without murmurs, rubs or gallops. S1 and S2 heard. EXTREMITIES: Normal range of motion, no edema. No clubbing or cyanosis. Peripheral pulses intact and strong. VITALS: Temp 98.6, pulse 74, respirations 18, blood pressure 111/69, O2 saturation 96% on room air TELEMETRY: Normal sinus rhythm LABS: White count 5.8, hemoglobin 12.2, APTT 51.7 IMPRESSION: 1. Non-ST elevated myocardial infarction with triple vessel disease on cardiac cath, scheduled for CABG on Saturday 2. Hypertension 3. Hyperlipidemia 4. Diabetes PLAN: Continue heparin drip. Continue nitro drip. Patient is pending CABG on Saturday. Further recommendations based on patient's clinical course. Objective - Vital Signs Vital signs: Vital Signs Temp 98.6 F 04/20/23 08:00 Pulse 74 04/20/23 08:00 Resp 18 04/20/23 08:00 BP 111/69 04/20/23 08:00 Pulse Ox 96 04/20/23 08:00 FiO2 Intake & Output 04/19/23 04/20/23 04/20/23 18:59 06:59 18:59 Intake Total 998.996 360 Output Total 300 Balance 998.996 60 Weight 65.7 kg Intake: Intake, IV Titration 278.996 Amount Heparin Sod,Pork in 0.45% 278.996 NaCl 25,000 unit In 0.45 % NaCl 1 250ml.bag @ 12 UNITS/KG/HR 7.62 mls/hr IV .Q24H [facility] Rx#: [id number] Oral 720 360 Output: Urine 300 Other: Voiding Method Toilet - Labs CBC & Chem 7: 04/20/23 05:56 04/18/23 04:25 Labs: Abnormal Lab Results - Last 24 Hours (Table) 04/19/23 04/19/23 04/19/23 Range/Units 15:04 16:47 20:18 RBC (3.80-5.40) m/uL APTT 58.0 H (22.0-30.0) sec POC Glucose (mg/dL) 178 H 200 H (70-110) mg/dL 04/20/23 04/20/23 04/20/23 Range/Units 05:56 05:56 06:08 RBC 3.57 L (3.80-5.40) m/uL APTT 51.7 H (22.0-30.0) sec POC Glucose (mg/dL) 180 H (70-110) mg/dL 04/20/23 Range/Units 11:34 RBC (3.80-5.40) m/uL APTT (22.0-30.0) sec POC Glucose (mg/dL) 173 H (70-110) mg/dL
[2023-04-20] MEDS: HEPARIN SOD,PORK IN 0.45% NACL 25,000 UNIT in 0.45% NACL 1 250ML.BAG IV SCH (12:44)
--- NOTE | 2023-04-20 13:16 | P.PN ---
Subjective Progress Note Date: 04/20/23 Principal diagnosis: Coronary artery disease. Pulmonary consult dated 04/19/2023. 52-year-old female who was seen in the emergency room, on April 16. She presented with 2-3 weeks of ongoing chest pain. The patient was in initially evaluated, and was thought to have a non-ST segment elevation myocardial infarction. The patient is currently seen in room 362. Apparently, she is scheduled to have bypass grafting on April 22. She's currently on room air. She's getting IV heparin via weightbase protocol, and IV nitroglycerin at 10 mcg/m. The patient has been smoking cigarettes for 40 years, having started at the age of 10. Her cardiac catheterization showed multivessel disease, including the LAD, circumflex, and right coronary artery. She had elevated left ventricular filling pressures. Prior to this, the patient had no known history of any medical problems, and only was taking vitamins at home. Most current labs include a white count 7.7, hemoglobin 13.1, hematocrit 35.9, and a normal platelet count. PTT is 51.1. Sodium 138, potassium 4, chlorides 107, CO2 24, BUN 17, creatinine 0.55. Troponins were 0.483 and 0.581. Cholesterol was 257. TSH was normal. Urine was negative. Hepatitis serology was negative as well. Chest x-ray was unremarkable. Progress note dated 04/20/2023. The patient is seen today in room 362. She's currently on room air. She's receiving IV heparin, and nitroglycerin drip at 15 mcg/m. She's not having any additional chest pain or chest discomfort. White count is 5.8, hemoglobin 12.2, hematocrit 34.7, and platelet count is normal. The patient is to have open heart surgery on Saturday. The patient's blood glucose is 173. Objective - Vital Signs Vital signs: Vital Signs Temp 98.6 F 04/20/23 08:00 Pulse 74 04/20/23 08:00 Resp 18 04/20/23 08:00 BP 111/69 04/20/23 08:00 Pulse Ox 96 04/20/23 08:00 FiO2 Intake & Output 04/19/23 04/20/23 04/20/23 18:59 06:59 18:59 Intake Total 998.996 610 Output Total 300 Balance 998.996 310 Weight 65.7 kg Intake: Intake, IV Titration 278.996 250 Amount Heparin Sod,Pork in 0.45% 278.996 250 NaCl 25,000 unit In 0.45 % NaCl 1 250ml.bag @ 12 UNITS/KG/HR 7.62 mls/hr IV .Q24H [facility] Rx#: [id number] Oral 720 360 Output: Urine 300 Other: Voiding Method Toilet - Exam No acute distress, oriented 3. HEENT examination is grossly unremarkable. Mucous membranes are moist. No oral lesions. Neck supple. Full range of motion. No adenopathy thyromegaly or neck vein distention. Cardiovascular examination reveals regular rhythm rate. S1-S2 normal. No S3 or S4. No discernible murmur noted. Heart rate is 74 bpm. Lungs reveal clear breath sounds. Breath sounds are equal bilaterally. No adventitious lung sounds including wheezes rhonchi or crackles. Room air saturation is 96%. Abdomen soft bowel sounds are heard. No masses or tenderness. Extremities are intact. No cyanosis clubbing or edema. Skin is without rash or lesion. Neurologic examination is brief but nonfocal. - Labs CBC & Chem 7: 04/20/23 05:56 04/18/23 04:25 Labs: Abnormal Lab Results - Last 24 Hours (Table) 04/19/23 04/19/23 04/19/23 Range/Units 15:04 16:47 20:18 RBC (3.80-5.40) m/uL APTT 58.0 H (22.0-30.0) sec POC Glucose (mg/dL) 178 H 200 H (70-110) mg/dL 04/20/23 04/20/23 04/20/23 Range/Units 05:56 05:56 06:08 RBC 3.57 L (3.80-5.40) m/uL APTT 51.7 H (22.0-30.0) sec POC Glucose (mg/dL) 180 H (70-110) mg/dL 04/20/23 Range/Units 11:34 RBC (3.80-5.40) m/uL APTT (22.0-30.0) sec POC Glucose (mg/dL) 173 H (70-110) mg/dL Assessment and Plan Assessment: Non-ST segment elevation myocardial infarction, secondary to multivessel coronary disease. Patient scheduled for a bypass grafting, on April 22, 2023. 40+ years of tobacco use, beginning at the age of 10. No significant past medical history according to the patient. Dyslipidemia. Plan: Plan dated 04/19/2023. The patient is seen today in room 362. The patient is to have a preoperative spirometry. I don't know that that has been done as yet. She has been smoking for 40+ years. She's currently on IV heparin, and IV nitroglycerin. The patient is scheduled to have open heart surgery on April 22. Early on room air. Labs, x-rays, and medications are reviewed. We will continue to follow and make recommendations along the way. Plan dated 04/20/2023. The patient is seen today in room 362. The patient's on room air. She is receiving IV heparin. She is also on the nitroglycerin drip at 15 mcg/m. Labs, x-rays, and medications are reviewed. The patient's prognosis remains guarded. She is scheduled for bypass grafting, on April 22Saturday. We will continue to follow and make recommendations along the way. Time with Patient: Less than 30
[2023-04-20 16:48] LABS: Glucose,Whole Blood 234 mg/dL (70-110)
[2023-04-20 20:17] LABS: Glucose,Whole Blood 138 mg/dL (70-110)
[2023-04-20] MEDS: ATORVASTATIN 80 MG TAB PO SCH (23:33)
[2023-04-20] MEDS: NITROGLYCERIN-D5W PMX 50 MG in DEXTROSE/WATER 1 250ML.BAG IV SCH (23:34)
[2023-04-21] MEDS: NITROGLYCERIN OINT 1 INCH/GM PACKET TOPICAL SCH ×4 (03:27→14:32)
[2023-04-21 06:14] LABS: Glucose,Whole Blood 150 mg/dL (70-110)
[2023-04-21] MEDS: INSULIN DETEMIR (LEVEMIR) 100 UNIT/ML SYR SQ SCH (07:10)
[2023-04-21] MEDS: INSULIN ASPART (NovoLOG) 100 UNIT/ML VIAL SQ SCH ×4 (08:30→21:15)
[2023-04-21] MEDS: ASPIRIN 81 MG PO SCH (08:30)
[2023-04-21] MEDS: METOPROLOL TARTRATE 25 MG TAB PO SCH ×2 (08:30→21:15)
[2023-04-21] MEDS: MULTIVITAMINS, THERA 1 EACH TAB PO SCH (08:32)
[2023-04-21 08:48] LABS: HCT 35.4 % (34.0-46.0); HGB 12.7 gm/dL (11.4-16.0); MCH 34.5 pg (25.0-35.0); MCHC 35.9 g/dL (31.0-37.0); Mean Platelet Volume 8.9; Platelet Count 175 k/uL (150-450); RBC 3.68 m/uL (3.80-5.40); RDW 12.5 % (11.5-15.5); WBC 6.7 k/uL (3.8-10.6)
--- NOTE | 2023-04-21 08:55 | P.PN ---
Subjective Progress Note Date: 04/21/23 Principal diagnosis: Triple-vessel coronary artery disease, non-STEMI this admission. History of hypertension, hyperlipidemia, diabetes, bilateral internal carotid artery stenosis, peripheral vascular disease, pulmonary embolism at 20 years old and not currently on anticoagulation, current tobacco dependence, family history of premature coronary artery disease on both sides of the family The patient was seen and examined this morning laying in bed on the cardiac stepdown unit in no acute distress. Denies any chest pain currently, denies shortness of breath. Remains on IV heparin and nitro. Remains in sinus rhythm and stable. No other new concerns. Anticipates open heart surgery tomorrow. Objective - Vital Signs Vital signs: Vital Signs Temp 98.3 F 04/21/23 08:33 Pulse 71 04/21/23 08:33 Resp 15 04/21/23 08:33 BP 121/73 04/21/23 08:33 Pulse Ox 93 L 04/21/23 08:40 FiO2 Intake & Output 04/20/23 04/21/23 04/21/23 18:59 06:59 18:59 Intake Total 990 169.7 Output Total 300 Balance 690 169.7 Weight 66.5 kg Intake: Intake, IV Titration 250 169.7 Amount Heparin Sod,Pork in 0.45% 250 NaCl 25,000 unit In 0.45 % NaCl 1 250ml.bag @ 12 UNITS/KG/HR 7.62 mls/hr IV .Q24H [facility] Rx#: [id number] Nitroglycerin-D5w Pmx 50 169.7 mg In Dextrose/Water 1 250ml.bag @ 15 MCG/MIN 4. 5 mls/hr IV .Q24H [facility] Rx# :[id number] Oral 740 Output: Urine 300 Other: Voiding Method Toilet Toilet # Voids 1 - Exam CONSTITUTIONAL: Appears comfortable, cooperative, no acute distress RESPIRATORY: Lungs sounds diminished bilaterally. Respirations even, nonlabored. Currently on room air with oxygen saturation 98%. Able to achieve 1500 mL on incentive spirometry. Strong cough. CARDIOVASCULAR: S1, S2 present. Regular rate and rhythm, sinus rhythm on telemetry. Palpable peripheral pulses bilaterally. No edema present. No calf pain or tenderness noted GASTROINTESTINAL: Abdomen soft, nontender, nondistended. Active bowel sounds present 4 quadrants. Tolerating diet GENITOURINARY: Continues to void INTEGUMENTARY: Skin is warm and dry NEUROLOGIC: Cranial nerves II through XII intact MUSKULOSKELETAL: Able to move all extremities, strength equal bilaterally, gait normal PSYCHIATRIC: Alert and oriented to person place and time, appropriate affect, intact judgment and insight - Allied health notes Allied health notes reviewed: nursing - Labs CBC & Chem 7: 04/21/23 07:42 04/21/23 07:42 Labs: Abnormal Lab Results - Last 24 Hours (Table) 04/20/23 04/20/23 04/20/23 Range/Units 11:34 16:46 20:16 RBC (3.80-5.40) m/uL POC Glucose (mg/dL) 173 H 234 H 138 H (70-110) mg/dL 04/21/23 04/21/23 Range/Units 06:13 07:42 RBC 3.68 L (3.80-5.40) m/uL POC Glucose (mg/dL) 150 H (70-110) mg/dL Assessment and Plan Assessment: Triple-vessel coronary artery disease, non-STEMI this admission Chest pain, secondary to above Hypertension Hyperlipidemia, cholesterol 257, LDL 162, triglycerides 247 Diabetes, hemoglobin A1c 7.5% Bilateral internal carotid artery stenosis, 50-69% Peripheral vascular disease, right MARCELLA 0.77 Pulmonary embolism at 20 years old and not currently on anticoagulation Current tobacco dependence, preoperative FEV1 104% of predicted Family history of premature coronary artery disease on both sides of the family Plan: Continue to maximize medical management with aspirin and statin and beta hector, IV heparin and nitro per cardiology Reinforce with the patient the importance of smoking cessation, the patient was offered you can quit phone number at [phone]. Our plan is for off-pump myocardial revascularization with left internal mammary artery, endoscopic left radial and greater saphenous vein harvest, ligation of the left atrial appendage by Dr. Bill on Saturday afternoon Encourage the patient to use her incentive spirometry 10 times every hour while awake Increase activity as tolerated Medical management of other comorbidities per internal medicine, cardiology More recommendations to follow based on patient's clinical course.
[2023-04-21 09:04] LABS: Partial Thromboplastin Time 38.6 sec (22.0-30.0); Prothrombin Time 10.3 sec (9.0-12.0)
[2023-04-21 09:38] LABS: ALT 18 U/L (4-34); AST 35 U/L (14-36); African American GFR (CKD) >90 (>60 ml/min/1.73 sqM); Alkaline Phosphatase 65 U/L (38-126); Anion Gap 8 mmol/L; Blood Urea Nitrogen 17 mg/dL (7-17); Calcium 9.7 mg/dL (8.4-10.2); Carbon Dioxide 25 mmol/L (22-30); Chloride 106 mmol/L (98-107); Glucose 133 mg/dL (74-99); Magnesium 1.5 mg/dL (1.6-2.3); Non-African American GFR(CKD) >90 (>60 ml/min/1.73 sqM); Potassium 4.7 mmol/L (3.5-5.1); Sodium 139 mmol/L (137-145); Total Bilirubin 0.8 mg/dL (0.2-1.3); Total Protein 7.1 g/dL (6.3-8.2)
[2023-04-21] MEDS ORDERED: MD COMMUNICATION TO PHARMACY 1 EACH MISC PO ONE (10:45)
[2023-04-21 11:29] LABS: Glucose,Whole Blood 176 mg/dL (70-110)
--- NOTE | 2023-04-21 12:19 | P.PN ---
Subjective Progress Note Date: 04/21/23 Hospital Course: 52-year-old female with a PMH of type II DM and tobacco abuse, has not seen a physician for several years, presents to the emergency room with complaints of chest pain and shortness of breath. In the emergency room, chest x-ray was unremarkable with EKG showing sinus rhythm at 79 bpm with T-wave inversion in leads 2, 3, and aVF with T-wave flattening in leads V5 and V6. Laboratory evaluation was remarkable for troponin 0.266 and subsequently 0.483. D-dimer was 0.1. Glucose was 177. Blood pressure upon arrival at the emergency room was 160/92 with pulse 86, CO2 91% on room air, and temp 98F. Patient admitted for NSTEMI on heparin drip. Cardiology consulted. Cardiac cath showed multivessel coronary artery disease, recommending CABG. patient currently und ergoing preoperative testing with cardiothoracic surgery. Echocardiogram showed normal LV size and systolic function. Pending surgery on Saturday. Subjective: Seen and examined at bedside. No acute events overnight. Denies any further chest pain Pertinent positives and negatives as discussed above, a complete review of systems was performed and all other systems are negative. Vitals Signs Reviewed. General: nontoxic, no distress, appears at stated age Derm: warm, dry Head: atraumatic, normocephalic, symmetric Eyes: EOMI, no lid lag, anicteric sclera Mouth: no lip lesion, mucus membranes moist Cardiovascular: S1S2 reg, no murmur Lungs: CTA bilateral, no rhonchi, no rales , no accessory muscle use Abdominal: soft, nontender to palpation, no guarding, no appreciable organomegaly Ext: no gross muscle atrophy, no edema, no contractures Neuro: CN II-XI grossly intact, no focal neuro deficits Psych: Alert, oriented, appropriate affect Data Reviewed Today: Pertinent Labs: Hemoglobin 12.7, potassium 4.7, creatinine 0.55, magnesium 1.5, blood sugars range between 133-176 Imaging: No new imaging Assessment and Plan: Multivessel coronary artery disease NSTEMI with recurrent chest pain Type 2 diabetes, A1c 7.5 Hypertension Nicotine dependence Mild hypomagnesemia -Cardiology following, on heparin drip and nitroglycerin drip, monitor for any bleeding -Cardiothoracic surgery note reviewed, surgery tomorrow, patient getting IV magnesium -Aspirin 81 mg, atorvastatin 80 mg, metoprolol 25 mg twice a day -Levemir 15 units, remains on sliding scale insulin -Counseled regarding smoking cessation DVT ppx: Heparin drip Code status: Full code Anticipated discharge place: Pending clinical course Anticipated discharge time: Pending clinical course Objective - Vital Signs Vital signs: Vital Signs Temp 98.3 F 04/21/23 08:33 Pulse 72 04/21/23 11:17 Resp 16 04/21/23 11:17 BP 124/75 04/21/23 11:17 Pulse Ox 100 04/21/23 11:17 FiO2 Intake & Output 04/20/23 04/21/23 04/21/23 18:59 06:59 18:59 Intake Total 990 169.7 490 Output Total 300 Balance 690 169.7 490 Weight 66.5 kg Intake: Intake, IV Titration 250 169.7 250 Amount Heparin Sod,Pork in 0.45% 250 250 NaCl 25,000 unit In 0.45 % NaCl 1 250ml.bag @ 12 UNITS/KG/HR 7.62 mls/hr IV .Q24H [facility] Rx#: [id number] Nitroglycerin-D5w Pmx 50 169.7 mg In Dextrose/Water 1 250ml.bag @ 15 MCG/MIN 4. 5 mls/hr IV .Q24H [facility] Rx# :[id number] Oral 740 240 Output: Urine 300 Other: Voiding Method Toilet Toilet # Voids 1 2 - Labs CBC & Chem 7: 04/21/23 07:42 04/21/23 07:42 Labs: Abnormal Lab Results - Last 24 Hours (Table) 04/20/23 04/20/23 04/21/23 Range/Units 16:46 20:16 06:13 RBC (3.80-5.40) m/uL APTT (22.0-30.0) sec Glucose (74-99) mg/dL POC Glucose (mg/dL) 234 H 138 H 150 H (70-110) mg/dL Magnesium (1.6-2.3) mg/dL Crossmatch 04/21/23 04/21/23 04/21/23 Range/Units 07:42 07:42 07:42 RBC 3.68 L (3.80-5.40) m/uL APTT 38.6 H (22.0-30.0) sec Glucose (74-99) mg/dL POC Glucose (mg/dL) (70-110) mg/dL Magnesium (1.6-2.3) mg/dL Crossmatch See Detail 04/21/23 04/21/23 Range/Units 07:42 11:28 RBC (3.80-5.40) m/uL APTT (22.0-30.0) sec Glucose 133 H (74-99) mg/dL POC Glucose (mg/dL) 176 H (70-110) mg/dL Magnesium 1.5 L (1.6-2.3) mg/dL Crossmatch
[2023-04-21] MEDS: MAGNESIUM SULFATE-D5W PMX 1 GM in DEXTROSE/WATER 1 100ML.BAG IVPB SCH ×2 (12:35→14:12)
--- NOTE | 2023-04-21 13:39 | P.PN ---
Subjective Progress Note Date: 04/21/23 Principal diagnosis: Coronary artery disease. Pulmonary consult dated 04/19/2023. 52-year-old female who was seen in the emergency room, on April 16. She presented with 2-3 weeks of ongoing chest pain. The patient was in initially evaluated, and was thought to have a non-ST segment elevation myocardial infarction. The patient is currently seen in room 362. Apparently, she is scheduled to have bypass grafting on April 22. She's currently on room air. She's getting IV heparin via weightbase protocol, and IV nitroglycerin at 10 mcg/m. The patient has been smoking cigarettes for 40 years, having started at the age of 10. Her cardiac catheterization showed multivessel disease, including the LAD, circumflex, and right coronary artery. She had elevated left ventricular filling pressures. Prior to this, the patient had no known history of any medical problems, and only was taking vitamins at home. Most current labs include a white count 7.7, hemoglobin 13.1, hematocrit 35.9, and a normal platelet count. PTT is 51.1. Sodium 138, potassium 4, chlorides 107, CO2 24, BUN 17, creatinine 0.55. Troponins were 0.483 and 0.581. Cholesterol was 257. TSH was normal. Urine was negative. Hepatitis serology was negative as well. Chest x-ray was unremarkable. Progress note dated 04/20/2023. The patient is seen today in room 362. She's currently on room air. She's receiving IV heparin, and nitroglycerin drip at 15 mcg/m. She's not having any additional chest pain or chest discomfort. White count is 5.8, hemoglobin 12.2, hematocrit 34.7, and platelet count is normal. The patient is to have open heart surgery on Saturday. The patient's blood glucose is 173. Progress note dated 04/21/2023. The patient is seen today in room 362. Currently, the patient's on room air. The patient is receiving IV heparin, via weightbase protocol, and nitroglycerin, and 15 mcg/m. The patient is scheduled to have open heart surgery tomorrow. She is resting comfortably, without any complaints, and she denies any shortness of breath, difficulty breathing, or any additional chest pain. White count of 6.7, hemoglobin 12.7, hematocrit 35.4, and platelet count 175,000. PTT is 38.6. Sodium 139, potassium 4.7, chlorides 106, CO2 25, BUN 17, creatinine 0.55. Objective - Vital Signs Vital signs: Vital Signs Temp 98.3 F 04/21/23 08:33 Pulse 72 04/21/23 11:17 Resp 16 04/21/23 11:17 BP 124/75 04/21/23 11:17 Pulse Ox 100 04/21/23 11:17 FiO2 Intake & Output 04/20/23 04/21/23 04/21/23 18:59 06:59 18:59 Intake Total 990 169.7 490 Output Total 300 Balance 690 169.7 490 Weight 66.5 kg Intake: Intake, IV Titration 250 169.7 250 Amount Heparin Sod,Pork in 0.45% 250 250 NaCl 25,000 unit In 0.45 % NaCl 1 250ml.bag @ 12 UNITS/KG/HR 7.62 mls/hr IV .Q24H [facility] Rx#: [id number] Nitroglycerin-D5w Pmx 50 169.7 mg In Dextrose/Water 1 250ml.bag @ 15 MCG/MIN 4. 5 mls/hr IV .Q24H [facility] Rx# :[id number] Oral 740 240 Output: Urine 300 Other: Voiding Method Toilet Toilet # Voids 1 2 - Exam No acute distress, oriented 3. No respiratory difficulty. Currently on room air. HEENT examination is grossly unremarkable. Mucous membranes are moist. No oral lesions. Neck supple. Full range of motion. No adenopathy thyromegaly or neck vein distention. Cardiovascular examination reveals regular rhythm rate. S1-S2 normal. No S3 or S4. No discernible murmur noted. Heart rate is 72 bpm. Lungs reveal clear breath sounds. Breath sounds are equal bilaterally. No adv entitious lung sounds including wheezes rhonchi or crackles. Room air saturation is 97 %. Abdomen soft bowel sounds are heard. No masses or tenderness. Extremities are intact. No cyanosis clubbing or edema. Skin is without rash or lesion. Neurologic examination is brief but nonfocal. - Labs CBC & Chem 7: 04/21/23 07:42 04/21/23 07:42 Labs: Abnormal Lab Results - Last 24 Hours (Table) 04/20/23 04/20/23 04/21/23 Range/Units 16:46 20:16 06:13 RBC (3.80-5.40) m/uL APTT (22.0-30.0) sec Glucose (74-99) mg/dL POC Glucose (mg/dL) 234 H 138 H 150 H (70-110) mg/dL Magnesium (1.6-2.3) mg/dL Crossmatch 04/21/23 04/21/23 04/21/23 Range/Units 07:42 07:42 07:42 RBC 3.68 L (3.80-5.40) m/uL APTT 38.6 H (22.0-30.0) sec Glucose (74-99) mg/dL POC Glucose (mg/dL) (70-110) mg/dL Magnesium (1.6-2.3) mg/dL Crossmatch See Detail 04/21/23 04/21/23 Range/Units 07:42 11:28 RBC (3.80-5.40) m/uL APTT (22.0-30.0) sec Glucose 133 H (74-99) mg/dL POC Glucose (mg/dL) 176 H (70-110) mg/dL Magnesium 1.5 L (1.6-2.3) mg/dL Crossmatch Assessment and Plan Assessment: Non-ST segment elevation myocardial infarction, secondary to multivessel coronary disease. Patient scheduled for a bypass grafting, on April 22, 2023. 40+ years of tobacco use, beginning at the age of 10. No significant past medical history according to the patient. Dyslipidemia. Plan: Plan dated 04/19/2023. The patient is seen today in room 362. The patient is to have a preoperative spirometry. I don't know that that has been done as yet. She has been smoking for 40+ years. She's currently on IV heparin, and IV nitroglycerin. The patient is scheduled to have open heart surgery on April 22. Early on room air. Labs, x-rays, and medications are reviewed. We will continue to follow and make recommendations along the way. Plan dated 04/20/2023. The patient is seen today in room 362. The patient's on room air. She is rec eiving IV heparin. She is also on the nitroglycerin drip at 15 mcg/m. Labs, x- rays, and medications are reviewed. The patient's prognosis remains guarded. She is scheduled for bypass grafting, on April 22Saturday. We will continue to follow and make recommendations along the way. Plan dated 04/21/2023. The patient is again seen today in room 362. She is on room air. She is receiving IV heparin, and IV nitroglycerin. The patient is scheduled for bypass grafting, tomorrow, April 22. Labs, x-rays, medications are reviewed. The patient is encouraged to continue to use her incentive spirometer, before and after surgery. Additional recommendations and suggestions are forthcoming. Prognosis is guarded. Time with Patient: Less than 30
--- NOTE | 2023-04-21 15:31 | P.PN ---
Subjective Progress Note Date: 04/21/23 The patient is a 52-year-old female who is admitted to the hospital with new onset of chest discomfort. She was found to have a non-ST elevated myocardial infarction and was found to have multivessel coronary artery disease. Patient will be undergoing bypass surgery on Saturday. Patient was interviewed and examined resting comfortably in her room. She has been ambulating, chest pain-free. No difficulty breathing. The patient states she has full understanding of her surgery tomorrow and has no additional questions. GENERAL: Well-appearing, well-nourished and in no acute distress. NECK: Supple without JVD or thyromegaly. LUNGS: Breath sounds clear to auscultation bilaterally. Respiration equal and unlabored. No wheezes, rales or rhonchi. HEART: Regular rate and rhythm without murmurs, rubs or gallops. S1 and S2 heard. EXTREMITIES: Normal range of motion, no edema. No clubbing or cyanosis. Peripheral pulses intact and strong. TELEMETRY: Sinus rhythm IMPRESSION: Non-ST elevated myocardial infarction Triple-vessel coronary artery disease, CABG pending Hypertension Hyperlipidemia Diabetes PLAN: Continue heparin and nitro drip Nothing by mouth after midnight Bypass surgery pending tomorrow I am dictating on behalf of Dr Dex Stinson's history/physical and assessment/plan. Objective - Vital Signs Vital signs: Vital Signs Temp 98.3 F 04/21/23 08:33 Pulse 72 04/21/23 11:17 Resp 16 04/21/23 11:17 BP 124/75 04/21/23 11:17 Pulse Ox 100 04/21/23 11:17 FiO2 Intake & Output 04/20/23 04/21/23 04/21/23 18:59 06:59 18:59 Intake Total 990 169.7 730 Output Total 300 Balance 690 169.7 730 Weight 66.5 kg Intake: Intake, IV Titration 250 169.7 250 Amount Heparin Sod,Pork in 0.45% 250 250 NaCl 25,000 unit In 0.45 % NaCl 1 250ml.bag @ 12 UNITS/KG/HR 7.62 mls/hr IV .Q24H [facility] Rx#: [id number] Nitroglycerin-D5w Pmx 50 169.7 mg In Dextrose/Water 1 250ml.bag @ 15 MCG/MIN 4. 5 mls/hr IV .Q24H [facility] Rx# :[id number] Oral 740 480 Output: Urine 300 Other: Voiding Method Toilet Toilet # Voids 1 2 - Labs CBC & Chem 7: 04/21/23 07:42 04/21/23 07:42 Labs: Abnormal Lab Results - Last 24 Hours (Table) 04/20/23 04/20/23 04/21/23 Range/Units 16:46 20:16 06:13 RBC (3.80-5.40) m/uL APTT (22.0-30.0) sec Glucose (74-99) mg/dL POC Glucose (mg/dL) 234 H 138 H 150 H (70-110) mg/dL Magnesium (1.6-2.3) mg/dL Crossmatch 04/21/23 04/21/23 04/21/23 Range/Units 07:42 07:42 07:42 RBC 3.68 L (3.80-5.40) m/uL APTT 38.6 H (22.0-30.0) sec Glucose (74-99) mg/dL POC Glucose (mg/dL) (70-110) mg/dL Magnesium (1.6-2.3) mg/dL Crossmatch See Detail 04/21/23 04/21/23 Range/Units 07:42 11:28 RBC (3.80-5.40) m/uL APTT (22.0-30.0) sec Glucose 133 H (74-99) mg/dL POC Glucose (mg/dL) 176 H (70-110) mg/dL Magnesium 1.5 L (1.6-2.3) mg/dL Crossmatch
[2023-04-21] MEDS: NITROGLYCERIN-D5W PMX 50 MG in DEXTROSE/WATER 1 250ML.BAG IV SCH (16:33)
[2023-04-21 16:38] LABS: Glucose,Whole Blood 148 mg/dL (70-110)
[2023-04-21 21:06] LABS: Glucose,Whole Blood 227 mg/dL (70-110)
[2023-04-21] MEDS: ATORVASTATIN 80 MG TAB PO SCH (21:14)
[2023-04-22] MEDS: HEPARIN SOD,PORK IN 0.45% NACL 25,000 UNIT in 0.45% NACL 1 250ML.BAG IV SCH (01:01)
[2023-04-22] MEDS ORDERED: CHLORHEXIDINE GLUCONATE 15 ML CUP MUCOUS MEM ONE (05:00)
[2023-04-22] MEDS ORDERED: NITROGLYCERIN-D5W PMX 25 MG/250 ML BTL IV ONE (05:00)
[2023-04-22] MEDS ORDERED: ELECTROLYTE-A SOLUTION 1,000 ML with POTASSIUM CHLORIDE 100 MEQ, MAGNESIUM SULFATE 16 M... IV ONE ×5 (05:00)
[2023-04-22] MEDS ORDERED: ceFAZolin 1,000 MG in SODIUM CHLORIDE 0.9% IRRIGATIO 1,000 ML IRRIGATION ONE (05:00)
[2023-04-22] MEDS ORDERED: HEPARIN SODIUM,PORCINE (1 ML) 5,000 UNIT in SODIUM CHLORIDE 0.9% 500 ML 500 ML IV ONE (05:00)
[2023-04-22] MEDS ORDERED: PROTAMINE SULFATE 250 MG in EMPTY BAG 1 BAG IV ONE (05:00)
[2023-04-22] MEDS ORDERED: PAPAVERINE 360 MG in SODIUM CHLORIDE 0.9% 90 ML IV ONE (05:00)
[2023-04-22] MEDS ORDERED: HEPARIN SODIUM 1,000 UN/ML (10ML VL) IV ONE (05:00)
[2023-04-22] MEDS ORDERED: PHENYLEPHRINE 10 MG/ML VIAL IV ONE (05:00)
[2023-04-22] MEDS ORDERED: CLEVIDIPINE BUTYRATE 25 MG in EMPTY BAG 1 BAG IV SCH ×2 (05:00→18:02)
[2023-04-22] MEDS ORDERED: CALCIUM CHLORIDE 100 MG/ML 10 ML SYRINGE IVP ONE (05:00)
[2023-04-22] MEDS ORDERED: PROTAMINE SULFATE 10 MG/ML 25 ML VIAL IV ONE ×2 (05:00→13:50)
[2023-04-22] MEDS ORDERED: ALBUMIN HUMAN 25% 50 ML in EMPTY BAG 1 BAG IVPB ONE (05:00)
[2023-04-22] MEDS ORDERED: DILTIAZEM 125 MG in SODIUM CHLORIDE 0.9% 100 ML IV SCH ×2 (05:00→20:15)
[2023-04-22] MEDS ORDERED: NITROGLYCERIN-D5W PMX 50 MG in DEXTROSE/WATER 1 250ML.BAG IV SCH ×3 (05:00→19:00)
[2023-04-22] MEDS ORDERED: TRANEXAMIC ACID 2,000 MG in SODIUM CHLORIDE 0.9% 80 ML IV ONE (05:00)
[2023-04-22] MEDS ORDERED: ALBUMIN HUMAN 5% 500 ML in EMPTY BAG 1 BAG IVPB ONE ×6 (05:00)
[2023-04-22] MEDS ORDERED: MAGNESIUM SULFATE 16.24 MEQ in EMPTY SYRINGE 1 SYR IV ONE (05:00)
[2023-04-22] MEDS ORDERED: PHENYLEPHRINE 40 MG in SODIUM CHLORIDE 0.9% 250 ML IV ONE (05:00)
[2023-04-22] MEDS ORDERED: ELECTROLYTE-A SOLUTION 1,000 ML with POTASSIUM CHLORIDE 40 MEQ, MAGNESIUM SULFATE 16 ME... IV ONE ×5 (05:00)
[2023-04-22] MEDS ORDERED: SODIUM BICARB 8.4% 50 ML SYR (1 MEQ/ML) IV ONE (05:00)
[2023-04-22] MEDS ORDERED: MANNITOL 25% 12.5 GM/50 ML VIAL IV ONE ×2 (05:00)
[2023-04-22] MEDS ORDERED: NOREPINEPHRINE 4 MG in SODIUM CHLORIDE 0.9% 250 ML IV SCH (05:00)
[2023-04-22] MEDS ORDERED: LACTATED RINGERS 1,000 ML IV SCH (05:00)
[2023-04-22] MEDS ORDERED: INSULIN REGULAR 100 UNIT in SODIUM CHLORIDE 0.9% 100 ML IV SCH (05:00)
[2023-04-22 06:02] LABS: Glucose,Whole Blood 211 mg/dL (70-110)
[2023-04-22] MEDS: INSULIN DETEMIR (LEVEMIR) 100 UNIT/ML SYR SQ SCH ×2 (06:41→08:45)
[2023-04-22] MEDS: INSULIN ASPART (NovoLOG) 100 UNIT/ML VIAL SQ SCH ×3 (06:42→11:48)
[2023-04-22] MEDS: ASPIRIN 81 MG PO SCH (06:50)
[2023-04-22] MEDS: METOPROLOL TARTRATE 25 MG TAB PO SCH (06:50)
[2023-04-22] MEDS: NITROGLYCERIN OINT 1 INCH/GM PACKET TOPICAL SCH ×3 (06:52→11:47)
[2023-04-22] MEDS: MULTIVITAMINS, THERA 1 EACH TAB PO SCH (08:11)
[2023-04-22 08:42] LABS: Glucose,Whole Blood 175 mg/dL (70-110)
[2023-04-22 08:55] LABS: Basophils % (A) 0 %; Eosinophils # (A) 0.1 k/uL (0-0.7); Eosinophils % (A) 2 %; HCT 37.7 % (34.0-46.0); HGB 13.8 gm/dL (11.4-16.0); Lymphocytes # (A) 1.7 k/uL (1.0-4.8); Lymphocytes % (A) 24 %; MCH 35.3 pg (25.0-35.0); MCHC 36.6 g/dL (31.0-37.0); MCV 96.3 fL (80.0-100.0); Mean Platelet Volume 8.3; Monocytes # (A) 0.4 k/uL (0-1.0); Monocytes % (A) 6 %; Neutrophils # (A) 4.9 k/uL (1.3-7.7); Neutrophils % (A) 67 %; Platelet Count 182 k/uL (150-450); RBC 3.91 m/uL (3.80-5.40); RDW 12.6 % (11.5-15.5); WBC 7.3 k/uL (3.8-10.6)
[2023-04-22 09:09] LABS: ALT 38 U/L (4-34); African American GFR (CKD) >90 (>60 ml/min/1.73 sqM); Albumin 4.5 g/dL (3.5-5.0); Anion Gap 10 mmol/L; Blood Urea Nitrogen 20 mg/dL (7-17); Calcium 9.5 mg/dL (8.4-10.2); Carbon Dioxide 24 mmol/L (22-30); Chloride 103 mmol/L (98-107); Glucose 167 mg/dL (74-99); Non-African American GFR(CKD) >90 (>60 ml/min/1.73 sqM); Sodium 137 mmol/L (137-145); Total Bilirubin 1.1 mg/dL (0.2-1.3)
[2023-04-22 09:17] LABS: AST 75 U/L (14-36); Alkaline Phosphatase 67 U/L (38-126); Magnesium 1.6 mg/dL (1.6-2.3); Potassium 4.8 mmol/L (3.5-5.1)
[2023-04-22] MEDS ORDERED: ASPIRIN 81 MG PO STA (10:36)
[2023-04-22 11:23] LABS: Glucose,Whole Blood 152 mg/dL (70-110)
--- NOTE | 2023-04-22 11:30 | P.PN ---
Subjective Progress Note Date: 04/22/23 Hospital Course: 52-year-old female with a PMH of type II DM and tobacco abuse, has not seen a physician for several years, presents to the emergency room with complaints of chest pain and shortness of breath. In the emergency room, chest x-ray was unremarkable with EKG showing sinus rhythm at 79 bpm with T-wave inversion in leads 2, 3, and aVF with T-wave flattening in leads V5 and V6. Laboratory evaluation was remarkable for troponin 0.266 and subsequently 0.483. D-dimer was 0.1. Glucose was 177. Blood pressure upon arrival at the emergency room was 160/92 with pulse 86, CO2 91% on room air, and temp 98F. Patient admitted for NSTEMI on heparin drip. Cardiology consulted. Cardiac cath showed multivessel coronary artery disease, recommending CABG. patient currently unde rgoing preoperative testing with cardiothoracic surgery. Echocardiogram showed normal LV size and systolic function. Pending surgery today. Subjective: Seen and examined at bedside. No acute events overnight. Denies any further chest pain Pertinent positives and negatives as discussed above, a complete review of systems was performed and all other systems are negative. Vitals Signs Reviewed. General: nontoxic, no distress, appears at stated age Derm: warm, dry Head: atraumatic, normocephalic, symmetric Eyes: EOMI, no lid lag, anicteric sclera Mouth: no lip lesion, mucus membranes moist Cardiovascular: S1S2 reg, no murmur Lungs: CTA bilateral, no rhonchi, no rales , no accessory muscle use Abdominal: soft, nontender to palpation, no guarding, no appreciable organomegaly Ext: no gross muscle atrophy, no edema, no contractures Neuro: CN II-XI grossly intact, no focal neuro deficits Psych: Alert, oriented, appropriate affect Data Reviewed Today: Pertinent Labs: WBC 7.3, hemoglobin 13.8, platelet 182, sodium 137, potassium 4.8, creatinine 0.57, magnesium 1.6, blood sugars range between 167-175 Imaging: No new imaging Assessment and Plan: Multivessel coronary artery disease NSTEMI with recurrent chest pain Type 2 diabetes, A1c 7.5 Hypertension Nicotine dependence Mild hypomagnesemia, resolved -Cardiology following, on heparin drip and nitroglycerin drip, monitor for any bleeding -Cardiothoracic surgery following, surgery today -Aspirin 81 mg, atorvastatin 80 mg, metoprolol 25 mg twice a day -On Levemir and sliding scale insulin, will likely need insulin drip following cardiac surgery -Counseled regarding smoking cessation DVT ppx: Heparin drip Code status: Full code Anticipated discharge place: Pending clinical course Anticipated discharge time: Pending clinical course Objective - Vital Signs Vital signs: Vital Signs Temp 98.8 F 04/22/23 11:15 Pulse 98 04/22/23 11:15 Resp 16 04/22/23 11:15 BP 103/67 04/22/23 11:15 Pulse Ox 98 04/22/23 11:15 FiO2 Intake & Output 04/21/23 04/22/23 04/22/23 18:59 06:59 18:59 Intake Total 1020.95 120 Balance 1020.95 120 Intake: Intake, IV Titration 300.95 Amount Heparin Sod,Pork in 0.45% 250 NaCl 25,000 unit In 0.45 % NaCl 1 250ml.bag @ 12 UNITS/KG/HR 7.62 mls/hr IV .Q24H [facility] Rx#: [id number] Nitroglycerin-D5w Pmx 50 50.95 mg In Dextrose/Water 1 250ml.bag @ 15 MCG/MIN 4. 5 mls/hr IV .Q24H [facility] Rx# :[id number] Oral 720 120 Other: Voiding Method Toilet Toilet Toilet # Voids 2 2 - Labs CBC & Chem 7: 04/22/23 07:52 04/22/23 07:52 Labs: Abnormal Lab Results - Last 24 Hours (Table) 04/21/23 04/21/23 04/21/23 Range/Units 16:36 19:35 21:04 MCH (25.0-35.0) pg APTT 50.0 H (22.0-30.0) sec BUN (7-17) mg/dL Glucose (74-99) mg/dL POC Glucose (mg/dL) 148 H 227 H (70-110) mg/dL AST (14-36) U/L ALT (4-34) U/L 04/22/23 04/22/23 04/22/23 Range/Units 06:01 07:52 07:52 MCH 35.3 H (25.0-35.0) pg APTT (22.0-30.0) sec BUN 20 H (7-17) mg/dL Glucose 167 H (74-99) mg/dL POC Glucose (mg/dL) 211 H (70-110) mg/dL AST 75 H (14-36) U/L ALT 38 H (4-34) U/L 04/22/23 04/22/23 04/22/23 Range/Units 07:52 08:39 11:22 MCH (25.0-35.0) pg APTT 48.9 H (22.0-30.0) sec BUN (7-17) mg/dL Glucose (74-99) mg/dL POC Glucose (mg/dL) 175 H 152 H (70-110) mg/dL AST (14-36) U/L ALT (4-34) U/L
--- NOTE | 2023-04-22 11:31 | P.PN ---
Subjective HISTORY OF PRESENT ILLNESS: Patient examined this morning at the bedside. Patient's family is present. Patient is scheduled to undergo CABG this afternoon. She denies any chest pain or pressure. She denies any shortness of breath. Vital signs are stable. PHYSICAL EXAM: VITAL SIGNS: Reviewed. GENERAL: Well-developed in no acute distress. NECK: Supple. No JVD or thyromegaly LUNGS: Respirations even and unlabored. Lungs essentially clear to auscultation bilaterally. HEART: Regular rate and rhythm. S1 and S2 heard. EXTREMITIES: Normal range of motion. No clubbing or cyanosis. Peripheral pul ses intact. No lower extremity edema ASSESSMENT: Non-STEMI Triple vessel coronary artery disease Hypertension Hyperlipidemia Diabetes PLAN: Continue current cardiac medications Patient is scheduled to undergo CABG this afternoon Further recommendations pending patient course Patient to follow up post discharge with Dr. Stinson Nurse practitioner note has been reviewed by physician. Signing provider agrees with the documented findings, assessment, and plan of care. Objective - Vital Signs Vital signs: Vital Signs Temp 98.8 F 04/22/23 11:15 Pulse 98 04/22/23 11:15 Resp 16 04/22/23 11:15 BP 103/67 04/22/23 11:15 Pulse Ox 98 04/22/23 11:15 FiO2 Intake & Output 04/21/23 04/22/23 04/22/23 18:59 06:59 18:59 Intake Total 1020.95 120 Balance 1020.95 120 Intake: Intake, IV Titration 300.95 Amount Heparin Sod,Pork in 0.45% 250 NaCl 25,000 unit In 0.45 % NaCl 1 250ml.bag @ 12 UNITS/KG/HR 7.62 mls/hr IV .Q24H [facility] Rx#: [id number] Nitroglycerin-D5w Pmx 50 50.95 mg In Dextrose/Water 1 250ml.bag @ 15 MCG/MIN 4. 5 mls/hr IV .Q24H [facility] Rx# :[id number] Oral 720 120 Other: Voiding Method Toilet Toilet Toilet # Voids 2 2 - Labs CBC & Chem 7: 04/22/23 07:52 04/22/23 07:52 Labs: Abnormal Lab Results - Last 24 Hours (Table) 04/21/23 04/21/23 04/21/23 Range/Units 16:36 19:35 21:04 MCH (25.0-35.0) pg APTT 50.0 H (22.0-30.0) sec BUN (7-17) mg/dL Glucose (74-99) mg/dL POC Glucose (mg/dL) 148 H 227 H (70-110) mg/dL AST (14-36) U/L ALT (4-34) U/L 04/22/23 04/22/23 04/22/23 Range/Units 06:01 07:52 07:52 MCH 35.3 H (25.0-35.0) pg APTT (22.0-30.0) sec BUN 20 H (7-17) mg/dL Glucose 167 H (74-99) mg/dL POC Glucose (mg/dL) 211 H (70-110) mg/dL AST 75 H (14-36) U/L ALT 38 H (4-34) U/L 04/22/23 04/22/23 04/22/23 Range/Units 07:52 08:39 11:22 MCH (25.0-35.0) pg APTT 48.9 H (22.0-30.0) sec BUN (7-17) mg/dL Glucose (74-99) mg/dL POC Glucose (mg/dL) 175 H 152 H (70-110) mg/dL AST (14-36) U/L ALT (4-34) U/L
[2023-04-22] MEDS ORDERED: IV FLUID CONTINUATION 1,000 ML IV ONE ×2 (12:25→12:26)
[2023-04-22] MEDS ORDERED: HEPARIN SODIUM,PORCINE 5,000 UNIT/ML 1 ML VIAL ONE (13:50)
[2023-04-22] MEDS ORDERED: ALBUMIN HUMAN 5% (12.5gm) 250 ML BOTTLE IVPB ONE (13:50)
[2023-04-22] MEDS ORDERED: PHENYLEPHRINE-0.9% NACL SYG 1,000 MCG/10 ML SYRINGE ONE (13:50)
[2023-04-22] MEDS ORDERED: NITROGLYCERIN-D5W PMX 50 MG/250 ML BOTTLE IV ONE (13:50)
[2023-04-22] MEDS ORDERED: MIDAZOLAM HCL 10 MG/10 ML VIAL ONE (13:50)
[2023-04-22] MEDS ORDERED: HEPARIN SODIUM,PORCINE 10,000 UNIT/ML 1 ML VIAL ONE (13:50)
[2023-04-22] MEDS ORDERED: fentaNYL (PF) 50 MCG/ML 50 ML VIAL ONE (13:50)
[2023-04-22] MEDS ORDERED: PROPOFOL 10 MG/ML 20 ML VIAL IV ONE (13:50)
[2023-04-22] MEDS ORDERED: VECURONIUM 10 MG VIAL IV ONE (13:50)
[2023-04-22] MEDS ORDERED: VANCOMYCIN 1,000 MG in SODIUM CHLORIDE 0.9% IRRIGATIO 1,000 ML IRRIGATION ONE (15:15)
[2023-04-22] MEDS ORDERED: hydrALAZINE HCL 20 MG/ML 1 ML VIAL IVP PRN (18:02)
[2023-04-22] MEDS ORDERED: Magnesium Replacement Protocol 1 EACH MISC MISCELLANE PRN (18:02)
[2023-04-22] MEDS ORDERED: Potassium Replacement Protocol 1 EACH MISC MISCELLANE PRN (18:02)
[2023-04-22] MEDS ORDERED: AMIODARONE 360 MG in DEXTROSE 5% IN WATER 200 ML IV PRN ×2 (18:02)
[2023-04-22] MEDS ORDERED: DEXMEDETOMIDINE/0.9% NACL(PMX) 400 MCG in EMPTY BAG 1 BAG IV SCH (18:02)
[2023-04-22] MEDS ORDERED: DEXTROSE 5% IN WATER 100 ML with AMIODARONE 150 MG IV PRN (18:02)
[2023-04-22] MEDS ORDERED: BENZOCAINE/MENTHOL LOZENG 1 EACH LOZENGE MUCOUS MEM PRN (18:02)
[2023-04-22] MEDS ORDERED: DEXTROSE 50% SYRINGE 50 ML IVP PRN ×2 (18:02)
[2023-04-22] MEDS ORDERED: METOCLOPRAMIDE 5 MG/ML 2 ML VIAL IVP PRN (18:02)
[2023-04-22] MEDS ORDERED: IPRATROPIUM-ALBUTEROL 3 ML NEB INHALATION PRN (18:02)
[2023-04-22] MEDS ORDERED: AMIODARONE 450 MG in DEXTROSE 5% IN WATER 250 ML IV PRN ×2 (18:02)
--- NOTE | 2023-04-22 19:02 | P.OP ---
Date of Procedure: 04/22/23 Preoperative Diagnosis: NSTEMI 3V CAD HTN HLD DM Tobacco abuse Postoperative Diagnosis: Same Procedure(s) Performed: 1. Off pump coronary artery bypass grafting x 5. Left internal thoracic artery (in-situ) to left anterior descending artery. Left radial artery sequential from aorta to obtuse marginal #1 and obtuse marginal #2. Saphenous vein from aorta to diagonal artery. Saphenous vein from aorta to posterior descending artery. 2. Left atrial appendage ligation using #35mm AtriClip 3. Endoscopic left radial and right greater saphenous vein harvest 4. Graft flow measurements using the medi-stim flow meter 5. Trans-esophageal echo. Anesthesia: GETA Surgeon: Dwayne Bill Logistics Coordinator #1: Jax Gamboa Logistics Coordinator #2: Du Bryan Estimated Blood Loss (ml): 250 Pathology: none sent Condition: critical Disposition: ICU Indications for Procedure: This patient is a 52 year-old female with a history of HTN, HLD, DM, tobacco use and family hx of CAD presented to the hospital with stable angina for the last 3 weeks. She underwent coronary angiography which revealed 3v CAD. CABG was recommended. Her sts risk of mortality and morbidity was discussed with the patient and she was in agreement to proceed. Operative Findings: CLARK 1.4mm good conduit. LAD good target mid to distal portion. CLARK-LAD flow 16ml/min, P.I. 3.2 Saphenous vein 1.8mm good conduit. PDA 1.5mm good target. GSV-PDA flow 21ml/min, P.I. 4.9 Diagonal 1.7mm good target. GSV-diag flow 18ml/min, P.I. 2.1 Radial artery 2.0mm good conduit. RA-OM1-OM2 Flow 35ml/min, P.I. 6.6 Description of Procedure: The patient underwent central line, arterial line, and Hunter Mehdi catheter placement in the pre-operative suite by the anesthesia team. The patient was then brought to the operating room and placed in the supine position. General anesthesia was induced and the patient was prepped from the chin to the ankles in the usual sterile fashion. A time-out was performed and antibiotics were given. A midline incision was made on the chest and carried down to bone. A median sternotomy was performed. Hemostasis on the bone was achieved using electrocautery. The left pleura was entered and the left internal thoracic artery was harvested in a skeletonized fashion. Simultaneously a physician producer assistant harvested the left greater saphenous vein as well as the left radial artery in an endoscopic fashion. The patient was systemically heparinized and the SAM was transected and placed in a papaverine jacuzzi. A left sided chest tube was placed. The right pleura was incised. The pericardium was incised in a reverse T-fashion and a pericardial cradle was created. Stay sutures were placed. A 35mm AtriClip was placed on the left atrial appendage. The left pericardium was incised to make a pathway for the mammary. The stabilizer was placed on the LAD at the mid-distal portion. An arteriorotomy was made and 1.5mm flow through was inserted. An end to side anastomisis between the CLARK and LAD was performed using a running 7-0 prolene. Next, the inferior wall was exposed and a stay suture was placed on the diaphragm near the IVC and another one in the transverse sinus. The PDA was exposed and stabilized. Art eriorotomy was performed and 1.5mm flow through was inserted. An end to side anastomosis between the saphenous vein and PDA was performed using a running 7-0 prolene. Next the lateral wall was exposed and the second obtuse marginal artery was exposed and stabilized. An arteriortomy was made and there was minimal chehalis flow through this vessel, a 1.5mm flow through was inserted. An end to side anastomosis between the radial artery and OM2 was performed using a running 7-0 prolene. The flow through was once again removed prior to tieing down the anastomosis. Next the first obtuse marginal artery was stabilized and opened. A 1.5mm flow through was inserted and a side to side nancy anastomosis was performed using a running 7-0 prolene. Lastly the diagonal branch of the LAD was stabilized. It appeared to be a decent target. It was opened and 1.5mm flow through inserted. An end to side anastomosis between the diagonal and saphenous vein was performed using running 7-0 prolene. Lastly a side biting clamp was placed on the aorta and 11 blade used to make 3 holes on the ascending. 4.5mm hole punch was used and the radial artery and both saphenous veins were fastened to the ascending aorta using a running 6=-0 prolene suture. The clamp was released and grafts de-aired. Graft flow measurement was conducted and it was excellent in all grafts. The pericardium was closed. A 32F chest tube and 19F Matthew were placed in the mediastinum and right pleura respectively. The sternum was re-approximated using cables. The fascia was closed with Ethibond and the subcutaneous tissues and skin, the sternum, arm and leg were closed in Vicryl layers. The patient was transported to the ICU without any major complications. MEJIA showed improved wall motion at the end of the procedure.
[2023-04-22] MEDS: LACTATED RINGERS 1,000 ML IV SCH (19:10)
--- NOTE | 2023-04-22 19:21 | XR ---
EXAMINATION TYPE: XR chest 1V portable DATE OF EXAM: 04/22/2023 7:10 PM CLINICAL INDICATION:Female, 52 years old with history of Post Operative Cardiac Surgery; [facility] COMPARISON: Chest radiographs from TECHNIQUE: XR chest 1V portable Frontal view of the chest. FINDINGS: Lungs/Pleura: There is no evidence of pleural effusion, focal consolidation, or pneumothorax. Pulmonary vascularity: Pulmonary vascular congestion. Heart/mediastinum: Cardiomediastinal silhouette is unremarkable. Left atrial appendage occlusion rebeca ce is present. Musculoskeletal: No acute osseous pathology. Midline sternotomy wires are noted. Other findings: Right upper quadrant cholecystectomy clips. Lines/Tubes: Endotracheal tube with distal tip 4.2 cm above the virgil. Nasogastric tube with its distal tip and side-port projecting under the diaphragm. There is a Malinta-Mehdi catheter with tip projecting over the spine. Left thoracotomy tube is present without evidence of pneumothorax. Drainage tubes with tips projecting over the mediastinum. IMPRESSION: 1. No evidence for unexpected radiopaque foreign body such as surgical instrument. 2. Postoperative changes with tubes and lines in appropriate position.
[2023-04-22] MEDS: ALBUMIN HUMAN 5% 250 ML in EMPTY BAG 1 BAG IVPB PRN (19:25)
[2023-04-22 19:36] LABS: Ionized Calcium 4.8 mg/dL (4.5-5.3)
[2023-04-22 19:38] LABS: Basophils % (A) 0 %; Eosinophils # (A) 0.1 k/uL (0-0.7); Eosinophils % (A) 1 %; HCT 31.8 % (34.0-46.0); HGB 11.5 gm/dL (11.4-16.0); Hyperchromasia Slight; INR 1.1 (<1.2); Lymphocytes # (A) 1.3 k/uL (1.0-4.8); Lymphocytes % (A) 18 %; MCH 33.9 pg (25.0-35.0); MCHC 36.1 g/dL (31.0-37.0); MCV 94.1 fL (80.0-100.0); Monocytes # (A) 0.3 k/uL (0-1.0); Monocytes % (A) 4 %; Neutrophils # (A) 5.6 k/uL (1.3-7.7); Neutrophils % (A) 77 %; Partial Thromboplastin Time 25.2 sec (22.0-30.0); Platelet Count 112 k/uL (150-450); Prothrombin Time 11.3 sec (9.0-12.0); RBC 3.38 m/uL (3.80-5.40); WBC 7.3 k/uL (3.8-10.6)
[2023-04-22 19:41] LABS: ABG Base Excess -2.2 mmol/L; ABG HCO3 24 mmol/L (21-25); ABG PCO2 44 mmHg (35-45); ABG PH 7.34 (7.35-7.45); ABG PO2 389 mmHg (83-108); ABG TCO2 25 mmol/L (19-24); Allen Test Performed? Yes
[2023-04-22 19:46] LABS: Glucose,Whole Blood 104 mg/dL (70-110)
[2023-04-22 19:46] LABS: Glucose,Whole Blood 104 mg/dL (70-110)
[2023-04-22 19:48] LABS: ALT 53 U/L (4-34); AST 151 U/L (14-36); African American GFR (CKD) >90 (>60 ml/min/1.73 sqM); Albumin 3.4 g/dL (3.5-5.0); Anion Gap 9 mmol/L; Blood Urea Nitrogen 16 mg/dL (7-17); Calcium 8.5 mg/dL (8.4-10.2); Carbon Dioxide 21 mmol/L (22-30); Chloride 109 mmol/L (98-107); Glucose 91 mg/dL (74-99); Magnesium 1.3 mg/dL (1.6-2.3); Non-African American GFR(CKD) >90 (>60 ml/min/1.73 sqM); Potassium 4.5 mmol/L (3.5-5.1); Sodium 139 mmol/L (137-145); Total Protein 5.8 g/dL (6.3-8.2)
[2023-04-22] MEDS ORDERED: IPRATROPIUM-ALBUTEROL 3 ML NEB INHALATION SCH (20:00)
[2023-04-22 20:03] LABS: Alkaline Phosphatase 52 U/L (38-126)
[2023-04-22] MEDS: MAGNESIUM SULFATE-D5W PMX 1 GM in DEXTROSE/WATER 1 100ML.BAG IVPB SCH ×4 (20:08→23:14)
[2023-04-22] MEDS: ACETAMINOPHEN IV (For NPO) 1,000 MG in EMPTY BAG 1 BAG IVPB SCH (20:50)
[2023-04-22 21:00] LABS: Glucose,Whole Blood 169 mg/dL (70-110)
[2023-04-22] MEDS: INSULIN REGULAR 100 UNIT in SODIUM CHLORIDE 0.9% 100 ML IV SCH (21:00)
[2023-04-22 21:58] LABS: Glucose,Whole Blood 182 mg/dL (70-110)
[2023-04-22 22:24] LABS: Basophils % (A) 0 %; Eosinophils # (A) 0.1 k/uL (0-0.7); Eosinophils % (A) 1 %; HCT 31.4 % (34.0-46.0); HGB 11.3 gm/dL (11.4-16.0); Lymphocytes # (A) 1.1 k/uL (1.0-4.8); Lymphocytes % (A) 10 %; MCH 34.7 pg (25.0-35.0); MCV 96.2 fL (80.0-100.0); Mean Platelet Volume 7.8; Monocytes # (A) 0.6 k/uL (0-1.0); Monocytes % (A) 5 %; Neutrophils # (A) 8.8 k/uL (1.3-7.7); Neutrophils % (A) 82 %; Platelet Count 154 k/uL (150-450); RBC 3.27 m/uL (3.80-5.40); WBC 10.7 k/uL (3.8-10.6)
[2023-04-22 22:58] LABS: Glucose,Whole Blood 202 mg/dL (70-110)
[2023-04-22] MEDS: SENNOSIDES-DOCUSATE SODIUM 1 EACH TAB PO SCH (23:12)
[2023-04-22] MEDS: ATORVASTATIN 80 MG TAB PO SCH (23:12)
[2023-04-22] MEDS: HEPARIN SODIUM,PORCINE 5,000 UNIT/ML 1 ML VIAL SQ SCH (23:46)
[2023-04-22 23:58] LABS: Glucose,Whole Blood 213 mg/dL (70-110)
[2023-04-23 00:19] LABS: Allen Test Performed? Yes
[2023-04-23 00:29] LABS: ABG Base Excess -3.5 mmol/L; ABG HCO3 23 mmol/L (21-25); ABG Oxygen Saturation 97.8 % (94-97); ABG PCO2 49 mmHg (35-45); ABG PH 7.29 (7.35-7.45); ABG PO2 109 mmHg (83-108); ABG TCO2 25 mmol/L (19-24)
[2023-04-23 01:05] LABS: Glucose,Whole Blood 161 mg/dL (70-110)
[2023-04-23] MEDS: ACETAMINOPHEN IV (For NPO) 1,000 MG in EMPTY BAG 1 BAG IVPB SCH (01:37)
[2023-04-23] MEDS: NITROGLYCERIN-D5W PMX 50 MG in DEXTROSE/WATER 1 250ML.BAG IV SCH (01:41)
[2023-04-23 01:44] LABS: Basophils % (A) 0 %; Eosinophils % (A) 0 %; HCT 33.2 % (34.0-46.0); Lymphocytes # (A) 0.6 k/uL (1.0-4.8); Lymphocytes % (A) 7 %; MCH 34.8 pg (25.0-35.0); MCHC 36.1 g/dL (31.0-37.0); MCV 96.5 fL (80.0-100.0); Monocytes # (A) 0.5 k/uL (0-1.0); Monocytes % (A) 5 %; Neutrophils # (A) 7.7 k/uL (1.3-7.7); Neutrophils % (A) 87 %; Platelet Count 140 k/uL (150-450); RBC 3.44 m/uL (3.80-5.40); RDW 12.6 % (11.5-15.5); WBC 8.9 k/uL (3.8-10.6)
[2023-04-23 02:07] LABS: Glucose,Whole Blood 144 mg/dL (70-110)
[2023-04-23 02:59] LABS: Glucose,Whole Blood 123 mg/dL (70-110)
[2023-04-23 04:00] LABS: Glucose,Whole Blood 120 mg/dL (70-110)
[2023-04-23 04:49] LABS: Basophils % (A) 0 %; Eosinophils % (A) 0 %; HCT 32.6 % (34.0-46.0); HGB 11.6 gm/dL (11.4-16.0); Lymphocytes # (A) 0.8 k/uL (1.0-4.8); Lymphocytes % (A) 6 %; MCH 34.6 pg (25.0-35.0); MCHC 35.8 g/dL (31.0-37.0); MCV 96.6 fL (80.0-100.0); Mean Platelet Volume 8.3; Monocytes # (A) 0.7 k/uL (0-1.0); Monocytes % (A) 5 %; Neutrophils % (A) 88 %; Platelet Count 192 k/uL (150-450); RBC 3.37 m/uL (3.80-5.40); RDW 13.1 % (11.5-15.5); WBC 12.5 k/uL (3.8-10.6)
[2023-04-23] MEDS: ONDANSETRON 4 MG/2 ML VIAL IVP PRN (04:51)
[2023-04-23 04:55] LABS: Ionized Calcium 4.7 mg/dL (4.5-5.3)
[2023-04-23 04:59] LABS: ALT 53 U/L (4-34); AST 106 U/L (14-36); African American GFR (CKD) >90 (>60 ml/min/1.73 sqM); Albumin 4.1 g/dL (3.5-5.0); Alkaline Phosphatase 59 U/L (38-126); Anion Gap 9 mmol/L; Blood Urea Nitrogen 17 mg/dL (7-17); Calcium 8.8 mg/dL (8.4-10.2); Carbon Dioxide 22 mmol/L (22-30); Chloride 106 mmol/L (98-107); Glucose 119 mg/dL (74-99); Magnesium 2.1 mg/dL (1.6-2.3); Non-African American GFR(CKD) >90 (>60 ml/min/1.73 sqM); Potassium 4.4 mmol/L (3.5-5.1); Sodium 137 mmol/L (137-145); Total Bilirubin 0.7 mg/dL (0.2-1.3); Total Protein 6.4 g/dL (6.3-8.2)
[2023-04-23] MEDS: ALBUMIN HUMAN 5% 250 ML in EMPTY BAG 1 BAG IVPB PRN (05:47)
[2023-04-23 05:51] LABS: Glucose,Whole Blood 120 mg/dL (70-110)
[2023-04-23 07:03] LABS: Glucose,Whole Blood 126 mg/dL (70-110)
[2023-04-23] MEDS: IPRATROPIUM-ALBUTEROL 3 ML NEB INHALATION SCH ×5 (07:19→21:07)
[2023-04-23] MEDS ORDERED: ACETAMINOPHEN TAB 325 MG TAB PO PRN (07:41)
[2023-04-23] MEDS ORDERED: METOPROLOL TARTRATE 12.5 MG TAB PO STA (07:42)
[2023-04-23] MEDS: CLOPIDOGREL 75 MG TAB PO SCH (08:05)
[2023-04-23] MEDS: HEPARIN SODIUM,PORCINE 5,000 UNIT/ML 1 ML VIAL SQ SCH ×2 (08:05→16:32)
[2023-04-23] MEDS: MULTIVITAMINS, THERA 1 EACH TAB PO SCH (08:05)
[2023-04-23] MEDS: ASPIRIN 325 MG TAB PO SCH (08:05)
--- NOTE | 2023-04-23 08:14 | P.PN ---
Subjective Progress Note Date: 04/23/23 Principal diagnosis: CAD/ CABG The patient is a pleasant 52-year-old female patient with CAD and known severe triple-vessel coronary artery disease who underwent yesterday CABG 4 with CLARK to LAD and radial artery to diagonal and OM 1 and OM 2 as well as SVG to RCA 04/23/2023 This is postoperative day #1. The patient is a stable hemodynamically and she has been maintaining normal sinus mechanism with mild tachycardia and her pressure has been slightly elevated. She will be started on cut section child hector orally. She is on dual antiplatelet therapy along with a statin. Her urine output has been marginal. The chest x-ray was reviewed and showed small bilateral pleural effusion. The blood work including CBC and BNP came in to be unremarkable Examination is remarkable for regular rhythm with the patient being sounds bilaterally Assessment CAD status post CABG Hypertension Dyslipidemia Multiple comorbid conditions Plan Continue the current medical regimen Crosier giving the patient some IV diuretics Consider starting the patient on calcium channel hector orally Continue dual antiplatelet therapy along with high intensity statin Follow-up with the patient Objective - Vital Signs Vital signs: Vital Signs Temp 97.2 F L 04/22/23 12:16 Pulse 90 04/23/23 07:31 Resp 27 H 04/23/23 07:00 BP 146/78 04/23/23 07:00 Pulse Ox 95 04/23/23 07:00 FiO2 50 04/23/23 00:00 Intake & Output 04/22/23 04/23/23 04/23/23 18:59 06:59 18:59 Intake Total 218.706 7408.601 93.494 Output Total 1050 925 45 Balance -888.156 0130.601 48.494 Weight 65 kg Intake: IV 53 2018 79 0.9 NS Pressure bags 108 9 ACETAMINOPHEN IV (For NPO 200 ) 1,000 mg In Empty Bag 1 bag @ 400 mls/hr IVPB Q6HR [facility] Rx#:[id number] Albumin Human 5% 250 ml 500 In Empty Bag 1 bag @ 250 mls/hr IVPB Q1HR PRN Rx#: [id number] CO/CI NS 0.9 260 20 Lactated Ringers 1,000 ml 550 50 @ 20 mls/hr IV .Q24H [facility] Rx#:[id number] Magnesium Sulfate-D5w Pmx 400 1 gm In Dextrose/Water 1 100ml.bag @ 100 mls/hr IVPB Q1H [facility] Rx#: [id number] Intake, IV Titration 168.696 155.601 14.494 Amount Clevidipine Butyrate 25 1.516 mg In Empty Bag 1 bag @ 1 MG/HR 2 mls/hr IV .Q24H [facility] Rx#:[id number] Dexmedetomidine/0.9% NaCl 4.323 (Pmx) 400 mcg In Empty Bag 1 bag @ Titrate IV . Q0M [facility] Rx#:[id number] Diltiazem 125 mg In 18.917 Sodium Chloride 0.9% 100 ml @ 5 MG/HR 5 mls/hr IV .Q24H [facility] Rx#:[id number] Heparin Sod,Pork in 0.45% 168.696 NaCl 25,000 unit In 0.45 % NaCl 1 250ml.bag @ 12 UNITS/KG/HR 7.62 mls/hr IV .Q24H [facility] Rx#: [id number] Insulin Regular 100 unit 28.675 14.494 In Sodium Chloride 0.9% 100 ml @ Per Protocol IV .Q0M [facility] Rx#:[id number] Nitroglycerin-D5w Pmx 50 43.45 mg In Dextrose/Water 1 250ml.bag @ 5 MCG/MIN 1.5 mls/hr IV .Q24H [facility] Rx#: [id number] propofoL 1,000 mg In 58.720 Empty Bag 1 bag @ Titrate IV .Q0M [facility] Rx#: [id number] Output: Chest Tube Drainage 430 5 Chest Tube Left Pleural/ 360 0 Mediastinal Chest Tube Mediastinal 70 5 Urine 300 495 40 Estimated Blood Loss 750 Other: Voiding Method Toilet Indwelling Catheter ABP, PAP, CO, CI - Last Documented Arterial Blood Pressure 101/77 Pulmonary Artery Pressure 25/10 Cardiac Output 3.6 Cardiac Index 2.2 - Labs CBC & Chem 7: 04/23/23 04:09 04/23/23 04:09 Labs: Abnormal Lab Results - Last 24 Hours (Table) 04/21/23 04/22/23 04/22/23 Range/Units 07:42 07:52 07:52 WBC (3.8-10.6) k/uL RBC (3.80-5.40) m/uL Hgb (11.4-16.0) gm/dL Hct (34.0-46.0) % MCH 35.3 H (25.0-35.0) pg Plt Count (150-450) k/uL Neutrophils # (1.3-7.7) k/uL Lymphocytes # (1.0-4.8) k/uL APTT (22.0-30.0) sec ABG pH (7.35-7.45) ABG pCO2 (35-45) mmHg ABG pO2 (83-108) mmHg ABG Total CO2 (19-24) mmol/L ABG O2 Saturation (94-97) % Chloride (98-107) mmol/L Carbon Dioxide (22-30) mmol/L BUN 20 H (7-17) mg/dL Glucose 167 H (74-99) mg/dL POC Glucose (mg/dL) (70-110) mg/dL Magnesium (1.6-2.3) mg/dL AST 75 H (14-36) U/L ALT 38 H (4-34) U/L Total Protein (6.3-8.2) g/dL Albumin (3.5-5.0) g/dL Crossmatch See Detail 04/22/23 04/22/23 04/22/23 Range/Units 07:52 08:39 11:22 WBC (3.8-10.6) k/uL RBC (3.80-5.40) m/uL Hgb (11.4-16.0) gm/dL Hct (34.0-46.0) % MCH (25.0-35.0) pg Plt Count (150-450) k/uL Neutrophils # (1.3-7.7) k/uL Lymphocytes # (1.0-4.8) k/uL APTT 48.9 H (22.0-30.0) sec ABG pH (7.35-7.45) ABG pCO2 (35-45) mmHg ABG pO2 (83-108) mmHg ABG Total CO2 (19-24) mmol/L ABG O2 Saturation (94-97) % Chloride (98-107) mmol/L Carbon Dioxide (22-30) mmol/L BUN (7-17) mg/dL Glucose (74-99) mg/dL POC Glucose (mg/dL) 175 H 152 H (70-110) mg/dL Magnesium (1.6-2.3) mg/dL AST (14-36) U/L ALT (4-34) U/L Total Protein (6.3-8.2) g/dL Albumin (3.5-5.0) g/dL Crossmatch 04/22/23 04/22/23 04/22/23 Range/Units 19:13 19:13 19:35 WBC (3.8-10.6) k/uL RBC 3.38 L (3.80-5.40) m/uL Hgb (11.4-16.0) gm/dL Hct 31.8 L (34.0-46.0) % MCH (25.0-35.0) pg Plt Count 112 L (150-450) k/uL Neutrophils # (1.3-7.7) k/uL Lymphocytes # (1.0-4.8) k/uL APTT (22.0-30.0) sec ABG pH 7.34 L (7.35-7.45) ABG pCO2 (35-45) mmHg ABG pO2 389 H (83-108) mmHg ABG Total CO2 25 H (19-24) mmol/L ABG O2 Saturation 100.0 H (94-97) % Chloride 109 H (98-107) mmol/L Carbon Dioxide 21 L (22-30) mmol/L BUN (7-17) mg/dL Glucose (74-99) mg/dL POC Glucose (mg/dL) (70-110) mg/dL Magnesium 1.3 L (1.6-2.3) mg/dL AST 151 H (14-36) U/L ALT 53 H (4-34) U/L Total Protein 5.8 L (6.3-8.2) g/dL Albumin 3.4 L (3.5-5.0) g/dL Crossmatch 04/22/23 04/22/23 04/22/23 Range/Units 20:58 21:55 22:10 WBC 10.7 H (3.8-10.6) k/uL RBC 3.27 L (3.80-5.40) m/uL Hgb 11.3 L (11.4-16.0) gm/dL Hct 31.4 L (34.0-46.0) % MCH (25.0-35.0) pg Plt Count (150-450) k/uL Neutrophils # 8.8 H (1.3-7.7) k/uL Lymphocytes # (1.0-4.8) k/uL APTT (22.0-30.0) sec ABG pH (7.35-7.45) ABG pCO2 (35-45) mmHg ABG pO2 (83-108) mmHg ABG Total CO2 (19-24) mmol/L ABG O2 Saturation (94-97) % Chloride (98-107) mmol/L Carbon Dioxide (22-30) mmol/L BUN (7-17) mg/dL Glucose (74-99) mg/dL POC Glucose (mg/dL) 169 H 182 H (70-110) mg/dL Magnesium (1.6-2.3) mg/dL AST (14-36) U/L ALT (4-34) U/L Total Protein (6.3-8.2) g/dL Albumin (3.5-5.0) g/dL Crossmatch 04/22/23 04/22/23 04/23/23 Range/Units 22:56 23:57 00:30 WBC (3.8-10.6) k/uL RBC (3.80-5.40) m/uL Hgb (11.4-16.0) gm/dL Hct (34.0-46.0) % MCH (25.0-35.0) pg Plt Count (150-450) k/uL Neutrophils # (1.3-7.7) k/uL Lymphocytes # (1.0-4.8) k/uL APTT (22.0-30.0) sec ABG pH 7.29 L (7.35-7.45) ABG pCO2 49 H (35-45) mmHg ABG pO2 109 H (83-108) mmHg ABG Total CO2 25 H (19-24) mmol/L ABG O2 Saturation 97.8 H (94-97) % Chloride (98-107) mmol/L Carbon Dioxide (22-30) mmol/L BUN (7-17) mg/dL Glucose (74-99) mg/dL POC Glucose (mg/dL) 202 H 213 H (70-110) mg/dL Magnesium (1.6-2.3) mg/dL AST (14-36) U/L ALT (4-34) U/L Total Protein (6.3-8.2) g/dL Albumin (3.5-5.0) g/dL Crossmatch 04/23/23 04/23/23 04/23/23 Range/Units 01:04 01:11 02:04 WBC (3.8-10.6) k/uL RBC 3.44 L (3.80-5.40) m/uL Hgb (11.4-16.0) gm/dL Hct 33.2 L (34.0-46.0) % MCH (25.0-35.0) pg Plt Count 140 L (150-450) k/uL Neutrophils # (1.3-7.7) k/uL Lymphocytes # 0.6 L (1.0-4.8) k/uL APTT (22.0-30.0) sec ABG pH (7.35-7.45) ABG pCO2 (35-45) mmHg ABG pO2 (83-108) mmHg ABG Total CO2 (19-24) mmol/L ABG O2 Saturation (94-97) % Chloride (98-107) mmol/L Carbon Dioxide (22-30) mmol/L BUN (7-17) mg/dL Glucose (74-99) mg/dL POC Glucose (mg/dL) 161 H 144 H (70-110) mg/dL Magnesium (1.6-2.3) mg/dL AST (14-36) U/L ALT (4-34) U/L Total Protein (6.3-8.2) g/dL Albumin (3.5-5.0) g/dL Crossmatch 04/23/23 04/23/23 04/23/23 Range/Units 02:58 03:59 04:09 WBC 12.5 H (3.8-10.6) k/uL RBC 3.37 L (3.80-5.40) m/uL Hgb (11.4-16.0) gm/dL Hct 32.6 L (34.0-46.0) % MCH (25.0-35.0) pg Plt Count (150-450) k/uL Neutrophils # 11.0 H (1.3-7.7) k/uL Lymphocytes # 0.8 L (1.0-4.8) k/uL APTT (22.0-30.0) sec ABG pH (7.35-7.45) ABG pCO2 (35-45) mmHg ABG pO2 (83-108) mmHg ABG Total CO2 (19-24) mmol/L ABG O2 Saturation (94-97) % Chloride (98-107) mmol/L Carbon Dioxide (22-30) mmol/L BUN (7-17) mg/dL Glucose (74-99) mg/dL POC Glucose (mg/dL) 123 H 120 H (70-110) mg/dL Magnesium (1.6-2.3) mg/dL AST (14-36) U/L ALT (4-34) U/L Total Protein (6.3-8.2) g/dL Albumin (3.5-5.0) g/dL Crossmatch 04/23/23 04/23/23 04/23/23 Range/Units 04:09 05:50 07:02 WBC (3.8-10.6) k/uL RBC (3.80-5.40) m/uL Hgb (11.4-16.0) gm/dL Hct (34.0-46.0) % MCH (25.0-35.0) pg Plt Count (150-450) k/uL Neutrophils # (1.3-7.7) k/uL Lymphocytes # (1.0-4.8) k/uL APTT (22.0-30.0) sec ABG pH (7.35-7.45) ABG pCO2 (35-45) mmHg ABG pO2 (83-108) mmHg ABG Total CO2 (19-24) mmol/L ABG O2 Saturation (94-97) % Chloride (98-107) mmol/L Carbon Dioxide (22-30) mmol/L BUN (7-17) mg/dL Glucose 119 H (74-99) mg/dL POC Glucose (mg/dL) 120 H 126 H (70-110) mg/dL Magnesium (1.6-2.3) mg/dL AST 106 H (14-36) U/L ALT 53 H (4-34) U/L Total Protein (6.3-8.2) g/dL Albumin (3.5-5.0) g/dL Crossmatch
[2023-04-23] MEDS: KETOROLAC 15 MG/ML 1 ML VIAL IVP SCH ×3 (08:41→18:23)
[2023-04-23 08:48] LABS: Glucose,Whole Blood 104 mg/dL (70-110)
[2023-04-23] MEDS ORDERED: MAGNESIUM HYDROXIDE 2,400 MG/30 ML CUP PO PRN (09:00)
[2023-04-23] MEDS ORDERED: bisacodyL 10 MG SUPP RECTAL PRN (09:00)
[2023-04-23] MEDS ORDERED: METOPROLOL TARTRATE 12.5 MG TAB PO SCH (09:00)
[2023-04-23] MEDS ORDERED: PANTOPRAZOLE 40 MG/10 ML VIAL IVP SCH (09:00)
[2023-04-23] MEDS ORDERED: amLODIPine 2.5 MG TAB PO SCH ×2 (09:00→12:00)
--- NOTE | 2023-04-23 09:02 | XR ---
EXAMINATION TYPE: XR chest 1V portable DATE OF EXAM: 04/23/2023 Comparison: 04/22/2023 Clinical History: 52-year-old female Post Operative Cardiac Surgery Findings: Right IJ [place]Mehdi catheter tip in the proximal right main pulmonary artery region. He style drain. R etained epicardial pacer leads. Interval extubation and removal of NG tube. Median sternotomy wires a nd post-CABG clips. Heart limits of normal in size. Ongoing interstitial densities and mild patchy lo wer lung densities. Impression: Interval extubation and removal of NG tube. Similar mild pulmonary vascular congestion.
--- NOTE | 2023-04-23 09:43 | P.PN ---
Subjective Progress Note Date: 04/23/23 Principal diagnosis: Triple-vessel coronary artery disease, non-STEMI this admission. History of hypertension, hyperlipidemia, diabetes, bilateral internal carotid artery stenosis, peripheral vascular disease, pulmonary embolism at 20 years old and not currently on anticoagulation, current tobacco dependence, family history of premature coronary artery disease on both sides of the family POD #1 off-pump coronary artery bypass graft 5 with the left internal thoracic artery (in-situ) to the left anterior descending artery, left radial artery sequential from the aorta to the obtuse marginal #1 and obtuse marginal #2 artery, reverse saphenous vein graft from the aorta to the diagonal artery, reverse saphenous vein graft from the aorta to the posterior descending artery, left atrial appendage ligation using #35mm AtriClip, endoscopic left radial and right greater saphenous vein harvest, graft flow measurements using the Medistim flowmeter, intraoperative transesophageal echocardiogram performed by anesthesia The patient was seen and examined sitting up in a recliner on the intensive care unit in no acute distress. She was successfully extubated this morning at 0 0:45. She remains in sinus rhythm, hemodynamically stable. Currently on IV nitro for vessel spasm prophylaxis. States pain is mostly controlled with current medication regimen as long as she doesn't take a deep breath or cough, denies shortness of breath. Mediastinal/left/right pleural chest tubes, right internal jugular Shelton/Cordis currently in place. Labs, chest x-ray reviewed. Patient is a bit sleepy but does arouse to verbal stimuli. Objective - Vital Signs Vital signs: Vital Signs Temp 98.2 F 04/23/23 08:00 Pulse 92 04/23/23 08:00 Resp 19 04/23/23 08:00 BP 147/87 04/23/23 08:00 Pulse Ox 95 04/23/23 08:00 FiO2 50 04/23/23 00:00 Intake & Output 04/22/23 04/23/23 04/23/23 18:59 06:59 18:59 Intake Total 841.423 1527.601 286.429 Output Total 1050 925 75 Balance -561.862 6862.601 211.429 Weight 65 kg Intake: IV 53 2018 155 0.9 NS Pressure bags 108 15 ACETAMINOPHEN IV (For NPO 200 ) 1,000 mg In Empty Bag 1 bag @ 400 mls/hr IVPB Q6HR [facility] Rx#:[id number] Albumin Human 5% 250 ml 500 In Empty Bag 1 bag @ 250 mls/hr IVPB Q1HR PRN Rx#: [id number] CO/CI NS 0.9 260 40 Lactated Ringers 1,000 ml 550 100 @ 20 mls/hr IV .Q24H [facility] Rx#:[id number] Magnesium Sulfate-D5w Pmx 400 1 gm In Dextrose/Water 1 100ml.bag @ 100 mls/hr IVPB Q1H [facility] Rx#: [id number] Intake, IV Titration 168.696 155.601 71.429 Amount Clevidipine Butyrate 25 1.516 mg In Empty Bag 1 bag @ 1 MG/HR 2 mls/hr IV .Q24H [facility] Rx#:[id number] Dexmedetomidine/0.9% NaCl 4.323 (Pmx) 400 mcg In Empty Bag 1 bag @ Titrate IV . Q0M [facility] Rx#:[id number] Diltiazem 125 mg In 18.917 Sodium Chloride 0.9% 100 ml @ 5 MG/HR 5 mls/hr IV .Q24H [facility] Rx#:[id number] Heparin Sod,Pork in 0.45% 168.696 NaCl 25,000 unit In 0.45 % NaCl 1 250ml.bag @ 12 UNITS/KG/HR 7.62 mls/hr IV .Q24H [facility] Rx#: [id number] Insulin Regular 100 unit 28.675 21.429 In Sodium Chloride 0.9% 100 ml @ Per Protocol IV .Q0M [facility] Rx#:[id number] Nitroglycerin-D5w Pmx 50 43.45 mg In Dextrose/Water 1 250ml.bag @ 5 MCG/MIN 1.5 mls/hr IV .Q24H [facility] Rx#: [id number] ceFAZolin 2 gm In Sodium 50 Chloride 0.9% 50 ml @ 100 mls/hr IVPB Q8HR [facility] Rx# :[id number] propofoL 1,000 mg In 58.720 Empty Bag 1 bag @ Titrate IV .Q0M [facility] Rx#: [id number] Oral 60 Output: Chest Tube Drainage 430 5 Chest Tube Left Pleural/ 360 0 Mediastinal Chest Tube Mediastinal 70 5 Urine 300 495 70 Estimated Blood Loss 750 Other: Voiding Method Toilet Indwelling Catheter ABP, PAP, CO, CI - Last Documented Arterial Blood Pressure 101/77 Pulmonary Artery Pressure 27/10 Cardiac Output 3.8 Cardiac Index 2.3 - Exam CONSTITUTIONAL: Appears mostly comfortable, cooperative, no acute distress RESPIRATORY: Lungs sounds diminished bilaterally. Respirations even, nonlabored. Currently on room air with oxygen saturation 96%. Able to achieve 500 mL on incentive spirometry. Strong cough. CARDIOVASCULAR: S1, S2 present. Regular rate and rhythm, sinus rhythm on telemetry. Sternum stable. Palpable peripheral pulses bilaterally. No edema present. No calf pain or tenderness noted. Heart hugger in place with patient demonstrating appropriate use. Antiembolism stockings, SCDs present. GASTROINTESTINAL: Abdomen soft, nontender, nondistended. Hypoactive bowel sounds present 4 quadrants. Tolerating minimal clear liquid diet. Denies flatus GENITOURINARY: Almodovar present draining clear, yellow urine. Output overnight 35-50 mL per hour INTEGUMENTARY: Skin is warm and dry with evidence of good perfusion. Anterior chest incision well approximated and covered with dry intact dressing. Left radial artery and right lower extremity EVH site well approximated without redness or drainage. NEUROLOGIC: Cranial nerves II through XII intact MUSKULOSKELETAL: Able to move all extremities, strength equal bilaterally PSYCHIATRIC: Alert and oriented to person place and time, appropriate affect, intact judgment and insight INVASIVE LINES AND TUBES: Mediastinal/left/right pleural chest tubes present and connected to wall suction, no air leaks present. Mediastinal tube with 57 mL serosanguineous drainage overnight, 75 mL since surgery. Left/right pleural chest tubes with 150 mL serosanguineous drainage overnight, 350 mL since surgery. V epicardial pacemaker wires present, grounded. Right internal jugular Shelton/Cordis present. Last CO/CI 3.8/2.3, PA 27/10, CVP 3. - Allied health notes Allied health notes reviewed: nursing - Labs CBC & Chem 7: 04/23/23 04:09 04/23/23 04:09 Labs: Abnormal Lab Results - Last 24 Hours (Table) 04/21/23 04/22/23 04/22/23 Range/Units 07:42 11:22 19:13 WBC (3.8-10.6) k/uL RBC 3.38 L (3.80-5.40) m/uL Hgb (11.4-16.0) gm/dL Hct 31.8 L (34.0-46.0) % Plt Count 112 L (150-450) k/uL Neutrophils # (1.3-7.7) k/uL Lymphocytes # (1.0-4.8) k/uL ABG pH (7.35-7.45) ABG pCO2 (35-45) mmHg ABG pO2 (83-108) mmHg ABG Total CO2 (19-24) mmol/L ABG O2 Saturation (94-97) % Chloride (98-107) mmol/L Carbon Dioxide (22-30) mmol/L Glucose (74-99) mg/dL POC Glucose (mg/dL) 152 H (70-110) mg/dL Magnesium (1.6-2.3) mg/dL AST (14-36) U/L ALT (4-34) U/L Total Protein (6.3-8.2) g/dL Albumin (3.5-5.0) g/dL Crossmatch See Detail 04/22/23 04/22/23 04/22/23 Range/Units 19:13 19:35 20:58 WBC (3.8-10.6) k/uL RBC (3.80-5.40) m/uL Hgb (11.4-16.0) gm/dL Hct (34.0-46.0) % Plt Count (150-450) k/uL Neutrophils # (1.3-7.7) k/uL Lymphocytes # (1.0-4.8) k/uL ABG pH 7.34 L (7.35-7.45) ABG pCO2 (35-45) mmHg ABG pO2 389 H (83-108) mmHg ABG Total CO2 25 H (19-24) mmol/L ABG O2 Saturation 100.0 H (94-97) % Chloride 109 H (98-107) mmol/L Carbon Dioxide 21 L (22-30) mmol/L Glucose (74-99) mg/dL POC Glucose (mg/dL) 169 H (70-110) mg/dL Magnesium 1.3 L (1.6-2.3) mg/dL AST 151 H (14-36) U/L ALT 53 H (4-34) U/L Total Protein 5.8 L (6.3-8.2) g/dL Albumin 3.4 L (3.5-5.0) g/dL Crossmatch 04/22/23 04/22/23 04/22/23 Range/Units 21:55 22:10 22:56 WBC 10.7 H (3.8-10.6) k/uL RBC 3.27 L (3.80-5.40) m/uL Hgb 11.3 L (11.4-16.0) gm/dL Hct 31.4 L (34.0-46.0) % Plt Count (150-450) k/uL Neutrophils # 8.8 H (1.3-7.7) k/uL Lymphocytes # (1.0-4.8) k/uL ABG pH (7.35-7.45) ABG pCO2 (35-45) mmHg ABG pO2 (83-108) mmHg ABG Total CO2 (19-24) mmol/L ABG O2 Saturation (94-97) % Chloride (98-107) mmol/L Carbon Dioxide (22-30) mmol/L Glucose (74-99) mg/dL POC Glucose (mg/dL) 182 H 202 H (70-110) mg/dL Magnesium (1.6-2.3) mg/dL AST (14-36) U/L ALT (4-34) U/L Total Protein (6.3-8.2) g/dL Albumin (3.5-5.0) g/dL Crossmatch 04/22/23 04/23/23 04/23/23 Range/Units 23:57 00:30 01:04 WBC (3.8-10.6) k/uL RBC (3.80-5.40) m/uL Hgb (11.4-16.0) gm/dL Hct (34.0-46.0) % Plt Count (150-450) k/uL Neutrophils # (1.3-7.7) k/uL Lymphocytes # (1.0-4.8) k/uL ABG pH 7.29 L (7.35-7.45) ABG pCO2 49 H (35-45) mmHg ABG pO2 109 H (83-108) mmHg ABG Total CO2 25 H (19-24) mmol/L ABG O2 Saturation 97.8 H (94-97) % Chloride (98-107) mmol/L Carbon Dioxide (22-30) mmol/L Glucose (74-99) mg/dL POC Glucose (mg/dL) 213 H 161 H (70-110) mg/dL Magnesium (1.6-2.3) mg/dL AST (14-36) U/L ALT (4-34) U/L Total Protein (6.3-8.2) g/dL Albumin (3.5-5.0) g/dL Crossmatch 04/23/23 04/23/23 04/23/23 Range/Units 01:11 02:04 02:58 WBC (3.8-10.6) k/uL RBC 3.44 L (3.80-5.40) m/uL Hgb (11.4-16.0) gm/dL Hct 33.2 L (34.0-46.0) % Plt Count 140 L (150-450) k/uL Neutrophils # (1.3-7.7) k/uL Lymphocytes # 0.6 L (1.0-4.8) k/uL ABG pH (7.35-7.45) ABG pCO2 (35-45) mmHg ABG pO2 (83-108) mmHg ABG Total CO2 (19-24) mmol/L ABG O2 Saturation (94-97) % Chloride (98-107) mmol/L Carbon Dioxide (22-30) mmol/L Glucose (74-99) mg/dL POC Glucose (mg/dL) 144 H 123 H (70-110) mg/dL Magnesium (1.6-2.3) mg/dL AST (14-36) U/L ALT (4-34) U/L Total Protein (6.3-8.2) g/dL Albumin (3.5-5.0) g/dL Crossmatch 04/23/23 04/23/23 04/23/23 Range/Units 03:59 04:09 04:09 WBC 12.5 H (3.8-10.6) k/uL RBC 3.37 L (3.80-5.40) m/uL Hgb (11.4-16.0) gm/dL Hct 32.6 L (34.0-46.0) % Plt Count (150-450) k/uL Neutrophils # 11.0 H (1.3-7.7) k/uL Lymphocytes # 0.8 L (1.0-4.8) k/uL ABG pH (7.35-7.45) ABG pCO2 (35-45) mmHg ABG pO2 (83-108) mmHg ABG Total CO2 (19-24) mmol/L ABG O2 Saturation (94-97) % Chloride (98-107) mmol/L Carbon Dioxide (22-30) mmol/L Glucose 119 H (74-99) mg/dL POC Glucose (mg/dL) 120 H (70-110) mg/dL Magnesium (1.6-2.3) mg/dL AST 106 H (14-36) U/L ALT 53 H (4-34) U/L Total Protein (6.3-8.2) g/dL Albumin (3.5-5.0) g/dL Crossmatch 04/23/23 04/23/23 Range/Units 05:50 07:02 WBC (3.8-10.6) k/uL RBC (3.80-5.40) m/uL Hgb (11.4-16.0) gm/dL Hct (34.0-46.0) % Plt Count (150-450) k/uL Neutrophils # (1.3-7.7) k/uL Lymphocytes # (1.0-4.8) k/uL ABG pH (7.35-7.45) ABG pCO2 (35-45) mmHg ABG pO2 (83-108) mmHg ABG Total CO2 (19-24) mmol/L ABG O2 Saturation (94-97) % Chloride (98-107) mmol/L Carbon Dioxide (22-30) mmol/L Glucose (74-99) mg/dL POC Glucose (mg/dL) 120 H 126 H (70-110) mg/dL Magnesium (1.6-2.3) mg/dL AST (14-36) U/L ALT (4-34) U/L Total Protein (6.3-8.2) g/dL Albumin (3.5-5.0) g/dL Crossmatch - Imaging and Cardiology Chest x-ray: report reviewed, image reviewed Assessment and Plan Assessment: Triple-vessel coronary artery disease, non-STEMI this admission, status post 5 vessel CABG Chest pain, secondary to above Hypertension Hyperlipidemia, cholesterol 257, LDL 162, triglycerides 247 Diabetes, hemoglobin A1c 7.5% Bilateral internal carotid artery stenosis, 50-69% Peripheral vascular disease, right MARCELLA 0.77 Pulmonary embolism at 20 years old and not currently on anticoagulation Current tobacco dependence, preoperative FEV1 104% of predicted Family history of premature coronary artery disease on both sides of the family Plan: Continue to maximize medical management with aspirin, statin, Plavix and beta hector. Will increase beta hector as tolerated. Discontinue IV nitro We will start oral calcium channel hector for radial artery spasm prophylaxis Encourage incentive spirometry 10 times every hour while awake. Bronchodilators per pulmonology Will monitor daily labs and x-rays. Electrolyte replacement per protocol Increase activity, ambulate as tolerated. PT/OT/cardiac rehab consulted GI/DVT prophylaxis Insulin management per internal medicine. Patient should remain on insulin continuous infusion for 48 hours then change per protocol Pain control with current medication regimen. Toradol added Discontinue [place]. Connect Cordis to continue CVP monitoring Continue chest tubes for another 24 hours, monitor output Continue Almodovar catheter for another 24 hours, continue to record strict accurate intake and output Daily weights Smoking cessation counseling and education reinforced More recommendations to follow this patient progresses
[2023-04-23] MEDS ORDERED: amLODIPine 5 MG TAB PO SCH (09:45)
[2023-04-23 10:02] LABS: Glucose,Whole Blood 167 mg/dL (70-110)
--- NOTE | 2023-04-23 10:32 | P.PN ---
Subjective Progress Note Date: 04/23/23 On 04/23/2023, the patient is postop day #1. The patient has a off-pump five- vessel bypass surgery with CLARK to LAD and radial graft to use marginal 1 and obtuse marginal 2 and the patient also had saphenous vein graft to diagonal and PDA. The patient also had atrial clipping. The patient is currently postop day #1. She was weaned off the mechanical ventilator and she was extubated yesterday without any major difficulties. Currently she is on oxygen at room air. She has chest tubes and the patient has a mediastinal, left pleural and the right pleural chest tube. There is no evidence of any air leak. Output from the chest tubes are noted and the patient has produced approximately 75 mL of bloody output from the mediastinal chest tube and the pleural chest tubes have produced 350 mL. The patient's cardiac output is at 3.8 with an index of 2.3. He had pressures of 27/10 with a CVP of 3. Cardiac rhythm is sinus. No pressors at this point in time. Blood work was noted and the patient has a hemoglobin of 11.6, white cycles of 12.5, BUN is at 70 with a creatinine of 0.5 and a sodium level is at 137. Breathing is nonlabored. Using the senna spirometer. Leg approximately 500 mL. Objective - Vital Signs Vital signs: Vital Signs Temp 98.2 F 04/23/23 09:00 Pulse 82 04/23/23 10:00 Resp 17 04/23/23 10:00 BP 126/79 04/23/23 10:00 Pulse Ox 94 L 04/23/23 10:00 FiO2 50 04/23/23 00:00 Intake & Output 04/22/23 04/23/23 04/23/23 18:59 06:59 18:59 Intake Total 778.342 9573.601 395.429 Output Total 1050 925 175 Balance -165.082 8676.601 220.429 Weight 65 kg Intake: IV 53 2018 204 0.9 NS Pressure bags 108 24 ACETAMINOPHEN IV (For NPO 200 ) 1,000 mg In Empty Bag 1 bag @ 400 mls/hr IVPB Q6HR [facility] Rx#:[id number] Albumin Human 5% 250 ml 500 In Empty Bag 1 bag @ 250 mls/hr IVPB Q1HR PRN Rx#: [id number] CO/CI NS 0.9 260 40 Lactated Ringers 1,000 ml 550 140 @ 20 mls/hr IV .Q24H [facility] Rx#:[id number] Magnesium Sulfate-D5w Pmx 400 1 gm In Dextrose/Water 1 100ml.bag @ 100 mls/hr IVPB Q1H [facility] Rx#: [id number] Intake, IV Titration 168.696 155.601 71.429 Amount Clevidipine Butyrate 25 1.516 mg In Empty Bag 1 bag @ 1 MG/HR 2 mls/hr IV .Q24H [facility] Rx#:[id number] Dexmedetomidine/0.9% NaCl 4.323 (Pmx) 400 mcg In Empty Bag 1 bag @ Titrate IV . Q0M [facility] Rx#:[id number] Diltiazem 125 mg In 18.917 Sodium Chloride 0.9% 100 ml @ 5 MG/HR 5 mls/hr IV .Q24H [facility] Rx#:[id number] Heparin Sod,Pork in 0.45% 168.696 NaCl 25,000 unit In 0.45 % NaCl 1 250ml.bag @ 12 UNITS/KG/HR 7.62 mls/hr IV .Q24H [facility] Rx#: [id number] Insulin Regular 100 unit 28.675 21.429 In Sodium Chloride 0.9% 100 ml @ Per Protocol IV .Q0M [facility] Rx#:[id number] Nitroglycerin-D5w Pmx 50 43.45 mg In Dextrose/Water 1 250ml.bag @ 5 MCG/MIN 1.5 mls/hr IV .Q24H [facility] Rx#: [id number] ceFAZolin 2 gm In Sodium 50 Chloride 0.9% 50 ml @ 100 mls/hr IVPB Q8HR [facility] Rx# :[id number] propofoL 1,000 mg In 58.720 Empty Bag 1 bag @ Titrate IV .Q0M [facility] Rx#: [id number] Oral 120 Output: Chest Tube Drainage 430 30 Chest Tube Left Pleural/ 360 0 Mediastinal Chest Tube Mediastinal 70 30 Urine 300 495 145 Estimated Blood Loss 750 Other: Voiding Method Toilet Indwelling Catheter ABP, PAP, CO, CI - Last Documented Arterial Blood Pressure 101/77 Pulmonary Artery Pressure 29/12 Cardiac Output 3.8 Cardiac Index 2.3 - Exam CONSTITUTIONAL: Appears mostly comfortable, cooperative, no acute distress RESPIRATORY: Lungs sounds diminished bilaterally. Respirations even, nonlabored. Currently on room air with oxygen saturation 96%. Able to achieve 500 mL on incentive spirometry. Strong cough. CARDIOVASCULAR: S1, S2 present. Regular rate and rhythm, sinus rhythm on telemetry. Sternum stable. Palpable peripheral pulses bilaterally. No edema present. No calf pain or tenderness noted. Heart hugger in place with patient demonstrating appropriate use. Antiembolism stockings, SCDs present. GASTROINTESTINAL: Abdomen soft, nontender, nondistended. Hypoactive bowel sounds present 4 quadrants. Tolerating minimal clear liquid diet. Denies flatus GENITOURINARY: Almodovar present draining clear, yellow urine. Output overnight 35-50 mL per hour INTEGUMENTARY: Skin is warm and dry with evidence of good perfusion. Anterior chest incision well approximated and covered with dry intact dressing. Left radial artery and right lower extremity EVH site well approximated without redness or drainage. NEUROLOGIC: Cranial nerves II through XII intact MUSKULOSKELETAL: Able to move all extremities, strength equal bilaterally PSYCHIATRIC: Alert and oriented to person place and time, appropriate affect, intact judgment and insight INVASIVE LINES AND TUBES: Mediastinal/left/right pleural chest tubes present and connected to wall suction, no air leaks present. Mediastinal tube with 57 mL serosanguineous drainage overnight, 75 mL since surgery. Left/right pleural chest tubes with 150 mL serosanguineous drainage overnight, 350 mL since surgery. V epicardial pacemaker wires present, grounded. Right internal jugular Seabeck/Cordis present. Last CO/CI 3.8/2.3, PA 27/10, CVP 3. - Labs CBC & Chem 7: 04/23/23 04:09 04/23/23 04:09 Labs: Abnormal Lab Results - Last 24 Hours (Table) 04/21/23 04/22/23 04/22/23 Range/Units 07:42 11:22 19:13 WBC (3.8-10.6) k/uL RBC 3.38 L (3.80-5.40) m/uL Hgb (11.4-16.0) gm/dL Hct 31.8 L (34.0-46.0) % Plt Count 112 L (150-450) k/uL Neutrophils # (1.3-7.7) k/uL Lymphocytes # (1.0-4.8) k/uL ABG pH (7.35-7.45) ABG pCO2 (35-45) mmHg ABG pO2 (83-108) mmHg ABG Total CO2 (19-24) mmol/L ABG O2 Saturation (94-97) % Chloride (98-107) mmol/L Carbon Dioxide (22-30) mmol/L Glucose (74-99) mg/dL POC Glucose (mg/dL) 152 H (70-110) mg/dL Magnesium (1.6-2.3) mg/dL AST (14-36) U/L ALT (4-34) U/L Total Protein (6.3-8.2) g/dL Albumin (3.5-5.0) g/dL Crossmatch See Detail 04/22/23 04/22/23 04/22/23 Range/Units 19:13 19:35 20:58 WBC (3.8-10.6) k/uL RBC (3.80-5.40) m/uL Hgb (11.4-16.0) gm/dL Hct (34.0-46.0) % Plt Count (150-450) k/uL Neutrophils # (1.3-7.7) k/uL Lymphocytes # (1.0-4.8) k/uL ABG pH 7.34 L (7.35-7.45) ABG pCO2 (35-45) mmHg ABG pO2 389 H (83-108) mmHg ABG Total CO2 25 H (19-24) mmol/L ABG O2 Saturation 100.0 H (94-97) % Chloride 109 H (98-107) mmol/L Carbon Dioxide 21 L (22-30) mmol/L Glucose (74-99) mg/dL POC Glucose (mg/dL) 169 H (70-110) mg/dL Magnesium 1.3 L (1.6-2.3) mg/dL AST 151 H (14-36) U/L ALT 53 H (4-34) U/L Total Protein 5.8 L (6.3-8.2) g/dL Albumin 3.4 L (3.5-5.0) g/dL Crossmatch 04/22/23 04/22/23 04/22/23 Range/Units 21:55 22:10 22:56 WBC 10.7 H (3.8-10.6) k/uL RBC 3.27 L (3.80-5.40) m/uL Hgb 11.3 L (11.4-16.0) gm/dL Hct 31.4 L (34.0-46.0) % Plt Count (150-450) k/uL Neutrophils # 8.8 H (1.3-7.7) k/uL Lymphocytes # (1.0-4.8) k/uL ABG pH (7.35-7.45) ABG pCO2 (35-45) mmHg ABG pO2 (83-108) mmHg ABG Total CO2 (19-24) mmol/L ABG O2 Saturation (94-97) % Chloride (98-107) mmol/L Carbon Dioxide (22-30) mmol/L Glucose (74-99) mg/dL POC Glucose (mg/dL) 182 H 202 H (70-110) mg/dL Magnesium (1.6-2.3) mg/dL AST (14-36) U/L ALT (4-34) U/L Total Protein (6.3-8.2) g/dL Albumin (3.5-5.0) g/dL Crossmatch 04/22/23 04/23/23 04/23/23 Range/Units 23:57 00:30 01:04 WBC (3.8-10.6) k/uL RBC (3.80-5.40) m/uL Hgb (11.4-16.0) gm/dL Hct (34.0-46.0) % Plt Count (150-450) k/uL Neutrophils # (1.3-7.7) k/uL Lymphocytes # (1.0-4.8) k/uL ABG pH 7.29 L (7.35-7.45) ABG pCO2 49 H (35-45) mmHg ABG pO2 109 H (83-108) mmHg ABG Total CO2 25 H (19-24) mmol/L ABG O2 Saturation 97.8 H (94-97) % Chloride (98-107) mmol/L Carbon Dioxide (22-30) mmol/L Glucose (74-99) mg/dL POC Glucose (mg/dL) 213 H 161 H (70-110) mg/dL Magnesium (1.6-2.3) mg/dL AST (14-36) U/L ALT (4-34) U/L Total Protein (6.3-8.2) g/dL Albumin (3.5-5.0) g/dL Crossmatch 04/23/23 04/23/23 04/23/23 Range/Units 01:11 02:04 02:58 WBC (3.8-10.6) k/uL RBC 3.44 L (3.80-5.40) m/uL Hgb (11.4-16.0) gm/dL Hct 33.2 L (34.0-46.0) % Plt Count 140 L (150-450) k/uL Neutrophils # (1.3-7.7) k/uL Lymphocytes # 0.6 L (1.0-4.8) k/uL ABG pH (7.35-7.45) ABG pCO2 (35-45) mmHg ABG pO2 (83-108) mmHg ABG Total CO2 (19-24) mmol/L ABG O2 Saturation (94-97) % Chloride (98-107) mmol/L Carbon Dioxide (22-30) mmol/L Glucose (74-99) mg/dL POC Glucose (mg/dL) 144 H 123 H (70-110) mg/dL Magnesium (1.6-2.3) mg/dL AST (14-36) U/L ALT (4-34) U/L Total Protein (6.3-8.2) g/dL Albumin (3.5-5.0) g/dL Crossmatch 04/23/23 04/23/23 04/23/23 Range/Units 03:59 04:09 04:09 WBC 12.5 H (3.8-10.6) k/uL RBC 3.37 L (3.80-5.40) m/uL Hgb (11.4-16.0) gm/dL Hct 32.6 L (34.0-46.0) % Plt Count (150-450) k/uL Neutrophils # 11.0 H (1.3-7.7) k/uL Lymphocytes # 0.8 L (1.0-4.8) k/uL ABG pH (7.35-7.45) ABG pCO2 (35-45) mmHg ABG pO2 (83-108) mmHg ABG Total CO2 (19-24) mmol/L ABG O2 Saturation (94-97) % Chloride (98-107) mmol/L Carbon Dioxide (22-30) mmol/L Glucose 119 H (74-99) mg/dL POC Glucose (mg/dL) 120 H (70-110) mg/dL Magnesium (1.6-2.3) mg/dL AST 106 H (14-36) U/L ALT 53 H (4-34) U/L Total Protein (6.3-8.2) g/dL Albumin (3.5-5.0) g/dL Crossmatch 04/23/23 04/23/23 04/23/23 Range/Units 05:50 07:02 09:59 WBC (3.8-10.6) k/uL RBC (3.80-5.40) m/uL Hgb (11.4-16.0) gm/dL Hct (34.0-46.0) % Plt Count (150-450) k/uL Neutrophils # (1.3-7.7) k/uL Lymphocytes # (1.0-4.8) k/uL ABG pH (7.35-7.45) ABG pCO2 (35-45) mmHg ABG pO2 (83-108) mmHg ABG Total CO2 (19-24) mmol/L ABG O2 Saturation (94-97) % Chloride (98-107) mmol/L Carbon Dioxide (22-30) mmol/L Glucose (74-99) mg/dL POC Glucose (mg/dL) 120 H 126 H 167 H (70-110) mg/dL Magnesium (1.6-2.3) mg/dL AST (14-36) U/L ALT (4-34) U/L Total Protein (6.3-8.2) g/dL Albumin (3.5-5.0) g/dL Crossmatch Assessment and Plan Plan: Multivessel coronary artery disease and the patient is post non-ST segment elevation myocardial infarction the patient underwent five-vessel bypass surgery. Patient is currently postop day #1 Postthoracotomy, the patient was extubated about any major difficulties, currently on room air. The patient is a mediastinal, right pleural and left lower chest tubes. Triple-vessel coronary artery disease, non-STEMI this admission, status post 5 vessel CABG Chest pain, secondary to above Hypertension Hyperlipidemia, patient is currently on high dose statins Diabetes, hemoglobin A1c 7.5%, currently on insulin drip running at 5 units an hour Bilateral internal carotid artery stenosis, 50-69% Peripheral vascular disease Pulmonary embolism at 20 years old and not currently on anticoagulation Current tobacco dependence, preoperative FEV1 104% of predicted Family history of premature coronary artery disease on both sides of the family Plan: The patient is recovering reasonably well, currently on room air oxygen. Encourage use of incentive spirometer Chest x-ray was noted Continue insulin drip for tonight Removed day Seabeck-Mehdi catheter Adequate urine output Continue aspirin and Plavix Continue high dose statins Continue metoprolol and the patient is currently on 25 mg by mouth twice a day Discontinue the nitroglycerin drip Continue Norvasc and the details of 5 mg by mouth daily We'll continue to follow make further recommendations based on progress
[2023-04-23 11:07] VITALS: BMI 27.1
[2023-04-23 11:09] LABS: Glucose,Whole Blood 141 mg/dL (70-110)
[2023-04-23 12:40] LABS: Glucose,Whole Blood 109 mg/dL (70-110)
[2023-04-23 14:04] LABS: Glucose,Whole Blood 145 mg/dL (70-110)
[2023-04-23 14:20] LABS: ABG Base Excess 1.1 mmol/L; ABG Glucose Whole Blood 82 mg/dL (75-99); ABG HCO3 26 mmol/L (21-25); ABG Lactic Acid Whole Blood 0.6 mmol/L (0.5-1.6); ABG Oxygen Saturation 95.7 % (94-97); ABG PCO2 39 mmHg (35-45); ABG PH 7.42 (7.35-7.45); ABG PO2 72 mmHg (83-108); ABG Potassium Whole Blood 4.1 mmol/L (3.4-4.5); ABG Sodium Whole Blood 140 mmol/L (135-146); ABG TCO2 27 mmol/L (19-24)
[2023-04-23 14:21] LABS: ABG Hematocrit 37 % (34.0-46.0); ABG Ionized Calcium 4.8 mg/dL (4.5-5.3)
[2023-04-23 14:22] LABS: ABG Base Excess 0.3 mmol/L; ABG HCO3 25 mmol/L (21-25); ABG Oxygen Saturation 98.3 % (94-97); ABG PCO2 40 mmHg (35-45); ABG PO2 103 mmHg (83-108); ABG TCO2 26 mmol/L (19-24)
[2023-04-23 14:23] LABS: ABG Glucose Whole Blood 87 mg/dL (75-99); ABG Hematocrit 35 % (34.0-46.0); ABG Ionized Calcium 4.6 mg/dL (4.5-5.3); ABG Lactic Acid Whole Blood 0.4 mmol/L (0.5-1.6); ABG Potassium Whole Blood 3.9 mmol/L (3.4-4.5); ABG Sodium Whole Blood 140 mmol/L (135-146)
[2023-04-23 14:24] LABS: ABG PCO2 41 mmHg (35-45); ABG PH 7.39 (7.35-7.45)
[2023-04-23 14:25] LABS: ABG Glucose Whole Blood 89 mg/dL (75-99); ABG HCO3 24 mmol/L (21-25); ABG Hematocrit 34 % (34.0-46.0); ABG Ionized Calcium 4.5 mg/dL (4.5-5.3); ABG Lactic Acid Whole Blood 0.5 mmol/L (0.5-1.6); ABG Oxygen Saturation 97.6 % (94-97); ABG PO2 91 mmHg (83-108); ABG Potassium Whole Blood 3.7 mmol/L (3.4-4.5); ABG Sodium Whole Blood 141 mmol/L (135-146); ABG TCO2 26 mmol/L (19-24)
--- NOTE | 2023-04-23 14:28 | P.PN ---
Subjective Progress Note Date: 04/23/23 Hospital Course: 52-year-old female with a PMH of type II DM and tobacco abuse, has not seen a physician for several years, presents to the emergency room with complaints of chest pain and shortness of breath. In the emergency room, chest x-ray was unremarkable with EKG showing sinus rhythm at 79 bpm with T-wave inversion in leads 2, 3, and aVF with T-wave flattening in leads V5 and V6. Laboratory katharine luation was remarkable for troponin 0.266 and subsequently 0.483. D-dimer was 0.1. Glucose was 177. Blood pressure upon arrival at the emergency room was 160/92 with pulse 86, CO2 91% on room air, and temp 98F. Patient admitted for NSTEMI on heparin drip. Cardiology consulted. Cardiac cath showed multivessel coronary artery disease, recommending CABG. patient currently undergoing preoperative testing with cardiothoracic surgery. Echocardiogram showed normal LV size and systolic function. Subjective: Seen and examined at bedside. No acute events overnight. Denies any further chest pain Gen: awake, alert HEENT: normocephalic, atraumatic, good hearing acuity, moist mucous membranes Resp: good air exchange, breathing comfortably with no accessory muscle use CVS: good distal perfusion x 4, GI: soft, NTTP, ND : no SPT, no CVAT, manning catheter not present MSK: no pitting edema, no clubbing Neuro: non-focal, moving all extremities Psych: cooperative, euthymic mood Data Reviewed Today: Pertinent Labs: WBC 7.3, hemoglobin 13.8, platelet 182, sodium 137, potassium 4.8, creatinine 0.57, magnesium 1.6, blood sugars range between 167-175 Imaging: No new imaging Assessment and Plan: Multivessel coronary artery disease s/p CABG NSTEMI with recurrent chest pain Type 2 diabetes, A1c 7.5 -Cardiothoracic surgery following, surgery today -Aspirin 81 mg, plavix 75mg daily, atorvastatin 80 mg, metoprolol 25 mg twice a day -insulin gtt, target 100-140 Hypertension Nicotine dependence Mild hypomagnesemia, resolved -Counseled regarding smoking cessation DVT ppx: Heparin TID Code status: Full code Anticipated discharge place: Pending clinical course Anticipated discharge time: Pending clinical course Objective - Vital Signs Vital signs: Vital Signs Temp 98 F 04/23/23 12:00 Pulse 86 10/03/23 14:00 Resp 16 04/23/23 14:00 BP 127/77 04/23/23 14:00 Pulse Ox 94 L 04/23/23 14:00 FiO2 50 04/23/23 00:00 Intake & Output 04/22/23 04/23/23 04/23/23 18:59 06:59 18:59 Intake Total 868.283 1208.601 499.313 Output Total 1050 925 300 Balance -105.761 8699.601 199.313 Weight 65 kg 65 kg Intake: IV 53 2018 296 0.9 NS Pressure bags 108 36 ACETAMINOPHEN IV (For NPO 200 ) 1,000 mg In Empty Bag 1 bag @ 400 mls/hr IVPB Q6HR [facility] Rx#:[id number] Albumin Human 5% 250 ml 500 In Empty Bag 1 bag @ 250 mls/hr IVPB Q1HR PRN Rx#: [id number] CO/CI NS 0.9 260 40 Lactated Ringers 1,000 ml 550 220 @ 20 mls/hr IV .Q24H [facility] Rx#:[id number] Magnesium Sulfate-D5w Pmx 400 1 gm In Dextrose/Water 1 100ml.bag @ 100 mls/hr IVPB Q1H [facility] Rx#: [id number] Intake, IV Titration 168.696 155.601 83.313 Amount Clevidipine Butyrate 25 1.516 mg In Empty Bag 1 bag @ 1 MG/HR 2 mls/hr IV .Q24H [facility] Rx#:[id number] Dexmedetomidine/0.9% NaCl 4.323 (Pmx) 400 mcg In Empty Bag 1 bag @ Titrate IV . Q0M [facility] Rx#:[id number] Diltiazem 125 mg In 18.917 Sodium Chloride 0.9% 100 ml @ 5 MG/HR 5 mls/hr IV .Q24H [facility] Rx#:[id number] Heparin Sod,Pork in 0.45% 168.696 NaCl 25,000 unit In 0.45 % NaCl 1 250ml.bag @ 12 UNITS/KG/HR 7.62 mls/hr IV .Q24H [facility] Rx#: [id number] Insulin Regular 100 unit 28.675 33.313 In Sodium Chloride 0.9% 100 ml @ Per Protocol IV .Q0M [facility] Rx#:[id number] Nitroglycerin-D5w Pmx 50 43.45 mg In Dextrose/Water 1 250ml.bag @ 5 MCG/MIN 1.5 mls/hr IV .Q24H [facility] Rx#: [id number] ceFAZolin 2 gm In Sodium 50 Chloride 0.9% 50 ml @ 100 mls/hr IVPB Q8HR [facility] Rx# :[id number] propofoL 1,000 mg In 58.720 Empty Bag 1 bag @ Titrate IV .Q0M [facility] Rx#: [id number] Oral 120 Output: Chest Tube Drainage 430 60 Chest Tube Left Pleural/ 360 0 Mediastinal Chest Tube Mediastinal 70 60 Urine 300 495 240 Estimated Blood Loss 750 Other: Voiding Method Toilet Indwelling Catheter Indwelling Catheter ABP, PAP, CO, CI - Last Documented Arterial Blood Pressure 101/77 Pulmonary Artery Pressure 29/12 Cardiac Output 3.8 Cardiac Index 2.3 - Labs CBC & Chem 7: 04/23/23 04:09 04/23/23 04:09 Labs: Abnormal Lab Results - Last 24 Hours (Table) 04/21/23 04/22/23 04/22/23 Range/Units 07:42 16:03 16:45 WBC (3.8-10.6) k/uL RBC (3.80-5.40) m/uL Hgb (11.4-16.0) gm/dL Hct (34.0-46.0) % Plt Count (150-450) k/uL Neutrophils # (1.3-7.7) k/uL Lymphocytes # (1.0-4.8) k/uL ABG pH (7.35-7.45) ABG pCO2 (35-45) mmHg ABG pO2 72 L (83-108) mmHg ABG HCO3 26 H (21-25) mmol/L ABG Total CO2 27 H 26 H (19-24) mmol/L ABG O2 Saturation 98.3 H (94-97) % ABG Lactic Acid 0.4 L (0.5-1.6) mmol/L Chloride (98-107) mmol/L Carbon Dioxide (22-30) mmol/L Glucose (74-99) mg/dL POC Glucose (mg/dL) (70-110) mg/dL Magnesium (1.6-2.3) mg/dL AST (14-36) U/L ALT (4-34) U/L Total Protein (6.3-8.2) g/dL Albumin (3.5-5.0) g/dL Crossmatch See Detail 04/22/23 04/22/23 04/22/23 Range/Units 19:13 19:13 19:35 WBC (3.8-10.6) k/uL RBC 3.38 L (3.80-5.40) m/uL Hgb (11.4-16.0) gm/dL Hct 31.8 L (34.0-46.0) % Plt Count 112 L (150-450) k/uL Neutrophils # (1.3-7.7) k/uL Lymphocytes # (1.0-4.8) k/uL ABG pH 7.34 L (7.35-7.45) ABG pCO2 (35-45) mmHg ABG pO2 389 H (83-108) mmHg ABG HCO3 (21-25) mmol/L ABG Total CO2 25 H (19-24) mmol/L ABG O2 Saturation 100.0 H (94-97) % ABG Lactic Acid (0.5-1.6) mmol/L Chloride 109 H (98-107) mmol/L Carbon Dioxide 21 L (22-30) mmol/L Glucose (74-99) mg/dL POC Glucose (mg/dL) (70-110) mg/dL Magnesium 1.3 L (1.6-2.3) mg/dL AST 151 H (14-36) U/L ALT 53 H (4-34) U/L Total Protein 5.8 L (6.3-8.2) g/dL Albumin 3.4 L (3.5-5.0) g/dL Crossmatch 04/22/23 04/22/23 04/22/23 Range/Units 20:58 21:55 22:10 WBC 10.7 H (3.8-10.6) k/uL RBC 3.27 L (3.80-5.40) m/uL Hgb 11.3 L (11.4-16.0) gm/dL Hct 31.4 L (34.0-46.0) % Plt Count (150-450) k/uL Neutrophils # 8.8 H (1.3-7.7) k/uL Lymphocytes # (1.0-4.8) k/uL ABG pH (7.35-7.45) ABG pCO2 (35-45) mmHg ABG pO2 (83-108) mmHg ABG HCO3 (21-25) mmol/L ABG Total CO2 (19-24) mmol/L ABG O2 Saturation (94-97) % ABG Lactic Acid (0.5-1.6) mmol/L Chloride (98-107) mmol/L Carbon Dioxide (22-30) mmol/L Glucose (74-99) mg/dL POC Glucose (mg/dL) 169 H 182 H (70-110) mg/dL Magnesium (1.6-2.3) mg/dL AST (14-36) U/L ALT (4-34) U/L Total Protein (6.3-8.2) g/dL Albumin (3.5-5.0) g/dL Crossmatch 04/22/23 04/22/23 04/23/23 Range/Units 22:56 23:57 00:30 WBC (3.8-10.6) k/uL RBC (3.80-5.40) m/uL Hgb (11.4-16.0) gm/dL Hct (34.0-46.0) % Plt Count (150-450) k/uL Neutrophils # (1.3-7.7) k/uL Lymphocytes # (1.0-4.8) k/uL ABG pH 7.29 L (7.35-7.45) ABG pCO2 49 H (35-45) mmHg ABG pO2 109 H (83-108) mmHg ABG HCO3 (21-25) mmol/L ABG Total CO2 25 H (19-24) mmol/L ABG O2 Saturation 97.8 H (94-97) % ABG Lactic Acid (0.5-1.6) mmol/L Chloride (98-107) mmol/L Carbon Dioxide (22-30) mmol/L Glucose (74-99) mg/dL POC Glucose (mg/dL) 202 H 213 H (70-110) mg/dL Magnesium (1.6-2.3) mg/dL AST (14-36) U/L ALT (4-34) U/L Total Protein (6.3-8.2) g/dL Albumin (3.5-5.0) g/dL Crossmatch 04/23/23 04/23/23 04/23/23 Range/Units 01:04 01:11 02:04 WBC (3.8-10.6) k/uL RBC 3.44 L (3.80-5.40) m/uL Hgb (11.4-16.0) gm/dL Hct 33.2 L (34.0-46.0) % Plt Count 140 L (150-450) k/uL Neutrophils # (1.3-7.7) k/uL Lymphocytes # 0.6 L (1.0-4.8) k/uL ABG pH (7.35-7.45) ABG pCO2 (35-45) mmHg ABG pO2 (83-108) mmHg ABG HCO3 (21-25) mmol/L ABG Total CO2 (19-24) mmol/L ABG O2 Saturation (94-97) % ABG Lactic Acid (0.5-1.6) mmol/L Chloride (98-107) mmol/L Carbon Dioxide (22-30) mmol/L Glucose (74-99) mg/dL POC Glucose (mg/dL) 161 H 144 H (70-110) mg/dL Magnesium (1.6-2.3) mg/dL AST (14-36) U/L ALT (4-34) U/L Total Protein (6.3-8.2) g/dL Albumin (3.5-5.0) g/dL Crossmatch 04/23/23 04/23/23 04/23/23 Range/Units 02:58 03:59 04:09 WBC 12.5 H (3.8-10.6) k/uL RBC 3.37 L (3.80-5.40) m/uL Hgb (11.4-16.0) gm/dL Hct 32.6 L (34.0-46.0) % Plt Count (150-450) k/uL Neutrophils # 11.0 H (1.3-7.7) k/uL Lymphocytes # 0.8 L (1.0-4.8) k/uL ABG pH (7.35-7.45) ABG pCO2 (35-45) mmHg ABG pO2 (83-108) mmHg ABG HCO3 (21-25) mmol/L ABG Total CO2 (19-24) mmol/L ABG O2 Saturation (94-97) % ABG Lactic Acid (0.5-1.6) mmol/L Chloride (98-107) mmol/L Carbon Dioxide (22-30) mmol/L Glucose (74-99) mg/dL POC Glucose (mg/dL) 123 H 120 H (70-110) mg/dL Magnesium (1.6-2.3) mg/dL AST (14-36) U/L ALT (4-34) U/L Total Protein (6.3-8.2) g/dL Albumin (3.5-5.0) g/dL Crossmatch 04/23/23 04/23/23 04/23/23 Range/Units 04:09 05:50 07:02 WBC (3.8-10.6) k/uL RBC (3.80-5.40) m/uL Hgb (11.4-16.0) gm/dL Hct (34.0-46.0) % Plt Count (150-450) k/uL Neutrophils # (1.3-7.7) k/uL Lymphocytes # (1.0-4.8) k/uL ABG pH (7.35-7.45) ABG pCO2 (35-45) mmHg ABG pO2 (83-108) mmHg ABG HCO3 (21-25) mmol/L ABG Total CO2 (19-24) mmol/L ABG O2 Saturation (94-97) % ABG Lactic Acid (0.5-1.6) mmol/L Chloride (98-107) mmol/L Carbon Dioxide (22-30) mmol/L Glucose 119 H (74-99) mg/dL POC Glucose (mg/dL) 120 H 126 H (70-110) mg/dL Magnesium (1.6-2.3) mg/dL AST 106 H (14-36) U/L ALT 53 H (4-34) U/L Total Protein (6.3-8.2) g/dL Albumin (3.5-5.0) g/dL Crossmatch 04/23/23 04/23/23 04/23/23 Range/Units 09:59 11:07 14:02 WBC (3.8-10.6) k/uL RBC (3.80-5.40) m/uL Hgb (11.4-16.0) gm/dL Hct (34.0-46.0) % Plt Count (150-450) k/uL Neutrophils # (1.3-7.7) k/uL Lymphocytes # (1.0-4.8) k/uL ABG pH (7.35-7.45) ABG pCO2 (35-45) mmHg ABG pO2 (83-108) mmHg ABG HCO3 (21-25) mmol/L ABG Total CO2 (19-24) mmol/L ABG O2 Saturation (94-97) % ABG Lactic Acid (0.5-1.6) mmol/L Chloride (98-107) mmol/L Carbon Dioxide (22-30) mmol/L Glucose (74-99) mg/dL POC Glucose (mg/dL) 167 H 141 H 145 H (70-110) mg/dL Magnesium (1.6-2.3) mg/dL AST (14-36) U/L ALT (4-34) U/L Total Protein (6.3-8.2) g/dL Albumin (3.5-5.0) g/dL Crossmatch
[2023-04-23 14:29] LABS: ABG Base Excess -2.2 mmol/L; ABG Glucose Whole Blood 99 mg/dL (75-99); ABG HCO3 23 mmol/L (21-25); ABG Hematocrit 34 % (34.0-46.0); ABG Lactic Acid Whole Blood 1.1 mmol/L (0.5-1.6); ABG Oxygen Saturation 97.3 % (94-97); ABG PCO2 43 mmHg (35-45); ABG PH 7.35 (7.35-7.45); ABG PO2 98 mmHg (83-108); ABG Sodium Whole Blood 139 mmol/L (135-146); ABG TCO2 25 mmol/L (19-24)
[2023-04-23 14:30] LABS: ABG Ionized Calcium 4.8 mg/dL (4.5-5.3)
[2023-04-23 15:33] LABS: Glucose,Whole Blood 129 mg/dL (70-110)
[2023-04-23] MEDS: METOPROLOL TARTRATE 25 MG TAB PO SCH ×2 (16:33→21:35)
[2023-04-23 17:08] LABS: Glucose,Whole Blood 96 mg/dL (70-110)
[2023-04-23 18:29] LABS: Glucose,Whole Blood 124 mg/dL (70-110)
[2023-04-23] MEDS: INSULIN REGULAR 100 UNIT in SODIUM CHLORIDE 0.9% 100 ML IV SCH (18:29)
[2023-04-23] MEDS: LACTATED RINGERS 1,000 ML IV SCH (20:02)
[2023-04-23 20:04] LABS: Glucose,Whole Blood 110 mg/dL (70-110)
[2023-04-23] MEDS ORDERED: METOPROLOL TARTRATE 25 MG TAB PO SCH (21:00)
[2023-04-23] MEDS ORDERED: ATORVASTATIN 40 MG TAB PO SCH (21:00)
[2023-04-23 21:24] LABS: Glucose,Whole Blood 157 mg/dL (70-110)
[2023-04-23] MEDS: SENNOSIDES-DOCUSATE SODIUM 1 EACH TAB PO SCH (21:35)
[2023-04-23 23:03] LABS: Glucose,Whole Blood 125 mg/dL (70-110)
[2023-04-24 00:11] LABS: Glucose,Whole Blood 112 mg/dL (70-110)
[2023-04-24] MEDS: KETOROLAC 15 MG/ML 1 ML VIAL IVP SCH ×4 (00:20→18:13)
[2023-04-24] MEDS: HEPARIN SODIUM,PORCINE 5,000 UNIT/ML 1 ML VIAL SQ SCH ×4 (00:20→22:50)
[2023-04-24 01:39] LABS: Glucose,Whole Blood 117 mg/dL (70-110)
[2023-04-24 03:13] LABS: Glucose,Whole Blood 118 mg/dL (70-110)
[2023-04-24 04:56] LABS: Basophils % (A) 0 %; Eosinophils # (A) 0.1 k/uL (0-0.7); Eosinophils % (A) 1 %; HCT 32.3 % (34.0-46.0); HGB 11.4 gm/dL (11.4-16.0); Lymphocytes # (A) 1.4 k/uL (1.0-4.8); Lymphocytes % (A) 14 %; MCH 34.7 pg (25.0-35.0); MCHC 35.4 g/dL (31.0-37.0); Mean Platelet Volume 8.3; Monocytes # (A) 0.7 k/uL (0-1.0); Monocytes % (A) 7 %; Neutrophils # (A) 7.6 k/uL (1.3-7.7); Neutrophils % (A) 76 %; Platelet Count 162 k/uL (150-450); RBC 3.29 m/uL (3.80-5.40); WBC 9.9 k/uL (3.8-10.6)
[2023-04-24 05:27] LABS: ALT 34 U/L (4-34); AST 126 U/L (14-36); African American GFR (CKD) >90 (>60 ml/min/1.73 sqM); Albumin 3.8 g/dL (3.5-5.0); Alkaline Phosphatase 60 U/L (38-126); Anion Gap 9 mmol/L; Blood Urea Nitrogen 17 mg/dL (7-17); Carbon Dioxide 23 mmol/L (22-30); Chloride 105 mmol/L (98-107); Glucose 108 mg/dL (74-99); Non-African American GFR(CKD) >90 (>60 ml/min/1.73 sqM); Potassium 4.8 mmol/L (3.5-5.1); Sodium 137 mmol/L (137-145); Total Bilirubin 0.9 mg/dL (0.2-1.3); Total Protein 6.2 g/dL (6.3-8.2)
[2023-04-24 06:00] LABS: Glucose,Whole Blood 127 mg/dL (70-110)
[2023-04-24] MEDS: PANTOPRAZOLE 40 MG TABLET PO SCH (07:00)
--- NOTE | 2023-04-24 07:32 | XR ---
EXAMINATION TYPE: XR chest 1V portable DATE OF EXAM: 04/24/2023 4:27 AM COMPARISON: Chest radiographs from 04/23/2023 TECHNIQUE: XR chest 1V portable Portable AP radiograph of the chest. CLINICAL INDICATION:Female, 52 years old with history of Post Operative Cardiac Surgery; FINDINGS: Lungs/Pleura: There is no evidence of pleural effusion, focal consolidation, or pneumothorax. Bibasil ar linear atelectasis. Pulmonary vascularity: Unremarkable. Heart/mediastinum: Cardiomediastinal silhouette is prominent in size. Post-CABG changes. Left atrial appendage occlusion devices present. Musculoskeletal: No acute osseous pathology. Midline sternotomy wires are noted and stable. Other findings: Cholecystectomy clips are quadrant. Lines/Tubes: Mediastinal drain are identified. Removal right IJ [place]-Mehdi catheter. Right IJ sheath remains in ismael ce. Bilateral chest tubes remain in place. IMPRESSION: Postsurgical changes of the heart with stable bilateral chest tubes and mediastinal drain. No pneumot horax. Similar bibasilar linear atelectasis.
--- NOTE | 2023-04-24 07:42 | P.PN ---
Subjective Progress Note Date: 04/24/23 Principal diagnosis: CAD/ CABG The patient is a pleasant 52-year-old female patient with CAD and known severe triple-vessel coronary artery disease who underwent yesterday CABG 4 with CLARK to LAD and radial artery to diagonal and OM 1 and OM 2 as well as SVG to RCA 04/23/2023 This is postoperative day #1. The patient is a stable hemodynamically and she has been maintaining normal sinus mechanism with mild tachycardia and her pressure has been slightly elevated. She will be started on cut section child hector orally. She is on dual antiplatelet therapy along with a statin. Her urine output has been marginal. The chest x-ray was reviewed and showed small bilateral pleural effusion. The blood work including CBC and BNP came in to be unremarkable Examination is remarkable for regular rhythm with the patient being sounds bilaterally April [id number] The patient was seen and evaluated this morning. Overall she is doing good recovery beside being not very motivated. The blood pressure and heart rate has been on the upper limits. The dose of amlodipine has increased and the dose of metoprolol has increased as well and I would agree on both. Beside that she is on dual antiplatelet therapy and intermediate intensity statin and wishes consider increasing the dose of statin down the line. Examination is remarkable for diminished breathing sounds bilaterally Assessment CAD status post CABG Hypertension Dyslipidemia Multiple comorbid conditions Plan Continue the current medical regimen Agree about increasing the dose of amlodipine and beta hector Consider increasing the dose of statin Follow-up with the patient Objective - Vital Signs Vital signs: Vital Signs Temp 98.8 F 04/24/23 04:00 Pulse 85 04/24/23 07:00 Resp 18 04/24/23 07:00 BP 141/79 04/24/23 07:00 Pulse Ox 96 04/24/23 07:00 FiO2 50 04/23/23 00:00 Intake & Output 04/23/23 04/24/23 04/24/23 18:59 06:59 18:59 Intake Total 651.556 287.447 23 Output Total 440 698 25 Balance 211.556 -410.553 -2 Weight 65 kg 66.7 kg Intake: IV 388 276 23 0.9 NS Pressure bags 48 36 3 CO/CI NS 0.9 40 Lactated Ringers 1,000 ml 300 240 20 @ 20 mls/hr IV .Q24H [facility] Rx#:[id number] Intake, IV Titration 143.556 11.447 Amount Insulin Regular 100 unit 43.556 11.447 In Sodium Chloride 0.9% 100 ml @ Per Protocol IV .Q0M [facility] Rx#:[id number] ceFAZolin 2 gm In Sodium 100 Chloride 0.9% 50 ml @ 100 mls/hr IVPB Q8HR [facility] Rx# :[id number] Oral 120 Output: Chest Tube Drainage 120 90 Chest Tube Left Pleural/ 30 20 Mediastinal Chest Tube Mediastinal 90 70 Urine 320 608 25 Other: Voiding Method Indwelling Catheter Indwelling Catheter ABP, PAP, CO, CI - Last Documented Arterial Blood Pressure 101/77 Pulmonary Artery Pressure 29/12 Cardiac Output 3.8 Cardiac Index 2.3 - Labs CBC & Chem 7: 04/24/23 04:00 04/24/23 04:00 Labs: Abnormal Lab Results - Last 24 Hours (Table) 04/22/23 04/22/23 04/22/23 Range/Units 16:03 16:45 17:19 RBC (3.80-5.40) m/uL Hct (34.0-46.0) % ABG pO2 72 L (83-108) mmHg ABG HCO3 26 H (21-25) mmol/L ABG Total CO2 27 H 26 H 26 H (19-24) mmol/L ABG O2 Saturation 98.3 H 97.6 H (94-97) % ABG Potassium (3.4-4.5) mmol/L ABG Lactic Acid 0.4 L (0.5-1.6) mmol/L Hemoglobin 11.0 L (11.4-16.0) gm/dL Glucose (74-99) mg/dL POC Glucose (mg/dL) (70-110) mg/dL AST (14-36) U/L Total Protein (6.3-8.2) g/dL Arterial Blood Potassium (3.4-4.5) mmol/L 04/22/23 04/23/23 04/23/23 Range/Units 18:40 09:59 11:07 RBC (3.80-5.40) m/uL Hct (34.0-46.0) % ABG pO2 (83-108) mmHg ABG HCO3 (21-25) mmol/L ABG Total CO2 25 H (19-24) mmol/L ABG O2 Saturation 97.3 H (94-97) % ABG Potassium 5.0 H (3.4-4.5) mmol/L ABG Lactic Acid (0.5-1.6) mmol/L Hemoglobin 11.1 L (11.4-16.0) gm/dL Glucose (74-99) mg/dL POC Glucose (mg/dL) 167 H 141 H (70-110) mg/dL AST (14-36) U/L Total Protein (6.3-8.2) g/dL Arterial Blood Potassium 5.0 H (3.4-4.5) mmol/L 04/23/23 04/23/23 04/23/23 Range/Units 14:02 15:31 18:27 RBC (3.80-5.40) m/uL Hct (34.0-46.0) % ABG pO2 (83-108) mmHg ABG HCO3 (21-25) mmol/L ABG Total CO2 (19-24) mmol/L ABG O2 Saturation (94-97) % ABG Potassium (3.4-4.5) mmol/L ABG Lactic Acid (0.5-1.6) mmol/L Hemoglobin (11.4-16.0) gm/dL Glucose (74-99) mg/dL POC Glucose (mg/dL) 145 H 129 H 124 H (70-110) mg/dL AST (14-36) U/L Total Protein (6.3-8.2) g/dL Arterial Blood Potassium (3.4-4.5) mmol/L 04/23/23 04/23/23 04/24/23 Range/Units 21:23 23:02 00:09 RBC (3.80-5.40) m/uL Hct (34.0-46.0) % ABG pO2 (83-108) mmHg ABG HCO3 (21-25) mmol/L ABG Total CO2 (19-24) mmol/L ABG O2 Saturation (94-97) % ABG Potassium (3.4-4.5) mmol/L ABG Lactic Acid (0.5-1.6) mmol/L Hemoglobin (11.4-16.0) gm/dL Glucose (74-99) mg/dL POC Glucose (mg/dL) 157 H 125 H 112 H (70-110) mg/dL AST (14-36) U/L Total Protein (6.3-8.2) g/dL Arterial Blood Potassium (3.4-4.5) mmol/L 04/24/23 04/24/23 04/24/23 Range/Units 01:37 03:11 04:00 RBC 3.29 L (3.80-5.40) m/uL Hct 32.3 L (34.0-46.0) % ABG pO2 (83-108) mmHg ABG HCO3 (21-25) mmol/L ABG Total CO2 (19-24) mmol/L ABG O2 Saturation (94-97) % ABG Potassium (3.4-4.5) mmol/L ABG Lactic Acid (0.5-1.6) mmol/L Hemoglobin (11.4-16.0) gm/dL Glucose (74-99) mg/dL POC Glucose (mg/dL) 117 H 118 H (70-110) mg/dL AST (14-36) U/L Total Protein (6.3-8.2) g/dL Arterial Blood Potassium (3.4-4.5) mmol/L 04/24/23 04/24/23 Range/Units 04:00 05:58 RBC (3.80-5.40) m/uL Hct (34.0-46.0) % ABG pO2 (83-108) mmHg ABG HCO3 (21-25) mmol/L ABG Total CO2 (19-24) mmol/L ABG O2 Saturation (94-97) % ABG Potassium (3.4-4.5) mmol/L ABG Lactic Acid (0.5-1.6) mmol/L Hemoglobin (11.4-16.0) gm/dL Glucose 108 H (74-99) mg/dL POC Glucose (mg/dL) 127 H (70-110) mg/dL AST 126 H (14-36) U/L Total Protein 6.2 L (6.3-8.2) g/dL Arterial Blood Potassium (3.4-4.5) mmol/L
[2023-04-24 07:53] LABS: Glucose,Whole Blood 151 mg/dL (70-110)
--- NOTE | 2023-04-24 08:07 | P.PN ---
Subjective Progress Note Date: 04/24/23 Principal diagnosis: Triple-vessel coronary artery disease, non-STEMI this admission. History of hypertension, hyperlipidemia, diabetes, bilateral internal carotid artery stenosis, peripheral vascular disease, pulmonary embolism at 20 years old and not currently on anticoagulation, current tobacco dependence, family history of premature coronary artery disease on both sides of the family POD #2 off-pump coronary artery bypass graft 5 with the left internal thoracic artery (in-situ) to the left anterior descending artery, left radial artery sequential from the aorta to the obtuse marginal #1 and obtuse marginal #2 artery, reverse saphenous vein graft from the aorta to the diagonal artery, reverse saphenous vein graft from the aorta to the posterior descending artery, left atrial appendage ligation using #35mm AtriClip, endoscopic left radial and right greater saphenous vein harvest, graft flow measurements using the Medistim flowmeter, intraoperative transesophageal echocardiogram performed by anesthesia The patient was seen and examined sitting up in a recliner on the intensive care unit in no acute distress. She remains in sinus rhythm, hemodynamically stable. Does complain of significant postsurgical pain, denies shortness of breath. Mediastinal/left/right pleural chest tubes, right internal jugular cordis currently in place. Labs, chest x-ray reviewed. She did ambulate in the hallway yesterday with assistance. No other new concerns. Objective - Vital Signs Vital signs: Vital Signs Temp 98.8 F 04/24/23 04:00 Pulse 85 04/24/23 07:00 Resp 18 04/24/23 07:00 BP 141/79 04/24/23 07:00 Pulse Ox 96 04/24/23 07:00 FiO2 50 04/23/23 00:00 Intake & Output 04/23/23 04/24/23 04/24/23 18:59 06:59 18:59 Intake Total 651.556 287.447 25.803 Output Total 440 698 25 Balance 211.556 -410.553 0.803 Weight 65 kg 66.7 kg Intake: IV 388 276 23 0.9 NS Pressure bags 48 36 3 CO/CI NS 0.9 40 Lactated Ringers 1,000 ml 300 240 20 @ 20 mls/hr IV .Q24H [facility] Rx#:[id number] Intake, IV Titration 143.556 11.447 2.803 Amount Insulin Regular 100 unit 43.556 11.447 2.803 In Sodium Chloride 0.9% 100 ml @ Per Protocol IV .Q0M [facility] Rx#:[id number] ceFAZolin 2 gm In Sodium 100 Chloride 0.9% 50 ml @ 100 mls/hr IVPB Q8HR [facility] Rx# :[id number] Oral 120 Output: Chest Tube Drainage 120 90 Chest Tube Left Pleural/ 30 20 Mediastinal Chest Tube Mediastinal 90 70 Urine 320 608 25 Other: Voiding Method Indwelling Catheter Indwelling Catheter ABP, PAP, CO, CI - Last Documented Arterial Blood Pressure 101/77 Pulmonary Artery Pressure 29/12 Cardiac Output 3.8 Cardiac Index 2.3 - Exam CONSTITUTIONAL: Appears mostly comfortable, cooperative, no acute distress RESPIRATORY: Lungs sounds diminished bilaterally. Respirations even, no nlabored. Currently on room air with oxygen saturation 92%. Able to achieve 500-750 mL on incentive spirometry. Strong cough. CARDIOVASCULAR: S1, S2 present. Regular rate and rhythm, sinus rhythm on telemetry. Sternum stable. Palpable peripheral pulses bilaterally. No edema present. No calf pain or tenderness noted. Heart hugger in place with patient demonstrating appropriate use. Antiembolism stockings, SCDs present. GASTROINTESTINAL: Abdomen soft, nontender, nondistended. Hypoactive bowel sounds present 4 quadrants. Tolerating clear liquid diet. Denies flatus GENITOURINARY: Almodovar present draining clear, yellow urine. Output overnight 35-75 mL per hour, 928 mL in the last 24 hours INTEGUMENTARY: Skin is warm and dry with evidence of good perfusion. Anterior chest incision well approximated and covered with dry intact dressing. Left radial artery and right lower extremity EVH site well approximated without redness or drainage. NEUROLOGIC: Cranial nerves II through XII intact MUSKULOSKELETAL: Able to move all extremities, strength equal bilaterally PSYCHIATRIC: Alert and oriented to person place and time, appropriate affect, intact judgment and insight INVASIVE LINES AND TUBES: Mediastinal/left/right pleural chest tubes present and connected to wall suction, no air leaks present. Mediastinal tube with 40 mL serosanguineous drainage overnight, 135 mL in the last 24 hours. Left/right pleural chest tubes with 20 mL serosanguineous drainage overnight, 200 mL in the last 24 hours. V epicardial pacemaker wires present, grounded. Right internal jugular cordis present. Last CVP 5. - Allied health notes Allied health notes reviewed: nursing - Labs CBC & Chem 7: 04/24/23 04:00 04/24/23 04:00 Labs: Abnormal Lab Results - Last 24 Hours (Table) 04/22/23 04/22/23 04/22/23 Range/Units 16:03 16:45 17:19 RBC (3.80-5.40) m/uL Hct (34.0-46.0) % ABG pO2 72 L (83-108) mmHg ABG HCO3 26 H (21-25) mmol/L ABG Total CO2 27 H 26 H 26 H (19-24) mmol/L ABG O2 Saturation 98.3 H 97.6 H (94-97) % ABG Potassium (3.4-4.5) mmol/L ABG Lactic Acid 0.4 L (0.5-1.6) mmol/L Hemoglobin 11.0 L (11.4-16.0) gm/dL Glucose (74-99) mg/dL POC Glucose (mg/dL) (70-110) mg/dL AST (14-36) U/L Total Protein (6.3-8.2) g/dL Arterial Blood Potassium (3.4-4.5) mmol/L 04/22/23 04/23/23 04/23/23 Range/Units 18:40 09:59 11:07 RBC (3.80-5.40) m/uL Hct (34.0-46.0) % ABG pO2 (83-108) mmHg ABG HCO3 (21-25) mmol/L ABG Total CO2 25 H (19-24) mmol/L ABG O2 Saturation 97.3 H (94-97) % ABG Potassium 5.0 H (3.4-4.5) mmol/L ABG Lactic Acid (0.5-1.6) mmol/L Hemoglobin 11.1 L (11.4-16.0) gm/dL Glucose (74-99) mg/dL POC Glucose (mg/dL) 167 H 141 H (70-110) mg/dL AST (14-36) U/L Total Protein (6.3-8.2) g/dL Arterial Blood Potassium 5.0 H (3.4-4.5) mmol/L 04/23/23 04/23/23 04/23/23 Range/Units 14:02 15:31 18:27 RBC (3.80-5.40) m/uL Hct (34.0-46.0) % ABG pO2 (83-108) mmHg ABG HCO3 (21-25) mmol/L ABG Total CO2 (19-24) mmol/L ABG O2 Saturation (94-97) % ABG Potassium (3.4-4.5) mmol/L ABG Lactic Acid (0.5-1.6) mmol/L Hemoglobin (11.4-16.0) gm/dL Glucose (74-99) mg/dL POC Glucose (mg/dL) 145 H 129 H 124 H (70-110) mg/dL AST (14-36) U/L Total Protein (6.3-8.2) g/dL Arterial Blood Potassium (3.4-4.5) mmol/L 04/23/23 04/23/23 04/24/23 Range/Units 21:23 23:02 00:09 RBC (3.80-5.40) m/uL Hct (34.0-46.0) % ABG pO2 (83-108) mmHg ABG HCO3 (21-25) mmol/L ABG Total CO2 (19-24) mmol/L ABG O2 Saturation (94-97) % ABG Potassium (3.4-4.5) mmol/L ABG Lactic Acid (0.5-1.6) mmol/L Hemoglobin (11.4-16.0) gm/dL Glucose (74-99) mg/dL POC Glucose (mg/dL) 157 H 125 H 112 H (70-110) mg/dL AST (14-36) U/L Total Protein (6.3-8.2) g/dL Arterial Blood Potassium (3.4-4.5) mmol/L 04/24/23 04/24/23 04/24/23 Range/Units 01:37 03:11 04:00 RBC 3.29 L (3.80-5.40) m/uL Hct 32.3 L (34.0-46.0) % ABG pO2 (83-108) mmHg ABG HCO3 (21-25) mmol/L ABG Total CO2 (19-24) mmol/L ABG O2 Saturation (94-97) % ABG Potassium (3.4-4.5) mmol/L ABG Lactic Acid (0.5-1.6) mmol/L Hemoglobin (11.4-16.0) gm/dL Glucose (74-99) mg/dL POC Glucose (mg/dL) 117 H 118 H (70-110) mg/dL AST (14-36) U/L Total Protein (6.3-8.2) g/dL Arterial Blood Potassium (3.4-4.5) mmol/L 04/24/23 04/24/23 04/24/23 Range/Units 04:00 05:58 07:52 RBC (3.80-5.40) m/uL Hct (34.0-46.0) % ABG pO2 (83-108) mmHg ABG HCO3 (21-25) mmol/L ABG Total CO2 (19-24) mmol/L ABG O2 Saturation (94-97) % ABG Potassium (3.4-4.5) mmol/L ABG Lactic Acid (0.5-1.6) mmol/L Hemoglobin (11.4-16.0) gm/dL Glucose 108 H (74-99) mg/dL POC Glucose (mg/dL) 127 H 151 H (70-110) mg/dL AST 126 H (14-36) U/L Total Protein 6.2 L (6.3-8.2) g/dL Arterial Blood Potassium (3.4-4.5) mmol/L - Imaging and Cardiology Chest x-ray: report reviewed, image reviewed Assessment and Plan Assessment: Triple-vessel coronary artery disease, non-STEMI this admission, status post 5 vessel CABG Chest pain, secondary to above Hypertension Hyperlipidemia, cholesterol 257, LDL 162, triglycerides 247 Diabetes, hemoglobin A1c 7.5% Bilateral internal carotid artery stenosis, 50-69% Peripheral vascular disease, right MARCELLA 0.77 Pulmonary embolism at 20 years old and not currently on anticoagulation Current tobacco dependence, preoperative FEV1 104% of predicted Family history of premature coronary artery disease on both sides of the family Plan: Continue to maximize medical management with aspirin, statin, Plavix and beta b locker. Will increase beta hector as tolerated, increase to 50 mg twice daily today Continue oral calcium channel hector for radial artery spasm prophylaxis, increased to 10 mg daily today Encourage incentive spirometry 10 times every hour while awake. Bronchodilators per pulmonology Will monitor daily labs and x-rays. Electrolyte replacement per protocol Increase activity, ambulate as tolerated. PT/OT/cardiac rehab consulted GI/DVT prophylaxis Insulin management per internal medicine. Patient should remain on insulin continuous infusion for 48 hours then change per protocol Pain control with current medication regimen Discontinue cordis Will discontinue chest tubes Discontinue Almodovar catheter, may bladder scan and straight cath for greater than 300 mL residual Continue to record strict accurate intake and output Daily weights Smoking cessation counseling and education reinforced We will place transfer orders for 3 S. cardiac stepdown unit, may transfer when bed available More recommendations to follow this patient progresses
[2023-04-24] MEDS ORDERED: FUROSEMIDE 10 MG/ML 2 ML VIAL IV STA (08:46)
[2023-04-24] MEDS ORDERED: amLODIPine 10 MG TAB PO SCH (09:00)
[2023-04-24] MEDS: IPRATROPIUM-ALBUTEROL 3 ML NEB INHALATION SCH ×4 (09:16→20:53)
[2023-04-24] MEDS: METOPROLOL TARTRATE 50 MG TAB PO SCH ×2 (09:24→20:45)
[2023-04-24] MEDS: CLOPIDOGREL 75 MG TAB PO SCH (09:24)
[2023-04-24] MEDS: ASPIRIN 325 MG TAB PO SCH (09:24)
[2023-04-24] MEDS: MULTIVITAMINS, THERA 1 EACH TAB PO SCH (09:25)
[2023-04-24 09:31] LABS: Glucose,Whole Blood 121 mg/dL (70-110)
[2023-04-24] MEDS ORDERED: DEXTROSE 50% SYRINGE 50 ML IVP PRN ×2 (10:39)
--- NOTE | 2023-04-24 10:39 | P.PN ---
Subjective Progress Note Date: 04/24/23 On 04/23/2023, the patient is postop day #1. The patient has a off-pump five- vessel bypass surgery with CLARK to LAD and radial graft to use marginal 1 and obtuse marginal 2 and the patient also had saphenous vein graft to diagonal and PDA. The patient also had atrial clipping. The patient is currently postop day #1. She was weaned off the mechanical ventilator and she was extubated yesterday without any major difficulties. Currently she is on oxygen at room air. She has chest tubes and the patient has a mediastinal, left pleural and the right pleural chest tube. There is no evidence of any air leak. Output from the chest tubes are noted and the patient has produced approximately 75 mL of bloody output from the mediastinal chest tube and the pleural chest tubes have produced 350 mL. The patient's cardiac output is at 3.8 with an index of 2.3. He had pressures of 27/10 with a CVP of 3. Cardiac rhythm is sinus. No pressors at this point in time. Blood work was noted and the patient has a hemoglobin of 11.6, white cycles of 12.5, BUN is at 70 with a creatinine of 0.5 and a sodium level is at 137. Breathing is nonlabored. Using the [employer] spirometer. Leg approximately 500 mL. On today's evaluation of 04/24/2023, the patient is postop day #2. The patient underwent five-vessel bypass surgery. The patient is doing well. She is currently on oxygen 2 L/m nasal cannula. The chest x-ray shows no significant abnormalities. No evidence of any pneumothorax. The patient has chest tubes in place and the patient has produced approximately 400 mL of output from the left and the right-sided chest tubes over the past 24 hours and the mediastinal chest tube has produced 135 mL over the past 24 hours. CVP is currently at 5. The patient is using the [employer] spirometer and she is falling approximately 700. The blood work from today showing inability to 9.9 with a hemoglobin 11.4, BUN is at 70 with a creatinine of 0.5 and a sodium level is at 137. Cardiac rhythm is sinus. The patient is hemodynamically stable. No hypotension. She has an adequate urine output. She remains on aspirin and Plavix. She is also on metoprolol which is being given a dose of 50 mg by mouth twice a day. She is on Norvasc 10 mg by mouth daily for blood pressure control. Oxycodone for pain control. Surgical one-sided dry clean and intact. Urine output is adequate in the order of 50 mL an hourly basis. Objective - Vital Signs Vital signs: Vital Signs Temp 97.1 F L 04/24/23 08:00 Pulse 96 04/24/23 09:31 Resp 16 04/24/23 09:31 BP 133/75 04/24/23 09:00 Pulse Ox 97 04/24/23 09:17 FiO2 50 04/23/23 00:00 Intake & Output 04/23/23 04/24/23 04/24/23 18:59 06:59 18:59 Intake Total 651.556 287.447 75.069 Output Total 440 698 155 Balance 211.556 -410.553 -79.931 Weight 65 kg 66.7 kg Intake: IV 388 276 69 0.9 NS Pressure bags 48 36 9 CO/CI NS 0.9 40 Lactated Ringers 1,000 ml 300 240 60 @ 20 mls/hr IV .Q24H [facility] Rx#:[id number] Intake, IV Titration 143.556 11.447 6.069 Amount Insulin Regular 100 unit 43.556 11.447 6.069 In Sodium Chloride 0.9% 100 ml @ Per Protocol IV .Q0M [facility] Rx#:[id number] ceFAZolin 2 gm In Sodium 100 Chloride 0.9% 50 ml @ 100 mls/hr IVPB Q8HR [facility] Rx# :[id number] Oral 120 Output: Chest Tube Drainage 120 90 70 Chest Tube Left Pleural/ 30 20 50 Mediastinal Chest Tube Mediastinal 90 70 20 Urine 320 608 85 Other: Voiding Method Indwelling Catheter Indwelling Catheter ABP, PAP, CO, CI - Last Documented Arterial Blood Pressure 101/77 Pulmonary Artery Pressure 29/12 Cardiac Output 3.8 Cardiac Index 2.3 - Exam CONSTITUTIONAL: Appears mostly comfortable, cooperative, no acute distress RESPIRATORY: Lungs sounds diminished bilaterally. Respirations even, nonlabored. Currently on room air with oxygen saturation 92%. Able to achieve 500-750 mL on incentive spirometry. Strong cough. CARDIOVASCULAR: S1, S2 present. Regular rate and rhythm, sinus rhythm on telemetry. Sternum stable. Palpable peripheral pulses bilaterally. No edema present. No calf pain or tenderness noted. Heart hugger in place with patient demonstrating appropriate use. Antiembolism stockings, SCDs present. GASTROINTESTINAL: Abdomen soft, nontender, nondistended. Hypoactive bowel sounds present 4 quadrants. Tolerating clear liquid diet. Denies flatus GENITOURINARY: Almodoavr present draining clear, yellow urine. Output overnight 35-75 mL per hour, 928 mL in the last 24 hours INTEGUMENTARY: Skin is warm and dry with evidence of good perfusion. Anterior chest incision well approximated and covered with dry intact dressing. Left radial artery and right lower extremity EVH site well approximated without redness or drainage. NEUROLOGIC: Cranial nerves II through XII intact MUSKULOSKELETAL: Able to move all extremities, strength equal bilaterally PSYCHIATRIC: Alert and oriented to person place and time, appropriate affect, intact judgment and insight INVASIVE LINES AND TUBES: Mediastinal/left/right pleural chest tubes present and connected to wall suction, no air leaks present. Mediastinal tube with 40 mL serosanguineous drainage overnight, 135 mL in the last 24 hours. Left/right pleural chest tubes with 20 mL serosanguineous drainage overnight, 200 mL in the last 24 hours. V epicardial pacemaker wires present, grounded. Right internal jugular cordis present. Last CVP 5. - Labs CBC & Chem 7: 04/24/23 04:00 04/24/23 04:00 Labs: Abnormal Lab Results - Last 24 Hours (Table) 04/22/23 04/22/23 04/22/23 Range/Units 16:03 16:45 17:19 RBC (3.80-5.40) m/uL Hct (34.0-46.0) % ABG pO2 72 L (83-108) mmHg ABG HCO3 26 H (21-25) mmol/L ABG Total CO2 27 H 26 H 26 H (19-24) mmol/L ABG O2 Saturation 98.3 H 97.6 H (94-97) % ABG Potassium (3.4-4.5) mmol/L ABG Lactic Acid 0.4 L (0.5-1.6) mmol/L Hemoglobin 11.0 L (11.4-16.0) gm/dL Glucose (74-99) mg/dL POC Glucose (mg/dL) (70-110) mg/dL AST (14-36) U/L Total Protein (6.3-8.2) g/dL Arterial Blood Potassium (3.4-4.5) mmol/L 04/22/23 04/23/23 04/23/23 Range/Units 18:40 11:07 14:02 RBC (3.80-5.40) m/uL Hct (34.0-46.0) % ABG pO2 (83-108) mmHg ABG HCO3 (21-25) mmol/L ABG Total CO2 25 H (19-24) mmol/L ABG O2 Saturation 97.3 H (94-97) % ABG Potassium 5.0 H (3.4-4.5) mmol/L ABG Lactic Acid (0.5-1.6) mmol/L Hemoglobin 11.1 L (11.4-16.0) gm/dL Glucose (74-99) mg/dL POC Glucose (mg/dL) 141 H 145 H (70-110) mg/dL AST (14-36) U/L Total Protein (6.3-8.2) g/dL Arterial Blood Potassium 5.0 H (3.4-4.5) mmol/L 04/23/23 04/23/23 04/23/23 Range/Units 15:31 18:27 21:23 RBC (3.80-5.40) m/uL Hct (34.0-46.0) % ABG pO2 (83-108) mmHg ABG HCO3 (21-25) mmol/L ABG Total CO2 (19-24) mmol/L ABG O2 Saturation (94-97) % ABG Potassium (3.4-4.5) mmol/L ABG Lactic Acid (0.5-1.6) mmol/L Hemoglobin (11.4-16.0) gm/dL Glucose (74-99) mg/dL POC Glucose (mg/dL) 129 H 124 H 157 H (70-110) mg/dL AST (14-36) U/L Total Protein (6.3-8.2) g/dL Arterial Blood Potassium (3.4-4.5) mmol/L 04/23/23 04/24/23 04/24/23 Range/Units 23:02 00:09 01:37 RBC (3.80-5.40) m/uL Hct (34.0-46.0) % ABG pO2 (83-108) mmHg ABG HCO3 (21-25) mmol/L ABG Total CO2 (19-24) mmol/L ABG O2 Saturation (94-97) % ABG Potassium (3.4-4.5) mmol/L ABG Lactic Acid (0.5-1.6) mmol/L Hemoglobin (11.4-16.0) gm/dL Glucose (74-99) mg/dL POC Glucose (mg/dL) 125 H 112 H 117 H (70-110) mg/dL AST (14-36) U/L Total Protein (6.3-8.2) g/dL Arterial Blood Potassium (3.4-4.5) mmol/L 04/24/23 04/24/23 04/24/23 Range/Units 03:11 04:00 04:00 RBC 3.29 L (3.80-5.40) m/uL Hct 32.3 L (34.0-46.0) % ABG pO2 (83-108) mmHg ABG HCO3 (21-25) mmol/L ABG Total CO2 (19-24) mmol/L ABG O2 Saturation (94-97) % ABG Potassium (3.4-4.5) mmol/L ABG Lactic Acid (0.5-1.6) mmol/L Hemoglobin (11.4-16.0) gm/dL Glucose 108 H (74-99) mg/dL POC Glucose (mg/dL) 118 H (70-110) mg/dL AST 126 H (14-36) U/L Total Protein 6.2 L (6.3-8.2) g/dL Arterial Blood Potassium (3.4-4.5) mmol/L 04/24/23 04/24/23 04/24/23 Range/Units 05:58 07:52 09:30 RBC (3.80-5.40) m/uL Hct (34.0-46.0) % ABG pO2 (83-108) mmHg ABG HCO3 (21-25) mmol/L ABG Total CO2 (19-24) mmol/L ABG O2 Saturation (94-97) % ABG Potassium (3.4-4.5) mmol/L ABG Lactic Acid (0.5-1.6) mmol/L Hemoglobin (11.4-16.0) gm/dL Glucose (74-99) mg/dL POC Glucose (mg/dL) 127 H 151 H 121 H (70-110) mg/dL AST (14-36) U/L Total Protein (6.3-8.2) g/dL Arterial Blood Potassium (3.4-4.5) mmol/L Assessment and Plan Plan: Multivessel coronary artery disease and the patient is post non-ST segment elevation myocardial infarction the patient underwent five-vessel bypass surgery. Patient is currently postop day #2 Postthoracotomy, the patient was extubated about any major difficulties, currently on room air. The patient is a mediastinal, right pleural and left lower chest tubes. Output from the chest was noted and the patient elected have the chest tubes removed today. She is currently on oxygen 2 L/m nasal cannula Triple-vessel coronary artery disease, non-STEMI this admission, status post 5 vessel CABG Chest pain, secondary to above Hypertension Hyperlipidemia, patient is currently on high dose statins Diabetes, hemoglobin A1c 7.5%, currently on insulin drip running at 1 units an hour Bilateral internal carotid artery stenosis, 50-69% Peripheral vascular disease Pulmonary embolism at 20 years old and not currently on anticoagulation Current tobacco dependence, preoperative FEV1 104% of predicted Family history of premature coronary artery disease on both sides of the family Plan: The patient is recovering reasonably well, We'll remove the chest tube today We will discontinue the insulin drip and switch this patient has slight scale insulin coverage Encourage use of [employer] spirometer Chest x-ray was noted Adequate urine output Continue aspirin and Plavix Continue high dose statins Continue metoprolol and the patient is currently on 50 mg by mouth twice a day Discontinue the nitroglycerin drip Continue Norvasc and the details of 10 mg by mouth daily We'll continue to follow make further recommendations based on progress
[2023-04-24 11:52] LABS: Glucose,Whole Blood 136 mg/dL (70-110)
[2023-04-24] MEDS: INSULIN ASPART (NovoLOG) 100 UNIT/ML VIAL SQ SCH ×3 (11:52→20:45)
[2023-04-24] MEDS ORDERED: HYDROcodone/APAP 5-325MG 1 EACH TAB PO PRN ×2 (12:00→16:17)
--- NOTE | 2023-04-24 12:13 | P.PN ---
Subjective Progress Note Date: 04/24/23 Hospital Course: 52-year-old female with a PMH of type II DM and tobacco abuse, has not seen a physician for several years, presents to the emergency room with complaints of chest pain and shortness of breath. In the emergency room, chest x-ray was unremarkable with EKG showing sinus rhythm at 79 bpm with T-wave inversion in leads 2, 3, and aVF with T-wave flattening in leads V5 and V6. Laboratory evaluation was remarkable for troponin 0.266 and subsequently 0.483. D-dimer was 0.1. Glucose was 177. Blood pressure upon arrival at the emergency room was 160/92 with pulse 86, CO2 91% on room air, and temp 98F. Patient admitted for NSTEMI on heparin drip. Cardiology consulted. Cardiac cath showed multivessel coronary artery disease, recommending CABG. Now s/p CABG in the [facility] ICU. Subjective: Seen and examined at bedside. No acute events overnight. Feels weak. Has 3 chest tubes, and manning in place. Pertinent positives and negatives as discussed above, a complete review of systems was performed and all other systems are negative. Vitals Signs Reviewed. General: nontoxic, no distress, appears at stated age Derm: warm, dry, midline incision clean, dry, intact Head: atraumatic, normocephalic, symmetric Eyes: EOMI, no lid lag, anicteric sclera Mouth: no lip lesion, mucus membranes moist Cardiovascular: S1S2 reg, no murmur Lungs: CTA bilateral, no rhonchi, no rales , no accessory muscle use, chest tubes in place Abdominal: soft, nontender to palpation, no guarding, no appreciable organomegaly Ext: no gross muscle atrophy, no edema, no contractures Neuro: CN II-XI grossly intact, no focal neuro deficits Psych: Alert, oriented, appropriate affect Data Reviewed Today: Pertinent Labs: WBC 9.9, hemoglobin 11.4, potassium 4.8, creatinine 0.58, blood glucose range between 118-151 Imaging: Chest x-ray independently interpreted, shows mild interstitial prominence, chest tubes in place Assessment and Plan: Multivessel coronary artery disease status post CABG NSTEMI Type 2 diabetes, A1c 7.5 Hypertension Nicotine dependence Mild hypomagnesemia, resolved -Cardiology note reviewed, continue current therapy -Cardiothoracic surgery note reviewed, continue aspirin, statin, Plavix, beta hector, increase beta hector today, continue calcium channel hector which is also increased today discontinue Manning catheter, discontinue cordis, discontinue chest tubes, transfer to the ICU -Pulmonology note reviewed, continue current therapy -Currently on insulin drip, oral intake still poor, once oral intake improves, we'll switch to sliding scale insulin -Counseled regarding smoking cessation DVT ppx: Subcu heparin Code status: Full code Anticipated discharge place: Pending clinical course Anticipated discharge time: Pending clinical course Objective - Vital Signs Vital signs: Vital Signs Temp 98.8 F 04/24/23 12:00 Pulse 80 04/24/23 12:00 Resp 17 04/24/23 12:00 BP 135/77 04/24/23 12:00 Pulse Ox 93 L 04/24/23 12:00 FiO2 50 04/23/23 00:00 Intake & Output 04/23/23 04/24/23 04/24/23 18:59 06:59 18:59 Intake Total 651.556 287.447 122.079 Output Total 994 175 1798 Balance 211.556 -410.553 -1032.921 Weight 65 kg 66.7 kg Intake: IV 388 276 115 0.9 NS Pressure bags 48 36 15 CO/CI NS 0.9 40 Lactated Ringers 1,000 ml 300 240 100 @ 20 mls/hr IV .Q24H [facility] Rx#:[id number] Intake, IV Titration 143.556 11.447 7.079 Amount Insulin Regular 100 unit 43.556 11.447 7.079 In Sodium Chloride 0.9% 100 ml @ Per Protocol IV .Q0M [facility] Rx#:[id number] ceFAZolin 2 gm In Sodium 100 Chloride 0.9% 50 ml @ 100 mls/hr IVPB Q8HR [facility] Rx# :[id number] Oral 120 Output: Chest Tube Drainage 120 90 70 Chest Tube Left Pleural/ 30 20 50 Mediastinal Chest Tube Mediastinal 90 70 20 Urine 251 490 6211 Other: Voiding Method Indwelling Catheter Indwelling Catheter Indwelling Catheter ABP, PAP, CO, CI - Last Documented Arterial Blood Pressure 101/77 Pulmonary Artery Pressure 29/12 Cardiac Output 3.8 Cardiac Index 2.3 - Labs CBC & Chem 7: 04/24/23 04:00 04/24/23 04:00 Labs: Abnormal Lab Results - Last 24 Hours (Table) 04/22/23 04/22/23 04/22/23 Range/Units 16:03 16:45 17:19 RBC (3.80-5.40) m/uL Hct (34.0-46.0) % ABG pO2 72 L (83-108) mmHg ABG HCO3 26 H (21-25) mmol/L ABG Total CO2 27 H 26 H 26 H (19-24) mmol/L ABG O2 Saturation 98.3 H 97.6 H (94-97) % ABG Potassium (3.4-4.5) mmol/L ABG Lactic Acid 0.4 L (0.5-1.6) mmol/L Hemoglobin 11.0 L (11.4-16.0) gm/dL Glucose (74-99) mg/dL POC Glucose (mg/dL) (70-110) mg/dL AST (14-36) U/L Total Protein (6.3-8.2) g/dL Arterial Blood Potassium (3.4-4.5) mmol/L 04/22/23 04/23/23 04/23/23 Range/Units 18:40 14:02 15:31 RBC (3.80-5.40) m/uL Hct (34.0-46.0) % ABG pO2 (83-108) mmHg ABG HCO3 (21-25) mmol/L ABG Total CO2 25 H (19-24) mmol/L ABG O2 Saturation 97.3 H (94-97) % ABG Potassium 5.0 H (3.4-4.5) mmol/L ABG Lactic Acid (0.5-1.6) mmol/L Hemoglobin 11.1 L (11.4-16.0) gm/dL Glucose (74-99) mg/dL POC Glucose (mg/dL) 145 H 129 H (70-110) mg/dL AST (14-36) U/L Total Protein (6.3-8.2) g/dL Arterial Blood Potassium 5.0 H (3.4-4.5) mmol/L 04/23/23 04/23/23 04/23/23 Range/Units 18:27 21:23 23:02 RBC (3.80-5.40) m/uL Hct (34.0-46.0) % ABG pO2 (83-108) mmHg ABG HCO3 (21-25) mmol/L ABG Total CO2 (19-24) mmol/L ABG O2 Saturation (94-97) % ABG Potassium (3.4-4.5) mmol/L ABG Lactic Acid (0.5-1.6) mmol/L Hemoglobin (11.4-16.0) gm/dL Glucose (74-99) mg/dL POC Glucose (mg/dL) 124 H 157 H 125 H (70-110) mg/dL AST (14-36) U/L Total Protein (6.3-8.2) g/dL Arterial Blood Potassium (3.4-4.5) mmol/L 04/24/23 04/24/23 04/24/23 Range/Units 00:09 01:37 03:11 RBC (3.80-5.40) m/uL Hct (34.0-46.0) % ABG pO2 (83-108) mmHg ABG HCO3 (21-25) mmol/L ABG Total CO2 (19-24) mmol/L ABG O2 Saturation (94-97) % ABG Potassium (3.4-4.5) mmol/L ABG Lactic Acid (0.5-1.6) mmol/L Hemoglobin (11.4-16.0) gm/dL Glucose (74-99) mg/dL POC Glucose (mg/dL) 112 H 117 H 118 H (70-110) mg/dL AST (14-36) U/L Total Protein (6.3-8.2) g/dL Arterial Blood Potassium (3.4-4.5) mmol/L 04/24/23 04/24/23 04/24/23 Range/Units 04:00 04:00 05:58 RBC 3.29 L (3.80-5.40) m/uL Hct 32.3 L (34.0-46.0) % ABG pO2 (83-108) mmHg ABG HCO3 (21-25) mmol/L ABG Total CO2 (19-24) mmol/L ABG O2 Saturation (94-97) % ABG Potassium (3.4-4.5) mmol/L ABG Lactic Acid (0.5-1.6) mmol/L Hemoglobin (11.4-16.0) gm/dL Glucose 108 H (74-99) mg/dL POC Glucose (mg/dL) 127 H (70-110) mg/dL AST 126 H (14-36) U/L Total Protein 6.2 L (6.3-8.2) g/dL Arterial Blood Potassium (3.4-4.5) mmol/L 04/24/23 04/24/23 04/24/23 Range/Units 07:52 09:30 11:49 RBC (3.80-5.40) m/uL Hct (34.0-46.0) % ABG pO2 (83-108) mmHg ABG HCO3 (21-25) mmol/L ABG Total CO2 (19-24) mmol/L ABG O2 Saturation (94-97) % ABG Potassium (3.4-4.5) mmol/L ABG Lactic Acid (0.5-1.6) mmol/L Hemoglobin (11.4-16.0) gm/dL Glucose (74-99) mg/dL POC Glucose (mg/dL) 151 H 121 H 136 H (70-110) mg/dL AST (14-36) U/L Total Protein (6.3-8.2) g/dL Arterial Blood Potassium (3.4-4.5) mmol/L
[2023-04-24 16:53] LABS: Glucose,Whole Blood 217 mg/dL (70-110)
[2023-04-24 20:14] LABS: Glucose,Whole Blood 195 mg/dL (70-110)
[2023-04-24] MEDS: ATORVASTATIN 80 MG TAB PO SCH (20:45)
[2023-04-24] MEDS: SENNOSIDES-DOCUSATE SODIUM 1 EACH TAB PO SCH (20:45)
[2023-04-25] MEDS: KETOROLAC 15 MG/ML 1 ML VIAL IVP SCH ×5 (00:38→23:49)
[2023-04-25 06:16] LABS: Glucose,Whole Blood 198 mg/dL (70-110)
[2023-04-25] MEDS: PANTOPRAZOLE 40 MG TABLET PO SCH (06:28)
[2023-04-25] MEDS: INSULIN ASPART (NovoLOG) 100 UNIT/ML VIAL SQ SCH ×5 (06:28→21:10)
--- NOTE | 2023-04-25 07:31 | XR ---
EXAMINATION TYPE: XR chest 2V DATE OF EXAM: 04/25/2023 COMPARISON: 04/24/2023 HISTORY: 52-year-old female post cardiac surgery TECHNIQUE: PA and lateral views FINDINGS: Median sternotomy wires and post-CABG clips. Heart normal size. Mild diffuse interstitial density sim ilar to slightly improved. Possible trace effusion on the left. Mediastinal drain removed in the inte rval. IMPRESSION: Mild pulmonary vascular congestion remains, improved from prior.
[2023-04-25 07:56] LABS: Basophils % (A) 0 %; Eosinophils # (A) 0.1 k/uL (0-0.7); Eosinophils % (A) 1 %; HCT 31.3 % (34.0-46.0); Lymphocytes # (A) 1.8 k/uL (1.0-4.8); Lymphocytes % (A) 20 %; MCH 34.7 pg (25.0-35.0); MCV 98.9 fL (80.0-100.0); Mean Platelet Volume 7.5; Monocytes # (A) 0.5 k/uL (0-1.0); Monocytes % (A) 5 %; Neutrophils # (A) 6.5 k/uL (1.3-7.7); Neutrophils % (A) 72 %; Platelet Count 184 k/uL (150-450); RBC 3.17 m/uL (3.80-5.40); RDW 13.2 % (11.5-15.5); WBC 9.1 k/uL (3.8-10.6)
[2023-04-25 08:39] LABS: ALT 29 U/L (4-34); AST 61 U/L (14-36); African American GFR (CKD) >90 (>60 ml/min/1.73 sqM); Albumin 3.9 g/dL (3.5-5.0); Alkaline Phosphatase 56 U/L (38-126); Anion Gap 8 mmol/L; Blood Urea Nitrogen 23 mg/dL (7-17); Calcium 9.2 mg/dL (8.4-10.2); Carbon Dioxide 25 mmol/L (22-30); Chloride 103 mmol/L (98-107); Glucose 170 mg/dL (74-99); Non-African American GFR(CKD) >90 (>60 ml/min/1.73 sqM); Sodium 136 mmol/L (137-145); Total Bilirubin 1.1 mg/dL (0.2-1.3); Total Protein 6.5 g/dL (6.3-8.2)
[2023-04-25] MEDS: IPRATROPIUM-ALBUTEROL 3 ML NEB INHALATION SCH ×4 (08:39→20:58)
[2023-04-25 09:26] LABS: Potassium 4.9 mmol/L (3.5-5.1)
[2023-04-25] MEDS: CLOPIDOGREL 75 MG TAB PO SCH (10:25)
[2023-04-25] MEDS: ASPIRIN 325 MG TAB PO SCH (10:25)
[2023-04-25] MEDS: METOPROLOL TARTRATE 50 MG TAB PO SCH ×2 (10:25→21:07)
[2023-04-25] MEDS: MULTIVITAMINS, THERA 1 EACH TAB PO SCH (10:25)
[2023-04-25] MEDS: HEPARIN SODIUM,PORCINE 5,000 UNIT/ML 1 ML VIAL SQ SCH ×2 (10:25→17:08)
[2023-04-25 12:12] LABS: Glucose,Whole Blood 265 mg/dL (70-110)
[2023-04-25] MEDS ORDERED: NA PHOS,M-B/NA PHOS,DI-BA 133 ML ENEMA RECTAL STA (12:30)
--- NOTE | 2023-04-25 12:33 | P.PN ---
Subjective Progress Note Date: 04/25/23 On 04/23/2023, the patient is postop day #1. The patient has a off-pump five- vessel bypass surgery with CLARK to LAD and radial graft to use marginal 1 and obtuse marginal 2 and the patient also had saphenous vein graft to diagonal and PDA. The patient also had atrial clipping. The patient is currently postop day #1. She was weaned off the mechanical ventilator and she was extubated yesterday without any major difficulties. Currently she is on oxygen at room air. She has chest tubes and the patient has a mediastinal, left pleural and the right pleural chest tube. There is no evidence of any air leak. Output from the chest tubes are noted and the patient has produced approximately 75 mL of bloody output from the mediastinal chest tube and the pleural chest tubes have produced 350 mL. The patient's cardiac output is at 3.8 with an index of 2.3. He had pressures of 27/10 with a CVP of 3. Cardiac rhythm is sinus. No pressors at this point in time. Blood work was noted and the patient has a hemoglobin of 11.6, white cycles of 12.5, BUN is at 70 with a creatinine of 0.5 and a sodium level is at 137. Breathing is nonlabored. Using the [place] spirometer. Leg approximately 500 mL. On today's evaluation of 04/24/2023, the patient is postop day #2. The patient underwent five-vessel bypass surgery. The patient is doing well. She is currently on oxygen 2 L/m nasal cannula. The chest x-ray shows no significant abnormalities. No evidence of any pneumothorax. The patient has chest tubes in place and the patient has produced approximately 400 mL of output from the left and the right-sided chest tubes over the past 24 hours and the mediastinal chest tube has produced 135 mL over the past 24 hours. CVP is currently at 5. The patient is using the incentive spirometer and she is falling approximately 700. The blood work from today showing inability to 9.9 with a hemoglobin 11.4, BUN is at 70 with a creatinine of 0.5 and a sodium level is at 137. Cardiac rhythm is sinus. The patient is hemodynamically stable. No hypotension. She has an adequate urine output. She remains on aspirin and Plavix. She is also on metoprolol which is being given a dose of 50 mg by mouth twice a day. She is on Norvasc 10 mg by mouth daily for blood pressure control. Oxycodone for pain control. Surgical one-sided dry clean and intact. Urine output is adequate in the order of 50 mL an hourly basis. On today's evaluation of 04/25/2023, the patient is on room air oxygen. The p atient denies having any respiratory difficulties. She is postop day #3. The chest x-ray showed no evidence of any pneumothorax. Postoperative atelectatic changes are seen in the lung bases. The patient has is doing well. Her cardiac rhythm is sinus. She is hemodynamically stable. She is having issues with constipation. She was given a suppository and oral laxatives. The blood work today shows a hemoglobin of 11 and a white cell count of 9.1. BUN is at 23 with a creatinine of 0.4. Sodium is at 136. The patient is currently on a combination of aspirin and Plavix. The patient is also on metoprolol at a dose of 50 mg by mouth twice a day. Patient is on high-dose statins. IV fluids are currently at KVO. She is still working on the incentive spirometer. Pulse ox on room air is always of 92%. Objective - Vital Signs Vital signs: Vital Signs Temp 97.2 F L 04/25/23 04:00 Pulse 89 04/25/23 04:00 Resp 16 04/25/23 04:00 BP 107/64 04/25/23 04:00 Pulse Ox 92 L 04/25/23 04:00 FiO2 50 04/23/23 00:00 Intake & Output 04/24/23 04/25/23 04/25/23 18:59 06:59 18:59 Intake Total 242.079 900 Output Total 1555 500 Balance -1312.921 400 Weight 66.3 kg Intake: IV 115 0.9 NS Pressure bags 15 Lactated Ringers 1,000 ml 100 @ 20 mls/hr IV .Q24H [facility] Rx#:[id number] Intake, IV Titration 7.079 Amount Insulin Regular 100 unit 7.079 In Sodium Chloride 0.9% 100 ml @ Per Protocol IV .Q0M [facility] Rx#:[id number] Oral 120 900 Output: Chest Tube Drainage 70 Chest Tube Left Pleural/ 50 Mediastinal Chest Tube Mediastinal 20 Urine 1485 500 Other: Voiding Method Indwelling Catheter Toilet ABP, PAP, CO, CI - Last Documented Arterial Blood Pressure 101/77 Pulmonary Artery Pressure 29/12 Cardiac Output 3.8 Cardiac Index 2.3 - Exam CONSTITUTIONAL: Appears mostly comfortable, cooperative, no acute distress RESPIRATORY: Lungs sounds diminished bilaterally. Respirations even, nonlabored. CARDIOVASCULAR: S1, S2 present. Regular rate and rhythm, sinus rhythm on telemetry. Sternum stable. Palpable peripheral pulses bilaterally. No edema present. No calf pain or tenderness noted. Heart hugger in place with patient demonstrating appropriate use. Antiembolism stockings, SCDs present. GASTROINTESTINAL: Abdomen soft, nontender, nondistended. Hypoactive bowel sounds present 4 quadrants. Tolerating clear liquid diet. Denies flatus GENITOURINARY: Almodovar present draining clear, yellow urine. Output overnight 35-75 mL per hour, 928 mL in the last 24 hours INTEGUMENTARY: Skin is warm and dry with evidence of good perfusion. Anterior chest incision well approximated and covered with dry intact dressing. Left radial artery and right lower extremity EVH site well approximated without redness or drainage. NEUROLOGIC: Cranial nerves II through XII intact MUSKULOSKELETAL: Able to move all extremities, strength equal bilaterally PSYCHIATRIC: Alert and oriented to person place and time, appropriate affect, intact judgment and insight INVASIVE LINES AND TUBES: Mediastinal/left/right pleural chest tubes have been removed. - Labs CBC & Chem 7: 04/25/23 07:29 04/25/23 07:29 Labs: Abnormal Lab Results - Last 24 Hours (Table) 04/24/23 04/24/23 04/24/23 Range/Units 11:49 16:52 20:12 RBC (3.80-5.40) m/uL Hgb (11.4-16.0) gm/dL Hct (34.0-46.0) % Sodium (137-145) mmol/L BUN (7-17) mg/dL Creatinine (0.52-1.04) mg/dL Glucose (74-99) mg/dL POC Glucose (mg/dL) 136 H 217 H 195 H (70-110) mg/dL AST (14-36) U/L 04/25/23 04/25/23 04/25/23 Range/Units 06:13 07:29 07:29 RBC 3.17 L (3.80-5.40) m/uL Hgb 11.0 L (11.4-16.0) gm/dL Hct 31.3 L (34.0-46.0) % Sodium 136 L (137-145) mmol/L BUN 23 H (7-17) mg/dL Creatinine 0.48 L (0.52-1.04) mg/dL Glucose 170 H (74-99) mg/dL POC Glucose (mg/dL) 198 H (70-110) mg/dL AST 61 H (14-36) U/L Assessment and Plan Plan: Multivessel coronary artery disease and the patient is post non-ST segment elevation myocardial infarction the patient underwent five-vessel bypass surgery. Patient is currently postop day # 3 Postthoracotomy, the patient was extubated about any major difficulties, currently on room air. The pleural of the mediastinal chest is a bit removed, the patient is currently on room air oxygen. Triple-vessel coronary artery disease, non-STEMI this admission, status post 5 vessel CABG Chest pain, secondary to above Hypertension Hyperlipidemia, patient is currently on high dose statins Diabetes, hemoglobin A1c 7.5%, currently on insulin sliding scale coverage Bilateral internal carotid artery stenosis, 50-69% Peripheral vascular disease Pulmonary embolism at 20 years old and not currently on anticoagulation Current tobacco dependence, preoperative FEV1 104% of predicted Family history of premature coronary artery disease on both sides of the family Plan: The patient is recovering reasonably well, patient is currently on room air and the chest is of removed Insulin by scale insulin coverage Encourage use of incentive spirometer Treat constipation Chest x-ray was noted Adequate urine output Continue aspirin and Plavix Continue high dose statins Continue metoprolol and the patient is currently on 50 mg by mouth twice a day Blood pressures under adequate control Continue Norvasc and the details of 10 mg by mouth daily We'll continue to follow make further recommendations based on progress
--- NOTE | 2023-04-25 12:55 | P.PN ---
Subjective HISTORY OF PRESENT ILLNESS: Patient is status post CABG 5 vessels. Patient examined this morning. She is sitting up in the chair. She denies any chest pain or pressure. She denies any shortness of breath. Vital signs are stable. She reveals sinus mechanism with a heart rate in the 90s. PHYSICAL EXAM: VITAL SIGNS: Reviewed. GENERAL: Well-developed in no acute distress. NECK: Supple. No JVD or thyromegaly LUNGS: Respirations even and unlabored. Lungs essentially clear to auscultation bilaterally. HEART: Regular rate and rhythm. S1 and S2 heard. EXTREMITIES: Normal range of motion. No clubbing or cyanosis. Peripheral pulses intact. No lower extremity edema ASSESSMENT: Non-STEMI Multi-vessel coronary artery disease, status post CABG 5 vessels Hypertension Hyperlipidemia Diabetes Bilateral carotid stenosis Nicotine dependence PLAN: Continue postoperative management per CT surgery Continue current cardiac medications Increase activity as tolerated Encourage use of incentive spirometer Further recommendations pending patient course Patient to follow up post discharge with Dr. Stinson Nurse practitioner note has been reviewed by physician. Signing provider agrees with the documented findings, assessment, and plan of care. Objective - Vital Signs Vital signs: Vital Signs Temp 98.9 F 04/25/23 08:00 Pulse 92 04/25/23 08:00 Resp 16 04/25/23 08:00 BP 131/66 04/25/23 08:00 Pulse Ox 92 L 04/25/23 08:00 FiO2 50 04/23/23 00:00 Intake & Output 04/24/23 04/25/23 04/25/23 18:59 06:59 18:59 Intake Total 242.079 900 118 Output Total 1555 500 Balance -1312.921 400 118 Weight 66.3 kg Intake: IV 115 0.9 NS Pressure bags 15 Lactated Ringers 1,000 ml 100 @ 20 mls/hr IV .Q24H [facility] Rx#:[id number] Intake, IV Titration 7.079 Amount Insulin Regular 100 unit 7.079 In Sodium Chloride 0.9% 100 ml @ Per Protocol IV .Q0M [facility] Rx#:[id number] Oral 120 900 118 Output: Chest Tube Drainage 70 Chest Tube Left Pleural/ 50 Mediastinal Chest Tube Mediastinal 20 Urine 1485 500 Other: Voiding Method Indwelling Catheter Toilet Toilet ABP, PAP, CO, CI - Last Documented Arterial Blood Pressure 101/77 Pulmonary Artery Pressure 29/12 Cardiac Output 3.8 Cardiac Index 2.3 - Labs CBC & Chem 7: 04/25/23 07:29 04/25/23 07:29 Labs: Abnormal Lab Results - Last 24 Hours (Table) 04/24/23 04/24/23 04/25/23 Range/Units 16:52 20:12 06:13 RBC (3.80-5.40) m/uL Hgb (11.4-16.0) gm/dL Hct (34.0-46.0) % Sodium (137-145) mmol/L BUN (7-17) mg/dL Creatinine (0.52-1.04) mg/dL Glucose (74-99) mg/dL POC Glucose (mg/dL) 217 H 195 H 198 H (70-110) mg/dL AST (14-36) U/L 04/25/23 04/25/23 04/25/23 Range/Units 07:29 07:29 12:10 RBC 3.17 L (3.80-5.40) m/uL Hgb 11.0 L (11.4-16.0) gm/dL Hct 31.3 L (34.0-46.0) % Sodium 136 L (137-145) mmol/L BUN 23 H (7-17) mg/dL Creatinine 0.48 L (0.52-1.04) mg/dL Glucose 170 H (74-99) mg/dL POC Glucose (mg/dL) 265 H (70-110) mg/dL AST 61 H (14-36) U/L
[2023-04-25] MEDS: amLODIPine 10 MG TAB PO SCH (13:05)
--- NOTE | 2023-04-25 13:17 | P.PN ---
Subjective Progress Note Date: 04/25/23 Hospital Course: 52-year-old female with a PMH of type II DM and tobacco abuse, has not seen a physician for several years, presents to the emergency room with complaints of chest pain and shortness of breath. In the emergency room, chest x-ray was unremarkable with EKG showing sinus rhythm at 79 bpm with T-wave inversion in leads 2, 3, and aVF with T-wave flattening in leads V5 and V6. Laboratory evaluation was remarkable for troponin 0.266 and subsequently 0.483. D-dimer was 0.1. Glucose was 177. Blood pressure upon arrival at the emergency room was 160/92 with pulse 86, CO2 91% on room air, and temp 98F. Patient admitted for NSTEMI on heparin drip. Cardiology consulted. Cardiac cath showed multivessel coronary artery disease. Now s/p CABG. Transfer to floors. Subjective: Seen and examined at bedside. No acute events overnight. Still having constipation. Was passing gas yesterday, not today. Denies any abdominal pain, nausea or vomiting. Pertinent positives and negatives as discussed above, a complete review of systems was performed and all other systems are negative. Vitals Signs Reviewed. General: nontoxic, no distress, appears at stated age Derm: warm, dry, midline incision clean, dry, intact Head: atraumatic, normocephalic, symmetric Eyes: EOMI, no lid lag, anicteric sclera Mouth: no lip lesion, mucus membranes moist Cardiovascular: S1S2 reg, no murmur Lungs: CTA bilateral, no rhonchi, no rales , no accessory muscle use Abdominal: soft, nontender to palpation, no guarding, no appreciable organomegaly Ext: no gross muscle atrophy, no edema, no contractures Neuro: CN II-XI grossly intact, no focal neuro deficits Psych: Alert, oriented, appropriate affect Data Reviewed Today: Pertinent Labs: WBC 9.1, hemoglobin 11, potassium 4.9, creatinine 0.4, blood sugars range between 170-198 Imaging: Chest x-ray independently interpreted, shows mild interstitial prominence Assessment and Plan: Multivessel coronary artery disease status post CABG NSTEMI Type 2 diabetes, A1c 7.5 Hypertension Nicotine dependence Mild hypomagnesemia, resolved Constipation -Cardiology note reviewed, continue current therapy -Cardiothoracic surgery following, continue aspirin, statin, Plavix, beta hector, calcium channel hector -Pulmonology note reviewed, continue current therapy -On sliding scale insulin -Counseled regarding smoking cessation -On bowel regimen, also getting enema DVT ppx: Subcu heparin Code status: Full code Anticipated discharge place: Home with home care Anticipated discharge time: Likely tomorrow Objective - Vital Signs Vital signs: Vital Signs Temp 98.2 F 04/25/23 12:00 Pulse 85 04/25/23 12:00 Resp 16 04/25/23 12:00 BP 119/57 04/25/23 12:00 Pulse Ox 96 04/25/23 12:00 FiO2 50 04/23/23 00:00 Intake & Output 04/24/23 04/25/23 04/25/23 18:59 06:59 18:59 Intake Total 242.079 900 118 Output Total 1555 500 Balance -1312.921 400 118 Weight 66.3 kg Intake: IV 115 0.9 NS Pressure bags 15 Lactated Ringers 1,000 ml 100 @ 20 mls/hr IV .Q24H [facility] Rx#:[id number] Intake, IV Titration 7.079 Amount Insulin Regular 100 unit 7.079 In Sodium Chloride 0.9% 100 ml @ Per Protocol IV .Q0M [facility] Rx#:[id number] Oral 120 900 118 Output: Chest Tube Drainage 70 Chest Tube Left Pleural/ 50 Mediastinal Chest Tube Mediastinal 20 Urine 1485 500 Other: Voiding Method Indwelling Catheter Toilet Toilet ABP, PAP, CO, CI - Last Documented Arterial Blood Pressure 101/77 Pulmonary Artery Pressure 29/12 Cardiac Output 3.8 Cardiac Index 2.3 - Labs CBC & Chem 7: 04/25/23 07:29 04/25/23 07:29 Labs: Abnormal Lab Results - Last 24 Hours (Table) 04/24/23 04/24/23 04/25/23 Range/Units 16:52 20:12 06:13 RBC (3.80-5.40) m/uL Hgb (11.4-16.0) gm/dL Hct (34.0-46.0) % Sodium (137-145) mmol/L BUN (7-17) mg/dL Creatinine (0.52-1.04) mg/dL Glucose (74-99) mg/dL POC Glucose (mg/dL) 217 H 195 H 198 H (70-110) mg/dL AST (14-36) U/L 04/25/23 04/25/23 04/25/23 Range/Units 07:29 07:29 12:10 RBC 3.17 L (3.80-5.40) m/uL Hgb 11.0 L (11.4-16.0) gm/dL Hct 31.3 L (34.0-46.0) % Sodium 136 L (137-145) mmol/L BUN 23 H (7-17) mg/dL Creatinine 0.48 L (0.52-1.04) mg/dL Glucose 170 H (74-99) mg/dL POC Glucose (mg/dL) 265 H (70-110) mg/dL AST 61 H (14-36) U/L
[2023-04-25] MEDS ORDERED: FUROSEMIDE 10 MG/ML 2 ML VIAL IV STA (14:44)
--- NOTE | 2023-04-25 16:42 | P.PN ---
Subjective Progress Note Date: 04/25/23 Principal diagnosis: Triple-vessel coronary artery disease, non-STEMI this admission. Past medical history significant for hypertension, hyperlipidemia, diabetes, bilateral management intern al carotid artery stenosis, peripheral vascular disease, pulmonary embolism at 20 years old and not currently on anticoagulation, current tobacco dependence, family history of premature coronary artery disease on both sides of the family POD #3 off-pump coronary artery bypass graft 5 with the left internal thoracic artery (in-situ) to the left anterior descending artery, left radial artery sequential from the aorta to the obtuse marginal #1 and obtuse marginal #2 artery, reverse saphenous vein graft from the aorta to the diagonal artery, reverse saphenous vein graft from the aorta to the posterior descending artery, left atrial appendage ligation using #35mm AtriClip, endoscopic left radial and right greater saphenous vein harvest, graft flow measurements using the Medistim flowmeter, intraoperative transesophageal echocardiogram performed by anesthesia The patient was seen and examined in follow-up today 04/25/2023 at her bedside on the cardiac stepdown unit. She is sitting up to the bedside chair, is awake, alert, oriented 3 and is in no acute apparent distress. Denies any complaints of shortness of breath or pain at this time, although is complaining of constipation. Her chest tubes and epicardial pacemaker wires were removed just today without incident. She is up ambulating in her room without difficulty and in the hallway with standby assistance with nursing staff. Chest x-ray and laboratory results were reviewed. Objective - Vital Signs Vital signs: Vital Signs Temp 98 F 04/25/23 16:00 Pulse 103 H 04/25/23 16:00 Resp 16 04/25/23 16:00 BP 112/72 04/25/23 16:00 Pulse Ox 95 04/25/23 16:00 FiO2 50 04/23/23 00:00 Intake & Output 04/24/23 04/25/23 04/25/23 18:59 06:59 18:59 Intake Total 242.079 900 118 Output Total 1555 500 Balance -1312.921 400 118 Weight 66.3 kg Intake: IV 115 0.9 NS Pressure bags 15 Lactated Ringers 1,000 ml 100 @ 20 mls/hr IV .Q24H [facility] Rx#:[id number] Intake, IV Titration 7.079 Amount Insulin Regular 100 unit 7.079 In Sodium Chloride 0.9% 100 ml @ Per Protocol IV .Q0M [facility] Rx#:[id number] Oral 120 900 118 Output: Chest Tube Drainage 70 Chest Tube Left Pleural/ 50 Mediastinal Chest Tube Mediastinal 20 Urine 1485 500 Other: Voiding Method Indwelling Catheter Toilet Toilet ABP, PAP, CO, CI - Last Documented Arterial Blood Pressure 101/77 Pulmonary Artery Pressure 29/12 Cardiac Output 3.8 Cardiac Index 2.3 - Exam CONSTITUTIONAL: Appears mostly comfortable, cooperative, no acute distress. RESPIRATORY: Lungs sounds essentially clear throughout, diminished to her bases bilaterally. Respirations are symmetrical, nonlabored. Currently on room air with oxygen saturation 92%. Able to achieve 1000 mL on incentive spirometry. Strong cough. CARDIOVASCULAR: S1, S2 present. Regular rate and rhythm, sinus rhythm on telemetry. Sternum stable. Palpable peripheral pulses bilaterally. No edema present. No calf pain or tenderness noted. Heart hugger in place with patient demonstrating appropriate use. Antiembolism stockings, SCDs present. GASTROINTESTINAL: Abdomen soft, nontender, nondistended. Active bowel sounds present 4 quadrants. Tolerating clear liquid diet. Passing flatus, constipated. GENITOURINARY: Continues to void. Urine output 500 mL in the last 8 hours. INTEGUMENTARY: Skin is warm and dry with evidence of good perfusion. Midline sternal chest incision well approximated and covered with dry intact dressing. Left radial artery and right lower extremity EVH sites well approximated without redness or drainage. NEUROLOGIC: Cranial nerves II through XII intact. No focal deficits. MUSKULOSKELETAL: Able to move all extremities, strength equal bilaterally. PSYCHIATRIC: Alert and oriented to person place and time, appropriate affect, intact judgment and insight. - Allied health notes Allied health notes reviewed: nursing - Labs CBC & Chem 7: 04/25/23 07:29 04/25/23 07:29 Labs: Abnormal Lab Results - Last 24 Hours (Table) 04/24/23 04/24/23 04/25/23 Range/Units 16:52 20:12 06:13 RBC (3.80-5.40) m/uL Hgb (11.4-16.0) gm/dL Hct (34.0-46.0) % Sodium (137-145) mmol/L BUN (7-17) mg/dL Creatinine (0.52-1.04) mg/dL Glucose (74-99) mg/dL POC Glucose (mg/dL) 217 H 195 H 198 H (70-110) mg/dL AST (14-36) U/L 04/25/23 04/25/23 04/25/23 Range/Units 07:29 07:29 12:10 RBC 3.17 L (3.80-5.40) m/uL Hgb 11.0 L (11.4-16.0) gm/dL Hct 31.3 L (34.0-46.0) % Sodium 136 L (137-145) mmol/L BUN 23 H (7-17) mg/dL Creatinine 0.48 L (0.52-1.04) mg/dL Glucose 170 H (74-99) mg/dL POC Glucose (mg/dL) 265 H (70-110) mg/dL AST 61 H (14-36) U/L - Imaging and Cardiology Chest x-ray: report reviewed, image reviewed Assessment and Plan Assessment: Triple-vessel coronary artery disease, non-STEMI this admission, status post 5 vessel CABG Chest pain, secondary to above Hypertension Hyperlipidemia, cholesterol 257, LDL 162, triglycerides 247 Diabetes, hemoglobin A1c 7.5% Bilateral internal carotid artery stenosis, 50-69% Peripheral vascular disease, right MARCELLA 0.77 Pulmonary embolism at 20 years old and not currently on anticoagulation Current tobacco dependence, preoperative FEV1 104% of predicted Family history of premature coronary artery disease on both sides of the family Plan: Continue to maximize medical management with aspirin, statin, Plavix and beta hector. Will increase beta hector as tolerated. Continue oral calcium channel hector for radial artery spasm prophylaxis, continue Norvasc 10 mg daily. Encourage incentive spirometry 10 times every hour while awake. Bronchodilators per pulmonology. Will monitor daily labs and x-rays. Electrolyte replacement per protocol. Increase activity, ambulate as tolerated. PT/OT/cardiac rehab following. GI/DVT prophylaxis. Insulin management per internal medicine. Preoperative hemoglobin A1c 7.5% preoperatively, we will be tight blood sugar control to prevent infection. Pain control with current medication regimen. Discontinue Almodovar catheter, may bladder scan and straight cath for greater than 300 mL residual. Continue to record strict accurate intake and output. Daily weights. Smoking cessation counseling and education reinforced. Discharge planning is in place, anticipate discharge home within the next 24-48 hours. More recommendations to follow based on patient's clinical course. Time with Patient: Greater than 30
[2023-04-25 16:48] LABS: Glucose,Whole Blood 289 mg/dL (70-110)
[2023-04-25] MEDS: ONDANSETRON 4 MG/2 ML VIAL IVP PRN (17:12)
[2023-04-25 19:56] LABS: Glucose,Whole Blood 269 mg/dL (70-110)
[2023-04-25] MEDS: NITROGLYCERIN OINT 1 INCH/GM PACKET TOPICAL SCH (20:05)
[2023-04-25] MEDS: ATORVASTATIN 80 MG TAB PO SCH (21:07)
[2023-04-25] MEDS: SENNOSIDES-DOCUSATE SODIUM 1 EACH TAB PO SCH (23:15)
[2023-04-26] MEDS: HEPARIN SODIUM,PORCINE 5,000 UNIT/ML 1 ML VIAL SQ SCH ×3 (00:59→17:50)
[2023-04-26 01:39] LABS: HCT 28.7 % (34.0-46.0); HGB 10.4 gm/dL (11.4-16.0); Hyperchromasia Slight; MCH 34.8 pg (25.0-35.0); MCHC 36.1 g/dL (31.0-37.0); MCV 96.3 fL (80.0-100.0); Mean Platelet Volume 8.5; Platelet Count 183 k/uL (150-450); Poikilocytosis Slight; RBC 2.98 m/uL (3.80-5.40); RDW 13.8 % (11.5-15.5); WBC 12.1 k/uL (3.8-10.6)
[2023-04-26 02:14] LABS: Glucose,Whole Blood 165 mg/dL (70-110)
[2023-04-26] MEDS: ONDANSETRON 4 MG/2 ML VIAL IVP PRN (03:33)
[2023-04-26] MEDS: KETOROLAC 15 MG/ML 1 ML VIAL IVP SCH ×3 (05:44→17:48)
[2023-04-26] MEDS: PANTOPRAZOLE 40 MG TABLET PO SCH (05:44)
[2023-04-26 06:00] LABS: Glucose,Whole Blood 202 mg/dL (70-110)
[2023-04-26] MEDS: INSULIN ASPART (NovoLOG) 100 UNIT/ML VIAL SQ SCH ×4 (06:10→20:26)
[2023-04-26 07:31] LABS: HCT 27.1 % (34.0-46.0); HGB 9.9 gm/dL (11.4-16.0); Hyperchromasia Slight; MCH 35.2 pg (25.0-35.0); MCHC 36.4 g/dL (31.0-37.0); MCV 96.7 fL (80.0-100.0); Mean Platelet Volume 8.4; Platelet Count 168 k/uL (150-450); Poikilocytosis Slight; RDW 13.9 % (11.5-15.5); WBC 9.4 k/uL (3.8-10.6)
--- NOTE | 2023-04-26 07:39 | XR ---
EXAMINATION TYPE: XR chest 2V DATE OF EXAM: 04/26/2023 COMPARISON: 04/25/2023 HISTORY: Shortness of breath TECHNIQUE: Frontal and lateral views of the chest are obtained. FINDINGS: Postoperative changes of CABG are noted. Scattered linear atelectasis is seen bilaterally slightly im proved from prior study. Trace pleural effusions are noted. No evidence for pneumothorax. No evidence for infiltrate. No evidence for atelectasis. Heart size is stable. Mediastinal structures are stable and grossly unremarkable. No evidence for hilar prominence. Degenerative changes dorsal spine. IMPRESSION: 1. Scattered linear atelectasis is seen bilaterally slightly improved from prior study. Trace pleural effusions are noted.
[2023-04-26 08:21] LABS: ALT 20 U/L (4-34); AST 31 U/L (14-36); African American GFR (CKD) >90 (>60 ml/min/1.73 sqM); Albumin 3.3 g/dL (3.5-5.0); Alkaline Phosphatase 69 U/L (38-126); Anion Gap 8 mmol/L; Blood Urea Nitrogen 17 mg/dL (7-17); Calcium 8.8 mg/dL (8.4-10.2); Carbon Dioxide 26 mmol/L (22-30); Chloride 99 mmol/L (98-107); Glucose 171 mg/dL (74-99); Non-African American GFR(CKD) >90 (>60 ml/min/1.73 sqM); Sodium 133 mmol/L (137-145); Total Bilirubin 0.9 mg/dL (0.2-1.3); Total Protein 5.8 g/dL (6.3-8.2)
[2023-04-26] MEDS: MULTIVITAMINS, THERA 1 EACH TAB PO SCH (08:34)
[2023-04-26] MEDS: CLOPIDOGREL 75 MG TAB PO SCH (08:34)
[2023-04-26] MEDS: ASPIRIN 325 MG TAB PO SCH (08:34)
[2023-04-26] MEDS: METOPROLOL TARTRATE 50 MG TAB PO SCH ×2 (08:34→20:25)
[2023-04-26] MEDS: IPRATROPIUM-ALBUTEROL 3 ML NEB INHALATION SCH ×4 (09:16→20:23)
[2023-04-26 10:21] VITALS: RESP 18
--- NOTE | 2023-04-26 11:23 | P.PN ---
Subjective HISTORY OF PRESENT ILLNESS: Patient is status post CABG 5 vessels. Patient examined this morning. She is sitting up in the chair. She denies any chest pain or pressure. She denies any shortness of breath. Vital signs are stable. She reveals sinus mechanism with a heart rate in the 90s. 04/26/2023 Patient examined this morning at the bedside. Patient denies chest pain or pressure. She denies shortness of breath. Vital signs are stable. Telemetry reveals sinus mechanism. She is hoping to be discharged home today. Systolic blood pressure in the 90s. She denies any dizziness or lightheadedness. PHYSICAL EXAM: VITAL SIGNS: Reviewed. GENERAL: Well-developed in no acute distress. NECK: Supple. No JVD or thyromegaly LUNGS: Respirations even and unlabored. Lungs essentially clear to auscultation bilaterally. HEART: Regular rate and rhythm. S1 and S2 heard. EXTREMITIES: Normal range of motion. No clubbing or cyanosis. Peripheral pulses intact. No lower extremity edema ASSESSMENT: Non-STEMI Multi-vessel coronary artery disease, status post CABG 5 vessels Hypertension Hyperlipidemia Diabetes Bilateral carotid stenosis Nicotine dependence PLAN: Continue postoperative management per CT surgery Continue current cardiac medications Increase activity as tolerated Encourage use of incentive spirometer Patient is stable for discharge home today from a cardiac standpoint Patient to follow up post discharge with Dr. Stinson Nurse practitioner note has been reviewed by physician. Signing provider agrees with the documented findings, assessment, and plan of care. Objective - Vital Signs Vital signs: Vital Signs Temp 98.7 F 04/26/23 03:44 Pulse 54 L 04/26/23 08:00 Resp 18 04/26/23 08:00 BP 91/59 04/26/23 08:00 Pulse Ox 95 04/26/23 09:15 FiO2 50 04/23/23 00:00 Intake & Output 04/25/23 04/26/23 04/26/23 18:59 06:59 18:59 Intake Total 118 237 0 Output Total 100 Balance 118 137 0 Weight 65.7 kg Intake: Oral 118 237 0 Output: Urine 100 Other: Voiding Method Toilet Toilet Toilet # Voids 1 1 0 # Bowel Movements 1 2 0 ABP, PAP, CO, CI - Last Documented Arterial Blood Pressure 101/77 Pulmonary Artery Pressure 29/12 Cardiac Output 3.8 Cardiac Index 2.3 - Labs CBC & Chem 7: 04/26/23 06:55 04/26/23 06:55 Labs: Abnormal Lab Results - Last 24 Hours (Table) 04/25/23 04/25/23 04/25/23 Range/Units 12:10 16:45 19:54 WBC (3.8-10.6) k/uL RBC (3.80-5.40) m/uL Hgb (11.4-16.0) gm/dL Hct (34.0-46.0) % MCH (25.0-35.0) pg Sodium (137-145) mmol/L Glucose (74-99) mg/dL POC Glucose (mg/dL) 265 H 289 H 269 H (70-110) mg/dL Total Protein (6.3-8.2) g/dL Albumin (3.5-5.0) g/dL 04/26/23 04/26/23 04/26/23 Range/Units 00:20 02:13 05:58 WBC 12.1 H (3.8-10.6) k/uL RBC 2.98 L (3.80-5.40) m/uL Hgb 10.4 L (11.4-16.0) gm/dL Hct 28.7 L (34.0-46.0) % MCH (25.0-35.0) pg Sodium (137-145) mmol/L Glucose (74-99) mg/dL POC Glucose (mg/dL) 165 H 202 H (70-110) mg/dL Total Protein (6.3-8.2) g/dL Albumin (3.5-5.0) g/dL 04/26/23 04/26/23 Range/Units 06:55 06:55 WBC (3.8-10.6) k/uL RBC 2.80 L (3.80-5.40) m/uL Hgb 9.9 L (11.4-16.0) gm/dL Hct 27.1 L (34.0-46.0) % MCH 35.2 H (25.0-35.0) pg Sodium 133 L (137-145) mmol/L Glucose 171 H (74-99) mg/dL POC Glucose (mg/dL) (70-110) mg/dL Total Protein 5.8 L (6.3-8.2) g/dL Albumin 3.3 L (3.5-5.0) g/dL
[2023-04-26 11:48] LABS: Glucose,Whole Blood 218 mg/dL (70-110)
[2023-04-26] MEDS: amLODIPine 10 MG TAB PO SCH (12:11)
--- NOTE | 2023-04-26 12:42 | P.PN ---
Subjective Progress Note Date: 04/26/23 On 04/23/2023, the patient is postop day #1. The patient has a off-pump five- vessel bypass surgery with CLARK to LAD and radial graft to use marginal 1 and obtuse marginal 2 and the patient also had saphenous vein graft to diagonal and PDA. The patient also had atrial clipping. The patient is currently postop day #1. She was weaned off the mechanical ventilator and she was extubated yesterday without any major difficulties. Currently she is on oxygen at room air. She has chest tubes and the patient has a mediastinal, left pleural and the right pleural chest tube. There is no evidence of any air leak. Output from the chest tubes are noted and the patient has produced approximately 75 mL of bloody output from the mediastinal chest tube and the pleural chest tubes have produced 350 mL. The patient's cardiac output is at 3.8 with an index of 2.3. He had pressures of 27/10 with a CVP of 3. Cardiac rhythm is sinus. No pressors at this point in time. Blood work was noted and the patient has a hemoglobin of 11.6, white cycles of 12.5, BUN is at 70 with a creatinine of 0.5 and a sodium level is at 137. Breathing is nonlabored. Using the [place] spirometer. Leg approximately 500 mL. On today's evaluation of 04/24/2023, the patient is postop day #2. The patient underwent five-vessel bypass surgery. The patient is doing well. She is currently on oxygen 2 L/m nasal cannula. The chest x-ray shows no significant abnormalities. No evidence of any pneumothorax. The patient has chest tubes in place and the patient has produced approximately 400 mL of output from the left and the right-sided chest tubes over the past 24 hours and the mediastinal chest tube has produced 135 mL over the past 24 hours. CVP is currently at 5. The patient is using the incentive spirometer and she is falling approximately 700. The blood work from today showing inability to 9.9 with a hemoglobin 11.4, BUN is at 70 with a creatinine of 0.5 and a sodium level is at 137. Cardiac rhythm is sinus. The patient is hemodynamically stable. No hypotension. She has an adequate urine output. She remains on aspirin and Plavix. She is also on metoprolol which is being given a dose of 50 mg by mouth twice a day. She is on Norvasc 10 mg by mouth daily for blood pressure control. Oxycodone for pain control. Surgical one-sided dry clean and intact. Urine output is adequate in the order of 50 mL an hourly basis. On today's evaluation of 04/25/2023, the patient is on room air oxygen. The p atient denies having any respiratory difficulties. She is postop day #3. The chest x-ray showed no evidence of any pneumothorax. Postoperative atelectatic changes are seen in the lung bases. The patient has is doing well. Her cardiac rhythm is sinus. She is hemodynamically stable. She is having issues with constipation. She was given a suppository and oral laxatives. The blood work today shows a hemoglobin of 11 and a white cell count of 9.1. BUN is at 23 with a creatinine of 0.4. Sodium is at 136. The patient is currently on a combination of aspirin and Plavix. The patient is also on metoprolol at a dose of 50 mg by mouth twice a day. Patient is on high-dose statins. IV fluids are currently at KVO. She is still working on the incentive spirometer. Pulse ox on room air is always of 92%. On 04/26/2023, the patient is on room air oxygen. The patient is postoperative day #4. Chest x-ray shows adequate expansion of both lungs. No evidence of any pneumothorax. Patient is ambulating. Surgical once is striking and intact. She continues to have some soreness in her chest which is scheduled in nature. She remains on aspirin and Plavix. She is on metoprolol 50 mg by mouth twice a day. She was able to have a bowel movement yesterday with the help of laxatives. No other significant events overnight. The white cell cause of 9.4 with a hemoglobin of 9.9 and a platelet count of 168. BUN is at 70 with a creatinine of 0.5 and a sodium level is at 133. No focal neurological deficits. The patient is awake and alert. She is ambulating. Discharge planning is in progress. She is using the incentive spirometer. She is falling approximately thousand. While on room air oxygen, the patient has a pulse ox of 92-94%. Objective - Vital Signs Vital signs: Vital Signs Temp 98.7 F 04/26/23 03:44 Pulse 54 L 04/26/23 08:00 Resp 18 04/26/23 08:00 BP 91/59 04/26/23 08:00 Pulse Ox 95 04/26/23 09:15 FiO2 50 04/23/23 00:00 Intake & Output 04/25/23 04/26/23 04/26/23 18:59 06:59 18:59 Intake Total 118 237 0 Output Total 100 Balance 118 137 0 Weight 65.7 kg Intake: Oral 118 237 0 Output: Urine 100 Other: Voiding Method Toilet Toilet Toilet # Voids 1 1 0 # Bowel Movements 1 2 0 ABP, PAP, CO, CI - Last Documented Arterial Blood Pressure 101/77 Pulmonary Artery Pressure 29/12 Cardiac Output 3.8 Cardiac Index 2.3 - Exam CONSTITUTIONAL: Appears mostly comfortable, cooperative, no acute distress, the patient remains on room air oxygen RESPIRATORY: Lungs sounds diminished bilaterally. Respirations even, nonlabored. CARDIOVASCULAR: S1, S2 present. Regular rate and rhythm, sinus rhythm on telemetry. Sternum stable. Palpable peripheral pulses bilaterally. No edema present. No calf pain or tenderness noted. Heart hugger in place with patient demonstrating appropriate use. Antiembolism stockings, SCDs present. GASTROINTESTINAL: Abdomen soft, nontender, nondistended. Hypoactive bowel sounds present 4 quadrants. Tolerating clear liquid diet. Denies flatus GENITOURINARY: Almodovar present draining clear, yellow urine. Output overnight 35-75 mL per hour, 928 mL in the last 24 hours INTEGUMENTARY: Skin is warm and dry with evidence of good perfusion. Anterior chest incision well approximated and covered with dry intact dressing. Left radial artery and right lower extremity EVH site well approximated without redness or drainage. NEUROLOGIC: Cranial nerves II through XII intact MUSKULOSKELETAL: Able to move all extremities, strength equal bilaterally PSYCHIATRIC: Alert and oriented to person place and time, appropriate affect, intact judgment and insight INVASIVE LINES AND TUBES: Mediastinal/left/right pleural chest tubes have been removed. - Labs CBC & Chem 7: 04/26/23 06:55 04/26/23 06:55 Labs: Abnormal Lab Results - Last 24 Hours (Table) 04/25/23 04/25/23 04/25/23 Range/Units 12:10 16:45 19:54 WBC (3.8-10.6) k/uL RBC (3.80-5.40) m/uL Hgb (11.4-16.0) gm/dL Hct (34.0-46.0) % MCH (25.0-35.0) pg Sodium (137-145) mmol/L Glucose (74-99) mg/dL POC Glucose (mg/dL) 265 H 289 H 269 H (70-110) mg/dL Total Protein (6.3-8.2) g/dL Albumin (3.5-5.0) g/dL 04/26/23 04/26/23 04/26/23 Range/Units 00:20 02:13 05:58 WBC 12.1 H (3.8-10.6) k/uL RBC 2.98 L (3.80-5.40) m/uL Hgb 10.4 L (11.4-16.0) gm/dL Hct 28.7 L (34.0-46.0) % MCH (25.0-35.0) pg Sodium (137-145) mmol/L Glucose (74-99) mg/dL POC Glucose (mg/dL) 165 H 202 H (70-110) mg/dL Total Protein (6.3-8.2) g/dL Albumin (3.5-5.0) g/dL 04/26/23 04/26/23 Range/Units 06:55 06:55 WBC (3.8-10.6) k/uL RBC 2.80 L (3.80-5.40) m/uL Hgb 9.9 L (11.4-16.0) gm/dL Hct 27.1 L (34.0-46.0) % MCH 35.2 H (25.0-35.0) pg Sodium 133 L (137-145) mmol/L Glucose 171 H (74-99) mg/dL POC Glucose (mg/dL) (70-110) mg/dL Total Protein 5.8 L (6.3-8.2) g/dL Albumin 3.3 L (3.5-5.0) g/dL Assessment and Plan Plan: Multivessel coronary artery disease and the patient is post non-ST segment elevation myocardial infarction the patient underwent five-vessel bypass surgery. Patient is currently postop day # 4 Postthoracotomy, the patient was extubated about any major difficulties, chest tubes are removed and the patient has some limited atelectatic changes on her chest x-ray. Oxygen patient is normal and the patient is currently on room air oxygen. Using incentive spirometer. Triple-vessel coronary artery disease, non-STEMI this admission, status post 5 vessel CABG Chest pain, skeletal chest wall pain postthoracotomy Hypertension Hyperlipidemia, patient is currently on high dose statins Diabetes, hemoglobin A1c 7.5%, currently on insulin sliding scale coverage Bilateral internal carotid artery stenosis, 50-69% Peripheral vascular disease Pulmonary embolism at 20 years old and not currently on anticoagulation Current tobacco dependence, preoperative FEV1 104% of predicted Family history of premature coronary artery disease on both sides of the family Plan: The patient is doing well from the pulmonary standpoint and she is currently on room air oxygen Constipation is improved Encourage use of incentive spirometer Chest x-ray was noted Adequate urine output Continue aspirin and Plavix Continue high dose statins Continue metoprolol and the patient is currently on 50 mg by mouth twice a day Blood pressures under adequate control Continue Norvasc and the details of 10 mg by mouth daily We'll continue to follow make further recommendations based on progress, possible discharge home today
--- NOTE | 2023-04-26 13:51 | P.PN ---
Subjective Progress Note Date: 04/26/23 Subjective: Seen and examined at bedside. No acute events overnight. Having BM now. Pertinent positives and negatives as discussed above, a complete review of systems was performed and all other systems are negative. Vitals Signs Reviewed. General: nontoxic, no distress, appears at stated age Derm: warm, dry, midline incision clean, dry, intact Head: atraumatic, normocephalic, symmetric Eyes: EOMI, no lid lag, anicteric sclera Mouth: no lip lesion, mucus membranes moist Cardiovascular: S1S2 reg, no murmur Lungs: CTA bilateral, no rhonchi, no rales , no accessory muscle use Abdominal: soft, nontender to palpation, no guarding, no appreciable organomegaly Ext: no gross muscle atrophy, no edema, no contractures Neuro: CN II-XI grossly intact, no focal neuro deficits Psych: Alert, oriented, appropriate affect Data Reviewed Today: Pertinent Labs: WBC 9.4, hemoglobin 9.9, blood sugars range between 171-218 Imaging: Chest x-ray independently interpreted, similar to yesterday Assessment and Plan: Multivessel coronary artery disease status post CABG NSTEMI Type 2 diabetes, A1c 7.5 Hypertension Nicotine dependence Mild hypomagnesemia, resolved Constipation, resolved Mild normocytic anemia, anticipated outcome of surgery -Cardiology note reviewed, continue current therapy, stable for discharge -Personally discussed management with cardiothoracic surgery, will need better blood sugar control beforec -Pulmonology note reviewed, continue current therapy -On sliding scale insulin, started on metformin and farxiga -Patient to be discharged on oral antidiabetic medications -Counseled regarding smoking cessation Thank you for allowing us to participate in the care of this pleasant patient. Do not hesitate to contact us with questions. Someone can be reached from the [facility] hospitalist group all hours of the day at [phone] or via Status Overload. Objective - Vital Signs Vital signs: Vital Signs Temp 98.7 F 04/26/23 03:44 Pulse 54 L 04/26/23 08:00 Resp 18 04/26/23 08:00 BP 91/59 04/26/23 08:00 Pulse Ox 95 04/26/23 09:15 FiO2 50 04/23/23 00:00 Intake & Output 04/25/23 04/26/23 04/26/23 18:59 06:59 18:59 Intake Total 118 237 240 Output Total 100 Balance 118 137 240 Weight 65.7 kg Intake: Oral 118 237 240 Output: Urine 100 Other: Voiding Method Toilet Toilet Toilet # Voids 1 1 0 # Bowel Movements 1 2 0 ABP, PAP, CO, CI - Last Documented Arterial Blood Pressure 101/77 Pulmonary Artery Pressure 29/12 Cardiac Output 3.8 Cardiac Index 2.3 - Labs CBC & Chem 7: 04/26/23 06:55 04/26/23 06:55 Labs: Abnormal Lab Results - Last 24 Hours (Table) 04/25/23 04/25/23 04/26/23 Range/Units 16:45 19:54 00:20 WBC 12.1 H (3.8-10.6) k/uL RBC 2.98 L (3.80-5.40) m/uL Hgb 10.4 L (11.4-16.0) gm/dL Hct 28.7 L (34.0-46.0) % MCH (25.0-35.0) pg Sodium (137-145) mmol/L Glucose (74-99) mg/dL POC Glucose (mg/dL) 289 H 269 H (70-110) mg/dL Total Protein (6.3-8.2) g/dL Albumin (3.5-5.0) g/dL 04/26/23 04/26/23 04/26/23 Range/Units 02:13 05:58 06:55 WBC (3.8-10.6) k/uL RBC 2.80 L (3.80-5.40) m/uL Hgb 9.9 L (11.4-16.0) gm/dL Hct 27.1 L (34.0-46.0) % MCH 35.2 H (25.0-35.0) pg Sodium (137-145) mmol/L Glucose (74-99) mg/dL POC Glucose (mg/dL) 165 H 202 H (70-110) mg/dL Total Protein (6.3-8.2) g/dL Albumin (3.5-5.0) g/dL 04/26/23 04/26/23 Range/Units 06:55 11:46 WBC (3.8-10.6) k/uL RBC (3.80-5.40) m/uL Hgb (11.4-16.0) gm/dL Hct (34.0-46.0) % MCH (25.0-35.0) pg Sodium 133 L (137-145) mmol/L Glucose 171 H (74-99) mg/dL POC Glucose (mg/dL) 218 H (70-110) mg/dL Total Protein 5.8 L (6.3-8.2) g/dL Albumin 3.3 L (3.5-5.0) g/dL
--- NOTE | 2023-04-26 14:08 | P.PN ---
Subjective Progress Note Date: 04/26/23 Principal diagnosis: Triple-vessel coronary artery disease, non-STEMI this admission. 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, peripheral vascular disease, pulmonary embolism at 20 years old and not currently on anticoagulation, current tobacco dependence, family history of premature coronary artery disease on both sides of the family POD #4 off-pump coronary artery bypass graft 5 with the left internal thoracic artery (in-situ) to the left anterior descending artery, left radial artery sequential from the aorta to the obtuse marginal #1 and obtuse marginal #2 artery, reverse saphenous vein graft from the aorta to the diagonal artery, reverse saphenous vein graft from the aorta to the posterior descending artery, left atrial appendage ligation using #35mm AtriClip, endoscopic left radial and right greater saphenous vein harvest, graft flow measurements using the Medistim flowmeter, intraoperative transesophageal echocardiogram performed by anesthesia The patient was seen and examined in follow-up today 04/26/2023 at her bedside on the third floor cardiac stepdown unit. The patient is currently sitting up to the bedside chair, is awake, alert, oriented 3 and is in no acute apparent distress. She denies any complaints of pain or shortness of breath at this time and also reports she has been up ambulating in the cardiac stepdown unit hallway independently without difficulty. Oxygen saturations are 95% on room air and she is achieving 1000 mL on her incentive spirometry with encouragement. Remote telemetry showing normal sinus rhythm heart rate 85 BPM. Denies any further complaints of constipation and states that her bowels did move yesterday. Laboratory and chest x-ray results reviewed. Objective - Vital Signs Vital signs: Vital Signs Temp 98.7 F 04/26/23 03:44 Pulse 54 L 04/26/23 08:00 Resp 18 04/26/23 08:00 BP 91/59 04/26/23 08:00 Pulse Ox 95 04/26/23 09:15 FiO2 50 04/23/23 00:00 Intake & Output 04/25/23 04/26/23 04/26/23 18:59 06:59 18:59 Intake Total 118 237 240 Output Total 100 Balance 118 137 240 Weight 65.7 kg Intake: Oral 118 237 240 Output: Urine 100 Other: Voiding Method Toilet Toilet Toilet # Voids 1 1 0 # Bowel Movements 1 2 0 ABP, PAP, CO, CI - Last Documented Arterial Blood Pressure 101/77 Pulmonary Artery Pressure 29/12 Cardiac Output 3.8 Cardiac Index 2.3 - Exam CONSTITUTIONAL: Appears mostly comfortable, cooperative, no acute distress. RESPIRATORY: Lungs sounds essentially clear throughout, diminished to her bases bilaterally. Respirations are symmetrical, nonlabored. Currently on room air with oxygen saturation 95%. Able to achieve 1000 mL on her incentive spirometry. Strong cough. CARDIOVASCULAR: S1, S2 present. Regular rate and rhythm, sinus rhythm on telemetry. Sternum stable. Palpable peripheral pulses bilaterally. No edema present. No calf pain or tenderness noted. Heart hugger in place with patient demonstrating appropriate use. Antiembolism stockings, SCDs present. GASTROINTESTINAL: Abdomen soft, nontender, nondistended. Active bowel sounds present 4 quadrants. Tolerating clear liquid diet. Passing flatus, bowel movement yesterday 04/25/2023. GENITOURINARY: Continues to void. Urine output 400 mL in the last 8 hours. INTEGUMENTARY: Skin is warm and dry with evidence of good perfusion. Midline sternal chest incision well approximated and covered with dry intact dressing. Left radial artery and right lower extremity EVH sites well approximated without redness or drainage. NEUROLOGIC: Cranial nerves II through XII intact. No focal deficits. MUSKULOSKELETAL: Able to move all extremities, strength equal bilaterally. PSYCHIATRIC: Alert and oriented to person place and time, appropriate affect, intact judgment and insight. - Allied health notes Allied health notes reviewed: nursing - Labs CBC & Chem 7: 04/26/23 06:55 04/26/23 06:55 Labs: Abnormal Lab Results - Last 24 Hours (Table) 04/25/23 04/25/23 04/26/23 Range/Units 16:45 19:54 00:20 WBC 12.1 H (3.8-10.6) k/uL RBC 2.98 L (3.80-5.40) m/uL Hgb 10.4 L (11.4-16.0) gm/dL Hct 28.7 L (34.0-46.0) % MCH (25.0-35.0) pg Sodium (137-145) mmol/L Glucose (74-99) mg/dL POC Glucose (mg/dL) 289 H 269 H (70-110) mg/dL Total Protein (6.3-8.2) g/dL Albumin (3.5-5.0) g/dL 04/26/23 04/26/23 04/26/23 Range/Units 02:13 05:58 06:55 WBC (3.8-10.6) k/uL RBC 2.80 L (3.80-5.40) m/uL Hgb 9.9 L (11.4-16.0) gm/dL Hct 27.1 L (34.0-46.0) % MCH 35.2 H (25.0-35.0) pg Sodium (137-145) mmol/L Glucose (74-99) mg/dL POC Glucose (mg/dL) 165 H 202 H (70-110) mg/dL Total Protein (6.3-8.2) g/dL Albumin (3.5-5.0) g/dL 04/26/23 04/26/23 Range/Units 06:55 11:46 WBC (3.8-10.6) k/uL RBC (3.80-5.40) m/uL Hgb (11.4-16.0) gm/dL Hct (34.0-46.0) % MCH (25.0-35.0) pg Sodium 133 L (137-145) mmol/L Glucose 171 H (74-99) mg/dL POC Glucose (mg/dL) 218 H (70-110) mg/dL Total Protein 5.8 L (6.3-8.2) g/dL Albumin 3.3 L (3.5-5.0) g/dL - Imaging and Cardiology Chest x-ray: report reviewed, image reviewed Assessment and Plan Assessment: Triple-vessel coronary artery disease, non-STEMI this admission, status post 5 vessel CABG Chest pain, secondary to above Hypertension Hyperlipidemia, cholesterol 257, LDL 162, triglycerides 247 Diabetes, hemoglobin A1c 7.5% Bilateral internal carotid artery stenosis, 50-69% Peripheral vascular disease, right MARCELLA 0.77 Pulmonary embolism at 20 years old and not currently on anticoagulation Current tobacco dependence, preoperative FEV1 104% of predicted Family history of premature coronary artery disease on both sides of the family Plan: Continue to maximize medical management with aspirin, statin, Plavix and beta hector. Will increase beta hector as tolerated. Continue oral calcium channel hector for radial artery spasm prophylaxis, continue Norvasc 10 mg daily. Encourage incentive spirometry 10 times every hour while awake. Bronchodilators per pulmonology. Will monitor daily labs and x-rays. Electrolyte replacement per protocol. Increase activity, ambulate as tolerated. PT/OT/cardiac rehab following. GI/DVT prophylaxis. Insulin management per internal medicine. Preoperative hemoglobin A1c 7.5% preoperatively, we will be tight blood sugar control to prevent infection. Hospitalist service has made some changes to her diabetic medication regimen. Pain control with current medication regimen. Continue record strict inaccurate I's and O's, may bladder scan and straight cath for greater than 300 mL residual. Daily weights. Smoking cessation counseling and education reinforced. Discharge planning is in place, anticipate discharge home within the next 24 hours. More recommendations to follow based on patient's clinical course. Time with Patient: Greater than 30
[2023-04-26] MEDS: metFORMIN 500 MG TAB PO SCH (15:33)
[2023-04-26] MEDS: DAPAGLIFLOZIN PROPANEDIOL 5 MG TABLET PO SCH (15:33)
[2023-04-26 16:50] LABS: Glucose,Whole Blood 196 mg/dL (70-110)
[2023-04-26 20:09] LABS: Glucose,Whole Blood 155 mg/dL (70-110)
[2023-04-26] MEDS: ATORVASTATIN 80 MG TAB PO SCH (20:25)
[2023-04-26] MEDS: SENNOSIDES-DOCUSATE SODIUM 1 EACH TAB PO SCH (20:25)
[2023-04-27] MEDS: HEPARIN SODIUM,PORCINE 5,000 UNIT/ML 1 ML VIAL SQ SCH ×2 (00:26→08:44)
[2023-04-27] MEDS: KETOROLAC 15 MG/ML 1 ML VIAL IVP SCH ×4 (00:26→12:13)
[2023-04-27 02:02] LABS: Glucose,Whole Blood 157 mg/dL (70-110)
[2023-04-27 06:06] LABS: Glucose,Whole Blood 178 mg/dL (70-110)
[2023-04-27] MEDS: PANTOPRAZOLE 40 MG TABLET PO SCH (06:36)
[2023-04-27] MEDS: INSULIN ASPART (NovoLOG) 100 UNIT/ML VIAL SQ SCH ×2 (06:36→12:13)
[2023-04-27] MEDS: metFORMIN 500 MG TAB PO SCH (06:36)
[2023-04-27] MEDS: IPRATROPIUM-ALBUTEROL 3 ML NEB INHALATION SCH ×2 (08:23→11:33)
--- NOTE | 2023-04-27 08:34 | P.PN ---
Subjective Progress Note Date: 04/27/23 Principal diagnosis: Triple-vessel coronary artery disease, non-STEMI this admission. History of hypertension, hyperlipidemia, diabetes, bilateral internal carotid artery stenosis, peripheral vascular disease, pulmonary embolism at 20 years old and not currently on anticoagulation, current tobacco dependence, family history of premature coronary artery disease on both sides of the family POD #5 off-pump coronary artery bypass graft 5 with the left internal thoracic artery (in-situ) to the left anterior descending artery, left radial artery sequential from the aorta to the obtuse marginal #1 and obtuse marginal #2 artery, reverse saphenous vein graft from the aorta to the diagonal artery, reverse saphenous vein graft from the aorta to the posterior descending artery, left atrial appendage ligation using #35mm AtriClip, endoscopic left radial and right greater saphenous vein harvest, graft flow measurements using the Medist[employer] flowmeter, intraoperative transesophageal echocardiogram performed by anesthesia The patient was seen and examined this wearing sitting up in a recliner in the cardiac stepdown unit in no acute distress. States pain is controlled on curr ent medication regimen, denies shortness of breath. Remains in sinus rhythm, hemodynamically stable. Remains on room air with oxygen saturation in the low to mid 90s, able to achieve 1000 mL on incentive spirometry. She has been up ambulating in the hallway without difficulty, showered yesterday. States she feels ready to go home today. Objective - Vital Signs Vital signs: Vital Signs Temp 98.0 F 04/27/23 03:34 Pulse 78 04/27/23 03:34 Resp 18 04/27/23 03:34 BP 98/57 04/27/23 03:34 Pulse Ox 96 04/27/23 08:23 FiO2 50 04/23/23 00:00 Intake & Output 04/26/23 04/27/23 04/27/23 18:59 06:59 18:59 Intake Total 480 Output Total 700 800 0 Balance -220 -800 0 Weight 65.9 kg Intake: Oral 480 Output: Gastric Drainage 0 Urine 700 800 0 Stool 0 Urine/Stool Mix 0 Emesis 0 Oral Regurgitation 0 Other 0 Other: Voiding Method Toilet Toilet # Voids 0 1 # Bowel Movements 0 0 ABP, PAP, CO, CI - Last Documented Arterial Blood Pressure 101/77 Pulmonary Artery Pressure 29/12 Cardiac Output 3.8 Cardiac Index 2.3 - Exam CONSTITUTIONAL: Appears comfortable, cooperative, no acute distress RESPIRATORY: Lungs sounds diminished bilaterally. Respirations even, nonlabored. Currently on room air with oxygen saturation 93%. Able to achieve 1000 mL on incentive spirometry. Strong cough. CARDIOVASCULAR: S1, S2 present. Regular rate and rhythm, sinus rhythm on telemetry. Sternum stable. Palpable peripheral pulses bilaterally. No edema present. No calf pain or tenderness noted. Heart hugger in place with patient demonstrating appropriate use. Antiembolism stockings, SCDs present. GASTROINTESTINAL: Abdomen soft, nontender, nondistended. Active bowel sounds present 4 quadrants. Tolerating diet. Positive bowel movement. GENITOURINARY: Continues to void, output 1500 mL the last 24 hours INTEGUMENTARY: Skin is warm and dry with evidence of good perfusion. Anterior chest incision well approximated and covered with dry intact dressing. Left radial artery and right lower extremity EVH sites well approximated without redn ess or drainage. NEUROLOGIC: Cranial nerves II through XII intact MUSKULOSKELETAL: Able to move all extremities, strength equal bilaterally, gait normal PSYCHIATRIC: Alert and oriented to person place and time, appropriate affect, intact judgment and insight - Allied health notes Allied health notes reviewed: nursing - Labs CBC & Chem 7: 04/27/23 08:21 04/27/23 08:21 Labs: Abnormal Lab Results - Last 24 Hours (Table) 04/26/23 04/26/23 04/26/23 Range/Units 11:46 16:49 20:08 POC Glucose (mg/dL) 218 H 196 H 155 H (70-110) mg/dL 04/27/23 04/27/23 Range/Units 02:00 06:05 POC Glucose (mg/dL) 157 H 178 H (70-110) mg/dL - Imaging and Cardiology Chest x-ray: image reviewed Assessment and Plan Assessment: Triple-vessel coronary artery disease, non-STEMI this admission, status post 5 vessel CABG Chest pain, secondary to above Hypertension Hyperlipidemia, cholesterol 257, LDL 162, triglycerides 247 Diabetes, hemoglobin A1c 7.5% Bilateral internal carotid artery stenosis, 50-69% Peripheral vascular disease, right MARCELLA 0.77 Pulmonary embolism at 20 years old and not currently on anticoagulation Current tobacco dependence, preoperative FEV1 104% of predicted Family history of premature coronary artery disease on both sides of the family Plan: Continue to maximize medical management with aspirin, statin, Plavix and beta hector. Will increase beta hector as tolerated Continue oral calcium channel hector for radial artery spasm prophylaxis Encourage incentive spirometry 10 times every hour while awake. Bronchodilators per pulmonology Will monitor daily labs and x-rays. Electrolyte replacement per protocol Increase activity, ambulate as tolerated. PT/OT/cardiac rehab consulted GI/DVT prophylaxis Insulin management per internal medicin Pain control with current medication regimen Continue to record strict accurate intake and output Daily weights Smoking cessation counseling and education reinforced Discharge planning in place. Anticipate discharge to home with home care this afternoon More recommendations to follow this patient progresses
[2023-04-27] MEDS: METOPROLOL TARTRATE 50 MG TAB PO SCH (08:44)
[2023-04-27] MEDS: MULTIVITAMINS, THERA 1 EACH TAB PO SCH (08:44)
[2023-04-27] MEDS: CLOPIDOGREL 75 MG TAB PO SCH (08:44)
[2023-04-27] MEDS: ASPIRIN 325 MG TAB PO SCH (08:44)
[2023-04-27] MEDS: DAPAGLIFLOZIN PROPANEDIOL 5 MG TABLET PO SCH (08:45)
[2023-04-27 08:57] LABS: HCT 26.7 % (34.0-46.0); HGB 9.4 gm/dL (11.4-16.0); MCH 34.7 pg (25.0-35.0); MCHC 35.1 g/dL (31.0-37.0); MCV 98.8 fL (80.0-100.0); Mean Platelet Volume 7.4; Platelet Count 209 k/uL (150-450); Poikilocytosis Slight; RDW 13.8 % (11.5-15.5); WBC 7.3 k/uL (3.8-10.6)
[2023-04-27 09:15] LABS: African American GFR (CKD) >90 (>60 ml/min/1.73 sqM); Anion Gap 8 mmol/L; Blood Urea Nitrogen 21 mg/dL (7-17); Calcium 9.1 mg/dL (8.4-10.2); Carbon Dioxide 27 mmol/L (22-30); Chloride 100 mmol/L (98-107); Glucose 143 mg/dL (74-99); Non-African American GFR(CKD) >90 (>60 ml/min/1.73 sqM); Potassium 4.3 mmol/L (3.5-5.1); Sodium 135 mmol/L (137-145)
--- NOTE | 2023-04-27 10:03 | P.PN ---
Subjective HISTORY OF PRESENT ILLNESS: Patient is status post CABG 5 vessels. Patient examined this morning. She is sitting up in the chair. She denies any chest pain or pressure. She denies any shortness of breath. Vital signs are stable. She reveals sinus mechanism with a heart rate in the 90s. 04/26/2023 Patient examined this morning at the bedside. Patient denies chest pain or pressure. She denies shortness of breath. Vital signs are stable. Telemetry reveals sinus mechanism. She is hoping to be discharged home today. Systolic blood pressure in the 90s. She denies any dizziness or lightheadedness. 04/27/2023 Patient examined this morning. She is sitting up in the chair. She denies chest pain or pressure. She denies shortness of breath. Telemetry reveals sinus mechanism. Patient states her discharge was held yesterday secondary to elevated blood sugars. Patient's vital signs are stable. Blood pressure 99/63. PHYSICAL EXAM: VITAL SIGNS: Reviewed. GENERAL: Well-developed in no acute distress. NECK: Supple. No JVD or thyromegaly LUNGS: Respirations even and unlabored. Lungs essentially clear to auscultation bilaterally. HEART: Regular rate and rhythm. S1 and S2 heard. EXTREMITIES: Normal range of motion. No clubbing or cyanosis. Peripheral pulses intact. No lower extremity edema ASSESSMENT: Non-STEMI Multi-vessel coronary artery disease, status post CABG 5 vessels Hypertension Hyperlipidemia Diabetes Bilateral carotid stenosis Nicotine dependence PLAN: Continue postoperative management per CT surgery Continue current cardiac medications Increase activity as tolerated Encourage use of incentive spirometer Patient is stable for discharge home today from a cardiac standpoint Patient to follow up post discharge with Dr. Stinson Nurse practitioner note has been reviewed by physician. Signing provider agrees with the documented findings, assessment, and plan of care. Objective - Vital Signs Vital signs: Vital Signs Temp 98.2 F 04/27/23 08:50 Pulse 85 04/27/23 08:50 Resp 18 04/27/23 08:50 BP 99/63 04/27/23 08:50 Pulse Ox 96 04/27/23 08:50 FiO2 50 04/23/23 00:00 Intake & Output 04/26/23 04/27/23 04/27/23 18:59 06:59 18:59 Intake Total 480 120 Output Total 700 800 0 Balance -220 -800 120 Weight 65.9 kg Intake: Oral 480 120 Output: Gastric Drainage 0 Urine 700 800 0 Stool 0 Urine/Stool Mix 0 Emesis 0 Oral Regurgitation 0 Other 0 Other: Voiding Method Toilet Toilet Toilet # Voids 0 1 # Bowel Movements 0 0 ABP, PAP, CO, CI - Last Documented Arterial Blood Pressure 101/77 Pulmonary Artery Pressure 29/12 Cardiac Output 3.8 Cardiac Index 2.3 - Labs CBC & Chem 7: 04/27/23 08:21 04/27/23 08:21 Labs: Abnormal Lab Results - Last 24 Hours (Table) 04/26/23 04/26/23 04/26/23 Range/Units 11:46 16:49 20:08 RBC (3.80-5.40) m/uL Hgb (11.4-16.0) gm/dL Hct (34.0-46.0) % Sodium (137-145) mmol/L BUN (7-17) mg/dL Glucose (74-99) mg/dL POC Glucose (mg/dL) 218 H 196 H 155 H (70-110) mg/dL 04/27/23 04/27/23 04/27/23 Range/Units 02:00 06:05 08:21 RBC 2.70 L (3.80-5.40) m/uL Hgb 9.4 L (11.4-16.0) gm/dL Hct 26.7 L (34.0-46.0) % Sodium (137-145) mmol/L BUN (7-17) mg/dL Glucose (74-99) mg/dL POC Glucose (mg/dL) 157 H 178 H (70-110) mg/dL 04/27/23 Range/Units 08:21 RBC (3.80-5.40) m/uL Hgb (11.4-16.0) gm/dL Hct (34.0-46.0) % Sodium 135 L (137-145) mmol/L BUN 21 H (7-17) mg/dL Glucose 143 H (74-99) mg/dL POC Glucose (mg/dL) (70-110) mg/dL
--- NOTE | 2023-04-27 11:05 | P.PN ---
Subjective Progress Note Date: 04/27/23 Subjective: Seen and examined at bedside. No acute events overnight. Ready to go home. Pertinent positives and negatives as discussed above, a complete review of systems was performed and all other systems are negative. Vitals Signs Reviewed. General: nontoxic, no distress, appears at stated age Derm: warm, dry, midline incision clean, dry, intact Head: atraumatic, normocephalic, symmetric Eyes: EOMI, no lid lag, anicteric sclera Mouth: no lip lesion, mucus membranes moist Cardiovascular: S1S2 reg, no murmur Lungs: CTA bilateral, no rhonchi, no rales , no accessory muscle use Abdominal: soft, nontender to palpation, no guarding, no appreciable organomegaly Ext: no gross muscle atrophy, no edema, no contractures Neuro: CN II-XI grossly intact, no focal neuro deficits Psych: Alert, oriented, appropriate affect Data Reviewed Today: Pertinent Labs: WBC 9.4, hemoglobin 9.9, blood sugars range between 143-178 Imaging: Chest x-ray independently interpreted, similar to yesterday Assessment and Plan: Multivessel coronary artery disease status post CABG NSTEMI Type 2 diabetes, A1c 7.5 Hypertension Nicotine dependence Mild hypomagnesemia, resolved Constipation, resolved Mild normocytic anemia, anticipated outcome of surgery -Cardiology note reviewed, continue current therapy, stable for discharge -Cardiothoracic note reviewed, likely dc today with home care -Pulmonology following -On sliding scale insulin, started on metformin and farxiga, will be continued at the time of discharge -Counseled regarding smoking cessation Patient is medically optimized for discharge home. Thank you for allowing us to participate in the care of this pleasant patient. Do not hesitate to contact us with questions. Someone can be reached from the [facility] hospitalist group all hours of the day at [phone] or via perfect serve. Objective - Vital Signs Vital signs: Vital Signs Temp 98.2 F 04/27/23 08:50 Pulse 85 04/27/23 08:50 Resp 18 04/27/23 08:50 BP 99/63 04/27/23 08:50 Pulse Ox 96 04/27/23 08:50 FiO2 50 04/23/23 00:00 Intake & Output 04/26/23 04/27/23 04/27/23 18:59 06:59 18:59 Intake Total 480 120 Output Total 700 800 0 Balance -220 -800 120 Weight 65.9 kg Intake: Oral 480 120 Output: Gastric Drainage 0 Urine 700 800 0 Stool 0 Urine/Stool Mix 0 Emesis 0 Oral Regurgitation 0 Other 0 Other: Voiding Method Toilet Toilet Toilet # Voids 0 1 # Bowel Movements 0 0 ABP, PAP, CO, CI - Last Documented Arterial Blood Pressure 101/77 Pulmonary Artery Pressure 29/12 Cardiac Output 3.8 Cardiac Index 2.3 - Labs CBC & Chem 7: 04/27/23 08:21 04/27/23 08:21 Labs: Abnormal Lab Results - Last 24 Hours (Table) 04/26/23 04/26/23 04/26/23 Range/Units 11:46 16:49 20:08 RBC (3.80-5.40) m/uL Hgb (11.4-16.0) gm/dL Hct (34.0-46.0) % Sodium (137-145) mmol/L BUN (7-17) mg/dL Glucose (74-99) mg/dL POC Glucose (mg/dL) 218 H 196 H 155 H (70-110) mg/dL 04/27/23 04/27/23 04/27/23 Range/Units 02:00 06:05 08:21 RBC 2.70 L (3.80-5.40) m/uL Hgb 9.4 L (11.4-16.0) gm/dL Hct 26.7 L (34.0-46.0) % Sodium (137-145) mmol/L BUN (7-17) mg/dL Glucose (74-99) mg/dL POC Glucose (mg/dL) 157 H 178 H (70-110) mg/dL 04/27/23 Range/Units 08:21 RBC (3.80-5.40) m/uL Hgb (11.4-16.0) gm/dL Hct (34.0-46.0) % Sodium 135 L (137-145) mmol/L BUN 21 H (7-17) mg/dL Glucose 143 H (74-99) mg/dL POC Glucose (mg/dL) (70-110) mg/dL
[2023-04-27 11:46] LABS: Glucose,Whole Blood 141 mg/dL (70-110)
[2023-04-27] MEDS ORDERED: amLODIPine 5 MG TAB PO SCH (12:00)
--- NOTE | 2023-04-27 12:04 | P.PN ---
Subjective Progress Note Date: 04/27/23 On 04/23/2023, the patient is postop day #1. The patient has a off-pump five- vessel bypass surgery with CLARK to LAD and radial graft to use marginal 1 and obtuse marginal 2 and the patient also had saphenous vein graft to diagonal and PDA. The patient also had atrial clipping. The patient is currently postop day #1. She was weaned off the mechanical ventilator and she was extubated yesterday without any major difficulties. Currently she is on oxygen at room air. She has chest tubes and the patient has a mediastinal, left pleural and the right pleural chest tube. There is no evidence of any air leak. Output from the chest tubes are noted and the patient has produced approximately 75 mL of bloody output from the mediastinal chest tube and the pleural chest tubes have produced 350 mL. The patient's cardiac output is at 3.8 with an index of 2.3. He had pressures of 27/10 with a CVP of 3. Cardiac rhythm is sinus. No pressors at this point in time. Blood work was noted and the patient has a hemoglobin of 11.6, white cycles of 12.5, BUN is at 70 with a creatinine of 0.5 and a sodium level is at 137. Breathing is nonlabored. Using the [employer] spirometer. Leg approximately 500 mL. On today's evaluation of 04/24/2023, the patient is postop day #2. The patient underwent five-vessel bypass surgery. The patient is doing well. She is currently on oxygen 2 L/m nasal cannula. The chest x-ray shows no significant abnormalities. No evidence of any pneumothorax. The patient has chest tubes in place and the patient has produced approximately 400 mL of output from the left and the right-sided chest tubes over the past 24 hours and the mediastinal chest tube has produced 135 mL over the past 24 hours. CVP is currently at 5. The patient is using the incentive spirometer and she is falling approximately 700. The blood work from today showing inability to 9.9 with a hemoglobin 11.4, BUN is at 70 with a creatinine of 0.5 and a sodium level is at 137. Cardiac rhythm is sinus. The patient is hemodynamically stable. No hypotension. She has an adequate urine output. She remains on aspirin and Plavix. She is also on metoprolol which is being given a dose of 50 mg by mouth twice a day. She is on Norvasc 10 mg by mouth daily for blood pressure control. Oxycodone for pain control. Surgical one-sided dry clean and intact. Urine output is adequate in the order of 50 mL an hourly basis. On today's evaluation of 04/25/2023, the patient is on room air oxygen. The p atient denies having any respiratory difficulties. She is postop day #3. The chest x-ray showed no evidence of any pneumothorax. Postoperative atelectatic changes are seen in the lung bases. The patient has is doing well. Her cardiac rhythm is sinus. She is hemodynamically stable. She is having issues with constipation. She was given a suppository and oral laxatives. The blood work today shows a hemoglobin of 11 and a white cell count of 9.1. BUN is at 23 with a creatinine of 0.4. Sodium is at 136. The patient is currently on a combination of aspirin and Plavix. The patient is also on metoprolol at a dose of 50 mg by mouth twice a day. Patient is on high-dose statins. IV fluids are currently at KVO. She is still working on the incentive spirometer. Pulse ox on room air is always of 92%. On 04/26/2023, the patient is on room air oxygen. The patient is postoperative day #4. Chest x-ray shows adequate expansion of both lungs. No evidence of any pneumothorax. Patient is ambulating. Surgical once is striking and intact. She continues to have some soreness in her chest which is scheduled in nature. She remains on aspirin and Plavix. She is on metoprolol 50 mg by mouth twice a day. She was able to have a bowel movement yesterday with the help of laxatives. No other significant events overnight. The white cell cause of 9.4 with a hemoglobin of 9.9 and a platelet count of 168. BUN is at 70 with a creatinine of 0.5 and a sodium level is at 133. No focal neurological deficits. The patient is awake and alert. She is ambulating. Discharge planning is in progress. She is using the incentive spirometer. She is falling approximately thousand. While on room air oxygen, the patient has a pulse ox of 92-94%. On 04/27/2023 patient is postop day #5 chest x-ray showing no acute abnormalities. Patient is on room air oxygen. Chest is minimal. She is h emodynamically stable. Sodium is at 135, the lipase is at 7.3 with a hemoglobin of 9.4. Objective - Vital Signs Vital signs: Vital Signs Temp 98.2 F 04/27/23 08:50 Pulse 85 04/27/23 08:50 Resp 18 04/27/23 08:50 BP 99/63 04/27/23 08:50 Pulse Ox 96 04/27/23 08:50 FiO2 50 04/23/23 00:00 Intake & Output 04/26/23 04/27/23 04/27/23 18:59 06:59 18:59 Intake Total 480 120 Output Total 700 800 0 Balance -220 -800 120 Weight 65.9 kg Intake: Oral 480 120 Output: Gastric Drainage 0 Urine 700 800 0 Stool 0 Urine/Stool Mix 0 Emesis 0 Oral Regurgitation 0 Other 0 Other: Voiding Method Toilet Toilet Toilet # Voids 0 1 # Bowel Movements 0 0 ABP, PAP, CO, CI - Last Documented Arterial Blood Pressure 101/77 Pulmonary Artery Pressure 29/12 Cardiac Output 3.8 Cardiac Index 2.3 - Exam CONSTITUTIONAL: Appears mostly comfortable, cooperative, no acute distress, the patient remains on room air oxygen RESPIRATORY: Lungs sounds diminished bilaterally. Respirations even, nonlabored. CARDIOVASCULAR: S1, S2 present. Regular rate and rhythm, sinus rhythm on telemetry. Sternum stable. Palpable peripheral pulses bilaterally. No edema present. No calf pain or tenderness noted. Heart hugger in place with patient demonstrating appropriate use. Antiembolism stockings, SCDs present. GASTROINTESTINAL: Abdomen soft, nontender, nondistended. Hypoactive bowel sounds present 4 quadrants. Tolerating clear liquid diet. Denies flatus GENITOURINARY: Almodovar present draining clear, yellow urine. Output overnight 35-75 mL per hour, 928 mL in the last 24 hours INTEGUMENTARY: Skin is warm and dry with evidence of good perfusion. Anterior chest incision well approximated and covered with dry intact dressing. Left radial artery and right lower extremity EVH site well approximated without redness or drainage. NEUROLOGIC: Cranial nerves II through XII intact MUSKULOSKELETAL: Able to move all extremities, strength equal bilaterally PSYCHIATRIC: Alert and oriented to person place and time, appropriate affect, intact judgment and insight INVASIVE LINES AND TUBES: Mediastinal/left/right pleural chest tubes have been removed. - Labs CBC & Chem 7: 04/27/23 08:21 04/27/23 08:21 Labs: Abnormal Lab Results - Last 24 Hours (Table) 04/26/23 04/26/23 04/26/23 Range/Units 11:46 16:49 20:08 RBC (3.80-5.40) m/uL Hgb (11.4-16.0) gm/dL Hct (34.0-46.0) % Sodium (137-145) mmol/L BUN (7-17) mg/dL Glucose (74-99) mg/dL POC Glucose (mg/dL) 218 H 196 H 155 H (70-110) mg/dL 04/27/23 04/27/23 04/27/23 Range/Units 02:00 06:05 08:21 RBC 2.70 L (3.80-5.40) m/uL Hgb 9.4 L (11.4-16.0) gm/dL Hct 26.7 L (34.0-46.0) % Sodium (137-145) mmol/L BUN (7-17) mg/dL Glucose (74-99) mg/dL POC Glucose (mg/dL) 157 H 178 H (70-110) mg/dL 04/27/23 Range/Units 08:21 RBC (3.80-5.40) m/uL Hgb (11.4-16.0) gm/dL Hct (34.0-46.0) % Sodium 135 L (137-145) mmol/L BUN 21 H (7-17) mg/dL Glucose 143 H (74-99) mg/dL POC Glucose (mg/dL) (70-110) mg/dL Assessment and Plan Plan: Multivessel coronary artery disease and the patient is post non-ST segment elevation myocardial infarction the patient underwent five-vessel bypass surgery. Patient is currently postop day # 5 Postthoracotomy, the patient was extubated about any major difficulties, chest tubes are removed and the patient has some limited atelectatic changes on her chest x-ray. Oxygen patient is normal and the patient is currently on room air oxygen. Using incentive spirometer. Triple-vessel coronary artery disease, non-STEMI this admission, status post 5 vessel CABG Chest pain, skeletal chest wall pain postthoracotomy Hypertension Hyperlipidemia, patient is currently on high dose statins Diabetes, hemoglobin A1c 7.5%, currently on insulin sliding scale coverage Bilateral internal carotid artery stenosis, 50-69% Peripheral vascular disease Pulmonary embolism at 20 years old and not currently on anticoagulation Current tobacco dependence, preoperative FEV1 104% of predicted Family history of premature coronary artery disease on both sides of the family Plan: The patient is doing well from the pulmonary standpoint and she is currently on room air oxygen Constipation is improved Encourage use of incentive spirometer Chest x-ray was noted, no acute abnormalities Adequate urine output Continue aspirin and Plavix Continue high dose statins Continue metoprolol and the patient is currently on 50 mg by mouth twice a day Blood pressures under adequate control Continue Norvasc and the details of 10 mg by mouth daily To be discharged home today.
--- NOTE | 2023-04-27 12:21 | XR ---
EXAMINATION TYPE: XR chest 2V DATE OF EXAM: 04/27/2023 6:22 AM CLINICAL INDICATION:Female, 52 years old with history of Postop CABG; [facility] COMPARISON: 04/26/2023 and before TECHNIQUE: XR chest 2V Frontal and lateral views of the chest. FINDINGS: Lines/Tubes: EKG leads and extrinsic structures over the chest. No definite indwelling lines are seen. Lungs/Pleura: Scattered linear atelectasis, greatest in the left mid to lower lung zones, similar to previous. Trace pleural effusions appear stable. No pneumothorax, or focal consolidation. Pulmonary vascularity: Unremarkable. Heart/mediastinum: Cardiomediastinal silhouette is stable. Post CABG changes again noted with mediast inal clips and sternotomy wires, probable left atrial appendage clip. Musculoskeletal: Osseous structures show no acute abnormality. Unremarkable soft tissues. Other findings: None IMPRESSION: No significant interval change. Mild linear atelectasis and trace pleural effusions.
--- NOTE | 2023-04-27 12:37 | P.DS ---
Providers Date of admission: 04/16/23 20:21 Expected date of discharge: 04/27/23 Attending physician: Dwayne Bill MD Consults: 04/16/23 20:21 Consult Physician Urgent Consulting Provider: Baljinder Rodriguez Consult Reason/Comments: nstemi Do you want consulting provider notified?: Yes 04/17/23 11:58 Consult Physician Routine Consulting Provider: Keron Herrera Consult Reason/Comments: 3 vessel disease, NSTEMI, DM, Smoker Do you want consulting provider notified?: Yes 04/18/23 16:51 Consult Physician Routine Consulting Provider: Demond Portillo Consult Reason/Comments: preop cabg Do you want consulting provider notified?: Yes, Notify in am 04/21/23 10:46 Consult to Anesthesia Routine Consulting Provider: Anesthesia,Services Consult Reason/Comments: Cardiac Surgery Pre-Op 04/22/23 18:02 Consult Physician Routine Consulting Provider: Miryam Pulido Consult Reason/Comments: med mgmt Do you want consulting provider notified?: Already Contacted Primary care physician: Bob Mullins MD Hospital Course: FINAL DIAGNOSIS: 1. Triple-vessel coronary artery disease, non-STEMI this admission 2. Hypertension 3. Hyperlipidemia, cholesterol 257, LDL 162, triglycerides 247 4. Type 2 diabetes, hemoglobin A1c 7.5% 5. Bilateral internal carotid artery stenosis 50-69% 6. Peripheral vascular disease, right MARCELLA 0.77 7. Pulmonary embolism at 20 years old, not currently on anticoagulation 8. Current tobacco dependence, preoperative FEV1 104% of predicted 9. Family history of premature coronary artery disease on both sides of the family PRINCIPAL PROCEDURE: 1. Off-pump coronary artery bypass graft 5 with the left internal thoracic artery in situ to the left anterior descending artery, left radial artery sequential from the aorta to the obtuse marginal #1 and obtuse marginal #2 artery, reverse saphenous vein graft from the aorta to the diagonal artery, reverse saphenous vein graft from the aorta to the posterior descending artery 2. Left atrial appendage ligation using a 35 mm AtriClip 3. Endoscopic left radial and right greater saphenous vein harvest 4. Graft flow measurements using the Medistim flowmeter 5. Intraoperative transesophageal echocardiogram performed by anesthesia HISTORY OF PRESENT ILLNESS: This is a 52-year-old female who will follow outpatient with Dr. Mullins for primary care. The patient works in a factory and had noticed increasing chest pain radiating all the way up to her jaw over several days. She was encouraged to report to the emergency room [facility] where she had an EKG demonstrating sinus rhythm with nonspecific ST changes as well as troponin elevation and she was ruled in for non-STEMI. She underwent heart catheterization demonstrating triple vessel coronary artery disease with mid LAD stenosis 90%, mid circumflex system 100%, and mid RCA stenosis 90%. Due to these findings consultation was placed to Dr. Herrera from cardiothoracic surgery. She was recommended to undergo urgent coronary artery bypass surgery. The usual perioperative course was discussed in detail with the patient and her family, all risks and benefits were explained, all questions were answered, and consent was obtained to proceed with surgery. The patient was kept inpatient due to the nature of her disease process. HOSPITAL COURSE: The patient was brought to the preoperative area 04/22/2023, prepared in the usual fashion, and subsequently taken to the operating room where Dr. Bill performed 5 vessel off-pump CABG. Upon completion of surgery the patient was transferred to the cardiovascular intensive care unit where she was recovered and monitored hemodynamically. She was extubated, all lines, tubes, and drips were discontinued when appropriate, and she was transferred to [facility] cardiac stepdown unit for further monitoring and rehabilitation. Her oxygen was titrated down, she continued to work with physical and occupational therapy, she was tolerating oral diet, her pain was controlled, and she was ready to be discharged to home with [facility] care on postoperative day #5. She received written and verbal instruction regarding her medications, activity restrictions, signs and symptoms requiring physician notification, and follow-up appointments. Patient Condition at Discharge: Stable Plan - Discharge Summary New Discharge Prescriptions: New Aspirin 325 mg PO DAILY #30 tab Atorvastatin [Lipitor] 80 mg PO HS #30 tab Metoprolol Tartrate [Lopressor] 50 mg PO BID #60 tab Clopidogrel [Plavix] 75 mg PO DAILY #30 tab Sennosides-Docusate Sodium [Senokot-S] 2 each PO HS PRN tab PRN Reason: Constipation Acetaminophen Tab [Tylenol] 650 mg PO Q4HR PRN tab PRN Reason: Fever And/ Or Pain amLODIPine [Norvasc] 5 mg PO DAILY@1200 #30 tab Pantoprazole [Protonix] 40 mg PO AC-BRKFST #30 tab Dapagliflozin/Metformin HCl [Xigduo Xr 5 mg-1,000 mg Tablet] 1 tab PO DAILY #90 tab Continue Biotin [Biotin Disolve] 10,000 mcg PO DAILY Women's Multivitamin Gummy 1 tab PO DAILY Discharge Medication List Biotin [Biotin Disolve] 10,000 mcg PO DAILY 04/16/23 [History] Women's Multivitamin Gummy 1 tab PO DAILY 04/16/23 [History] Acetaminophen Tab [Tylenol] 650 mg PO Q4HR PRN tab 04/27/23 [Rx] Aspirin 325 mg PO DAILY #30 tab 04/27/23 [Rx] Atorvastatin [Lipitor] 80 mg PO HS #30 tab 04/27/23 [Rx] Clopidogrel [Plavix] 75 mg PO DAILY #30 tab 04/27/23 [Rx] Dapagliflozin/Metformin HCl [Xigduo Xr 5 mg-1,000 mg Tablet] 1 tab PO DAILY #90 tab 04/27/23 [Rx] Metoprolol Tartrate [Lopressor] 50 mg PO BID #60 tab 04/27/23 [Rx] Pantoprazole [Protonix] 40 mg PO AC-BRKFST #30 tab 04/27/23 [Rx] Sennosides-Docusate Sodium [Senokot-S] 2 each PO HS PRN tab 04/27/23 [Rx] amLODIPine [Norvasc] 5 mg PO DAILY@1200 #30 tab 04/27/23 [Rx] Follow up Appointment(s)/Referral(s): Dex Stinson MD [STAFF PHYSICIAN] - 2 Weeks (Per Ray from Dr. Stinson's office, the staff will call with a follow-up appointment.) Rehab [facility],Cardiac [NON-STAFF] - [facility] - 1-2 Days Bob Mullins MD [Primary Care Provider] - 1 Week Italo Lyons NPC [Nurse Practitioner] - 05/03/23 11:00 am Demond Portillo DO [Doctor of Osteopathic Medicine] - 05/14/23 1:00 pm Dwayne Bill MD [STAFF PHYSICIAN] - 05/14/23 11:00 am Ambulatory/Diagnostic Orders: Complete Blood Count w/diff [LAB.AMB] Time Frame: 04/30/23, Facility: [facility], Location: [facility] Comprehensive Metabolic Panel [LAB.AMB] Time Frame: 04/30/23, Facility: [facility], Location: [facility] Activity/Diet/Wound Care/Special Instructions: DISCHARGE INSTRUCTIONS: 1. No driving for 4 weeks, or until physician gives their ok. 2. The patient should sleep in their own bed, no medical bed needed. 3. Stairs are not an issue. If the bedroom is upstairs, it is advised that the patient go up at night and down in the morning for the first week. Go slowly, using handrail and take 1 step at a time. 4. KARLOS hose are to be worn for 30 days post surgery or until physician discontinues. 5. Heart hugger is to be worn 100% of the time until physician discontinues.(except when showering) 6. No lifting, pushing, or pulling more than 10 pounds for 12 weeks. The physician will advise of any restriction changes. 7. The patient is expected to continue the prescribed walking program. 8. Continue pain control per as needed orders. 9. Continue with incentive spirometry and splinting/heart hugger until otherwise directed by the physician. 10. Must shower daily using liquid antibacterial soap 11. Routine sternal incision care. No powders, lotions, ointments on incisions. No dressings are necessary on incisions unless they are draining. Dermabond tape is to remain on sternal incision until surgeon follow-up. 12. Please call surgeon/PERL SOFTWARE ENGINEER for temp greater than 101 F or purulent drainage from incisions. 13. You should weigh yourself daily, record and bring log with you to follow up appointments. 14. All prescriptions given by surgeon for 30 days. Refills need to be filled through com writer/primary care physician. 15. A Red armband has been placed on the patient. It should be worn for 30 days post discharge from surgery and will be removed by the cardiac surgeons. If an ER visit is necessary, please make sure the number on the Red armband is called before going to ER. 16. You have been referred to and are expected to begin Cardiac Rehab in approximately 4-6 weeks. 17. Quitting smoking is the most important step you can take to improve your health. For additional information and assistance to quit smoking, please call the [place] tobacco quit line (4-015-VLQW-NOW/ ) or online: [email or web address] it-[email or web address] 18. The patient has been instructed to check her blood sugars before meals and at bedtime, keep a record of her blood sugars and bring the record to her follow-up appointment with her primary care physician. HOME HEALTH SERVICES TO PROVIDE: RN SKILLED HOME CARE SERVICES FOR POST-OP SURGICAL PATIENTS WITH THE FOLLOWING: Coronary Artery Bypass Surgery (CABG), Mitral Valve Replacement/Repair ( MVR), Aortic Valve Replacement/Repair (AVR) RN TO CONTINUE EDUCATION FROM ``ROAD TO A HEALTH HEART PATIENT EDUCATION MANUAL (GIVEN TO PATIENT IN THE HOSPITAL) MEDICATION RECONCILIATION WITH EDUCATION NEEDED ON FIRST HOME VISIT EMPHASIZE IMPORTANCE OF WEARING BREAST SUPPORT/HEART HUGGER ENCOURAGE USE OF INCENTIVE SPIROMETER 10 X EVERY HOUR WHILE AWAKE ENCOURAGE UTILIZATION OF LOWER EXTREMITY COMPRESSION STOCKINGS/KARLOS HOSE and ELEVATE LEGS ABOVE LEVEL OF HEART WHILE AT REST. ENCOURAGE AMBULATION 3-5x/day INCREASING TOLERATES, WHILE AVOIDING EXTREMES IN TEMPERATURE FREQUENCY: RN TO OPEN THE PATIENT WITHIN 24 HOURS OF DISCHARGE FROM THE HOSPITAL WITH TELEHEALTH INSTALLED AT [facility] [place], RN TO VISIT 2-3 X A WEEK FOR 4 WEEKS ESTABLISHED BY PATIENT NEEDS. LABORATORY: CBC, CMP TO BE DRAWN ON THE THIRD DAY HOME, (RAN STAT) FAX RESULTS TO [phone]. TELEHEALTH PARAMETERS: WEIGHT: NOTIFY MD OF WEIGHT GAIN OF 2 LBS IN 24 HOURS OR 5 LBS IN ONE WEEK HR: NOTIFY MD OF HR <55 BPM OR HR>100 BPM BP: NOTIFY MD IF BP <90/55 OR BP>140/100 O2 SAT: NOTIFY MD IF PO2<93% ON ROOM AIR SEND TELEHEALTH REPORT TO BRIDGES AND BUILDINGS SUPERVISOR AND CARDIOVASCULAR SURGEON THE FIRST WEEK OF CARE AND THEN BI-WEEKLY. PLEASE ADDITIONALLY COMMUNICATE ANY ABNORMALS AND NEW FINDINGS TO THE SURGEONS OFFICE. Discharge Disposition: HOME WITH HOME HEALTH SERVICES
[2023-04-27 13:33] VITALS: BP 108/72; PULSE 77; TEMP 98
--- NOTE | 2023-04-29 11:32 | CDI ---
Documentation Clarification Form Date: 04/29/2023 11:11:44 AM From: Jennyfer Capellan Phone: Admit Date: 04/16/2023 08:21:00 PM Patient Name: Brooklyn Wilks Visit Number: [id number] Discharge Date: 04/27/2023 03:31:00 PM ATTENTION: The Clinical Documentation Specialists (CDI) and [facility] Coding Staff appreciate your assistance in clarifying documentation. Please respond to the clarification below the line at the bottom and electronically sign. The CDI & [facility] Coding staff will review the response and follow-up if needed. Please note: Queries are made part of the Legal Health Record. If you have any questions, please contact the author of this message via ITS. Dr. Walt Sahu Mildnormocytic anemia is documented Progress Note 04/26. Additional specificity regarding the acuity of anemia is requested. History/Risk Factors: 52yo F, CADx5, NSTEMI sp CABG, HTN, HLD, DMII, BCA stenosis, PVA, Hx PE, smoker, FHx CAD Clinical indicators: Hemoglobin: 04/17 14.1 04/23 11.3 04/25 11.0 04/26 9.9-10.4 04/27 9.4 Hematocrit: 04/17 39.8 04/23 31.4-33.2 04/25 31.3 04/26 27.1- 28.7 04/27 26.7 Treatment: anticipated outcome of surgery; Albumin intraop Please clarify the acuity of anemia: [ x ] Acute blood loss anemia [ ] Acute on chronic blood loss anemia [ ] Unable to determine [ ] Other, please specify (Template Last Revised: August 2020) MTDD
== END 2023-04-27 15:31 | disposition home health service (06) | DRG 234 ==
LOC: EC 17:10 → 3SCARD 20:21 → 2SICU 04-22 12:18 → 3SCARD 04-24 22:29
PROVIDERS: ADMIT Thoracic Surgery (Cardiothoracic Vascular Surgery); ATTEND Thoracic Surgery (Cardiothoracic Vascular Surgery)
PROC: 4A023N7 Measurement of Cardiac Sampling and Pressure, Left Heart, Percutaneous Approach (ICD-10-PCS; 2023-04-17)
PROC: B2111ZZ Fluoroscopy of Multiple Coronary Arteries using Low Osmolar Contrast (ICD-10-PCS; 2023-04-17)
PROC: B2151ZZ Fluoroscopy of Left Heart using Low Osmolar Contrast (ICD-10-PCS; 2023-04-17)
PROC: 03BC4ZZ Excision of Left Radial Artery, Percutaneous Endoscopic Approach (ICD-10-PCS; 2023-04-22)
PROC: 06BP4ZZ Excision of Right Saphenous Vein, Percutaneous Endoscopic Approach (ICD-10-PCS; 2023-04-22)
PROC: 02L70CK Occlusion of Left Atrial Appendage with Extraluminal Device, Open Approach (ICD-10-PCS; 2023-04-22)
PROC: B24BZZ4 Ultrasonography of Heart with Aorta, Transesophageal (ICD-10-PCS; 2023-04-22)
PROC: 4A0305C Measurement of Arterial Flow, Coronary, Open Approach (ICD-10-PCS; 2023-04-22)
PROC: 30233J1 Transfusion of Nonautologous Serum Albumin into Peripheral Vein, Percutaneous Approach (ICD-10-PCS; 2023-04-22)
PROC: 02100Z9 Bypass Coronary Artery, One Artery from Left Internal Mammary, Open Approach (ICD-10-PCS; principal; 2023-04-22 10:20)
PROC: 02110A3 Bypass Coronary Artery, Two Arteries from Coronary Artery with Autologous Arterial Tissue, Open Approach (ICD-10-PCS; 2023-04-22 10:20)
PROC: 021109W Bypass Coronary Artery, Two Arteries from Aorta with Autologous Venous Tissue, Open Approach (ICD-10-PCS; 2023-04-22 10:20)
DX: I21.4 Non-ST elevation (NSTEMI) myocardial infarction (principal); D62 Acute posthemorrhagic anemia; E11.51 Type 2 diabetes mellitus with diabetic peripheral angiopathy without gangrene; E11.42 Type 2 diabetes mellitus with diabetic polyneuropathy; E11.65 Type 2 diabetes mellitus with hyperglycemia; I25.118 Atherosclerotic heart disease of native coronary artery with other forms of angina pectoris; I11.9 Hypertensive heart disease without heart failure; E03.9 Hypothyroidism, unspecified; I65.23 Occlusion and stenosis of bilateral carotid arteries; I08.1 Rheumatic disorders of both mitral and tricuspid valves; E78.5 Hyperlipidemia, unspecified; F17.210 Nicotine dependence, cigarettes, uncomplicated; M79.7 Fibromyalgia; K21.9 Gastro-esophageal reflux disease without esophagitis; N80.9 Endometriosis, unspecified; K59.00 Constipation, unspecified; E83.42 Hypomagnesemia; Z86.711 Personal history of pulmonary embolism; Z88.0 Allergy status to penicillin; Z88.8 Allergy status to other drugs, medicaments and biological substances; Z88.2 Allergy status to sulfonamides; Z79.899 Other long term (current) drug therapy; Z82.49 Family history of ischemic heart disease and other diseases of the circulatory system
CPT/HCPCS: 36415; 71045; 71046; 71250; 80048; 80053; 80061; 80074; 81003; 82330; 82805; 83036; 83735; 84443; 84484; 85025; 85027; 85379; 85610; 85730; 86850; 86891; 86900; 86901; 86920; 87070; 93005; 93306; 93458; 93880; 93923; 93930; 93970; 94002; 94150; 94640; 94760; 96361; 96365; 96375; 99291

== ENCOUNTER 2023-09-06 13:06 | Emergency (ER) | payer BC ==
--- NOTE | 2023-09-06 13:09 | ED ---
Chest Pain HPI - General Source: patient, RN notes reviewed Mode of arrival: ambulatory Limitations: no limitations - History of Present Illness Complaint: chest pain <Palma Maurer - Last Filed: 09/06/23 13:08> - General Source: RN notes reviewed, old records reviewed Mode of arrival: ambulatory Limitations: no limitations - History of Present Illness Complaint: chest pain -: days(s) Onset: during rest, during exertion Pain Location: substernal, left chest Pain Radiation: LUE Severity: moderate Severity scale (1-10): 4 Quality: tightness, aching Consistency: intermittent Improves With: nothing Worsens With: nothing Anginal Symptoms: sense of impending doom Other Symptoms: palpitations Treatments Prior to Arrival: none <Jose Antonio Carlton - Last Filed: 09/15/23 18:55> - General Chief Complaint: Chest Pain Stated Complaint: SOB, chest pain Time Seen by Provider: 09/06/23 13:08 - History of Present Illness Initial Comments: This is a 52-year-old female who presents to the emergency department for chest pain. Patient states that she is supposed to have a cardiac catheterization in the next couple of days, and she feels very unwell. She is having increasing chest pain, shortness of breath, and nausea. (Palma Maurer) This is a 52-year-old female to the ER for evaluation of chest pain chest pain and not feeling well with this chest pain. Increasing chest pain with cardiac catheterization in 2 days (Jose Antonio Carlton) - Related Data Home Medications Medication Instructions Recorded Confirmed metFORMIN HCL 1,000 mg PO BID 09/03/23 09/09/23 Aspirin EC [Ecotrin Low Dose] 81 mg PO DAILY 09/06/23 09/09/23 Metoprolol Succinate (ER) [Toprol 75 mg PO DAILY 09/06/23 09/09/23 XL] amLODIPine [Norvasc] 5 mg PO DAILY 09/09/23 09/09/23 Previous Rx's Medication Instructions Recorded Atorvastatin [Lipitor] 80 mg PO HS #30 tab 04/27/23 Clopidogrel [Plavix] 75 mg PO DAILY #30 tab 04/27/23 Isosorbide Mononitrate ER [Imdur] 15 mg PO DAILY 30 Days #30 tab 09/09/23 Allergies Allergy/AdvReac Type Severity Reaction Status Date / Time Penicillins Allergy Anaphylaxis, Verified 09/06/23 18:34 swelling, rash, hives pregabalin [From Lyrica] Allergy Rash/Hives, Verified 09/06/23 18:34 swelling Sulfa (Sulfonamide Allergy Anaphylaxis, Verified 09/06/23 18:34 Antibiotics) swelling, rash, hives gabapentin AdvReac Severe Diarrhea Verified 09/06/23 18:34 Review of Systems ROS Other: All systems not noted in ROS Statement are negative. <Palma Maurer - Last Filed: 09/06/23 13:08> ROS Other: All systems not noted in ROS Statement are negative. <Jose Antonio Carlton - Last Filed: 09/15/23 18:55> ROS Statement: Those systems with pertinent positive or pertinent negative responses have been documented in the HPI. Past Medical History Past Medical History: Chest Pain / Angina, Diabetes Mellitus, Fibromyalgia, GERD/Reflux, Hyperlipidemia, Hypertension, Pulmonary Embolus (PE), Thyroid Disorder Additional Past Medical History / Comment(s): , IDDM type II, neuropathy bilateral legs/feet and hands, bilateral carpal tunnel syndrome, vertigo lately/balance problems, recent weight loss-30# since 09/2018, pancreatitis, hypothyroidism, PE in early twenties from control and smoking. Endometriosis shortness of breath, pain up into shoulder area, History of Any Multi-Drug Resistant Organisms: None Reported Past Surgical History: Section, Cholecystectomy, Coronary Bypass/CABG, Uterine Ablation Additional Past Surgical History / Comment(s): EGD, colonoscoies with benign polypectomy, " abdominal" unsure the name, partial hysterectomy cabg 07/23/2022 5 vessels. Laparotomy with left salpingo-oophorectomy Past Anesthesia/Blood Transfusion Reactions: Previous Problems w/ Anesthesia, Motion Sickness Additional Past Anesthesia/Blood Transfusion Reaction / Comment(s): pt states trouble waking up after ciarra Smoking Status: Current every day smoker - Past Family History Father Family Medical History: Cancer, Myocardial Infarction (PA) Additional Family Medical History / Comment(s): Father is living. Prostate cancer. Father had a PA at the age of 49yrs. Mother Family Medical History: Diabetes Mellitus, Renal Disease Additional Family Medical History / Comment(s): Mother is . Maternal grandmother had coronary artery disease diagnosed at age <Palma Maurer - Last Filed: 09/06/23 13:08> General Exam <Palma Maurer - Last Filed: 09/06/23 13:08> General appearance: alert, in no apparent distress, anxious Head exam: Present: atraumatic, normocephalic, normal inspection Eye exam: Present: normal appearance, PERRL, EOMI. Absent: scleral icterus, conjunctival injection, periorbital swelling ENT exam: Present: normal exam, mucous membranes moist Neck exam: Present: normal inspection. Absent: tenderness, meningismus, lymphadenopathy Respiratory exam: Present: normal lung sounds bilaterally. Absent: respiratory distress, wheezes, rales, rhonchi, stridor Cardiovascular Exam: Present: regular rate, normal rhythm, normal heart sounds. Absent: systolic murmur, diastolic murmur, rubs, gallop, clicks GI/Abdominal exam: Present: soft, normal bowel sounds. Absent: distended, tenderness, guarding, rebound, rigid Extremities exam: Present: normal inspection, full ROM, normal capillary refill. Absent: tenderness, pedal edema, joint swelling, calf tenderness Back exam: Present: normal inspection Neurological exam: Present: alert, oriented X3, CN II-XII intact Psychiatric exam: Present: normal affect, normal mood Skin exam: Present: warm, dry, intact, normal color. Absent: rash <Jose Antonio Carlton - Last Filed: 09/15/23 18:55> - General Exam Comments Initial Comments: Visual Physical Exam Vital signs reviewed General: Well-appearing, nontoxic, no acute distress. Head: Normocephalic, atraumatic Eyes: PERRLA, EOMI ENT: Airway patent Chest: Nonlabored breathing Skin: No visual rash, normal skin tone Neuro: Alert and oriented 3 Musculoskeletal: No gross abnormalities (Palma Maurer) Course <Jose Antonio Carlton - Last Filed: 09/15/23 18:55> Vital Signs 09/06/23 09/06/23 09/06/23 13:32 18:26 18:29 Temperature 98.2 F Pulse Rate 85 68 Respiratory 20 20 20 Rate Blood Pressure 155/94 134/68 O2 Sat by Pulse 98 98 Oximetry 09/06/23 09/06/23 20:01 21:06 Temperature Pulse Rate 81 76 Respiratory 17 18 Rate Blood Pressure 131/84 126/80 O2 Sat by Pulse 97 98 Oximetry - Reevaluation(s) Reevaluation #1: Medical records reviewed (Jose Antonio Carlton) Reevaluation #2: Patient symptoms are unchanged (Jose Antonio Carlton) Reevaluation #3: Patient informed of results and questions answered Studies Chest x-ray is negative for acute disease (Jose Antonio Carlton) Reevaluation #4: Was pt. sent in by a medical professional or institution (, LOGAN, FRYLINE ATTENDANT, urgent care, hospital, or group home...) When possible be specific @ -no Did you speak to anyone other than the patient for history (EMS, parent, family, police, friend...)? What history was obtained from this source @ -no Did you review nursing and triage notes (agree or disagree)? Why? @ -agree Are old charts reviewed (outside hosp., previous admission, EMS record, old EKG, old radiological studies, urgent care reports/EKG's, group home records)? Report findings @ -yes Differential Diagnosis (chest pain, altered mental status, abdominal pain women, abdominal pain men, vaginal bleeding, weakness, fever, dyspnea, syncope, headach e, dizziness, GI bleed, back pain, seizure, CVA, palpatations, mental health, musculoskeletal)? @ -prior EKG interpreted by me (3pts min.). @ -yes X-rays interpreted by me (1pt min.). @ -yes negative for acute disease CT interpreted by me (1pt min.). @ -no U/S interpreted by me (1pt. min.). @ -no What testing was considered but not performed or refused? (CT, X-rays, U/S, labs)? Why? @ -none What meds were considered but not given or refused? Why? @ -none Did you discuss the management of the patient with other professionals (professionals i.e. LOGAN Wilhelm, FRYLINE ATTENDANT, lab, RT, psych nurse, social work professor, trial paralegal, teacher, education officer, special education case manager)? Give summary @ -no Was smoking cessation discussed for >3mins.? @ -no Was critical care preformed (if so, how long)? @ -no Were there social determinants of health that impacted care today? How? (Homelessness, low income, unemployed, alcoholism, drug addiction, transportation, low edu. Level, literacy, decrease access to med. care, [facility], r ehab)? @ -none Was there de-escalation of care discussed even if they declined (Discuss DNR or withdrawal of care, Hospice)? DNR status @ -no What co-morbidities impacted this encounter? (DM, HTN, Smoking, COPD, CAD, Cancer, CVA, ARF, Chemo, Hep., AIDS, mental health diagnosis, sleep apnea, morbid obesity)? @ -none Was patient admitted / discharged? Hospital course, mention meds given and route , prescriptions, significant lab abnormalities, going to OR and other pertinent info. @ - 52 female to ER for evaluation of chest pain with upcoming cardiac catheterization. No acute cause of symptoms found here in the ER troponin is negative patient can be discharged home Discharge Undiagnosed new problem with uncertain prognosis? @ -no Drug Therapy requiring intensive monitoring for toxicity (Heparin, Nitro, Insulin, Cardizem)? @ -no Were any procedures done? @ -no Diagnosis/symptom? @ -Chest pain Acute, or Chronic, or Acute on Chronic? @ -Acute Uncomplicated (without systemic symptoms) or Complicated (systemic symptoms)? @ -Complicated Side effects of treatment? @ -no Exacerbation, Progression, or Severe Exacerbation? @ -exacerbation Poses a threat to life or bodily function? How? (Chest pain, USA, PA, pneumonia, PE, COPD, DKA, ARF, appy, cholecystitis, CVA, Diverticulitis, Homicidal, Suicidal, threat to staff... and all critical care pts) @ -yes significant chest pain (Jose Antonio Carlton) Reevaluation #5: Differential Chest Pain: Stable Angina, Unstable Angina, STEMI, NSTEMI Aortic Dissection, Pneumothorax, Musculoskeletal, Esophageal Spasm GERD, Cholecystitis, Pancreatitis, Zoster, this is not meant to be an all-inclusive list. (Jose Antonio Carlton) Chest Pain MDM <Palma Maurer - Last Filed: 09/06/23 13:08> <Jose Antonio Carlton - Last Filed: 09/15/23 18:55> - MDM I performed the QuickNote portion of this chart. Signed Palma Maurer PA-C. (Palma Maurer) 52 female to ER for evaluation of chest pain with upcoming cardiac catheterization. No acute cause of symptoms found here in the ER troponin is negative patient can be discharged home (Jose Antonio Carlton) Disposition <Palma Maurer - Last Filed: 09/06/23 13:08> Is patient prescribed a controlled substance at d/c from ED?: No Time of Disposition: 20:40 <Jose Antonio Carlton - Last Filed: 09/15/23 18:55> Clinical Impression: Chest pain Disposition: HOME SELF-CARE Condition: Fair Instructions (If sedation given, give patient instructions): Chest Pain (ED) Referrals: Bob Mullins DO [Primary Care Provider] - 1-2 days
[2023-09-06 13:53] LABS: Basophils % (A) 1 %; Eosinophils # (A) 0.1 k/uL (0-0.7); Eosinophils % (A) 2 %; HCT 40.7 % (34.0-46.0); HGB 13.7 gm/dL (11.4-16.0); Lymphocytes # (A) 1.8 k/uL (1.0-4.8); Lymphocytes % (A) 20 %; MCH 30.4 pg (25.0-35.0); MCHC 33.6 g/dL (31.0-37.0); MCV 90.5 fL (80.0-100.0); Mean Platelet Volume 6.9; Monocytes # (A) 0.5 k/uL (0-1.0); Monocytes % (A) 5 %; Neutrophils # (A) 6.6 k/uL (1.3-7.7); Neutrophils % (A) 72 %; Platelet Count 229 k/uL (150-450); RDW 14.5 % (11.5-15.5); WBC 9.2 k/uL (3.8-10.6)
[2023-09-06 14:04] VITALS: TEMP 98.2
[2023-09-06 14:07] LABS: ALT 14 U/L (4-34); AST 19 U/L (14-36); African American GFR (CKD) >90 (>60 ml/min/1.73 sqM); Albumin 4.5 g/dL (3.5-5.0); Alkaline Phosphatase 87 U/L (38-126); Anion Gap 14 mmol/L; Blood Urea Nitrogen 15 mg/dL (7-17); Calcium 9.5 mg/dL (8.4-10.2); Carbon Dioxide 23 mmol/L (22-30); Chloride 101 mmol/L (98-107); Glucose 224 mg/dL (74-99); Magnesium 1.2 mg/dL (1.6-2.3); Non-African American GFR(CKD) >90 (>60 ml/min/1.73 sqM); Potassium 4.1 mmol/L (3.5-5.1); Sodium 138 mmol/L (137-145); Total Protein 7.6 g/dL (6.3-8.2)
[2023-09-06 14:08] LABS: INR 0.9 (<1.2); Partial Thromboplastin Time 21.8 sec (22.0-30.0); Prothrombin Time 10.2 sec (10.0-12.5)
--- NOTE | 2023-09-06 14:18 | XR ---
EXAMINATION TYPE: XR chest 2V DATE OF EXAM: 09/06/2023 1:54 PM CLINICAL INDICATION:Female, 52 years old with history of Chest Pain; COMPARISON: Chest radiographs from 04/27/2023. TECHNIQUE: XR chest 2V Frontal and lateral views of the chest. FINDINGS: Lungs/Pleura: Bibasilar atelectasis. No evidence for pneumothorax, pleural effusion or focal consolid ation. Pulmonary vascularity: Unremarkable. Heart/mediastinum: Cardiomediastinal silhouette is unremarkable. Left atrial appendage occlusion rebeca ce is present. Musculoskeletal: No acute osseous pathology. There is fixation hardware in the lower cervical spine. Midline sternotomy wires are noted. Other findings: None IMPRESSION: Bibasilar streaky atelectasis.
[2023-09-06] MEDS: MAGNESIUM OXIDE 400 MG TAB PO STA ×2 (20:02→20:03)
[2023-09-06 21:12] VITALS: BP 126/80; PULSE 76; RESP 18
== END 2023-09-06 21:15 | disposition home or self-care (01) ==
LOC: EC 13:06
DX: I51.7 Cardiomegaly (principal); J98.11 Atelectasis; E11.9 Type 2 diabetes mellitus without complications; I10 Essential (primary) hypertension; F17.200 Nicotine dependence, unspecified, uncomplicated; Z79.84 Long term (current) use of oral hypoglycemic drugs; Z79.899 Other long term (current) drug therapy; Z79.82 Long term (current) use of aspirin; Z88.0 Allergy status to penicillin; Z88.2 Allergy status to sulfonamides; Z88.8 Allergy status to other drugs, medicaments and biological substances; Z88.1 Allergy status to other antibiotic agents
CPT/HCPCS: 36415; 71046; 80053; 83735; 84484; 85025; 85610; 85730; 93005; 99285

== ENCOUNTER → 2023-09-06 | Outpatient (CLI) | payer BC ==
[2023-09-06 18:57] LABS: HGB 13.6 g/dL (12.0-15.0); MCH 31.1 pg (27.0-32.0); MCHC 34.9 g/dL (32.0-37.0); MCV 89.2 FL (80.0-97.0); Mean Platelet Volume 9.9 FL (9.5-12.2); NRBC Per 100 WBC 0 X 10*3/uL (0.00-0.01); Platelet Count 265 X 10*3/uL (140-440); RBC 4.37 X 10*6/uL (4.10-5.20); RDW 13.7 % (11.5-14.5); WBC 8.88 X 10*3/uL (4.50-10.00)
[2023-09-06 20:06] LABS: Blood Urea Nitrogen 13.3 mg/dL (9.0-27.0); Carbon Dioxide 21.6 mmol/L (21.6-31.8); Chloride 99 mmol/L (96-109); Potassium 4.2 mmol/L (3.5-5.5); Sodium 138 mmol/L (135-145)
== END | disposition home or self-care (01) ==
LOC: LABWHC1 12:16
PROVIDERS: ATTEND Student in an Organized Health Care Education/Training Program
DX: Z01.812 Encounter for preprocedural laboratory examination (principal); I25.10 Atherosclerotic heart disease of native coronary artery without angina pectoris
CPT/HCPCS: 36415; 80051; 82565; 84520; 85027

== ENCOUNTER 2023-09-09 09:59 | Day surgery (SDC) | payer BC ==
[~2023-09-09 09:59] MED LIST changes: +ALPRAZolam 0.25 MG TAB PO PRN; -LACTATED RINGERS 1,000 ML IV SCH; -LIDOCAINE 1% 20 ML VIAL (10MG/ML) FOR IV START INTRADERMA ONE; -LIDOCAINE 1% INJ 10MG/ML (20 ML MDV) ONE; +NITROGLYCERIN SL TABS 0.4 MG TAB SUBLINGUAL PRN; -PROPOFOL 10 MG/ML 20 ML VIAL IV ONE
[2023-09-09] MEDS: ALPRAZolam 0.5 MG TAB PO PRN (10:45)
[2023-09-09] MEDS: SODIUM CHLORIDE 0.9% 1,000 ML in EMPTY BAG 1 BAG IV SCH (10:55)
[2023-09-09] MEDS ORDERED: LIDOCAINE 1% INJ 10MG/ML (20 ML MDV) ONE (12:05)
[2023-09-09] MEDS ORDERED: fentaNYL (PF) 50 MCG/ML 2 ML AMP ONE (12:05)
[2023-09-09] MEDS: MIDAZOLAM 2 MG/2 ML VIAL IVP ONE ×2 (12:10→12:16)
[2023-09-09] MEDS: fentaNYL (PF) 50 MCG/1 ML VIAL IVP ONE (12:10)
[2023-09-09] MEDS: LIDOCAINE 1% INJ 10MG/ML (30 ML VIAL-PF) SQ ONE (12:13)
[2023-09-09] MEDS: IOPAMIDOL-370 100ML BTL INJ ONE ×3 (12:43→13:44)
[2023-09-09] MEDS ORDERED: RX INFO: IV CONTRAST WAS GIVEN 1 EACH MISC MISCELLANE PRN (14:56)
--- NOTE | 2023-09-09 14:56 | P.CARDCATH ---
Date of Procedure: 09/09/23 Description of Procedure: DIAGNOSTIC CORONARY ANGIOGRAPHY and LEFT HEART CATH REPORT PROCEDURES PERFORMED: Left heart catheterization Selective coronary angiography Moderate conscious sedation 95 mins Right common femoral access Right common femoral arteriogram CLARK graft injection Selective CABG graft injection Aortic root arteriogram Angioseal Closure INDICATION: 52-year-old in March 2023 got admitted to the hospital with NSTEMI. She had a heart catheterization which showed multivessel disease with 90% mid RCA, 90 to 100% LCx and 90% mid LAD disease. She underwent CABG with CLARK to LAD, left radial artery to OM1 to sequential OM 2, vein graft to diagonal 2, and vein graft to PDA. On follow-up with Dr. Stinson in clinic patient reported that during participation in cardiac rehab she has been experiencing substernal chest pain. She had a nuclear stress test done which showed anterior wall reversible perfusion defect. For this she was scheduled for an outpatient heart catheterization. CONSENT: I have discussed the risks, benefits and alternative therapies for the above-mentioned procedure, sedation/analgesia and necessary blood product administration (if indicated, as they pertain to this patient). The patient has indicated understanding and acceptance of the risks and procedures discussed. Conscious Sedation: Patient's ECG, heart rate, blood pressure, pulse oximetry was monitored throughout the duration of procedure under the direct supervision. 2.5 mg Versed and 50 mg Fentanyl were used for induction of moderate conscious sedation. Total duration of 95 minutes. PROCEDURE:After the risks, benefits and alternatives of the above mentioned procedure explained in detail with the patient, informed consent was obtained. Patient was taken to the catheterization lab and prepped and draped in usual sterile fashion. Ultrasound was used to identify the right common femoral artery. 1% lidocaine was infiltrated over the right common femoral artery. Using ultrasound arterial access was obtained using micropuncture needle. A 6-Slovenian sheath was placed in the right radial artery using modified Seldinger technique. Left femoral artery angiogram was performed to confirm the appropriate placement of the sheath. J tipped wire was advanced under fluoroscopic guidance. Over the wire JL4 diagnostic catheter was advanced. Wire was removed, catheter was flushed and manipulated under fluoroscopy to selectively engaged the left coronary ostium. Left coronary angioplasty was performed in different angiographic projections. This catheter was exchanged for a JR4 diagnostic catheter over the wire. The catheter was flushed and manipulated selectively engage the right coronary ostium. Right coronary artery angiogram was performed. The catheter was disengaged and was manipulated to selectively engage the vein graft to RCA, radial graft to OM, CLARK graft. The catheter was disengaged and with the help of IR it was prolapsed across the aortic valve to obtain LV pressures. LV pressures were obtained and pullback was performed under fluoroscopy. Significant attempt was made to look for the vein graft to the diagonal artery but we were not successful. The JR4 catheter was exchanged for a multipurpose catheter and AR1 catheter but this catheter was also unsuccessful to selectively engage the vein graft to the diagonal artery. This catheter was exchanged for a pigtail catheter over the wire and aortic root angiogram was performed. Could not see any hint of vein graft to the diagonal artery. Images were shown and discussed with the pressurizer on-call Dr. Rodriguez Angioseal closure device was used to close the arteriotomy site. Appropriate patent hemostasis was achieved. The patient tolerated the procedure well. Patient was transported back to the post catheterization holding area in stable condition. Angiographic images were reviewed in detail. HEMODYNAMICS: LVEDP 12 mmHg. There was no significant gradient across the aortic valve. SELECTIVE CORONARY ARTERIOGRAPHY: LEFT MAIN: The left main is a large caliber vessel which bifurcates into the LAD and circumflex. Left main appears angiographically normal. LEFT ANTERIOR DESCENDING CORONARY ARTERY: Mid LAD is known to be 100% occluded. Competitive flow is seen in mid to distal LAD. Diagonal 1 and diagonal 2 appears to be smaller as compared to the prior cath. There was no competitive flow seen in the diagonal artery. LEFT CIRCUMFLEX CORONARY ARTERY: It is nondominant vessel. Proximal LCx has 50 to 60% disease unchanged from prior exam. Mid LCx after giving OM1 is 99% blocked unchanged from prior exam. Mid OM1 has 60 to 70% disease unchanged from prior exam. Competitive flow is seen in the radial artery graft to OM1 RIGHT CORONARY ARTERY: 99% long tubular disease in mid segment unchanged from prior exam. CABG grafts CLARK to LAD -widely patent with good retrograde filling of LAD. Poor distal runoff as distal LAD tapers quickly. Left radial artery to OM1 and sequential to OM 2 -patent supplies good flow to OM1 which retrogradely fills LCx and proximal LAD. The sequential jump graft from OM1 to OM 2 appears to be diseased but has patent flow to OM 2. It also feels a distal LCx and OM 3. Vein graft to PDA -30 to 40% disease in proximal segment of the vein graft. Distal anastomosis site of vein graft to PDA appears to have 50 to 60% disease. This was not to the severity prior to the anastomosis. Good distal flow in PDA and PL branch and retrograde flow in RCA. Vein graft to diagonal artery could not be found and appears to be occluded IMPRESSION: [place] coronary artery disease unchanged from prior exam, 99 to 100% mid LAD, 99% mid LCx, 99% mid RCA Patent CLARK to LAD Patent left radial to OM1. Sequential jump graft to OM 2 appears to be diffusely diseased but with patent flow Patent vein graft to PDA with 30 to 40% proximal segment disease, 50 to 60% distal anastomosis disease Loss of vein graft to diagonal artery Normal LVEDP PLAN: Case was discussed with pressurizer Dr. Rodriguez, after shared decision making we decided intervention of sequential jump from OM1 to OM 2 is not very feasible. Distal anastomosis of PDA might be intervenable but is not showing ischemia on the nuclear scan. Positive nuclear scan findings could be related to loss of vein graft to diagonal artery. Diagonal artery appears to be smaller than prior images from March 2023 but appears to be patent. At this time we have decided to optimize patient's antianginal and anti-ischemic medical therapy Close follow-up with Dr. Stinson in next 1 week Discharged home in 5 to 6 hours 100 cc/h for 5 hours, normal saline Performing Physician Ignacio Lynch MD [facility], [facility] Thank you for allowing [facility] to participate in this patient's care. Feel free to reach out in case of any followup questions.
[2023-09-09] MEDS: SODIUM CHLORIDE 0.9% 1,000 ML IV SCH (16:40)
[2023-09-09] MEDS: ASPIRIN 325 MG TAB PO STA (16:49)
[2023-09-09 17:13] VITALS: RESP 14
[2023-09-09 19:03] VITALS: TEMP 98.1
[2023-09-09 20:54] VITALS: BP 130/60
[2023-09-09 22:21] VITALS: PULSE 72
== END 2023-09-09 22:08 | disposition home or self-care (01) ==
LOC: CATHCVL 09:59 → 6NMEDSUR 15:08 → CATHCVL 22:08
PROVIDERS: ATTEND Student in an Organized Health Care Education/Training Program
DX: I25.10 Atherosclerotic heart disease of native coronary artery without angina pectoris (principal); I10 Essential (primary) hypertension; E11.9 Type 2 diabetes mellitus without complications; Z87.891 Personal history of nicotine dependence; Z79.84 Long term (current) use of oral hypoglycemic drugs; Z79.899 Other long term (current) drug therapy; Z88.0 Allergy status to penicillin; Z88.2 Allergy status to sulfonamides; Z95.5 Presence of coronary angioplasty implant and graft
CPT/HCPCS: 93459; 93567; 76937; C1760; C1769 ×2; C1894; J2250; J2001; Q9967; J3010

== ENCOUNTER → 2023-10-10 | Day surgery (SDC) | payer BC ==
[~2023-10-10] MED LIST changes: +RX INFO: IV CONTRAST WAS GIVEN 1 EACH MISC MISCELLANE PRN
[2023-10-10] MEDS: SODIUM CHLORIDE 0.9% 1,000 ML in EMPTY BAG 1 BAG IV SCH (06:15)
[2023-10-10] MEDS: ALPRAZolam 0.5 MG TAB PO PRN (06:25)
[2023-10-10] MEDS: INSULIN ASPART (NovoLOG) 100 UNIT/ML VIAL SQ ONE (06:26)
[2023-10-10 06:27] LABS: Glucose,Whole Blood 273 mg/dL (70-110)
[2023-10-10 06:47] VITALS: TEMP 98.4
[2023-10-10 06:53] LABS: African American GFR (CKD) >90 (>60 ml/min/1.73 sqM); Anion Gap 8 mmol/L; Blood Urea Nitrogen 9 mg/dL (7-17); Calcium 9.2 mg/dL (8.4-10.2); Carbon Dioxide 24 mmol/L (22-30); Chloride 105 mmol/L (98-107); Glucose 270 mg/dL (74-99); Non-African American GFR(CKD) >90 (>60 ml/min/1.73 sqM); Potassium 4.4 mmol/L (3.5-5.1); Sodium 137 mmol/L (137-145)
[2023-10-10 07:06] LABS: Basophils % (A) 1 %; Eosinophils # (A) 0.2 k/uL (0-0.7); Eosinophils % (A) 2 %; HCT 34.7 % (34.0-46.0); HGB 12.7 gm/dL (11.4-16.0); Lymphocytes # (A) 1.7 k/uL (1.0-4.8); Lymphocytes % (A) 23 %; MCH 34.1 pg (25.0-35.0); MCHC 36.8 g/dL (31.0-37.0); MCV 92.6 fL (80.0-100.0); Mean Platelet Volume 7.7; Monocytes # (A) 0.4 k/uL (0-1.0); Monocytes % (A) 5 %; Neutrophils % (A) 68 %; Platelet Count 303 k/uL (150-450); Poikilocytosis Slight; RBC 3.74 m/uL (3.80-5.40); RDW 15.4 % (11.5-15.5); WBC 7.4 k/uL (3.8-10.6)
[2023-10-10] MEDS: MIDAZOLAM 2 MG/2 ML VIAL IVP ONE (07:48)
[2023-10-10] MEDS: LIDOCAINE 1% INJ 10MG/ML (20 ML MDV) SQ ONE (08:01)
[2023-10-10] MEDS: HYDROmorphone 0.5 MG/0.5 ML SYRINGE IVP ONE (08:05)
[2023-10-10] MEDS: HEPARIN SODIUM 1,000 UN/ML (10ML VL) IVP ONE (08:07)
[2023-10-10] MEDS: IOPAMIDOL-370 200ML BTL INJ ONE (08:20)
[2023-10-10] MEDS: SODIUM CHLORIDE 0.9% 500 ML 500 ML IV ONE (09:04)
--- NOTE | 2023-10-10 09:14 | P.PCN ---
Date of Procedure: 10/10/23 Operative Findings: CARDIAC CATHETERIZATION PERFORMING PHYSICIAN: Baljinder Rodriguez MD, RPVI PROCEDURE PERFORMED: 1. Selective left coronary angiogram and SVG to RCA angiogram and SVG to LCx angiogram and FFR of the SVG to RCA 2. Left heart catheterization 3. Ultrasound-guided access of the right common femoral artery and selective right common femoral artery angiogram INDICATION: Chest discomfort concerning for angina in this 52-year-old female patient with known coronary artery disease status post CABG with a CLARK to LAD and SVG to diagonal and SVG to OM and SVG to RCA. COMPLICATION: None APPROACH: Right common femoral artery LEVEL OF SEDATION: Moderate with sedation in length of 59 minutes PROCEDURE DESCRIPTION: After obtaining an informed consent, the patient was brought to cardiac seed laboratory assistant. Local anesthesia was performed using lidocaine subcutaneously. The right common femoral artery was cannulated using Seldinger technique, under ultrasound guidance, the guidewire passed easily, following that we advanced a 6 Slovak sheath dilator assembly, the wire and dilator were removed and sheath was flushed. After that I did selective left coronary angiogram using JL 4 catheters. After that I did SVG to RCA angiogram and SVG to left circumflex angiogram using JR4 catheter. Subsequently I decided to do Dobler wire measurement of the SVG to RCA which is known to have intermediate to severe lesion in the proximal portion. After zeroing the Doppler wire and equalizing between the Doppler wire and guiding catheter which was JR4 guiding catheter the SVG to RCA was engaged and subsequently wired. I did Doppler wire measurement and that came in to be at 0.91 as an IFR. At that point we decided not to intervene on that the graft. Attempting finding the graft into the diagonal was unsuccessful. An aortic root angiogram was performed recently by Dr. Lynch and the graft was not opacified. Left heart catheterization was performed using JL 4 catheter. After that I did selective right common femoral artery angiogram. The sheath will be pulled manually. The procedure was completed with no complication. SELECTIVE CORONARY ANGIOGRAM: The right coronary artery: Known to be occluded from before Left main: Has mild disease only The left circumflex: The proximal left circumflex has severe disease. This is just proximal to the bifurcation of a large OM1 which has competitive flow coming from the SVG to OM1. The mid left circumflex has severe disease involving the second obtuse marginal branch which appears to be not protected The left anterior descending artery: The mid left anterior descending artery has long tubular lesion up to about 80%. Competitive flow in the LAD was coming from the CLARK and the CLARK was known to be patent from recent heart catheterization Coronary bypasses angiogram: The SVG to RCA has intermediate lesion appears to be in the range of 60 to 70% documented to be nonflow limiting by Doppler wire The SVG to LCx: Has mild to moderate diffuse disease but appears to be overall patent. HEMODYNAMICS: LVEDP was about 24 mmHg with no significant gradient across aortic valve CONCLUSION: 1. Severe disease involving the left anterior descending artery. The CLARK to LAD is patent. 2. Severe disease involving the left circumflex coronary artery. The SVG to OM1 is patent. OM 2 has severe disease and appears to be unprotected 3. Severe disease involving the right coronary artery. The SVG to RCA has intermediate lesion appears to be nonflow limiting by Doppler wire 4. Severely elevated left-sided filling pressure with LVEDP exceeding 24 mmHg POSTPROCEDURE MANAGEMENT: Consider maximize medical treatment at this point and consider diuretics giving the elevated left-sided filling pressure Consider optimize medical treatment for coronary artery disease at this point Consider PCI if the patient remains symptomatic in spite of of maximized medical treatment
[2023-10-10] MEDS: SODIUM CHLORIDE 0.9% 1,000 ML IV SCH (10:10)
[2023-10-10] MEDS: ONDANSETRON 4 MG/2 ML VIAL IVP ONE (10:33)
[2023-10-10] MEDS: ONDANSETRON 4 MG/2 ML VIAL IVP STA (10:36)
[2023-10-10] MEDS: ASPIRIN 325 MG TAB PO STA (10:59)
[2023-10-10 15:45] VITALS: BP 106/57; PULSE 77; RESP 16
[2023-10-10] MEDS: SODIUM CHLORIDE 0.9% 1,000 ML IV ONE (16:00)
== END ==
LOC: CATHCVL 05:47
PROVIDERS: ATTEND Internal Medicine Interventional Cardiology
DX: I25.10 Atherosclerotic heart disease of native coronary artery without angina pectoris (principal); Z95.1 Presence of aortocoronary bypass graft
CPT/HCPCS: 93459; 93799; 76937; 80048; 85025; C1769 ×3; C1887; C1894; J2250; J2405; J2001; J1644; J1170; Q9967

== ENCOUNTER 2023-10-13 21:06 | Emergency (ER) | payer BC ==
[2023-10-13 21:28] VITALS: RESP 18; TEMP 98.4
--- NOTE | 2023-10-13 22:56 | ED ---
Extremity Problem HPI - General Chief complaint: Extremity Problem,Nontraumatic Stated complaint: rt leg swelling pain tingling numbness Time Seen by Provider: 10/13/23 22:28 Source: patient Mode of arrival: ambulatory Limitations: no limitations - History of Present Illness Initial comments: 52-year-old female presenting to the ED with a chief complaint of right leg swelling. Patient states had a heart cath through the right groin on 10/11/2023. Since then, she states she has developed some swelling of her right lower leg and some pain underneath her right calf. 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 Denies chest pain. Does note some shortness of breath however states that this is a chronic problem from her and not worse than usual. No fever or chills. Denies pain or swelling in the groin. No other complaints at this time. - Related Data Home Medications Medication Instructions Recorded Confirmed Aspirin EC [Ecotrin Low Dose] 81 mg PO DAILY 09/06/23 10/10/23 Metoprolol Succinate (ER) [Toprol 75 mg PO QAM 09/06/23 10/10/23 XL] amLODIPine [Norvasc] 5 mg PO DAILY 09/09/23 10/10/23 Evolocumab [Repatha Syringe] 140 mg SQ Q14D 09/26/23 10/08/23 Clopidogrel [Plavix] 75 mg PO QAM 10/08/23 10/10/23 Dulaglutide [Trulicity] 0.75 mg SQ Q7D 10/08/23 10/08/23 Isosorbide Mononitrate ER [Imdur] 15 mg PO QAM 10/08/23 10/10/23 Previous Rx's Medication Instructions Recorded Atorvastatin [Lipitor] 80 mg PO HS #30 tab 04/27/23 Apixaban [Eliquis Starter Pack 5 - 10 mg PO DIRECTED 30 Days 10/13/23 (for VTE)] #1 each Apixaban [Eliquis] 5 mg PO BID #60 tab 10/13/23 Allergies Allergy/AdvReac Type Severity Reaction Status Date / Time Penicillins Allergy Anaphylaxis, Verified 10/13/23 21:15 swelling, rash, hives pregabalin [From Lyrica] Allergy Rash/Hives, Verified 03/24/24 21:15 swelling Sulfa (Sulfonamide Allergy Anaphylaxis, Verified 10/13/23 21:15 Antibiotics) swelling, rash, hives gabapentin AdvReac Severe Diarrhea Verified 10/13/23 21:15 Review of Systems ROS Statement: Those systems with pertinent positive or pertinent negative responses have been documented in the HPI. ROS Other: All systems not noted in ROS Statement are negative. Past Medical History Past Medical History: Chest Pain / Angina, Diabetes Mellitus, Fibromyalgia, GERD/Reflux, Hyperlipidemia, Hypertension, Pulmonary Embolus (PE), Thyroid Disorder Additional Past Medical History / Comment(s): SOB, had upper resp infection w/ fever approx 2 weeks ago,neuropathy bilateral legs/feet and hands, bilateral carpal tunnel syndrome, vertigo lately/balance problems, recent weight loss-30# since 09/2018, pancreatitis, hypothyroidism, PE in early twenties from control and smoking. Endometriosis shortness of breath, pain up into shoulder area, History of Any Multi-Drug Resistant Organisms: None Reported Past Surgical History: Heart Catheterization Additional Past Surgical History / Comment(s): EGD, colonoscoies with benign polypectomy, " abdominal" unsure the name, partial hysterectomy cabg 04/22/2023-5 vessels,Laparotomy with left salpingo-oophorectomy Past Anesthesia/Blood Transfusion Reactions: Previous Problems w/ Anesthesia, Motion Sickness Additional Past Anesthesia/Blood Transfusion Reaction / Comment(s): pt states trouble waking up after ciarra Past Psychological History: No Psychological Hx Reported Smoking Status: Former smoker Past Alcohol Use History: None Reported Past Drug Use History: None Reported - Past Family History Father Family Medical History: Cancer, Myocardial Infarction (ID) Additional Family Medical History / Comment(s): Father is living. Prostate cancer. Father had a ID at the age of 49yrs. Mother Family Medical History: Diabetes Mellitus, Renal Disease Additional Family Medical History / Comment(s): Mother is . Maternal grandmother had coronary artery disease diagnosed at age General Exam Limitations: no limitations General appearance: alert, in no apparent distress Eye exam: Present: normal appearance Neck exam: Present: normal inspection Respiratory exam: Present: normal lung sounds bilaterally Cardiovascular Exam: Present: regular rate GI/Abdominal exam: Present: soft Extremities exam: Present: other (Right lower extremity does appear somewhat more swollen than the left lower extremity however no pitting edema. Negative Homans' sign. No overlying skin changes. No warmth. No significant tenderness to touch. At cath site no swelling, no warmth erythema or significant tenderness to palpation.) Neurological exam: Present: alert, oriented X3 Skin exam: Present: warm, dry Course Vital Signs 10/13/23 10/13/23 21:13 23:00 Temperature 98.4 F Pulse Rate 90 74 Respiratory 18 18 Rate Blood Pressure 145/76 116/79 O2 Sat by Pulse 97 98 Oximetry Medical Decision Making - Medical Decision Making Was pt. sent in by a medical professional or institution (, PA, HOSPITAL ADMISSIONS CLERK, urgent care, hospital, or shelter...) When possible be specific @ -No Did you speak to anyone other than the patient for history (EMS, parent, family, police, friend...)? What history was obtained from this source @ -No Did you review nursing and triage notes (agree or disagree)? Why? @ -I reviewed and agree with nursing and triage notes Were old charts reviewed (outside hosp., previous admission, EMS record, old EKG, old radiological studies, urgent care reports/EKG's, shelter records)? Report findings @ -No old charts were reviewed Differential Diagnosis (chest pain, altered mental status, abdominal pain women, abdominal pain men, vaginal bleeding, weakness, fever, dyspnea, syncope, headache, dizziness, GI bleed, back pain, seizure, CVA, palpatations, mental health, musculoskeletal)? @ -Differential Musculoskeletal Muscular strain, contusion, ligament sprain, fracture, arthritis, septic arthritis, bursitis, cellulitis, muscle spasm, nerve compression, DVT, arterial occlusion, herpes zoster, electrolyte abnormality, tumor.... This is not meant to be in all inclusive list EKG interpreted by me (3pts min.). @ -None X-rays interpreted by me (1pt min.). @ -None done CT interpreted by me (1pt min.). @ -None done U/S interpreted by me (1pt. min.). @ -Ultrasound interpreted me which does show acute DVT in the proximal popliteal vein extending distally. What testing was considered but not performed or refused? (CT, X-rays, U/S, labs)? Why? @ -None What meds were considered but not given or refused? Why? @ -None Did you discuss the management of the patient with other professionals (professionals i.e. , PA, HOSPITAL ADMISSIONS CLERK, lab, RT, psych nurse, dialysis social worker, alley worker, teacher, chemistry technical officer, housing case manager)? Give summary @ -No Was smoking cessation discussed for >3mins.? @ -No Was critical care preformed (if so, how long)? @ -No Were there social determinants of health that impacted care today? How? (Homelessness, low income, unemployed, alcoholism, drug addiction, transportation, low edu. Level, literacy, decrease access to med. care, longterm, rehab)? @ -No Was there de-escalation of care discussed even if they declined (Discuss DNR or withdrawal of care, Hospice)? DNR status @ -No What co-morbidities impacted this encounter? (DM, HTN, Smoking, COPD, CAD, Cancer, CVA, ARF, Chemo, Hep., AIDS, mental health diagnosis, sleep apnea, morbid obesity)? @ -None Was patient admitted / discharged? Hospital course, mention meds given and route, prescriptions, significant lab abnormalities, going to OR and other per tinent info. @ -Discharge 52-year-old female presenting to the ED with a chief complaint of right lower extremity swelling. Patient had a heart catheter in the right groin 2 days ago. No complaints of groin pain or swelling. On examination no overlying skin changes no significant tenderness to palpation. Exam of the right lower extremity shows a negative Sravanthi sign. No significant tenderness to palpation. No cyanosis. Ultrasound did show acute DVT in the proximal popliteal vein extending distally. Patient provided Lovenox here in the ED and discharged home with prescription for Eliquis. Advise close follow-up with her PCP and she notes she has follow-up with her feed inspection supervisor Dr. Stinson this following . Undiagnosed new problem with uncertain prognosis? @ -No Drug Therapy requiring intensive monitoring for toxicity (Heparin, Nitro, Insulin, Cardizem)? @ -No Were any procedures done? @ -No Diagnosis/symptom? @ -Acute DVT Acute, or Chronic, or Acute on Chronic? @ -Acute Uncomplicated (without systemic symptoms) or Complicated (systemic symptoms)? @ -Complicated Side effects of treatment? @ -No Exacerbation, Progression, or Severe Exacerbation? @ -No Poses a threat to life or bodily function? How? (Chest pain, [place], ID, pneumonia, PE, COPD, DKA, ARF, appy, cholecystitis, CVA, Diverticulitis, Homicidal, Suicidal, threat to staff... and all critical care pts) @ -Unlikely Disposition Clinical Impression: DVT (deep venous thrombosis) Disposition: HOME SELF-CARE Condition: Good Instructions (If sedation given, give patient instructions): Deep Vein Thrombosis (ED) Additional Instructions: Please return to the Emergency Department if symptoms worsen or any other concerns. Please follow-up with your PCP and feed inspection supervisor. Prescriptions: Apixaban [Eliquis] 5 mg PO BID #60 tab Apixaban [Eliquis Starter Pack (for VTE)] 5 - 10 mg PO DIRECTED 30 Days #1 e ach Is patient prescribed a controlled substance at d/c from ED?: No Referrals: Bob Mullins DO [Primary Care Provider] - 1-2 days Time of Disposition: 00:15
--- NOTE | 2023-10-13 23:41 | US ---
EXAMINATION TYPE: US venous doppler duplex LE RT DATE OF EXAM: 10/13/2023 11:30 PM COMPARISON: None CLINICAL INDICATION: Female, 52 years old with history of r/o dvt; Right lower leg swelling SIDE PERFORMED: Right TECHNIQUE: The lower extremity deep venous system is examined utilizing real time linear array sonog tracie with graded compression, doppler sonography and color-flow sonography. VESSELS IMAGED: Common Femoral Vein Deep Femoral Vein Greater Saphenous Vein * Femoral Vein Popliteal Vein Small Saphenous Vein * Proximal Calf Veins (* superficial vessels) Right Leg: Positive for DVT popliteal vein - partial compression and flow seen Grayscale, color doppler, spectral doppler imaging performed of the deep veins of the right lower ext remity. There is normal flow, compressibility, vascular waveforms. IMPRESSION: Acute DVT beginning in the proximal popliteal vein is noted extending distally.
[2023-10-14] MEDS: ENOXAPARIN 60 MG/0.6 ML SYRINGE SQ STA (00:39)
[2023-10-14 01:34] VITALS: BP 148/87; PULSE 78
== END 2023-10-14 00:59 | disposition home or self-care (01) ==
LOC: EC 21:06
DX: I82.401 Acute embolism and thrombosis of unspecified deep veins of right lower extremity (principal); Z88.0 Allergy status to penicillin; Z88.2 Allergy status to sulfonamides; Z88.8 Allergy status to other drugs, medicaments and biological substances; Z87.891 Personal history of nicotine dependence; Z95.1 Presence of aortocoronary bypass graft
CPT/HCPCS: 96372; 99283

== ENCOUNTER → 2024-02-13 | Outpatient (CLI) | payer OTHER ==
[2024-02-13 11:52] LABS: ALT 10 U/L (4-34); AST 20 U/L (14-36); African American GFR (CKD) >90 (>60 ml/min/1.73 sqM); Albumin/Globulin Ratio 1.2; Alkaline Phosphatase 70 U/L (38-126); Anion Gap 7 mmol/L; Blood Urea Nitrogen 17 mg/dL (7-17); Calcium 8.7 mg/dL (8.4-10.2); Carbon Dioxide 30 mmol/L (22-30); Chloride 101 mmol/L (98-107); Globulin 3.4 g/dL; Glucose 296 mg/dL (74-99); Non-African American GFR(CKD) >90 (>60 ml/min/1.73 sqM); Potassium 3.8 mmol/L (3.5-5.1); Sodium 138 mmol/L (137-145); Total Bilirubin 0.9 mg/dL (0.2-1.3); Total Protein 7.4 g/dL (6.3-8.2)
--- NOTE | 2024-02-13 13:19 | CT ---
EXAMINATION TYPE: CT abdomen pelvis w con CT DLP: 1199 mGycm, Automated exposure control for dose reduction was used. DATE OF EXAM: 02/13/2024 1:07 PM COMPARISON: CT abdomen pelvis 02/04/2019 CLINICAL INDICATION:Female, 53 years old with history of R10.31 RIGHT LOWER QUADRANT PAIN; RLQ pain TECHNIQUE: Standard CT of the abdomen and pelvis following the administration of 100 cc of Isovue 3 00 IV contrast material and oral contrast. Coronal and sagittal reformats were performed. FINDINGS: LOWER CHEST: Bibasilar linear atelectasis and/or scarring. ABDOMEN LIVER: Unremarkable GALLBLADDER AND BILE DUCTS: The gallbladder is surgically absent. Biliary ductal dilatation. PANCREAS: Unremarkable. SPLEEN: Unremarkable. ADRENAL GLANDS: Unremarkable. KIDNEYS AND URETERS: No evidence of hydronephrosis or renal calculus. The kidneys enhance symmetrical ly. Contrast is demonstrated within both collecting systems on the delayed phase. PELVIS BLADDER: Unremarkable REPRODUCTIVE: Unremarkable. ABDOMEN & PELVIS STOMACH AND BOWEL: Stomach and duodenum are unremarkable. Enteric contrast reaches the rectum. Modera te amount of stool is present within the rectum. No focal bowel thickening or surrounding inflammator y changes. The appendix is within normal limits. No evidence of bowel obstruction. PERITONEUM: No evidence of pneumoperitoneum or free fluid. VASCULATURE: Mild to moderate atherosclerotic calcifications are present throughout the abdominal aor ta and its branches. Suggested 50% stenosis involving the proximal portion of the left common iliac a rtery secondary to calcified plaque. No evidence of aortic aneurysm. MUSCULOSKELETAL: No acute osseous abnormalities. Median sternotomy wires. Grade 1 anterolisthesis of L4 on L5. No pars defects. LYMPH NODES: No evidence for lymphadenopathy. SOFT TISSUE/ABDOMINAL WALL: Postsurgical changes of the anterior abdominal wall with broad base fat f illed epigastric ventral hernia defect measuring 3.8 x 2.8 cm. Diastases recti is also demonstrated. IMPRESSION: 1. No CT evidence for an acute abdominal/pelvic process. Appendix is unremarkable. 2. Epigastric ventral wall fat filled hernia.
[2024-02-13 13:41] LABS: Appearance,Urine Clear (Clear); Bacteria,Urine Rare /hpf; Bilirubin,Urine Negative (Negative); Blood,Urine Negative (Negative); Color,Urine Colorless; Glucose,Urine (UA) 2+ (Negative); Ketones,Urine Negative (Negative); Leukocyte Esterase,Urine Moderate (Negative); Nitrite,Urine Negative (Negative); PH, Urine 5.5 (5.0-8.0); Protein,Urine Negative (Negative); Specific Gravity,Urine 1.021 (1.001-1.035); Squamous Epithelial Cell,Urine 8 /hpf (0-4); Urobilinogen,Urine <2.0 mg/dL (<2.0); WBC,Urine 3 /hpf (0-5)
[2024-02-13 18:20] LABS: Basophils # (A) 0.02 X 10*3/uL (0.00-0.10); Basophils % (A) 0.2 %; Eosinophils # (A) 0.09 X 10*3/uL (0.04-0.35); HCT 36.7 % (37.2-46.3); HGB 12.1 g/dL (12.0-15.0); Lymphocytes # (A) 1.88 X 10*3/uL (0.90-5.00); Lymphocytes % (A) 21.4 %; MCH 30.3 pg (27.0-32.0); Mean Platelet Volume 10.4 FL (9.5-12.2); Monocytes # (A) 0.48 X 10*3/uL (0.20-1.00); Monocytes % (A) 5.5 %; NRBC Per 100 WBC 0 X 10*3/uL (0.00-0.01); Neutrophils # (A) 6.27 X 10*3/uL (1.80-7.70); Neutrophils % (A) 71.6 %; Platelet Count 289 X 10*3/uL (140-440); RBC 3.99 X 10*6/uL (4.10-5.20); RDW 13.3 % (11.5-14.5); WBC 8.77 X 10*3/uL (4.50-10.00)
[2024-02-13 18:43] LABS: Chol/HDL Ratio 4.04 Ratio; LDL Cholesterol,Calculated 50.1 mg/dL (0.0-131.0); Magnesium 1.1 mg/dL (1.5-2.4)
[2024-02-13 18:58] LABS: ALT 9 U/L (8-44); AST 37 U/L (13-35); Albumin 4.3 g/dL (3.8-4.9); Albumin/Globulin Ratio 1.26 Ratio (1.60-3.17); Alkaline Phosphatase 89 U/L (41-126); BUN/Creat Ratio 20.14 Ratio (12.00-20.00); Blood Urea Nitrogen 14.1 mg/dL (9.0-27.0); Calcium 8.9 mg/dL (8.7-10.3); Carbon Dioxide 24.5 mmol/L (21.6-31.8); Chloride 96 mmol/L (96-109); Globulin 3.4 g/dL (1.6-3.3); Glucose 293 mg/dL (70-110); Lipase 28 U/L (14-63); Potassium 4.6 mmol/L (3.5-5.5); Sodium 136 mmol/L (135-145); Total Bilirubin 0.6 mg/dL (0.3-1.2); Total Protein 7.7 g/dL (6.2-8.2)
== END | disposition home or self-care (01) ==
LOC: RADCTMAIN 10:36
PROVIDERS: ATTEND Internal Medicine
DX: K46.9 Unspecified abdominal hernia without obstruction or gangrene (principal)
CPT/HCPCS: 80061; 80053; 84443; 83690; 83735; 85025; 81001; 83036; 74177; 36415; Q9967

== ENCOUNTER → 2024-02-13 | Outpatient (CLI) | payer OTHER ==
--- NOTE | 2024-02-13 14:37 | XR ---
EXAMINATION TYPE: XR elbow complete RT DATE OF EXAM: 02/13/2024 CLINICAL HISTORY: pain TECHNIQUE: Frontal, lateral and oblique images of the right elbow are obtained. COMPARISON: None. FINDINGS: There is no acute fracture/dislocation evident of the elbow. No abnormal fat pad signs ar e seen. The overlying soft tissue appears unremarkable. IMPRESSION: There is no acute fracture or dislocation of the elbow. ICD 10 NO FRACTURE, INITIAL EVALUATION
== END | disposition home or self-care (01) ==
LOC: RADXRMAIN 13:34
PROVIDERS: ATTEND Internal Medicine
DX: M25.521 Pain in right elbow (principal)

== ENCOUNTER → 2024-03-24 | Outpatient (CLI) | payer OTHER ==
--- NOTE | 2024-03-24 20:13 | NM ---
EXAMINATION TYPE: NM bone scan whole body DATE OF EXAM: 03/24/2024 4:45 PM CLINICAL INDICATION:Female, 53 years old with history of M89.9 DISORDER OF BONE, UNSPECIFIED; COMPARISON: None TECHNIQUE: Intravenous administration 23.9 mCi Tc 99m MDP followed by multiple scintigraphic images o f the appendicular and axial skeleton. Additionally, small field of view planar anterior and posterio r images of the lumbosacral spine and pelvis. Lastly, coronal, transverse, and sagittal SPECT images of the lumbosacral spine and pelvis were generated for review.Lastly, small [id number] anterior, p osterior and lateral views of the chest were submitted for review. Images acquired 4 hours post injection. FINDINGS: Diffuse uptake near the left ankle. Uptake at the right elbow without to be due to artifact. No abnor mal uptake is identified within the appendicular or axial skeleton to suggest metastatic disease. There is increased uptake within the bilateral shoulder, sternoclavicular, and sacroiliac joints con sistent with degenerative changes. No other photopenic areas or areas of increased activity are ident ified. Physiologic radiotracer activity is demonstrated in the kidneys and bladder. IMPRESSION: Diffuse uptake around the left ankle correlate for degeneration changes. Consider correlation with pl ain film imaging of the left ankle.
== END | disposition home or self-care (01) ==
LOC: RADNMMAIN 10:33
PROVIDERS: ATTEND Internal Medicine
DX: M89.9 Disorder of bone, unspecified
CPT/HCPCS: 78306

== ENCOUNTER → 2024-03-26 | Outpatient (CLI) | payer OTHER ==
--- NOTE | 2024-03-26 18:17 | XR ---
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 Bony irregularity along the inferior aspect of the medial malle olus and to a lesser extent below the lateral malleolus suggesting sequela of old injuries. Suggestio n of some degenerative spurring at the tibiotalar joint posteriorly. Underlying small to moderate ank le joint effusion. Small delineation to the Achilles tendon. Tiny plantar heel spur. Subtalar joint i s aligned. No acute fracture, subluxation, dislocation seen. Impression: Some bony irregularity below the medial and lateral malleoli suggesting sequela of remote injury. Manoj e mild degenerative spurring at the ankle joint and underlying ankle joint effusion with circumferent ial soft tissue swelling. Otherwise, no definite acute osseous abnormality is seen.
== END | disposition home or self-care (01) ==
LOC: RADXRMAIN 11:41
PROVIDERS: ATTEND Internal Medicine
DX: M10.072 Idiopathic gout, left ankle and foot

== ENCOUNTER → 2024-03-26 | Outpatient (CLI) | payer OTHER ==
--- NOTE | 2024-03-29 11:59 | MM ---
Reason for Exam: Screening (asymptomatic). Last mammogram was performed 7 year(s) and 11 month(s) ago. Patient History: Menarche at age 11. First Full-Term at age 22. Left ovary removed at age 48. Risk Values: Staci 5 year model risk: 1.0%. NCI Lifetime model risk: 7.5%. Prior Study Comparison: 09/16/2013 Bilateral Screening Mammogram, [facility]. 09/21/2013 Bilateral Diagnostic Mammogram, [facility]. 05/07/2016 Bilateral Diagnostic Mammogram, [facility]. Tissue Density: There are scattered areas of fibroglandular density. Findings: Analyzed By CAD. Right breast: There is no suspicious group of microcalcifications or new suspicious mass. Left breast: There is no suspicious group of microcalcifications or new suspicious mass. Overall Assessment: Negative, BI-RAD 1 Management: Screening Mammogram of both breasts in [address] [facility] will attempt to contact patient to return for supplemental views and ultrasound if indicated. Patient should continue monthly self-breast exams. A clinical breast exam by your physician is recommended on an annual basis. This exam should not preclude additional follow-up of suspicious palpable abnormalities. Note on Staci scores and lifetime risk: 1. A Staci score greater than 3% is considered moderate risk. If this is the case, consider specialist referral to assess eligibility for a risk reducing agent. 2. If overall lifetime risk for the development of breast cancer is 20% or higher, the patient may qualify for future screening with alternating mammogram and breast MRI. Electronically signed and approved by: Demond Wright DO
== END | disposition home or self-care (01) ==
LOC: RADMAMWWP 10:45
PROVIDERS: ATTEND Internal Medicine
DX: Z12.31 Encounter for screening mammogram for malignant neoplasm of breast
CPT/HCPCS: 77067

== ENCOUNTER → 2024-04-28 | Outpatient (CLI) | payer OTHER ==
[2024-04-28 19:40] LABS: Basophils # (A) 0.04 X 10*3/uL (0.00-0.10); Basophils % (A) 0.5 %; Eosinophils % (A) 1.1 %; HCT 38.7 % (37.2-46.3); HGB 12.6 g/dL (12.0-15.0); Lymphocytes # (A) 1.78 X 10*3/uL (0.90-5.00); MCH 30.8 pg (27.0-32.0); MCHC 32.6 g/dL (32.0-37.0); MCV 94.6 FL (80.0-97.0); Mean Platelet Volume 10.2 FL (9.5-12.2); Monocytes # (A) 0.47 X 10*3/uL (0.20-1.00); Monocytes % (A) 5.3 %; NRBC Per 100 WBC 0 X 10*3/uL (0.00-0.01); Neutrophils # (A) 6.46 X 10*3/uL (1.80-7.70); Neutrophils % (A) 72.8 %; Platelet Count 280 X 10*3/uL (140-440); RBC 4.09 X 10*6/uL (4.10-5.20); WBC 8.88 X 10*3/uL (4.50-10.00)
[2024-04-28 20:22] LABS: Protein, Total 7.3 g/dL (6.2-8.2)
[2024-04-28 21:12] LABS: Anti-DNA, DS unit <1.0 IU/mL; Centromere Antibody <0.2 AI; Centromere Antibody Interp Negative (Negative); DNA Double-Stranded Negative (Negative)
[2024-04-28 21:18] LABS: ALT 5 U/L (8-44); AST 13 U/L (13-35); Albumin 4.4 g/dL (3.8-4.9); Albumin/Globulin Ratio 1.38 Ratio (1.60-3.17); Alkaline Phosphatase 80 U/L (41-126); Blood Urea Nitrogen 13.2 mg/dL (9.0-27.0); Calcium 9.4 mg/dL (8.7-10.3); Carbon Dioxide 25.7 mmol/L (21.6-31.8); Chloride 100 mmol/L (96-109); Globulin 3.2 g/dL (1.6-3.3); Glucose 183 mg/dL (70-110); Potassium 3.9 mmol/L (3.5-5.5); Rheumatoid Factor, Qnt <15 IU/mL (0-15); Sodium 142 mmol/L (135-145); Total Bilirubin 0.4 mg/dL (0.3-1.2); Total Protein 7.6 g/dL (6.2-8.2)
[2024-04-29 02:18] LABS: Cyclic Citrull Pep IgG Unit <1.5 U/mL (<=3.9); Cyclic Citrullinated Pep IgG Negative
[2024-04-30 16:33] LABS: Gamma Globulin 1.34 g/dL (0.70-1.50)
== END | disposition home or self-care (01) ==
LOC: LABWHC1 12:56
PROVIDERS: ATTEND Internal Medicine
DX: E11.65 Type 2 diabetes mellitus with hyperglycemia (principal); M79.7 Fibromyalgia
CPT/HCPCS: 36415; 80053; 82043; 82570; 84165; 85025; 86038; 86200; 86225; 86235; 86431

== ENCOUNTER 2024-05-13 18:01 | Emergency (ER) | payer OTHER ==
[2024-05-13 18:12] VITALS: RESP 18; TEMP 98.5
--- NOTE | 2024-05-13 19:08 | CT ---
EXAMINATION TYPE: CT brain wo con CT DLP: 1098.2 mGycm, Automated exposure control for dose reduction was used. DATE OF EXAM: 05/13/2024 6:43 PM COMPARISON: 06/11/2017. CLINICAL INDICATION: Female, 53 years old with history of headache r/o brain bleed, headache x 3 week s TECHNIQUE: Brain: Axial CT images of the brain were obtained with coronal and sagittal reformats created and rev iewed. Contrast used: None. Oral contrast used: None. FINDINGS: Brain: Extra-axial spaces: No abnormal extra-axial fluid collections. Ventricular system: Within normal limits Cerebral parenchyma: No acute intraparenchymal hemorrhage or mass effect. The khanna-white junction is well differentiated. Cerebellum: Unremarkable. Mass effect: No evidence of midline shift. Intracranial vasculature: unremarkable Soft tissues: Normal. Calvarium/osseous structures: No depressed skull fracture. Paranasal sinuses and mastoid air cells: Mild scattered paranasal sinus disease. Visualized orbits: Orbital contents are intact. IMPRESSION: No acute intracranial process. [facility], , 05/13/2024 7:06 PM
[2024-05-13] MEDS: METOCLOPRAMIDE 5 MG/ML 2 ML VIAL IVP STA (19:43)
[2024-05-13] MEDS: DEXAMETHASONE SOD PHOSPHATE 10 MG/ML 1 ML VIAL IVP STA (19:43)
[2024-05-13] MEDS: diphenhydrAMINE 50 MG/ML 1 ML VIAL IVP STA (19:43)
--- NOTE | 2024-05-13 20:15 | ED ---
Headache HPI - General Chief Complaint: Headache Stated Complaint: headache for 3wks Time Seen by Provider: 05/13/24 18:28 Mode of arrival: ambulatory Limitations: no limitations - History of Present Illness Initial Comments: 53-year-old female sent in by her primary care office for head CT. She reports that she has had a frontal headache for the past 3 weeks constantly. She saw her primary care doctor about this. She is on Eliquis and Plavix and therefore they wanted her to get a CT to make sure she did not have bleeding in her brain. The headache is dull, 4 out of 10. She has been taking Tylenol without any improvement. States that she has no history of headaches. No fevers. No neck stiffness. No head trauma. No other alleviating, precipitating or modifying f actors - Related Data Home Medications Medication Instructions Recorded Confirmed Aspirin EC [Ecotrin Low Dose] 81 mg PO DAILY 09/06/23 10/10/23 Metoprolol Succinate (ER) [Toprol 75 mg PO QAM 09/06/23 10/10/23 XL] amLODIPine [Norvasc] 5 mg PO DAILY 09/09/23 10/10/23 Evolocumab [Repatha Syringe] 140 mg SQ Q14D 09/26/23 10/08/23 Clopidogrel [Plavix] 75 mg PO QAM 10/08/23 10/10/23 Dulaglutide [Trulicity] 0.75 mg SQ Q7D 10/08/23 10/08/23 Isosorbide Mononitrate ER [Imdur] 15 mg PO QAM 10/08/23 10/10/23 Previous Rx's Medication Instructions Recorded Atorvastatin [Lipitor] 80 mg PO HS #30 tab 04/27/23 Apixaban [Eliquis Starter Pack 5 - 10 mg PO DIRECTED 30 Days 10/13/23 (for VTE)] #1 each Apixaban [Eliquis] 5 mg PO BID #60 tab 10/13/23 Allergies Allergy/AdvReac Type Severity Reaction Status Date / Time Penicillins Allergy Anaphylaxis, Verified 05/13/24 18:09 swelling, rash, hives pregabalin [From Lyrica] Allergy Rash/Hives, Verified 05/13/24 18:09 swelling Sulfa (Sulfonamide Allergy Anaphylaxis, Verified 05/13/24 18:09 Antibiotics) swelling, rash, hives gabapentin AdvReac Severe Diarrhea Verified 05/13/24 18:09 Review of Systems ROS Statement: Those systems with pertinent positive or pertinent negative responses have been documented in the HPI. ROS Other: All systems not noted in ROS Statement are negative. Past Medical History Past Medical History: Chest Pain / Angina, Diabetes Mellitus, Deep Vein Thrombosis (DVT), Fibromyalgia, GERD/Reflux, Hyperlipidemia, Hypertension, Pulmonary Embolus (PE), Thyroid Disorder Additional Past Medical History / Comment(s): SOB, had upper resp infection w/ fever approx 2 weeks ago,neuropathy bilateral legs/feet and hands, bilateral carpal tunnel syndrome, vertigo lately/balance problems, recent weight loss-30# since 09/2018, pancreatitis, hypothyroidism, PE in early twenties from control and smoking. Endometriosis shortness of breath, pain up into shoulder area, History of Any Multi-Drug Resistant Organisms: None Reported Past Surgical History: Heart Catheterization Additional Past Surgical History / Comment(s): EGD, colonoscoies with benign polypectomy, " abdominal" unsure the name, partial hysterectomy cabg 04/22/2023-5 vessels,Laparotomy with left salpingo-oophorectomy, open heart Past Anesthesia/Blood Transfusion Reactions: Previous Problems w/ Anesthesia, Motion Sickness Additional Past Anesthesia/Blood Transfusion Reaction / Comment(s): pt states trouble waking up after ciarra Past Psychological History: No Psychological Hx Reported Smoking Status: Former smoker Past Alcohol Use History: None Reported Past Drug Use History: None Reported - Past Family History Father Family Medical History: Cancer, Myocardial Infarction (GA) Additional Family Medical History / Comment(s): Father is living. Prostate cancer. Father had a GA at the age of 49yrs. Mother Family Medical History: Diabetes Mellitus, Renal Disease Additional Family Medical History / Comment(s): Mother is . Maternal grandmother had coronary artery disease diagnosed at age General Exam Limitations: no limitations General appearance: alert, in no apparent distress Head exam: Present: atraumatic, normocephalic, normal inspection Eye exam: Present: normal appearance, PERRL, EOMI. Absent: scleral icterus, conjunctival injection, periorbital swelling ENT exam: Present: normal exam, mucous membranes moist Neck exam: Present: normal inspection. Absent: tenderness, meningismus, lymphadenopathy Respiratory exam: Present: normal lung sounds bilaterally. Absent: respiratory distress, wheezes, rales, rhonchi, stridor Cardiovascular Exam: Present: regular rate, normal rhythm, normal heart sounds. Absent: systolic murmur, diastolic murmur, rubs, gallop, clicks GI/Abdominal exam: Present: soft, normal bowel sounds. Absent: distended, tenderness, guarding, rebound, rigid Extremities exam: Present: normal inspection, full ROM, normal capillary refill. Absent: tenderness, pedal edema, joint swelling, calf tenderness Back exam: Present: normal inspection Neurological exam: Present: alert, oriented X3, CN II-XII intact Psychiatric exam: Present: normal affect, normal mood Skin exam: Present: warm, dry, intact, normal color. Absent: rash Course Vital Signs 05/13/24 05/13/24 18:09 20:27 Temperature 98.5 F Pulse Rate 90 77 Respiratory 18 18 Rate Blood Pressure 121/70 100/66 O2 Sat by Pulse 97 96 Oximetry Medical Decision Making - Medical Decision Making Was pt. sent in by a medical professional or institution (, PA, SOFTWARE BUILD ENGINEER, urgent care, hospital, or group home...) When possible be specific @ -Patient was sent in from her primary care office Did you speak to anyone other than the patient for history (EMS, parent, family, police, friend...)? What history was obtained from this source @ -No Did you review nursing and triage notes (agree or disagree)? Why? @ -I reviewed and agree with nursing and triage notes Were old charts reviewed (outside hosp., previous admission, EMS record, old EKG, old radiological studies, urgent care reports/EKG's, group home records)? Report findings @ -No old charts were reviewed Differential Diagnosis (chest pain, altered mental status, abdominal pain women, abdominal pain men, vaginal bleeding, weakness, fever, dyspnea, syncope, headache, dizziness, GI bleed, back pain, seizure, CVA, palpatations, mental health, musculoskeletal)? @ -Sinusitis, cephalgia, subarachnoid, subdural, aneurysm EKG interpreted by me (3pts min.). @ -Not done X-rays interpreted by me (1pt min.). @ -None done CT interpreted by me (1pt min.). @ -Yes and demonstrates no acute process U/S interpreted by me (1pt. min.). @ -None done What testing was considered but not performed or refused? (CT, X-rays, U/S, labs)? Why? @ -None What meds were considered but not given or refused? Why? @ -None Did you discuss the management of the patient with other professionals (professionals i.e. , PA, SOFTWARE BUILD ENGINEER, lab, RT, psych nurse, social media manager, financial associate, teacher, bank compliance officer, case mgr)? Give summary @ -No Was smoking cessation discussed for >3mins.? @ -No Was critical care preformed (if so, how long)? @ -No Were there social determinants of health that impacted care today? How? (Homelessness, low income, unemployed, alcoholism, drug addiction, transportation, low edu. Level, literacy, decrease access to med. care, long term, rehab)? @ -No Was there de-escalation of care discussed even if they declined (Discuss DNR or withdrawal of care, Hospice)? DNR status @ -No What co-morbidities impacted this encounter? (DM, HTN, Smoking, COPD, CAD, Cancer, CVA, ARF, Chemo, Hep., AIDS, mental health diagnosis, sleep apnea, morbid obesity)? @ -DVT and A-fib Was patient admitted / discharged? Hospital course, mention meds given and route, prescriptions, significant lab abnormalities, going to OR and other pertinent info. @ -Upon arrival patient seen and evaluated in hallway 18. Thorough history and physical exam was performed. Patient was given medications for migraine. She does have alleviation in her symptoms. CT was performed which demonstrates no acute process. At this time the patient wants to go home. She is comfortable with discharge. She needs to follow-up with her primary care doctor and may require further testing if her headache returns. This would include an MRI. Patient agreeable to plan was discharged in stable condition Undiagnosed new problem with uncertain prognosis? @ -No Drug Therapy requiring intensive monitoring for toxicity (Heparin, Nitro, Insulin, Cardizem)? @ -No Were any procedures done? @ -No Diagnosis/symptom? @ -Acute cephalgia, chronic anticoagulation use Acute, or Chronic, or Acute on Chronic? @ -Acute Uncomplicated (without systemic symptoms) or Complicated (systemic symptoms)? @Complicated Side effects of treatment? @ -No Exacerbation, Progression, or Severe Exacerbation? @ -No Poses a threat to life or bodily function? How? (Chest pain, USA, GA, pneumonia, PE, COPD, DKA, ARF, appy, cholecystitis, CVA, Diverticulitis, Homicidal, Suicidal, threat to staff... and all critical care pts) @ -No Disposition Clinical Impression: Headache Disposition: HOME SELF-CARE Condition: Stable Instructions (If sedation given, give patient instructions): Acute Headache (ED) Additional Instructions: The CT of your head was negative. Please follow-up with your primary care doctor for further workup of your headaches. Return for any new or worsening symptoms Is patient prescribed a controlled substance at d/c from ED?: No Referrals: Bob Mullins DO [Primary Care Provider] - 1-2 days Time of Disposition: 20:15
[2024-05-13 20:30] VITALS: BP 100/66; PULSE 77
== END 2024-05-13 20:27 | disposition home or self-care (01) ==
LOC: EC 18:01
CPT/HCPCS: 70450; 96374; 96375; 99284

== ENCOUNTER → 2024-05-19 | Outpatient (CLI) | payer OTHER ==
--- NOTE | 2024-05-19 15:24 | US ---
EXAMINATION TYPE: US carotid duplex BILAT DATE OF EXAM: 05/19/2024 COMPARISON: US carotid 2723 CLINICAL INDICATION: Female, 53 years old with history of [id number] BILATERAL CAROTID ARTERY STENOSIS; St enosis TECHNIQUE: Grayscale, color Doppler and spectral Doppler evaluation of the bilateral carotid systems and vertebral arteries. Indirect Doppler criteria was utilized. FINDINGS: EXAM MEASUREMENTS: RIGHT: Peak Systolic Velocity (PSV) cm/sec ----- Right CCA: 81.2 ----- Right ICA: 116 ----- Right ECA: 141 ICA/CCA ratio: 1.4 RIGHT: End Diastole cm/sec ----- Right CCA: 20.1 ----- Right ICA: 39.0 ----- Right ECA: 9.8 LEFT: Peak Systolic Velocity (PSV) cm/sec ----- Left CCA: 82.1 ----- Left ICA: 110 ----- Left ECA: 108 ICA/CCA ratio: 1.3 LEFT: End Diastole cm/sec ----- Left CCA: 20.7 ----- Left ICA: 37.0 ----- Left ECA: 9.5 VERTEBRALS (direction of flow): Right Vertebral: Antegrade Left Vertebral: Antegrade Rhythm: Normal DELIVERY RN NOTES: Slightly elevated velocities right ECA, otherwise no significant stenosis visualiz ed Incidental finding right thyroid nodules measuring up to 1.2 cm. IMPRESSION: 1. No ultrasound evidence for hemodynamically significant stenosis of the bilateral visualized inter nal carotid arteries. 2. Solid-appearing right thyroid lobe nodules measuring up to 1.2 cm. Consider further evaluation [facility] thyroid ultrasound. Criteria for Assigning % of Stenosis / Diameter reduction (Estimation based on the indirect measurements of the internal carotid artery velocities (ICA PSV). 1. Normal (no stenosis)=ICA PSV < 125 cm/s: ratio < 2.0: ICA EDV<40 cm/s. 2. Less than 50% stenosis=ICA PSV < 125 cm/s: ratio < 2.0: ICA EDV<40 cm/s. 3. 50 to 69% stenosis=ICA PSV of 125 to 230 cm/s: ration 2.0 ? 4.0: ICA EDV 40-100 cm/s. 4. Greater than 70% stenosis to near occlusion= ICA PSV > 230 cm/s: ratio > 4.0: ICA EDV > 100 cm/s. 5. Near occlusion= ICA PSV velocities may be low or undetectable: variable ratio and ICA EDV. 6. Total occlusion=unable to detect flow. [facility], , 05/19/2024 3:21 PM
== END | disposition home or self-care (01) ==
LOC: RADCTMAIN 14:23
PROVIDERS: ATTEND Internal Medicine
CPT/HCPCS: 71271; 83036; 86334; 93880

== ENCOUNTER → 2024-05-26 | Outpatient (CLI) | payer OTHER ==
--- NOTE | 2024-05-27 18:32 | US ---
EXAMINATION TYPE: US thyroid st tissue head/neck DATE OF EXAM: 05/26/2024 COMPARISON: incidental on carotid US 05/19/2024 CLINICAL INDICATION: Female, 53 years old with history of E04.1 THYROID NODULE; Difficulty swallowing x 1 year TECHNIQUE: Grayscale and color Doppler imaging of the thyroid gland. FINDINGS: GLAND SIZE: Right Lobe: 4.7 x 1.5 x 1.8 cm Overall Parenchyma: homogeneous Left Lobe: 4.4 x 1.5 x .5 cm Overall Parenchyma: homogeneous Isthmus Thickness: 0.2 cm NODULES RIGHT: # of nodules measured on right: 1 1. 1.1 X 0.9 x 1.1 cm, mid lateral, solid or almost completely solid, hyperechoic nodule, which is wider than tall, with smooth margins, without echogenic foci. TR 3 Prior size: This is first scan 2. smaller nodule noted. LEFT: # of nodules measured on left: 0 ISTHMUS: # of nodules measured in the isthmus: 0 Bilateral neck scanned, no evidence of lymphadenopathy. IMPRESSION: Mildly suspicious nodule right lobe thyroid. 2017 ACR TI-RADS LEVEL: TR-RADS 3 - Mildly Suspicious: Follow if > 1.5 cm, FNA if > 2.5 cm *Highest TI-RADS level nodule reported [email or web address] [facility], , 05/27/2024 6:30 PM
== END | disposition home or self-care (01) ==
LOC: RADUSWWP 15:39
PROVIDERS: ATTEND Internal Medicine
DX: E04.1 Nontoxic single thyroid nodule (principal)
CPT/HCPCS: 76536

== ENCOUNTER → 2024-06-19 | Outpatient (CLI) | payer OTHER ==
--- NOTE | 2024-06-19 13:18 | US ---
EXAMINATION TYPE: US carotid duplex BILAT DATE OF EXAM: 06/19/2024 COMPARISON: 05/19/2024 04/17/2023 CLINICAL INDICATION: Female, 53 years old with history of I65.23 OCCLUSION AND STENOSIS OF BILATERAL CAROTID; Per patient - doctor thinks the results from the last exam are incorrect due to results from 2022 - patient had heart surgery after 2022 exam Additional History: .... TECHNIQUE: Grayscale, color Doppler and spectral Doppler evaluation of the bilateral carotid systems and vertebral arteries. Indirect Doppler criteria was utilized. FINDINGS: EXAM MEASUREMENTS: RIGHT: Peak Systolic Velocity (PSV) cm/sec ----- Right CCA: 80 ----- Right ICA: 80 ----- Right ECA: 113 ICA/CCA ratio: 1.0 RIGHT: End Diastole cm/sec ----- Right CCA: 20 ----- Right ICA: 27 ----- Right ECA: 13 LEFT: Peak Systolic Velocity (PSV) cm/sec ----- Left CCA: 79 ----- Left ICA: 91 ----- Left ECA: 100 ICA/CCA ratio: 1.2 LEFT: End Diastole cm/sec ----- Left CCA: 18 ----- Left ICA: 32 ----- Left ECA: 16 VERTEBRALS (direction of flow): Right Vertebral: Antegrade Left Vertebral: Antegrade Rhythm: Normal CDS SALES ADVISOR NOTES: No intimal thickening or plaque seen. Elevated velocities seen within the right EC A, otherwise no significant stenosis Color Doppler imaging shows patency with blood flow throughout the carotid artery. Spectral waveforms are within normal limits. IMPRESSION: No ultrasound evidence for hemodynamically significant stenosis of the bilateral visualized internal carotid arteries. Criteria for Assigning % of Stenosis / Diameter reduction (Estimation based on the indirect measurements of the internal carotid artery velocities (ICA PSV). 1. Normal (no stenosis)=ICA PSV < 125 cm/s: ratio < 2.0: ICA EDV<40 cm/s. 2. Less than 50% stenosis=ICA PSV < 125 cm/s: ratio < 2.0: ICA EDV<40 cm/s. 3. 50 to 69% stenosis=ICA PSV of 125 to 230 cm/s: ration 2.0 ? 4.0: ICA EDV 40-100 cm/s. 4. Greater than 70% stenosis to near occlusion= ICA PSV > 230 cm/s: ratio > 4.0: ICA EDV > 100 cm/s. 5. Near occlusion= ICA PSV velocities may be low or undetectable: variable ratio and ICA EDV. 6. Total occlusion=unable to detect flow. [facility], , 06/19/2024 1:16 PM
== END | disposition home or self-care (01) ==
LOC: RADUSWWP 12:24
PROVIDERS: ATTEND Internal Medicine
DX: I65.23 Occlusion and stenosis of bilateral carotid arteries (principal)
CPT/HCPCS: 93880

== ENCOUNTER 2024-07-17 06:06 | Day surgery (SDC) | payer OTHER ==
[2024-07-17 07:04] VITALS: TEMP 97.5
[2024-07-17] MEDS: LACTATED RINGERS 1,000 ML IV SCH (07:11)
[2024-07-17 07:12] LABS: Glucose,Whole Blood 158 mg/dL (70-110)
[2024-07-17] MEDS: IV FLUID CONTINUATION 1,000 ML IV ONE (07:12)
[2024-07-17] MEDS ORDERED: PROPOFOL 10 MG/ML 20 ML VIAL IV ONE (07:24)
[2024-07-17] MEDS ORDERED: LIDOCAINE 1% INJ 10MG/ML (20 ML MDV) ONE (07:24)
--- NOTE | 2024-07-17 07:46 | P.PCN ---
Date of Procedure: 07/17/24 Procedure(s) Performed: Brief history: Patient is a pleasant 53-year-old white female scheduled for an elective upper endoscopy as well as colonoscopy as a part of evaluation of GERD/screening for colon cancer Procedure performed: Esophagogastroduodenoscopy with biopsy Colonoscopy with biopsy Preoperative diagnosis: GERD Screening for colon cancer Anesthesia: MAC Procedure: After informed consent was obtained from the patient was brought into the endoscopy unit and IV sedation was administered by anesthesia under continuous monitoring. Initially upper endoscopy was done. The Olympus GF 160 video endoscope was inserted inserted into the mouth and esophagus intubated without any difficulty and was gradually advanced into the stomach and duodenum and carefully examined. The bulb and second part of the duodenum appeared normal. The scope was then withdrawn into the stomach adequately insufflated with air and upon careful examination the antrum had mild gastritis and biopsies were done from this area. Mucosa body, cardia and fundus appeared normal. The scope was then withdrawn into the esophagus. The GE junction was located at 40 cm to the incisors. It appeared regular with no erythema erosions or ulcerations. Rest of the esophagus appeared normal. Patient tolerated the procedure well. At this time the patient continued to remain sedation. Initial digital rectal examination was normal. Olympus CF 160 video colonoscope was then inserted into the rectum and gradually advanced to the cecum without any difficulty. Careful examination was performed as the scope was gradually being withdrawn. The prep was excellent. The cecum, normal. The ascending colon there was a 5 mm polyp that was removed by cold biopsy. Rest of the ascending colon, transverse colon, descending colon, sigmoid colon and rectum appeared normal. Retroflexion was performed in the rectum and no lesions were noted. Patient tolerated the procedure well. Impression: 1. Upper endoscopy revealed mild gastritis but no evidence of esophagitis or peptic ulcer disease. 2. Colonoscopy revealed 5 mm ascending colon polyp status post cold biopsy and the rest of the colon appeared normal Recommendations: Findings of this examination were discussed with the patient as well as her family. She was advised to follow with the biopsy results. If the biopsy reveals adenoma she can have repeat colonoscopy in 5 years.
[2024-07-17 08:07] VITALS: BP 109/72; PULSE 71; RESP 18
== END 2024-07-17 08:34 ==
LOC: ORWHC2ENDO 06:06
PROVIDERS: ATTEND Internal Medicine Gastroenterology
DX: Z12.11 Encounter for screening for malignant neoplasm of colon (principal); K63.5 Polyp of colon; K29.50 Unspecified chronic gastritis without bleeding; K21.9 Gastro-esophageal reflux disease without esophagitis; I10 Essential (primary) hypertension; I25.10 Atherosclerotic heart disease of native coronary artery without angina pectoris; Z95.1 Presence of aortocoronary bypass graft; E11.40 Type 2 diabetes mellitus with diabetic neuropathy, unspecified; E78.5 Hyperlipidemia, unspecified; K76.0 Fatty (change of) liver, not elsewhere classified; Z79.84 Long term (current) use of oral hypoglycemic drugs; Z79.01 Long term (current) use of anticoagulants; Z79.02 Long term (current) use of antithrombotics/antiplatelets; Z79.620 Long term (current) use of immunosuppressive biologic; Z79.85 Long-term (current) use of injectable non-insulin antidiabetic drugs; Z79.899 Other long term (current) drug therapy; Z87.19 Personal history of other diseases of the digestive system; Z88.0 Allergy status to penicillin; Z88.8 Allergy status to other drugs, medicaments and biological substances; Z88.2 Allergy status to sulfonamides
CPT/HCPCS: 88305; 45380; 43239; J2003; J2704

== ENCOUNTER → 2024-07-28 | Outpatient (CLI) | payer OTHER ==
--- NOTE | 2024-07-28 12:56 | XR ---
EXAMINATION TYPE: XR chest 2V DATE OF EXAM: 07/28/2024 12:51 PM COMPARISON: Chest x-ray September 06, 2023 CLINICAL INDICATION: Female, 53 years old with history of R06.00 dyspnea, TECHNIQUE: Frontal and lateral views of the chest are obtained. FINDINGS: Overlying sternal wires and mediastinal clips along with left atrial appendage clip are all redemonstrated. Mild linear scarring in the midlung region bilaterally is present. There is no suspi cious focal air space opacity, pleural effusion, or pneumothorax seen. The cardiac silhouette size i s within normal limits. The osseous structures are intact. IMPRESSION: Mild bilateral midlung linear scarring. No suspicious acute pulmonary process. [facility], , 07/28/2024 12:54 PM
== END | disposition home or self-care (01) ==
LOC: RADXRMAIN 12:30
PROVIDERS: ATTEND Internal Medicine
DX: J98.4 Other disorders of lung (principal); R06.00 Dyspnea, unspecified
CPT/HCPCS: 71046

== ENCOUNTER → 2024-08-25 | Outpatient (CLI) | payer OTHER | LOC: CPPFTMAIN 15:44 | PROVIDERS: ATTEND Internal Medicine | DX: R06.00 Dyspnea, unspecified (principal); F17.210 Nicotine dependence, cigarettes, uncomplicated; Z88.6 Allergy status to analgesic agent; Z88.0 Allergy status to penicillin; Z88.2 Allergy status to sulfonamides; Z88.8 Allergy status to other drugs, medicaments and biological substances | CPT/HCPCS: 94060; 94726; 94729 ==